=== PATIENT | male | born 1960 | race Caucasian/White ===

== ENCOUNTER 2019-01-20 23:02 | Inpatient (IN) | payer SELFPAY ==
[2019-01-20] MEDS ORDERED: Fentanyl 100 MCG/2 ML VIAL ONE (23:04)
[2019-01-20] MEDS ORDERED: Norepinephrine 8 MG/0.9% NS 250 ML ONE (23:04)
[2019-01-20] MEDS ORDERED: fentaNYL Citrate/PF 2,000 MCG in Sodium Chloride 0.9% 60 ML IV SCH (23:08)
[2019-01-20 23:21] LABS: Actual Bicarbonate (HCO3a) 24.7 mEq/L (22-28); Analyzer IN Cardio ER; Base Excess (BEa) 1.8 mEq/L (-2.0 to +3.0); CO2 Tension 31.6 mmHg (35.0-45.0); Calcium, Ionized 1.06 mmol/L (1.12-1.30); Carboxyhemoglobin (COHb) 0.6 gm% (0.0-3.0); Hemoglobin (Hb) 8.4 g/dL (14.0-18.0); O2 Tension (PaO2) 88.6 mmHg (> 80.0); Potassium - ABG Lab 3.67 mmol/L (3.70-5.30); pH, Arterial 7.51 (7.35-7.45)
[2019-01-20 23:24] LABS: Puncture Site RRA
--- NOTE | 2019-01-20 23:53 | PDOC.FPRHP ---
- History of Present Illness Chief Complaint: Cough / Congestion x 1 month per mother History of Present Illness: Mr. Worthy is a 58yo M who arrived to [facility] via transfer from [place] intubated, sedated, and on Levophed drip. The story per mother ([phone]) is that he has been sick with a cold that has been worsening over the last month. He was diagnosed today with pneumonia at [facility] and they recommended he go to the ER. He went to [facility] ER with shortness of breath and cough. Per the ER records he decompensated, requiring intubation and a chest tube for an empyema diagnosed on CT scan. The chest tube has drained ~500 mL of purulent fluid. Per his mother he does not regularly see a physician. ED Course: In [place] he received Vanc & Zosyn and 4L of fluids (2 NS and 2 LR), propofol, ketamine, - Allergies/Adverse Reactions Allergies Allergy/AdvReac Type Severity Reaction Status Date / Time No Allergy Information Allergy Unverified 01/20/19 23:08 Available - History PMHx: per mother: he likely has COPD unknown PSHx: Cyst removed from back otherwise unknown FHx: unknown Social: Smokes 1 PPD - Review of Systems ROS unobtainable: due to endotracheal tube (sedated and intubated) - Vital signs BP: [] HR: [] RR: [] Tmax: [] Pox: []% on [] Wt: [] - Physical Exam HEENT: normocephalic and atraumatic, PERRLA, EOMI, conjunctiva clear, normal nasal mucosa, MMM Neck: supple, trachea midline Heart: RRR, normal S1/S2, no murmurs/rubs/gallops Lungs: good air movement -Lungs: On ventilator. Coarse breath sounds bilaterally with rhonchi and rales. Abdomen: soft, bowel sounds present Musculoskeletal: normal structure, normal tone Skin: no rash/lesions, good turgor Heme/Lymphatic: no unusual bruising or bleeding, no purpura, no petechia FMR H&P: Results - Labs Result Diagrams: 01/21/19 05:40 01/21/19 05:40 Lab results: ABG pH 7.51 (7.35-7.45) H 01/20/19 23:15 ABG pCO2 31.6 mmHg (35.0-45.0) L 01/20/19 23:15 ABG pO2 88.6 mmHg (> 80.0) H 01/20/19 23:15 - Radiology Interpretation CT scan - chest Status: report reviewed by me (Report from [place] reviewed: Significan empyema present. See scanned report for full details.) FMR H&P: A/P - Problem List (1) Septic shock Current Visit: Yes Status: Acute Code(s): A41.9 - SEPSIS, UNSPECIFIED ORGANISM; R65.21 - SEVERE SEPSIS WITH SEPTIC SHOCK (2) Empyema Current Visit: Yes Status: Acute Code(s): J86.9 - PYOTHORAX WITHOUT FISTULA (3) Acute hypoxemic respiratory failure Current Visit: Yes Status: Acute Code(s): J96.01 - ACUTE RESPIRATORY FAILURE WITH HYPOXIA - Plan Septic shock 2/2 pneumonia / empyema - mother reports 1 month of symptoms of malaise, cough, and congestion - he went to ED today, was noted to be short of breath, decompensated and was intubated. - CT scan shows large empyema. A chest tube was placed which is draining purulent fluid. - He has received 4L IV fluids prior to arrival to [facility], will continue NS @ 125mL/hour - Lactic acid trended up in [place], will trend. - Vanc and Zosyn (01/20) - Wean ventilator as tolerated. Disposition/LOS: Dispo: Stable Code: Full MPOA: Mother [phone] VTE: Lovenox / SCDs FMR H&P: Upper Level - Plan Date/Time: 01/20/19 1982 PCP: CC HPI: This is a 58 yo M transferred from [facility] with little history. He presented to the clinic this afternoon with shortness of breath and was sent to the ED. Eventually he ended up intubated and with a chest tube with 500ml pus drained and was transferred to [facility]. History was gathered by calling his mother at [phone], she states he did not have any chronic medical conditions she knew of but he did smoke 1ppd. She did not know if he took any medications. Apparently he had been short of breath for a month and she finally convinced him to go in to the clinic to be evaluated today. REVIEW OF SYSTEMS: unobtainable, intubated and sedated PHYSICAL EXAMINATION: General: intubated HEENT: pinpoint pupils, reactive Neck: Supple.. Heart/Cardiovascular System: RRR, Cap refill < 3 seconds, no rub, no murmur Lungs/Respiratory System: decreased lung sounds at right base, chest tube in place, otherwise good air movement Abdomen/Gastro-Intestinal System: no abdominal tenderness, normal bowel sounds Extremities: Warm extremities. No cyanosis or edema Neuro: pupils reactive Skin: No lesions, rashes, or ulcers Musculoskeletal: Full ROM A/P: # R hydrothorax, Likley empyema - 500 ml purulent output from chest tube - Blood cx, Body fluid cx pending - Vanc, Zosyn - CT chest shows ground glass bilaterally and R hydrothorax, R PNA - CT abd/pelvis no acute process - Pulm, CV Surgery consulted, appreciate recs # Septic Shock 2/2 above - lactic acid 4.1 -> 5.7 -> 7.5-> 2.6 -> 1.8 - s/p 4L fluids in outside Ed - BPs in low 70s/50s in ED, central line placed and started levophed # Acute hypoxic resp failure 2/2 above - On ventilator, fentanyl for sedation Fluids: LR Code status: full PPx: lovenox Addendum - Attending - Attending Attestation Date/Time: 01/21/19 0731 I personally evaluated the patient and discussed the management with Dr. Gomez on 01/20/2019 I agree with the History, Examination, Assessment and Plan documented above with any addition or exceptions noted below - This is a 58yo M who arrived to [facility] via transfer from [place] intubated, sedated, and on Levophed drip. Per family (mother) he has been sick with a cold that has been worsening over the last month. He was diagnosed today with pneumonia at [facility] and they recommended he go to the ER. He went to [facility] ER with shortness of breath and cough. Per the ER records he decompensated, requiring intubation and a chest tube for an empyema diagnosed on CT scan. The chest tube has drained ~500 mL of purulent fluid. Per family does not have a chronic medical conditions but does not see a physician regularly. PMH/PSH/Meds/SH reviewed and agree with resident's documentation. Tm 101.8 in [place] P107 BP 78/59 98% Exam repeated by me and agree with resident's findings. Labs: WBC=15.4, H/H=8.8/ 27.9, Tik=672, MCV=77.9, Ww=422, K=3.8, Cl=84, CO2=25, BUN/Cr=11/0.74, Gluc= 126 , ALT/AST= 20/11, Lactic acid 4.1 ->5.7 -> 7.1, ABG post intubation - 7.43/40/ 316/26, CT chest - moderate R hydropneumothorax inferiorly, mild lymphadenopathy. A/P: 1) Septic shock secondary to pneumonia/empyema - Admit to CCU. Received 5L crystalloid in [place]. Will start on levophed for pressure support 2) Acute respiratory failure- continue vent support; pulmonary consulted for assistance. 3) Pneumonia/empyema- has drained 500 mL purulent fluid from chest tube. Continue Vanc/Zosyn. Blood, urine cultures collected and sent.
[2019-01-20 23:57] LABS: Hemoglobin 7.7 g/dL (14.0-18.0); Mean Corpuscular HGB CONC 31.3 g/dL (32.0-36.0); Mean Corpuscular Hemoglobin 25.4 pg (27.0-31.0); Mean Platelet Volume 6.3 fL (7.4-10.4); Platelet Count 328 thou/uL (130-400); Red Blood Cell (RBC) Count 3.03 mill/uL (4.70-6.10); White Blood Cell (WBC) Count 15.4 thou/uL (4.8-10.8)
[2019-01-21 00:10] LABS: ALT (SGPT) 14 U/L (8-55); AST (SGOT) 12 U/L (5-34); Albumin 1.6 g/dL (3.5-5.0); Alkaline Phosphatase 93 U/L (40-110); Anion Gap 13 mmol/L (10-20); BUN (Urea Nitrogen) 10 mg/dL (8.4-25.7); Bilirubin, Total 0.4 mg/dL (0.2-1.2); Calc. Creatinine Clearance 0 mL/min (70-130); Calcium 7.1 mg/dL (7.8-10.44); Carbon Dioxide 23 mmol/L (22-29); Chloride 95 mmol/L (98-107); Estimated GFR-MDRD Greater than 90; Globulin 3.5 g/dL (2.4-3.5); Glucose 87 mg/dL (70-105); Potassium 3.5 mmol/L (3.5-5.1); Protein, Total 5.1 g/dL (6.0-8.3); Sodium 127 mmol/L (136-145)
[2019-01-21] MEDS ORDERED: Ondansetron PF 4 MG/2 ML Vial IVP PRN (00:19)
[2019-01-21] MEDS ORDERED: CCU Electrolyte Replacement 1 EACH IVPB ONE (00:19)
[2019-01-21] MEDS ORDERED: Norepinephrine 8 MG/0.9% NS 250 ML IVPB PRN (00:19)
[2019-01-21 00:22] LABS: Band 24 % (5-11); Lymphocytes 11 % (21-51); MDiff Complete? YES; Monocytes 3 % (0-10); Neutrophil 62 % (42-75); Toxic Granulation SLIGHT; Vacuoles SLIGHT
[2019-01-21] MEDS ORDERED: Ventilator Sedation Protocol 1 EACH FS SCH (00:30)
[2019-01-21] MEDS ORDERED: Potassium Phosphate 12 MMOL in Sodium Chloride 0.9% 250 ML 250 ML IV PRN (00:33)
[2019-01-21] MEDS ORDERED: Magnesium Oxide 400 MG TAB PO PRN ×2 (00:33)
[2019-01-21] MEDS ORDERED: Magnesium 2 GM/50 ML 2 GM in Premix Bag 1 BAG IVPB PRN (00:33)
[2019-01-21] MEDS ORDERED: CCU ELECTROLYTE REPLACEMENT PROTOCOL FS PRN (00:33)
[2019-01-21] MEDS ORDERED: Potassium Chloride 40 MEQ in Sodium Chloride 0.9% 250 ML 250 ML IVPB PRN (00:33)
[2019-01-21] MEDS ORDERED: Fentanyl BOLUS 250 ML IVPB PRN (00:33)
[2019-01-21] MEDS ORDERED: DISCONTINUE PREVIOUS NARCOTIC PAIN MEDICATIONS AND BENZODIAZEPINES FS SCH (00:33)
[2019-01-21] MEDS ORDERED: Morphine 2 MG/ML SYRINGE SLOW IVP PRN (00:33)
[2019-01-21] MEDS ORDERED: Potassium Phosphate 15 MMOL in Sodium Chloride 0.9% 250 ML 250 ML IV PRN (00:33)
[2019-01-21] MEDS ORDERED: Potassium Chloride 20 MEQ TAB PO PRN (00:33)
[2019-01-21] MEDS ORDERED: Potassium Phosphate 9 MMOL in Sodium Chloride 0.9% 100 ML IVPB PRN (00:33)
[2019-01-21] MEDS ORDERED: PHOS-NAK 1 PKT PACK PO PRN ×2 (00:33)
[2019-01-21] MEDS ORDERED: Propofol BOLUS 1,000 MG/100 ML VIAL IV PRN (00:33)
[2019-01-21] MEDS ORDERED: Lorazepam 2 MG/ML VIAL ONE (00:34)
[2019-01-21] MEDS ORDERED: Lactated Ringer's 1,000 ML IV SCH ×2 (00:45→03:30)
[2019-01-21 02:46] LABS: Lactic Acid 1.8 mmol/L (0.5-2.2)
[2019-01-21] MEDS: Piperacillin/Tazobactam 3.375 GM in Sodium Chloride 0.9% 100 ML IVPB SCH ×4 (02:50→21:02)
[2019-01-21] MEDS: Lactated Ringer's 1,000 ML IV SCH ×2 (03:34→14:43)
--- NOTE | 2019-01-21 03:36 | CON ---
DATE OF CONSULTATION: 01/21/2019 SERVICE: Pulmonary Medicine. REASON FOR CONSULT: Intubated patient. HISTORY OF PRESENT ILLNESS: The patient is a 58-year-old white male with past medical history significant for progressive cough, shortness of breath. It has been progressive over a period of about a month. Ultimately, he was transferred to [facility]. At that location, he had severe dyspnea and septic shock. He was appropriately resuscitated, and a chest tube was placed. His airway was secured. He was subsequently sent here intubated. He has been on appropriate antibiotics. The patient remains a little bit hypotensive. Fluid resuscitation has been more than adequate at this point. He cannot provide any additional elements of the history, but currently appears comfortable. PAST MEDICAL HISTORY: Unknown. PAST SURGICAL HISTORY: Unknown. SOCIAL HISTORY: Unknown. FAMILY HISTORY: Unknown. ALLERGIES: NONE KNOWN. MEDICATIONS: List of his inpatient medications was reviewed. No specific updates were made at this time. REVIEW OF SYSTEMS: The patient cannot provide review of systems given his current intubated and sedated state. PHYSICAL EXAMINATION: VITAL SIGNS: Afebrile currently. Pulse 87, blood pressure 94/62, respirations 18, and saturation 100%, currently on 27% FiO2 and a PEEP of 5. GENERAL: The patient is intubated and sedated. HEENT: Normocephalic and atraumatic. Sclerae white. Conjunctivae pink. Oral mucosa is moist without lesions. LUNGS: Very good air entry. Rhonchi are present, particularly on the right. HEART: Normal rate. Regular. ABDOMEN: Soft, nontender, and nondistended. Bowel sounds are hypoactive. GENITOURINARY: Hernandez catheter in place. MUSCULOSKELETAL: No cyanosis or clubbing. There is no pitting edema. There is skin tenting throughout. NEUROLOGIC: Grossly nonfocal. LABORATORY DATA: WBC 15.4, hemoglobin 7.7, platelets 328,000. Neutrophil count is 62% on top of 24% bands. PH 7.51, pCO2 of 31, PO2 of 88, corresponding to saturation 95%. At this time, his rate was at 22, which has been downward adjusted. Sodium 127. Basic metabolic profile and liver function studies are otherwise unremarkable. Lactate has trended downward to 1.8. Albumin 1.6. IMAGING DATA: Chest x-ray demonstrates thoracostomy tube is in the pleural space. That being said, there has not been re-expansion of the right lower lobe. There is an IJ central venous catheter in good position. Dense infiltrate remains in the right lower lobe. It is not clear to me whether this represents infiltrate or collection of fluid. There is an enteric catheter coursing below the level of the diaphragm in good position. Endotracheal tube measures 4 cm above the level of the erick. It is also in good position. ASSESSMENT: 1. Acute hypoxic respiratory failure. 2. Empyema. 3. Septic shock, improving. DISCUSSION AND PLAN: I will transduce a CVP. If this is low, additional boluses of fluid will be offered. We will continue to follow electrolytes and CBC through time. Ultimately, I do think that the patient is going to require definitive drainage of this space. Cardiothoracic Surgery consultation will be placed. Once he cools off from his inflammatory profile, a thoracotomy may need to be considered. Antibiotics are appropriate. Most likely, we will be able to get rid of the vancomycin, though regardless of whether or not we grow anaerobic organisms, these should certainly be covered given the putrid smell of the material coming out of his chest. Pulmonary/Critical Care will continue to follow along. CRITICAL CARE TIME: 30 minutes. Job ID: [id number]
[2019-01-21] MEDS ORDERED: Vancomycin 1.5 GRAM/300 ML BAG 1.5 GM in Premix Bag 1 BAG IVPB SCH (04:00)
[2019-01-21] MEDS ORDERED: Clindamycin/D5W 600 MG in Premix Bag 1 BAG IVPB SCH (06:00)
[2019-01-21 06:03] LABS: Hemoglobin 6.5 g/dL (14.0-18.0); Mean Corpuscular HGB CONC 31.3 g/dL (32.0-36.0); Mean Corpuscular Hemoglobin 25.4 pg (27.0-31.0); Mean Corpuscular Volume 81.4 fL (78.0-98.0); Mean Platelet Volume 6.2 fL (7.4-10.4); Platelet Count 278 thou/uL (130-400); RBC Distribution Width 15.1 % (11.5-14.5); Red Blood Cell (RBC) Count 2.54 mill/uL (4.70-6.10); White Blood Cell (WBC) Count 15.1 thou/uL (4.8-10.8)
[2019-01-21 06:32] LABS: Anion Gap 4 mmol/L (10-20); BUN (Urea Nitrogen) 8 mg/dL (8.4-25.7); Calc. Creatinine Clearance 149 mL/min (70-130); Calcium 6.7 mg/dL (7.8-10.44); Carbon Dioxide 28 mmol/L (22-29); Chloride 102 mmol/L (98-107); Estimated GFR-MDRD Greater than 90; Glucose 84 mg/dL (70-105); Potassium 3.3 mmol/L (3.5-5.1); Sodium 131 mmol/L (136-145)
[2019-01-21] MEDS ORDERED: Sodium Chloride 0.9% 2,000 ML IV SCH (07:00)
--- NOTE | 2019-01-21 08:03 | PDOC.FM ---
- Subjective Subjective: Mr. Worthy is intubated, sedated. Did not respond to painful stimuli for me this morning. - Objective MAR Reviewed: Yes Vital Signs & Weight: Vital Signs (12 hours) Temp Pulse Resp BP Pulse Ox 01/21/19 06:55 87 106/60 01/21/19 06:00 19 01/21/19 04:00 98.6 F 19 01/21/19 02:33 87 94/62 01/21/19 02:00 18 01/21/19 01:29 97 97/58 L 01/21/19 01:28 96 01/21/19 01:20 98.4 F Weight Weight 76.2 kg Most Recent Monitor Data Heart Rate from ECG 89 NIBP 109/67 NIBP BP-Mean 81 Respiration from ECG 17 SpO2 96 I&O: 01/20/19 01/21/19 01/22/19 06:59 06:59 06:59 Intake Total 2336 Output Total 745 160 Balance 1591 -160 Result Diagrams: 01/22/19 03:03 01/22/19 03:03 Phys Exam - Physical Examination intubated Respiratory: no wheezing, no rhonchi chest tube in place Cardiovascular: RRR, no significant murmur Gastrointestinal: soft, no distention, positive bowel sounds Musculoskeletal: edema present (2+ BLE pitting) intubated, sedated Skin: normal turgor Dx/Plan (1) Anemia Code(s): D64.9 - ANEMIA, UNSPECIFIED Status: Acute (2) Hypokalemia Code(s): E87.6 - HYPOKALEMIA Status: Acute (3) Acute hypoxemic respiratory failure Code(s): J96.01 - ACUTE RESPIRATORY FAILURE WITH HYPOXIA Status: Acute (4) Empyema Code(s): J86.9 - PYOTHORAX WITHOUT FISTULA Status: Acute (5) Septic shock Code(s): A41.9 - SEPSIS, UNSPECIFIED ORGANISM; R65.21 - SEVERE SEPSIS WITH SEPTIC SHOCK Status: Acute - Plan Plan: Septic shock 2/2 pneumonia / empyema - 1 month of symptoms of malaise, cough, and congestion - CT scan shows R hydrothorax, ground glass bilaterally, purulent fluid drained , chest tube placed - lactid acid downtrended, leukocytosis downtrended slightly 15.4->15.1 - s/p adequate fluid resuscitation. On levophed - IVF LR @75, good urine output - Continue Zosyn (01/20), discontinued Vanc as MRSA not likely organism. Cultures pending - CV surgery consulted Acute Hypoxic Respiratory failure 2/2 above - Intubated 01/20, sedated - Pulm consulted, managing vent Normocytic Anemia - Hgb downtrended 7.7->6.5 - 1 u prbc already ordered for this am - will continue to trend, no GI loss suspected Hypokalemia - mild, 3.3 this am. CCU electrolyte protocol for replacement - recheck in am Hyponatremia - Improved to 131 this am, rech on am BMP Code: Full Contact: Mother [phone] Dispo: CV surgery consulted, pending recommendations. Transfusing 1 u prbc, will follow H&H. Continue abx therapy with Zosyn Addendum - Attending - Attending Attestation Date/Time: 01/21/19 1725 I personally evaluated the patient and discussed the management with Dr. Urbano I agree with the History, Examination, Assessment and Plan documented above with any addition or exceptions noted below. HD#0 Admitted for septic shock due to empyema s/p chest tube Remains intubated, sedated, and on pressors. CT surg to take to OR this AM. Send fluid studies. Continue empiric antibx. Low risk for MRSA. Trend procal/CRP if elevated. Monitor closely. Adjust home meds as needed. Continue ICU care. Turner
--- NOTE | 2019-01-21 08:22 | RAD ---
CHEST 1 VIEW: INDICATION: Status post intubation. COMPARISON: Prior exam dated 01/20/2019. FINDINGS: Since the comparison examination, there has been interval placement of a right-sided thoracostomy tub e. There is a right IJ central venous catheter. The patient is intubated with a gastric catheter pl acement. There is vascular congestion of the right perihilar region. There is a loculated fluid and gas collection within the right hemithorax suspicious for hydropneumothorax. There is a small left pleural effusion now present. There is left basilar airspace opacity which may reflect aspiration, p neumonia, or atelectasis. IMPRESSION: 1. Persistent right-sided hydropneumothorax with a right-sided thoracostomy tube. 2. Endotracheal tube, gastric catheter, and right internal jugular central venous catheter. 3. Pulmonary vascular congestion of the right hemithorax. 4. Left infrahilar airspace opacity suspicious for atelectasis, pneumonitis, or pneumonia. Continue d followup is recommended. 5. New small left pleural effusion. POS: BH
[2019-01-21] MEDS: Potassium Chloride 40 MEQ in Premix Bag 1 BAG IVPB SCH ×2 (08:41→14:37)
[2019-01-21] MEDS ORDERED: Enoxaparin Sodium 40 MG/0.4 ML SYRINGE SC SCH ×2 (09:00→11:30)
[2019-01-21] MEDS ORDERED: Vancomycin HCl 1.5 GM in Sodium Chloride 0.9% 250 ML 300 ML IVPB SCH (09:00)
[2019-01-21] MEDS ORDERED: Sodium Chloride 0.9% (PF) 10 ML VIAL FS PRN (09:59)
[2019-01-21] MEDS ORDERED: Rocuronium Bromide 10 MG/ML (10ML VIAL) ONE (09:59)
--- NOTE | 2019-01-21 10:51 | CON ---
DATE OF CONSULTATION: 01/21/2019 HISTORY OF PRESENT ILLNESS: Mr. Worthy was admitted on transfer from the [facility]. He was seen there with progressive shortness of breath and cough over the course of a month. He was found to have a large right effusion. He had chest tube placed with foul drainage. Chest x-ray this morning shows a large space under his right lower lobe with some consolidation of the right lower lobe. The chest tube has continued to drain. He is intubated, sedated on the ventilator. I have been asked to see him to provide guidance on further therapy. PAST MEDICAL HISTORY: Unknown. PAST SURGICAL HISTORY: Unknown. SOCIAL HISTORY: Unknown. MEDICATIONS: Unknown. ALLERGIES: UNKNOWN. PHYSICAL EXAMINATION: GENERAL: The patient is sedated on the ventilator. VITAL SIGNS: Heart rate is 80 and regular, blood pressure is 97/56, and oxygen saturation is 100%. LUNGS: Have clear breath sounds on the left with crackles on the right. ABDOMEN: Soft and nontender. EXTREMITIES: No edema. ASSESSMENT AND PLAN: Right empyema with failure to re-expand the right lower lobe. This has been a long course and will need complete decortication. We will plan for thoracotomy later today. Job ID: [id number]
[2019-01-21] MEDS ORDERED: Ketamine 50 MG/ML (10ML VIAL) ONE (11:12)
--- NOTE | 2019-01-21 14:03 | RAD ---
EXAM: Single view of the chest HISTORY: Status post right thoracotomy COMPARISON: 01/21/2019 at 12:35 AM FINDINGS: Single view of the chest shows an enlarged but stable cardiomediastinal silhouette. The NG tube has been removed. 2 right-sided chest tubes are now seen and postsurgical changes are seen overlying the right thorax. The other lines and tubes are unchanged in position. No pneumothorax is visualized. Airspace opacity in the right thorax likely represents loculated pleural effusion and/or atelectasis. The bones are unremarkable. IMPRESSION: Interval post surgical changes of the right thorax as above.
[2019-01-21] MEDS: Pantoprazole 40 MG VIAL IVP SCH (14:35)
[2019-01-21] MEDS ORDERED: Heparin 1,000 UNITS/ML VIAL ONE (14:58)
--- NOTE | 2019-01-21 19:06 | OP ---
DATE OF PROCEDURE: 01/21/2019 PREOPERATIVE DIAGNOSIS: Right empyema. POSTOPERATIVE DIAGNOSIS: Right empyema. PROCEDURE PERFORMED: Right thoracotomy with total pulmonary decortication. ANESTHESIA: General endotracheal, Dr. Nagi Patel. DRAINS: A 32-Moldovan chest tubes x2. SPECIMENS: Cultures were taken of the pleural fluid. FINDINGS: Thick peel both parietal and parenchymal. The lung was completely freed and expanded to fill most of the remaining cavity. DESCRIPTION OF PROCEDURE: The patient was brought to the operating room, placed in supine position on the operating room table. Endotracheal tube was exchanged for double-lumen tube. The patient was placed in the left lateral decubitus position. Joints were appropriately padded. SCDs were used. Right chest wall was prepped and draped in usual sterile fashion. Posterolateral thoracotomy incision was made. Dissection down to the ribs was obtained with electrocautery. The sixth interspace was entered and rib spread. On entering this cavity, there was purulent material, which was cultured. The peel was removed from both the chest wall and the lung. Multiple air leaks were created in the lung. The lung was re-expanded and filled most of the chest cavity nicely. 32-Moldovan chest tubes were placed, one right angle along the diaphragm and one up to the apex. Chest was then copiously irrigated with 4 L of saline. Ribs were reapproximated with #1 Vicryl. Wounds were closed in layers, and clips were used to close the skin. The double-lumen tube was exchanged for a single-lumen tube, and the patient was transferred back to the intensive care unit in critical condition. Job ID: [id number]
[2019-01-22] MEDS: Piperacillin/Tazobactam 3.375 GM in Sodium Chloride 0.9% 100 ML IVPB SCH ×4 (02:54→21:11)
[2019-01-22] MEDS: Propofol 1,000 MG/100 ML VIAL IV PRN ×3 (02:54→21:11)
[2019-01-22 04:16] LABS: Anion Gap 8 mmol/L (10-20); BUN (Urea Nitrogen) 10 mg/dL (8.4-25.7); Calc. Creatinine Clearance 139 mL/min (70-130); Calcium 7.1 mg/dL (7.8-10.44); Carbon Dioxide 26 mmol/L (22-29); Chloride 106 mmol/L (98-107); Estimated GFR-MDRD Greater than 90; Glucose 95 mg/dL (70-105); Sodium 136 mmol/L (136-145)
[2019-01-22 05:03] LABS: Band 20 % (5-11); Hemoglobin 10.3 g/dL (14.0-18.0); Lymphocytes 3 % (21-51); MDiff Complete? YES; Mean Corpuscular Hemoglobin 27.4 pg (27.0-31.0); Mean Corpuscular Volume 85.7 fL (78.0-98.0); Mean Platelet Volume 6.6 fL (7.4-10.4); Monocytes 3 % (0-10); Neutrophil 74 % (42-75); Platelet Count 253 thou/uL (130-400); RBC Distribution Width 14.9 % (11.5-14.5); Red Blood Cell (RBC) Count 3.76 mill/uL (4.70-6.10); White Blood Cell (WBC) Count 18.9 thou/uL (4.8-10.8)
--- NOTE | 2019-01-22 06:24 | PDOC.FM ---
- Subjective Subjective: Able to follow commands Nods yes if asked if comfortable POD #1 from thoracotomy with empyema debridement - Objective Vital Signs & Weight: Vital Signs (12 hours) Temp Pulse Resp BP Pulse Ox 01/22/19 06:00 18 01/22/19 04:00 99.6 F 22 H 01/22/19 02:12 87 01/22/19 02:00 21 H 01/22/19 00:18 103 H 103/64 01/22/19 00:00 99.4 F 19 01/21/19 22:08 99 108/69 01/21/19 22:00 17 01/21/19 20:00 97.7 F 22 H 97 Weight Admit Weight 76.2 kg Weight 76.2 kg Most Recent Monitor Data Heart Rate from ECG 92 NIBP 107/66 NIBP BP-Mean 79 Respiration from ECG 21 SpO2 98 I&O: 01/20/19 01/21/19 01/22/19 06:59 06:59 06:59 Intake Total 2336 4517.1 Output Total 745 1959 Balance 1591 2558.1 Result Diagrams: 01/22/19 03:03 01/22/19 03:03 Phys Exam - Physical Examination Constitutional: NAD intubated, awke HEENT: moist MMs, sclera anicteric Respiratory: no wheezing, clear to auscultation bilateral Cardiovascular: RRR, no significant murmur right chest tube draining to graivty Gastrointestinal: soft, non-tender Musculoskeletal: no edema Neurological: non-focal Dx/Plan (1) S/P thoracostomy tube placement Code(s): Z93.8 - OTHER ARTIFICIAL OPENING STATUS Status: Acute (2) Acute hypoxemic respiratory failure Code(s): J96.01 - ACUTE RESPIRATORY FAILURE WITH HYPOXIA Status: Acute (3) Anemia Code(s): D64.9 - ANEMIA, UNSPECIFIED Status: Acute (4) Empyema Code(s): J86.9 - PYOTHORAX WITHOUT FISTULA Status: Acute (5) Septic shock Code(s): A41.9 - SEPSIS, UNSPECIFIED ORGANISM; R65.21 - SEVERE SEPSIS WITH SEPTIC SHOCK Status: Acute - Plan Plan: #.Septic shock 2/2 pneumonia / empyema - 1 month of symptoms of malaise, cough, and congestion - CT scan shows R hydrothorax, ground glass bilaterally, purulent fluid drained , chest tube placed - S/P thoracotomy with right empyema decortication - Improving overall: WBC downtrending, afebrile - On levophed gtt with MAPs >65, can consider weaning - Continue Zosyn (01/20), adding on coverage fro gram + rods and chain coverage - CV surgery on board, recs appreciated #.Acute Hypoxic Respiratory failure 2/2 above on mechanical ventilation - Intubated 01/20, sedated - Pulm consulted, managing vent #.Normocytic Anemia - 6.5 on admission - s/p 3 PRBCs, Hb 10 this AM #.Hypokalemia, resolved - Continue CCU electrolyte protocol for replacement #.Hyponatremia, resolved Code: Full Contact: Mother [phone] Dispo: CV surgery and pulm on board, recs appreciated. Sepsis-improved. Continue abx therapy with Zosyn and will add abx for gram + blanca and chain coverage empirically pending culture results. Monitor urine output. Addendum - Attending - Attending Attestation Date/Time: 01/22/19 1111 I personally evaluated the patient and discussed the management with Dr. Mauricio. I agree with the History, Examination, Assessment and Plan documented above with any addition or exceptions noted below. Patient s/p POD1. Continues to produce through his chest tube. Expanding abx coverage for G+cocci. Continue Pulm and CV surg recs. UOP adequate. On Vent but able to respond to command and answer simple questions.
[2019-01-22] MEDS: Lactated Ringer's 1,000 ML IV SCH ×3 (07:27→21:11)
--- NOTE | 2019-01-22 07:31 | RAD ---
CHEST 1 VIEW: Date: 01/22/19 IMPRESSION: Right-sided thoracostomy tube, ET tube, and right IJ central venous catheter stable. There is a new g astric catheter that projects below the left hemidiaphragm beyond the field of view. There is persist ent pleural parenchymal opacity involving the right lung base. Small pockets of suspected residual pn eumothorax remains on the right. Left basilar atelectasis appears stable. IMPRESSION: 1. Slightly reducing right-sided hydropneumothorax. There is persistent opacity in the region of the right middle lobe. There is persistent left basilar atelectasis. 2. Tubes and lines are stable. POS: BH
[2019-01-22] MEDS: Enoxaparin Sodium 40 MG/0.4 ML SYRINGE SC SCH (08:48)
[2019-01-22] MEDS: Pantoprazole 40 MG VIAL IVP SCH (08:48)
[2019-01-22] MEDS ORDERED: Vancomycin HCl 1.25 GM in Sodium Chloride 0.9% 250 ML 300 ML IVPB SCH (09:00)
[2019-01-22] MEDS ORDERED: Vancomycin HCl 1.25 GM in Sodium Chloride 0.9% 250 ML 250 ML IVPB SCH (10:00)
--- NOTE | 2019-01-22 16:30 | PRG ---
DATE OF SERVICE: 01/22/2019 SUBJECTIVE: Keny Worthy remains mechanically ventilated. OBJECTIVE: VITAL SIGNS: Heart rate is 80, respiratory rates in the 20s, blood pressure 100/69. LUNGS: Remarkable for coarse equal breath sounds. HEART: Regular rhythm. ABDOMEN: Soft. LABORATORY DATA: White count 18.9, hemoglobin 10.3, platelets 253. Sodium 136, potassium 4, chloride 106, bicarb 26, BUN 10, creatinine 0.61. A pH 2 days ago 7.51, CO2 of 31, pO2 of 88. There is no blood gas today. Chest radiograph shows haziness in the right base more than the left. IMPRESSION: 1. Status post decortication. 2. Pneumonia. 3. Respiratory failure. Gram stain on the pleural fluid is polymicrobial, which would suggest this was an aspiration pathogen. Given his 1-month decline, probably need to start slowly weaning from mechanical ventilation. It is unclear to me how functional he was prior to this illness. We will continue with current care. CRITICAL CARE TIME: 30 minutes. Job ID: [id number]
[2019-01-22] MEDS: Lorazepam 2 MG/ML VIAL SLOW IVP PRN (18:16)
[2019-01-22] MEDS: Vancomycin 1.5 GRAM/300 ML BAG 1.5 GM in Premix Bag 1 BAG IVPB SCH (21:14)
[2019-01-23] MEDS: Piperacillin/Tazobactam 3.375 GM in Sodium Chloride 0.9% 100 ML IVPB SCH ×4 (04:42→21:10)
[2019-01-23] MEDS: Propofol 1,000 MG/100 ML VIAL IV PRN ×3 (04:43→17:25)
[2019-01-23 05:24] LABS: Anion Gap 8 mmol/L (10-20); BUN (Urea Nitrogen) 13 mg/dL (8.4-25.7); Calc. Creatinine Clearance 144 mL/min (70-130); Calcium 7.1 mg/dL (7.8-10.44); Carbon Dioxide 26 mmol/L (22-29); Chloride 106 mmol/L (98-107); Estimated GFR-MDRD Greater than 90; Glucose 94 mg/dL (70-105); Hemoglobin 9.4 g/dL (14.0-18.0); Mean Corpuscular HGB CONC 31.5 g/dL (32.0-36.0); Mean Corpuscular Hemoglobin 27.2 pg (27.0-31.0); Mean Corpuscular Volume 86.1 fL (78.0-98.0); Mean Platelet Volume 6.5 fL (7.4-10.4); Platelet Count 227 thou/uL (130-400); Potassium 3.6 mmol/L (3.5-5.1); RBC Distribution Width 15.1 % (11.5-14.5); Red Blood Cell (RBC) Count 3.46 mill/uL (4.70-6.10); Sodium 136 mmol/L (136-145); White Blood Cell (WBC) Count 17.4 thou/uL (4.8-10.8)
[2019-01-23 05:25] LABS: Hypochromia SLIGHT = 6-15 cells (100X) (0-5/hpf); Lymphocytes 4 % (21-51); MDiff Complete? YES; Monocytes 3 % (0-10); Neutrophil 93 % (42-75); Platelet Morphology Comment Appears Adequate
[2019-01-23 06:40] LABS: Actual Bicarbonate (HCO3a) 24.2 mEq/L (22-28); Base Excess (BEa) 1.2 mEq/L (-2.0 to +3.0); CO2 Tension 32.4 mmHg (35.0-45.0); Calcium, Ionized 1.09 mmol/L (1.12-1.30); Carboxyhemoglobin (COHb) 1.3 gm% (0.0-3.0); Hemoglobin (Hb) 9.8 g/dL (14.0-18.0); O2 Tension (PaO2) 73.1 mmHg (> 80.0); Potassium - ABG Lab 3.54 mmol/L (3.70-5.30); pH, Arterial 7.49 (7.35-7.45)
--- NOTE | 2019-01-23 06:45 | PDOC.FM ---
- Subjective Subjective: NAEO. Did not pass vent wean. - Objective Vital Signs & Weight: Vital Signs (12 hours) Pulse Resp BP Pulse Ox 01/23/19 02:11 97 111/63 01/23/19 02:00 24 H 01/23/19 00:00 22 H 01/22/19 22:00 24 H 01/22/19 21:52 92 107/61 01/22/19 20:00 24 H 01/22/19 19:30 100 Weight Admit Weight 76.2 kg Weight 77.6 kg Most Recent Monitor Data Heart Rate from ECG 104 NIBP 122/70 NIBP BP-Mean 87 Respiration from ECG 21 SpO2 95 I&O: 01/21/19 01/22/19 01/23/19 06:59 06:59 06:59 Intake Total 2336 5355.3 2833 Output Total 745 2229 1240 Balance 1591 3126.3 1593 Result Diagrams: 01/23/19 03:47 01/23/19 03:47 Phys Exam - Physical Examination sedated, on mech ventilation HEENT: sclera anicteric Respiratory: no wheezing, clear to auscultation bilateral Cardiovascular: RRR, no significant murmur Gastrointestinal: soft 1+ edema in legs sedated Dx/Plan (1) S/P thoracostomy tube placement Code(s): Z93.8 - OTHER ARTIFICIAL OPENING STATUS Status: Acute (2) Acute hypoxemic respiratory failure Code(s): J96.01 - ACUTE RESPIRATORY FAILURE WITH HYPOXIA Status: Acute (3) Anemia Code(s): D64.9 - ANEMIA, UNSPECIFIED Status: Acute (4) Empyema Code(s): J86.9 - PYOTHORAX WITHOUT FISTULA Status: Acute (5) Septic shock Code(s): A41.9 - SEPSIS, UNSPECIFIED ORGANISM; R65.21 - SEVERE SEPSIS WITH SEPTIC SHOCK Status: Acute - Plan Plan: #.Septic shock 2/2 pneumonia / empyema - 1 month of symptoms of malaise, cough, and congestion - CT scan shows R hydrothorax, ground glass bilaterally, purulent fluid drained , chest tube placed - Improving overall: WBC downtrending, afebrile - On levophed gtt with MAPs >65, can consider weaning - Prelim pleural fluid gram stain polymicrobial, likely aspiration- Continue Zosyn (01/20) and Vanc (01/22), pending cx #. S/P Decortication, POD 2 -S/P thoracotomy with right empyema decortication with CV surgery -Right chest tube in place - CV surgery on board, recs appreciated #.Acute Hypoxic Respiratory failure 2/2 above on mechanical ventilation - Intubated 01/20, sedated - Pulm consulted, managing vent #.Normocytic Anemia - 6.5 on admission - s/p 3 PRBCs, Hb 9 this AM #.Hypokalemia, resolved - Continue CCU electrolyte protocol for replacement #.Hyponatremia, resolved Code: Full Contact: Mother [phone] Dispo: CV surgery and pulm on board, recs appreciated. Sepsis-improved. Continue abx therapy with Zosyn and Vanc pendin pleural fluid culture results. Monitor urine output. Lasix x1 since starting to develop edema. Addendum - Attending - Attending Attestation Date/Time: 01/23/19 0900 I personally evaluated the patient and discussed the management with Dr. Mauricio. I agree with the History, Examination, Assessment and Plan documented above with any addition or exceptions noted below. Patient overall stable. Continues on broad spectrum abx treatment for empyema. Chest tube in place and still on ventilator. Pulm and CV surgery on board. Awaiting final cultures but suspect aspiration component. WBC overall stable. UOP adequate.
[2019-01-23 06:51] LABS: Puncture Site RRAD
[2019-01-23] MEDS: Acetaminophen 650 MG Suppository PR PRN ×2 (07:53→21:55)
--- NOTE | 2019-01-23 08:15 | PRG ---
DATE OF SERVICE: 01/23/2019 35 minutes of critical care time. SUBJECTIVE: This patient remains intubated and on mechanical ventilation. He is status post decortication a couple of days ago and was left on the ventilator afterward. OBJECTIVE: VITAL SIGNS: At the current time, temperature is 98.8, pulse 81, blood pressure 122/70. Intake for 24 hours 2833, output 1240. HEENT: Unremarkable. NECK: No adenopathy or JVD. LUNGS: He has diminished breath sounds on the right compared to left. He has a chest tube in the right. CARDIOVASCULAR: S1 and S2. Regular. ABDOMEN: Soft, nontender. EXTREMITIES: No edema. LABORATORY DATA: White blood cell count 17.4, hematocrit 29.8, and platelet count 227. PH of 7.49, pCO2 of 32, pO2 of 73 on SIMV rate 12, tidal volume 470, PEEP 5, pressure support 17, FiO2 40%. Sodium 136, potassium 3.6, chloride 106, CO2 of 26, BUN 13, creatinine 0.6, and glucose 94. IMAGING STUDIES: Chest x-ray shows no acute changes, some volume loss in the right base where the chest tubes are present. The x-ray is somewhat rotated to the right. ASSESSMENT: 1. Status post decortication for right-sided empyema. 2. Pneumonia. 3. Respiratory failure. 4. Polymicrobial pleural fluid Gram stain. PLAN: 1. Work towards weaning from mechanical ventilation. 2. Continue the piperacillin and vancomycin until we have final culture results back. 3. If unable to extubate, then start enteral tube feeds. Job ID: [id number]
[2019-01-23] MEDS ORDERED: Sodium Bicarbonate Tab 325 MG TAB PER TUBE PRN (08:33)
[2019-01-23] MEDS ORDERED: Pancrelipase DR 12000 1 CAP FS PRN (08:33)
[2019-01-23] MEDS: Enoxaparin Sodium 40 MG/0.4 ML SYRINGE SC SCH (09:10)
[2019-01-23] MEDS: Pantoprazole 40 MG VIAL IVP SCH (09:10)
--- NOTE | 2019-01-23 09:12 | RAD ---
CHEST 1 VIEW: INDICATION: Chest tube placement. COMPARISON: Prior exam dated 01/22/2019. FINDINGS: The patient remains intubated with gastric catheter placement. Right IJ central venous catheter is s table. Right-sided thoracostomy tubes are stable. Bilateral pleural effusions persist. The pneumot horax component involving the right pleural collection is slightly less prominent. There is improved aeration in the region of the right middle lobe. Residual opacity remains within this region. Ther e is left basilar atelectasis that persists. IMPRESSION: 1. Improving aeration of the right lung base. Persistent left basilar atelectasis. 2. Slight reduction in the pneumothorax component of the right-sided pleural effusion. Right-sided thoracostomy tubes are unchanged. POS: BH
[2019-01-23] MEDS: Lactated Ringer's 1,000 ML IV SCH (09:14)
[2019-01-23 09:34] LABS: Vancomycin, Trough 14.4 ug/mL
[2019-01-23] MEDS: Vancomycin 1.5 GRAM/300 ML BAG 1.5 GM in Premix Bag 1 BAG IVPB SCH ×2 (09:35→21:10)
[2019-01-23] MEDS ORDERED: Furosemide 20 MG TAB PO SCH (11:00)
[2019-01-23] MEDS: Lorazepam 2 MG/ML VIAL SLOW IVP PRN (21:11)
[2019-01-24] MEDS: Lactated Ringer's 1,000 ML IV SCH (02:52)
[2019-01-24] MEDS: Piperacillin/Tazobactam 3.375 GM in Sodium Chloride 0.9% 100 ML IVPB SCH ×4 (02:54→20:43)
[2019-01-24 04:31] LABS: Band 12 % (5-11); Hemoglobin 8.2 g/dL (14.0-18.0); Lymphocytes 2 % (21-51); MDiff Complete? YES; Mean Corpuscular HGB CONC 31.6 g/dL (32.0-36.0); Mean Corpuscular Hemoglobin 27.4 pg (27.0-31.0); Mean Corpuscular Volume 86.6 fL (78.0-98.0); Mean Platelet Volume 6.1 fL (7.4-10.4); Metamyelocyte 1 % (0-0); Monocytes 3 % (0-10); Neutrophil 82 % (42-75); Platelet Count 143 thou/uL (130-400); Platelet Morphology Comment Appears Adequate; RBC Distribution Width 15.3 % (11.5-14.5); RBC Morphology Normal; Red Blood Cell (RBC) Count 2.97 mill/uL (4.70-6.10); White Blood Cell (WBC) Count 7.3 thou/uL (4.8-10.8)
[2019-01-24 04:38] LABS: Anion Gap 5 mmol/L (10-20); BUN (Urea Nitrogen) 13 mg/dL (8.4-25.7); Calc. Creatinine Clearance 155 mL/min (70-130); Calcium 6.7 mg/dL (7.8-10.44); Carbon Dioxide 30 mmol/L (22-29); Chloride 105 mmol/L (98-107); Estimated GFR-MDRD Greater than 90; Glucose 113 mg/dL (70-105); Potassium 3.4 mmol/L (3.5-5.1); Sodium 137 mmol/L (136-145)
--- NOTE | 2019-01-24 05:29 | PDOC.FM ---
- Subjective Subjective: Patient fevered to 100.4F at 2200 on 01/23. Per nursing, the entire CCU was warm at that time due to AC issues. He was given tylenol and fever came down. No other concerns per nursing. On exam, patient was able to open eyes, respond to commands. Very weak though and unable to move limbs for me this morning. - Objective MAR Reviewed: Yes Vital Signs & Weight: Vital Signs (12 hours) Temp Pulse Resp BP Pulse Ox 01/24/19 04:00 98.7 F 22 H 01/24/19 02:14 84 94/56 L 01/24/19 02:00 22 H 01/24/19 00:00 22 H 01/23/19 22:16 108 H 141/85 H 01/23/19 22:00 100.4 F H 26 H 01/23/19 20:00 30 H 01/23/19 19:30 98 01/23/19 19:00 98.6 F 01/23/19 18:25 100 130/80 01/23/19 18:00 99.7 F H 24 H Weight Admit Weight 76.2 kg Weight 79.6 kg Most Recent Monitor Data Heart Rate from ECG 80 NIBP 96/56 NIBP BP-Mean 69 Respiration from ECG 31 SpO2 97 I&O: 01/22/19 01/23/19 01/24/19 06:59 06:59 06:59 Intake Total 5355.3 2833 2275 Output Total 2229 1240 1727 Balance 3126.3 1593 548 Result Diagrams: 01/24/19 04:09 01/24/19 04:09 Phys Exam - Physical Examination Constitutional: NAD HEENT: moist MMs, sclera anicteric Neck: supple coarse breath sounds throughout; exp wheeze heard right chest tube Cardiovascular: RRR, no significant murmur, no rub Gastrointestinal: soft, non-tender, no distention, positive bowel sounds Musculoskeletal: pulses present trace edema b/l to level of knees Neurological: normal sensation opens eyes to command, unable to move limbs for me, responds to pain Skin: no rash, normal turgor, cap refill <2 seconds Dx/Plan (1) Acute hypoxemic respiratory failure Code(s): J96.01 - ACUTE RESPIRATORY FAILURE WITH HYPOXIA Status: Acute (2) Anemia Code(s): D64.9 - ANEMIA, UNSPECIFIED Status: Acute (3) Empyema Code(s): J86.9 - PYOTHORAX WITHOUT FISTULA Status: Acute (4) Hypokalemia Code(s): E87.6 - HYPOKALEMIA Status: Acute (5) S/P thoracostomy tube placement Code(s): Z93.8 - OTHER ARTIFICIAL OPENING STATUS Status: Acute (6) Septic shock Code(s): A41.9 - SEPSIS, UNSPECIFIED ORGANISM; R65.21 - SEVERE SEPSIS WITH SEPTIC SHOCK Status: Acute - Plan Plan: #Septic shock 2/2 pneumonia / empyema 1 month of symptoms of malaise, cough, and congestion. CT scan shows R hydrothorax, ground glass bilaterally, purulent fluid drained, chest tube placed 01/21. Patient ventilated/sedated. - Improving overall: WBC downtrending. Fever on 01/23 @ 2200 of 100.4F that came down. Tylenol PRN. - Weened off of pressors, BPs stable - Prelim pleural fluid gram stain alpha hemolytic strep- Continue Zosyn (01/20 ) and Vanc (01/22) until sensitivities result #S/P Decortication, POD 3 S/P thoracotomy with right empyema decortication with CV surgery. Right chest tube in place- draining 10ml/hr. - CV surgery on board, recs appreciated #Acute Hypoxic Respiratory failure 2/2 above on mechanical ventilation - Intubated 01/20, sedated. - Vent settings: SIMV mode, FiO2: 40, Peep 5, RR 12 - patient breathing over the vent - Pulm consulted, managing vent. Will wean as tolerated. Unsuccessful wean on due to possible underlying COPD. TF started. #Normocytic Anemia 6.5 on admission. s/p 3 PRBCs on 01/21. - Will continue to monitor. Hgb 8.2 this AM. #Hypokalemia, resolved - Continue CCU electrolyte protocol for replacement #Hyponatremia, resolved Code: Full VTE ppx: Lovenox GI ppx: protonix Lines/tubes: ET tube, pitts, right chest tube, right IJ Consults: CV surg, pulm, PT/OT Contact: Mother [phone] Dispo: CV surgery and pulm on board, recs appreciated. Case Discussed with Dr. Scar. Addendum - Attending - Attending Attestation Date/Time: 01/24/19 1044 I personally evaluated the patient and discussed the management with Dr. Mtz. I agree with the History, Examination, Assessment and Plan documented above with any addition or exceptions noted below.
[2019-01-24] MEDS: Propofol 1,000 MG/100 ML VIAL IV PRN ×4 (05:42→18:12)
[2019-01-24 06:42] LABS: Actual Bicarbonate (HCO3a) 29.3 mEq/L (22-28); CO2 Tension 42.3 mmHg (35.0-45.0); Calcium, Ionized 1.08 mmol/L (1.12-1.30); Carboxyhemoglobin (COHb) 1.2 gm% (0.0-3.0); Potassium - ABG Lab 3.31 mmol/L (3.70-5.30); pH, Arterial 7.46 (7.35-7.45)
[2019-01-24 07:03] LABS: Puncture Site RBRACH
[2019-01-24 07:04] LABS: ALV-art Gradient 161.325 (0-20)
--- NOTE | 2019-01-24 08:06 | RAD ---
CHEST 1 VIEW: INDICATION: Intubation and chest tube placement. COMPARISON: Prior exam dated 01/23/2019. FINDINGS: The costophrenic angles are excluded. Right-sided thoracostomy tubes are unchanged. Right-sided ple ural parenchymal opacity persists. Left-sided pleural effusion persists. Cardiomegaly with pulmonar y vascular congestion persists. IMPRESSION: Likely stable examination from the prior dated 01/23/2019. POS: BH
[2019-01-24] MEDS ORDERED: Furosemide 40 MG/4 ML VIAL SLOW IVP SCH (08:30)
--- NOTE | 2019-01-24 08:59 | PRG ---
DATE OF SERVICE: 01/24/2019 TIME SPENT: Thirty five minutes of critical care time. SUBJECTIVE: This patient remains intubated, sedated and on mechanical ventilation. There has been no acute changes overnight. OBJECTIVE: VITAL SIGNS: Temperature 98.7, pulse 86, blood pressure 112/65, O2 saturation 99%. Intake for 24 hours 3948, output 1815. Weight 176 pounds. GENERAL: He is sedated on propofol. HEENT: Unremarkable. NECK: No adenopathy or JVD. LUNGS: Diminished breath sounds in the right base, clear on the left. CARDIAC: S1, S2. Regular. ABDOMEN: Soft. Nontender. EXTREMITIES: No edema. LABORATORY DATA: White blood cell count 7.3, hematocrit 25.8, and platelet count 143. PH of 7.46, pCO2 of 42, PO2 of 71 on SIMV rate 12, tidal volume 470, PEEP 5, pressure support 14, FiO2 of 40%. Sodium 137, potassium 3.4, chloride 105, CO2 of 30, BUN 13, creatinine 0.5, glucose 113. Chest x-ray demonstrates airspace changes in right lower lobe. Two chest tubes in the right lower lobe. Overall, looks fluid overloaded. ASSESSMENT: 1. Acute respiratory failure requiring mechanical ventilation. 2. Status post right-sided decortication for empyema. 3. Pneumonia. 4. Polymicrobial sepsis. PLAN: 1. The patient has failed spontaneous breathing trial. 2. Continue IV antibiotics. 3. Continue mechanical ventilation at present settings. 4. Need to attempt to diurese the patient some as he has become overtly fluid overloaded. Job ID: [id number]
[2019-01-24] MEDS: Pantoprazole 40 MG VIAL IVP SCH (09:58)
[2019-01-24] MEDS: Enoxaparin Sodium 40 MG/0.4 ML SYRINGE SC SCH (09:58)
[2019-01-24] MEDS: Vancomycin 1.5 GRAM/300 ML BAG 1.5 GM in Premix Bag 1 BAG IVPB SCH ×2 (10:00→21:44)
[2019-01-24 15:30] LABS: Potassium 3.1 mmol/L (3.5-5.1)
[2019-01-24] MEDS: Potassium Chloride 40 MEQ in Premix Bag 1 BAG IVPB PRN (18:13)
[2019-01-24] MEDS: Acetaminophen 650 MG Suppository PR PRN (20:49)
[2019-01-25] MEDS: Propofol 1,000 MG/100 ML VIAL IV PRN ×3 (00:49→13:57)
[2019-01-25] MEDS: Piperacillin/Tazobactam 3.375 GM in Sodium Chloride 0.9% 100 ML IVPB SCH ×4 (02:26→20:41)
[2019-01-25 05:06] LABS: Anion Gap 5 mmol/L (10-20); BUN (Urea Nitrogen) 12 mg/dL (8.4-25.7); Calc. Creatinine Clearance 171 mL/min (70-130); Calcium 6.5 mg/dL (7.8-10.44); Carbon Dioxide 34 mmol/L (22-29); Chloride 102 mmol/L (98-107); Estimated GFR-MDRD Greater than 90; Glucose 118 mg/dL (70-105); Sodium 138 mmol/L (136-145)
[2019-01-25 05:12] LABS: Potassium 2.9 mmol/L (3.5-5.1)
[2019-01-25] MEDS: Potassium Chloride 40 MEQ in Premix Bag 1 BAG IVPB PRN ×2 (05:15→11:20)
[2019-01-25 05:20] LABS: #Lymphocytes 1.1 thou/uL (1.20-3.40); #Monocytes 0.2 thou/uL (0.11-0.59); #Neutrophils 5.3 thou/uL (1.40-6.50); %Eosinophils 0.5 % (0.0-10.0); %Lymphocytes 16.9 % (21.0-51.0); %Monocytes 2.4 % (0.0-10.0); %Neutrophils 80.2 % (42.0-75.0); Band 10 % (5-11); Eosinophils 1 % (0-10); Hemoglobin 8.7 g/dL (14.0-18.0); Lymphocytes 13 % (21-51); MDiff Complete? YES; Mean Corpuscular HGB CONC 30.9 g/dL (32.0-36.0); Mean Corpuscular Hemoglobin 27.3 pg (27.0-31.0); Mean Corpuscular Volume 88.2 fL (78.0-98.0); Monocytes 2 % (0-10); Neutrophil 74 % (42-75); Platelet Count 85 thou/uL (130-400); Platelet Morphology Comment Appears Decreased; RBC Distribution Width 15.5 % (11.5-14.5); RBC Morphology Normal; White Blood Cell (WBC) Count 6.6 thou/uL (4.8-10.8)
--- NOTE | 2019-01-25 05:37 | PDOC.FM ---
- Subjective Subjective: NAEO. Nurse did note that when patient was turned he would rashid down to the 40s then would come back up. Otherwise no concerns. On exam, patient able to open eyes, respond to pain, but unable to move limbs for me. He is still ventilated and sedated. - Objective MAR Reviewed: Yes Vital Signs & Weight: Vital Signs (12 hours) Temp Pulse Resp BP Pulse Ox 01/25/19 04:00 98.8 F 22 H 01/25/19 03:06 69 01/25/19 02:00 22 H 01/25/19 00:00 99.8 F H 32 H 01/24/19 23:10 82 120/74 01/24/19 22:00 38 H 01/24/19 20:00 100.7 F H 22 H 96 01/24/19 18:46 98 01/24/19 18:00 31 H Weight Admit Weight 76.2 kg Weight 79.9 kg Most Recent Monitor Data Heart Rate from ECG 68 NIBP 88/52 NIBP BP-Mean 64 Respiration from ECG 31 SpO2 98 I&O: 01/23/19 01/24/19 01/25/19 06:59 06:59 06:59 Intake Total 2833 3948 3010 Output Total 1240 1812 4060 Balance 1593 2136 -1050 Result Diagrams: 01/25/19 04:30 01/25/19 10:10 Phys Exam - Physical Examination Constitutional: NAD HEENT: moist MMs, sclera anicteric Neck: supple coarse breath sounds heard throughout; exp wheeze heard on right Cardiovascular: RRR, no significant murmur, no rub Gastrointestinal: soft, non-tender, no distention, positive bowel sounds Musculoskeletal: pulses present trace edema b/l LE to level of ankles opens eyes to command, responds to pain Skin: no rash, normal turgor, cap refill <2 seconds Dx/Plan (1) Acute hypoxemic respiratory failure Code(s): J96.01 - ACUTE RESPIRATORY FAILURE WITH HYPOXIA Status: Acute (2) Anemia Code(s): D64.9 - ANEMIA, UNSPECIFIED Status: Acute (3) Empyema Code(s): J86.9 - PYOTHORAX WITHOUT FISTULA Status: Acute (4) Hypokalemia Code(s): E87.6 - HYPOKALEMIA Status: Acute (5) S/P thoracostomy tube placement Code(s): Z93.8 - OTHER ARTIFICIAL OPENING STATUS Status: Acute (6) Septic shock Code(s): A41.9 - SEPSIS, UNSPECIFIED ORGANISM; R65.21 - SEVERE SEPSIS WITH SEPTIC SHOCK Status: Acute - Plan Plan: #Septic shock 2/2 pneumonia / empyema 1 month of symptoms of malaise, cough, and congestion. CT scan shows R hydrothorax, ground glass bilaterally, purulent fluid drained, chest tube placed 01/21. Patient ventilated/sedated. - s/p lung decortication, POD 4. s/p thoracotomy with right empyema decortication with CV surgery. Right chest tube in place- draining 10ml/hr. CV surgery on board, appreciate recs. - Improving overall: WBC downtrending. Fever on 01/23 @ 2200 of 100.4F and again on 01/24 @ 2000 to 100.7F. Tylenol PRN. Can consider re-culturing patient. - Weened off of pressors, BPs stable. Goal to keep MAP > 60. - Prelim pleural fluid gram stain - strep parasanguinis and anaerobes - Continue Zosyn (01/20) and Vanc (01/22) until all sensitivities result. #Acute Hypoxic Respiratory failure 2/2 above on mechanical ventilation - Intubated 01/20, sedated. - Vent settings: SIMV mode, FiO2: 40, Peep 5. ABG on 01/24: pH 7.46, bicarb 42.3 , O2 71, base excess 5 - Pulm consulted, managing vent. Will wean as tolerated. Unsuccessful wean on due to possible underlying COPD. Patient failed spontaneous breathing trial on 01/24. TF initiated. #Normocytic Anemia 6.5 on admission. s/p 3 PRBCs on 01/21. - Will continue to monitor. Hgb 8.7 this AM. #Electrolyte abnormalities - CCU electrolyte protocol for replacement. - Patient with K of 2.9 this AM. Likey due to lasix given yesterday. Will continue to monitor all electrolytes and replace as needed. Code: Full VTE ppx: Lovenox GI ppx: protonix Lines/tubes: ET tube, pitts, right chest tube, right IJ Consults: CV surg, pulm, PT/OT Contact: Mother [phone] Dispo: CV surgery and pulm on board, recs appreciated. Case Discussed with Dr. Roman. Addendum - Attending - Attending Attestation Date/Time: 01/25/19 5126 I personally evaluated the patient and discussed the management with Dr. Mtz. I agree with the History, Examination, Assessment and Plan documented above with any addition or exceptions noted below. Strep and anaerobic, can likely deescalate antibiotics. Unsuccessful wean today. CT per CTSx.
[2019-01-25 06:51] LABS: Actual Bicarbonate (HCO3a) 31.1 mEq/L (22-28); Base Excess (BEa) 6.5 mEq/L (-2.0 to +3.0); CO2 Tension 45.5 mmHg (35.0-45.0); Calcium, Ionized 1.05 mmol/L (1.12-1.30); Carboxyhemoglobin (COHb) 0.9 gm% (0.0-3.0); Hemoglobin (Hb) 8.9 g/dL (14.0-18.0); O2 Tension (PaO2) 77.8 mmHg (> 80.0); pH, Arterial 7.45 (7.35-7.45)
[2019-01-25 07:02] LABS: ALV-art Gradient 150.525 (0-20); Puncture Site RBRACH
--- NOTE | 2019-01-25 08:09 | RAD ---
CHEST 1 VIEW: INDICATION: Chest tube, intubation. COMPARISON: Prior exam dated 01/24/2019. FINDINGS: Cardiomegaly with pulmonary vascular congestion persists. Right-sided thoracostomy tubes, right inte rnal jugular central venous catheter, endotracheal tube, and gastric catheter are unchanged. Bilater al pleural effusions appear slightly more pronounced. No pneumothorax is evident. Osseous structure s are unchanged. IMPRESSION: Slightly worsening central edema pattern and bilateral pleural effusions. No pneumothorax. Tubes an d lines are stable. POS: BH
[2019-01-25] MEDS: Enoxaparin Sodium 40 MG/0.4 ML SYRINGE SC SCH (08:40)
--- NOTE | 2019-01-25 09:18 | PRG ---
DATE OF SERVICE: 01/25/2019 35 minutes critical time. SUBJECTIVE: The patient remains intubated on mechanical ventilation. I tried him on spontaneous breathing trial. Again, he is still extremely weak. He cannot pull much in the way of tidal volume spontaneously. OBJECTIVE: VITAL SIGNS: Temperature is 97, pulse 63, blood pressure 94/59, O2 saturation 99%. Intake 3524, output 4010. HEENT: Unremarkable. NECK: No adenopathy or JVD. LUNGS: Diminished breath sounds in the bases. CARDIAC: S1, S2. Regular. ABDOMEN: Soft and nontender. EXTREMITIES: No edema. LABORATORY DATA: PH 7.45, pCO2 of 45, and pO2 of 77, SIMV rate 12, tidal volume 470, PEEP 5, pressure 14, and FiO2 of 40%. White blood cell count 6.6, hematocrit 28.2, and platelet count 85. Sodium 138, potassium 2.9, chloride 102, CO2 of 34, BUN 12, creatinine 0.5, glucose 118. ASSESSMENT: 1. Acute respiratory failure requiring mechanical ventilation. 2. Status post evacuation of right-sided empyema. 3. Pneumonia. 4. Polymicrobial sepsis. 5. Developing thrombocytopenia. PLAN: 1. I will go ahead and hold enoxaparin. We will have to trend his platelet count. If it is still decreasing, may have to consider changing the Zosyn as penicillin antibiotics can be associated with thrombocytopenia. 2. Not weanable at this time. 3. Replace potassium. Recheck level this afternoon. Hold diuresis for today. Job ID: [id number]
[2019-01-25] MEDS: Vancomycin 1.5 GRAM/300 ML BAG 1.5 GM in Premix Bag 1 BAG IVPB SCH (09:51)
[2019-01-25] MEDS: Pantoprazole 40 MG VIAL IVP SCH (09:52)
[2019-01-25 10:37] LABS: Potassium 3.5 mmol/L (3.5-5.1)
[2019-01-25 10:45] LABS: Vancomycin, Trough 11.2 ug/mL
[2019-01-25 21:24] LABS: Vancomycin, Trough 14.1 ug/mL
[2019-01-25] MEDS ORDERED: Vancomycin 1.5 GRAM/300 ML BAG 1.5 GM in Premix Bag 1 BAG IVPB SCH (22:00)
[2019-01-26] MEDS: Propofol 1,000 MG/100 ML VIAL IV PRN ×4 (02:45→17:56)
[2019-01-26] MEDS: Piperacillin/Tazobactam 3.375 GM in Sodium Chloride 0.9% 100 ML IVPB SCH ×2 (02:45→09:03)
[2019-01-26 05:32] LABS: #Eosinphils 0.1 thou/uL (0.0-0.7); #Monocytes 0.2 thou/uL (0.11-0.59); #Neutrophils 4.8 thou/uL (1.40-6.50); %Basophils 0.4 % (0.0-1.0); %Eosinophils 1.3 % (0.0-10.0); %Lymphocytes 15.6 % (21.0-51.0); %Monocytes 3.6 % (0.0-10.0); %Neutrophils 79.2 % (42.0-75.0); Hemoglobin 8.8 g/dL (14.0-18.0); Mean Corpuscular HGB CONC 31.1 g/dL (32.0-36.0); Mean Corpuscular Hemoglobin 27.1 pg (27.0-31.0); Mean Corpuscular Volume 87.3 fL (78.0-98.0); Mean Platelet Volume 7.6 fL (7.4-10.4); Platelet Count 61 thou/uL (130-400); RBC Distribution Width 15.4 % (11.5-14.5); Red Blood Cell (RBC) Count 3.23 mill/uL (4.70-6.10); White Blood Cell (WBC) Count 6.1 thou/uL (4.8-10.8)
[2019-01-26 05:51] LABS: Anion Gap 4 mmol/L (10-20); BUN (Urea Nitrogen) 10 mg/dL (8.4-25.7); Calc. Creatinine Clearance 184 mL/min (70-130); Calcium 6.7 mg/dL (7.8-10.44); Carbon Dioxide 35 mmol/L (22-29); Chloride 102 mmol/L (98-107); Estimated GFR-MDRD Greater than 90; Glucose 107 mg/dL (70-105); Potassium 3.2 mmol/L (3.5-5.1); Sodium 138 mmol/L (136-145)
[2019-01-26 05:52] LABS: Actual Bicarbonate (HCO3a) 27.8 mEq/L (22-28); Analyzer IN Cardio ER; Base Excess (BEa) 4.7 mEq/L (-2.0 to +3.0); CO2 Tension 35.4 mmHg (35.0-45.0); Calcium, Ionized 1.09 mmol/L (1.12-1.30); Carboxyhemoglobin (COHb) 0.3 gm% (0.0-3.0); Hemoglobin (Hb) 9.3 g/dL (14.0-18.0); O2 Tension (PaO2) 76.3 mmHg (> 80.0); Potassium - ABG Lab 3.35 mmol/L (3.70-5.30); pH, Arterial 7.51 (7.35-7.45)
[2019-01-26 05:54] LABS: Puncture Site RBA
--- NOTE | 2019-01-26 06:19 | PDOC.FM ---
Addendum entered and electronically signed by Eva Woo MD 01/27/19 05:48 : Should read Omnicef and Flagyl in A&P Original Note: - Subjective Subjective: No events overnight. Intubated and sedated. Able to open eyes to voice. - Objective MAR Reviewed: Yes Vital Signs & Weight: Vital Signs (12 hours) Temp Pulse Resp BP Pulse Ox 01/26/19 04:00 98.7 F 20 01/26/19 03:25 71 01/26/19 02:00 25 H 01/26/19 00:00 99.5 F 28 H 01/25/19 23:21 69 110/62 01/25/19 22:00 24 H 01/25/19 20:00 98.6 F 20 98 01/25/19 18:52 71 Weight Admit Weight 76.2 kg Weight 79.6 kg Most Recent Monitor Data Heart Rate from ECG 74 NIBP 108/65 NIBP BP-Mean 79 Respiration from ECG 28 SpO2 100 I&O: 01/24/19 01/25/19 01/26/19 06:59 06:59 06:59 Intake Total 3948 3524 2512 Output Total 1812 4110 1575 Balance 2136 587 937 Result Diagrams: 01/27/19 03:50 01/27/19 03:50 Phys Exam - Physical Examination Intubated and sedated. Opens eyes to voice HEENT: PERRLA Coarse breath sounds. Chest tube right chest draining serosanginous fluid Cardiovascular: RRR, no significant murmur Gastrointestinal: soft Pitting edema bilateral LE. UE edema Skin: cap refill <2 seconds Dx/Plan - Plan Plan: Septic shock 2/2 PNA/empyema - CT: R hydrothorax, ground glass bilaterally, purulent fluid drained, chest tube placed 01/21. Patient ventilated/sedated. - s/p lung decortication, POD 5. s/p thoracotomy with right empyema decortication with CV surgery. Right chest tube in place- draining 10ml/hr. CV surgery on board, appreciate recs. - Improving overall: WBC downtrending. No fever since 01/24. Tylenol PRN. - Prelim pleural fluid gram stain - strep parasanguinis and anaerobes intermediate to Penicillin and Ampicillin - Antibiotics adjusted to PO Omnicef and Zosyn via NG Acute Hypoxic Respiratory failure 2/2 above on mechanical ventilation - Intubated 01/20, sedated with propofol. Fentanyl for pain. - Vent settings: SIMV mode, FiO2: 40, Peep 5. ABG on 01/26: pH 7.51, bicarb 35, O2 76, base excess 4.7 - Pulm consulted, managing vent. Will wean as tolerated. Still unable to ween from vent. Thrombocytopenia - 61 this AM. Holding lovenox. - Continue to monitor Anemia of Chronic disease - 6.5 on admission. s/p 3 PRBCs on 01/21. - Will continue to monitor. Hgb 8.8 this AM. Hypokalemia - CCU electrolyte protocol for replacement. - K 3.2 this AM, improved from 2.9. Replacing this AM. Will continue to monitor all electrolytes and replace as needed. - Check Mg in AM Code: Full VTE ppx: SCDs GI ppx: protonix Lines/tubes: ET tube, pitts, right chest tube, right IJ Consults: CV surg, pulm, PT/OT Contact: Mother [phone] Addendum - Attending - Attending Attestation Date/Time: 01/26/19 5050 I personally evaluated the patient and discussed the management with Dr. Woo I agree with the History, Examination, Assessment and Plan documented above with any addition or exceptions noted below.
[2019-01-26] MEDS: Potassium Chloride 40 MEQ in Premix Bag 1 BAG IVPB PRN (06:42)
[2019-01-26 08:50] LABS: Hemoglobin 9.9 g/dL (14.0-18.0); Mean Corpuscular HGB CONC 30.1 g/dL (32.0-36.0); Mean Corpuscular Hemoglobin 26.7 pg (27.0-31.0); Mean Corpuscular Volume 88.9 fL (78.0-98.0); Mean Platelet Volume 8.1 fL (7.4-10.4); Platelet Count 64 thou/uL (130-400); RBC Distribution Width 15.5 % (11.5-14.5); Red Blood Cell (RBC) Count 3.71 mill/uL (4.70-6.10); White Blood Cell (WBC) Count 6.4 thou/uL (4.8-10.8)
[2019-01-26 09:04] LABS: Iron 22 ug/dL (65-175); Iron Binding Capacity, Total 65 mcg/dL (261-462)
[2019-01-26] MEDS: Pantoprazole 40 MG VIAL IVP SCH (09:04)
[2019-01-26 09:59] LABS: Band 12 % (5-11); Eosinophils 1 % (0-10); Lymphocytes 15 % (21-51); MDiff Complete? YES; Monocytes 2 % (0-10); Neutrophil 70 % (42-75); Platelet Morphology Comment Appears Decreased; Polychromasia SLIGHT = 2-3 cells (100X) (0-2/hpf)
[2019-01-26] MEDS ORDERED: Vancomycin HCl 1.5 GM in Sodium Chloride 0.9% 250 ML 300 ML IVPB SCH (10:00)
[2019-01-26] MEDS ORDERED: Furosemide 20 MG/2 ML VIAL SLOW IVP SCH (12:15)
--- NOTE | 2019-01-26 12:27 | PRG ---
DATE OF SERVICE: 01/26/2019 INTERVAL HISTORY: The patient is doing poorly from respiratory standpoint. Remains quite weak. There has been no change to his condition otherwise. He cannot provide any additional elements of the history at this point. On a sedation holiday this morning, he was noted to move all 4 extremities, though he remains profoundly weak. OBJECTIVE: VITAL SIGNS: Afebrile currently, pulse 74, blood pressure 111/71, respirations 20, and saturation 98%, currently on 33% FiO2 and a PEEP of 5. GENERAL: The patient is intubated and sedated. HEENT: Normocephalic and atraumatic. Sclerae white. Conjunctivae pink. Oral mucosa is moist without lesions. LUNGS: Decent air entry. There is no prolonged expiratory phase. No rhonchi appreciated. HEART: Normal rate, regular. ABDOMEN: Soft, nontender, nondistended. Bowel sounds are positive. MUSCULOSKELETAL: No cyanosis or clubbing. No pitting in the bilateral lower extremities. NEUROLOGIC: Grossly nonfocal. LABORATORY DATA: WBC 6.4, hemoglobin 9.9, platelets 64,000. Lymphocytes are improving slowly, monocytes remain suppressed. PH 7.51, pCO2 of 35, pO2 of 76. Potassium 3.2. Basic metabolic profile is otherwise unremarkable. Glucose 106, calcium 6.7. Ferritin 1800, iron and TIBC are low. Folate is low, but B12 is fine. Procalcitonin is significantly improving. Body fluid culture is growing multiple organisms including anaerobes and Streptococcus. These are fairly sensitive organisms. IMAGING DATA: Chest x-ray demonstrates bilateral pleural effusions and slightly worsening central edema. Right IJ is in good position. Endotracheal tube is roughly 3 cm above the level of the erick. Right-sided chest tube is in good position with no evidence of any significant pneumothorax. ASSESSMENT: 1. Acute hypoxic respiratory failure. 2. Empyema, status post decortication, postop day #5. 3. Septic shock, resolved. 4. Hypocalcemia. DISCUSSION AND PLAN: I will replace the patient's potassium and calcium today. We will make certain he has p.o. folic acid supplement. At this point, he is too weak to successfully wean from mechanical ventilator. We will give him spontaneous breathing trials twice to 3 times daily, and keep sedation is minimal as possible. Hopefully over the next 24 to 48 hours, we will be able to liberate him from the ventilator. CRITICAL CARE TIME: 30 minutes. Job ID: [id number]
[2019-01-26] MEDS ORDERED: Folic Acid 0.4 MG in Admixture Fee 1 EACH SC SCH (12:45)
[2019-01-26] MEDS: Calcium Gluc 4.6 MEQ/10 ML (100 MG/ML) SLOW IVP SCH ×2 (12:50→16:42)
[2019-01-26] MEDS: metroNIDAZOLE 500 MG TAB PO SCH ×2 (14:16→20:42)
[2019-01-26] MEDS: Fentanyl 100 MCG/2 ML VIAL SLOW IVP PRN (15:25)
[2019-01-26] MEDS: Lorazepam 2 MG/ML VIAL SLOW IVP PRN (20:35)
[2019-01-26] MEDS: Famotidine 20 MG TAB PO SCH (20:42)
[2019-01-26] MEDS: Cefdinir 300 MG CAP PO SCH (20:42)
[2019-01-27] MEDS: Propofol 1,000 MG/100 ML VIAL IV PRN ×2 (02:42→14:59)
[2019-01-27 04:49] LABS: #Monocytes 0.2 thou/uL (0.11-0.59); #Neutrophils 5.2 thou/uL (1.40-6.50); %Basophils 0.2 % (0.0-1.0); %Eosinophils 0.4 % (0.0-10.0); %Lymphocytes 15.5 % (21.0-51.0); %Monocytes 3.6 % (0.0-10.0); %Neutrophils 80.3 % (42.0-75.0); Hemoglobin 8.9 g/dL (14.0-18.0); Mean Corpuscular HGB CONC 31.6 g/dL (32.0-36.0); Mean Corpuscular Hemoglobin 27.5 pg (27.0-31.0); Mean Corpuscular Volume 87.1 fL (78.0-98.0); Mean Platelet Volume 8.1 fL (7.4-10.4); Platelet Count 72 thou/uL (130-400); RBC Distribution Width 15.7 % (11.5-14.5); Red Blood Cell (RBC) Count 3.25 mill/uL (4.70-6.10); White Blood Cell (WBC) Count 6.4 thou/uL (4.8-10.8)
[2019-01-27 05:11] LABS: Phosphorus 3.1 mg/dL (2.3-4.7)
[2019-01-27 05:12] LABS: Anion Gap 7 mmol/L (10-20); BUN (Urea Nitrogen) 13 mg/dL (8.4-25.7); Calc. Creatinine Clearance 180 mL/min (70-130); Carbon Dioxide 32 mmol/L (22-29); Chloride 103 mmol/L (98-107); Estimated GFR-MDRD Greater than 90; Glucose 97 mg/dL (70-105); Magnesium 1.7 mg/dL (1.6-2.6); Potassium 3.6 mmol/L (3.5-5.1); Sodium 138 mmol/L (136-145)
--- NOTE | 2019-01-27 05:48 | PDOC.FM ---
- Subjective Subjective: No overnight events. Intubated and sedated but opens eyes to voice and follows simple commands. Unable to wean from vent yesterday. - Objective MAR Reviewed: Yes Vital Signs & Weight: Vital Signs (12 hours) Temp Pulse Resp BP Pulse Ox 01/27/19 04:00 98.2 F 33 H 01/27/19 03:19 96 01/27/19 02:00 30 H 01/27/19 01:43 96 96 01/27/19 00:00 98.4 F 31 H 96 01/26/19 22:34 102 H 113/74 01/26/19 22:00 31 H 01/26/19 20:00 98.6 F 30 H 95 01/26/19 18:40 100 01/26/19 18:39 95 01/26/19 18:00 28 H Weight Admit Weight 76.2 kg Weight 80.1 kg Most Recent Monitor Data Heart Rate from ECG 99 NIBP 111/69 NIBP BP-Mean 83 Respiration from ECG 38 SpO2 97 I&O: 01/25/19 01/26/19 01/27/19 06:59 06:59 06:59 Intake Total 3524 2740 2995 Output Total 4110 1695 2255 Balance -586 1045 740 Result Diagrams: 01/28/19 03:50 01/29/19 03:30 Phys Exam - Physical Examination Intubated, sedated Respiratory: clear to auscultation bilateral Cardiovascular: RRR, no significant murmur Gastrointestinal: soft Musculoskeletal: pulses present Skin: cap refill <2 seconds Dx/Plan - Plan Plan: Septic shock 2/2 PNA/empyema - CT: R hydrothorax, ground glass bilaterally, purulent fluid drained, chest tube placed 01/21. Patient ventilated/sedated. - s/p lung decortication, POD 5. s/p thoracotomy with right empyema decortication with CV surgery. Right chest tube in place- draining 10ml/hr. CV surgery on board, appreciate recs. - Improving overall: WBC downtrending. No fever since 01/24. Tylenol PRN. - Prelim pleural fluid gram stain - strep parasanguinis and anaerobes intermediate to Penicillin and Ampicillin - Continue Omnicef and Flagyl Acute Hypoxic Respiratory failure 2/2 above on mechanical ventilation - Intubated 11/26, sedated with propofol. Fentanyl for pain. - Vent settings: SIMV mode, FiO2: 40, Peep 5. ABG on 01/26: pH 7.51, bicarb 35, O2 76, base excess 4.7 - Pulm consulted, managing vent. Will wean as tolerated. Thrombocytopenia,improving - 72 this AM. Holding lovenox. - Continue to monitor Anemia of Chronic disease - 6.5 on admission. s/p 3 PRBCs on 01/21. - Will continue to monitor. Hgb 8.9 this AM. Code: Full VTE ppx: SCDs GI ppx: protonix Lines/tubes: ET tube, pitts, right chest tube, right IJ Consults: CV surg, pulm, PT/OT Contact: Mother [phone] Addendum - Attending - Attending Attestation Date/Time: 01/29/19 3440 I personally evaluated the patient and discussed the management with Dr. Woo I agree with the History, Examination, Assessment and Plan documented above with any addition or exceptions noted below. Patient with probable significant anxiety component to attempt to wean off ventilator on demadex at present, for trial extubation per Pulmonary/Critical care later today. Chest tube still with leak.
[2019-01-27] MEDS ORDERED: Furosemide 40 MG/4 ML VIAL SLOW IVP SCH (08:45)
[2019-01-27] MEDS ORDERED: Magnesium 2 GM/50 ML 2 GM in Premix Bag 1 BAG IVPB SCH (09:30)
--- NOTE | 2019-01-27 09:57 | PRG ---
DATE OF SERVICE: 01/27/2019 SERVICE: Pulmonary Medicine. INTERVAL HISTORY: The patient is doing fine from respiratory standpoint. Breathing comfortably. Today, we dropped his pressure way down. He was able to actually take some good breaths. He denies any current shortness of breath or chest discomfort. He indicates he has no pain. His strength is very poor, but improving slightly. PHYSICAL EXAMINATION: VITAL SIGNS: Afebrile. Pulse 96, blood pressure 128/78, respirations 28, saturation 94%. Currently, on 30% FiO2 and PEEP of 5. GENERAL: The patient is intubated and sedated. HEENT: Normocephalic, atraumatic. Sclerae white. Conjunctivae pink. Oral mucosa is moist without lesions. LUNGS: Decent air entry. No prolonged expiratory phase or wheezing is appreciated. Rhonchi are noted. HEART: Tachycardic. Regular. ABDOMEN: Soft, nontender, nondistended. Bowel sounds are positive. MUSCULOSKELETAL: No cyanosis or clubbing. There is 1 to 2+ pitting throughout. NEUROLOGIC: Grossly nonfocal. LABORATORY DATA: WBC 6.4, hemoglobin 8.9, platelets 72,000 and uptrending. Basic metabolic profile is unremarkable other than calcium of 7.0, which is slowly uptrending, magnesium 1.7, phosphorus 3.1. ASSESSMENT: 1. Acute hypoxic respiratory failure. 2. Empyema, status post decortication, postop day #6. 3. Septic shock, resolved. 4. Hypocalcemia. DISCUSSION AND PLAN: Once again, we will replace the potassium, magnesium, and calcium. We will put him on a spontaneous breathing trial. If he meets criteria, extubation will be considered. He is a little bit volume up. As such, a dose of Lasix will be provided. Critical Care will follow. CRITICAL CARE TIME: 30 minutes. Job ID: [id number]
[2019-01-27] MEDS: Fentanyl 100 MCG/2 ML VIAL SLOW IVP PRN (10:00)
[2019-01-27] MEDS: Cefdinir 300 MG CAP PO SCH ×2 (10:08→20:59)
[2019-01-27] MEDS: metroNIDAZOLE 500 MG TAB PO SCH ×3 (10:08→20:59)
[2019-01-27] MEDS: Famotidine 20 MG TAB PO SCH ×2 (10:08→20:59)
[2019-01-27] MEDS: Folic Acid 1 MG TAB PO SCH (10:08)
[2019-01-27] MEDS: Calcium Gluc 4.6 MEQ/10 ML (100 MG/ML) SLOW IVP SCH ×2 (11:03→13:02)
[2019-01-27] MEDS: Morphine 2 MG/ML SYRINGE SLOW IVP PRN ×2 (12:39→14:59)
[2019-01-27] MEDS: Lorazepam 2 MG/ML VIAL SLOW IVP PRN (15:21)
[2019-01-28] MEDS ORDERED: Lorazepam 2 MG/ML VIAL ONE (06:12)
[2019-01-28] MEDS ORDERED: Furosemide 40 MG/4 ML VIAL ONE ×2 (06:26→14:41)
[2019-01-28] MEDS: Propofol 1,000 MG/100 ML VIAL IV PRN (12:31)
[2019-01-28] MEDS: Furosemide 40 MG/4 ML VIAL SLOW IVP SCH (12:56)
[2019-01-28] MEDS: Famotidine 20 MG TAB PO SCH ×2 (12:57→20:40)
[2019-01-28] MEDS: Cefdinir 300 MG CAP PO SCH ×2 (12:57→20:40)
[2019-01-28] MEDS: metroNIDAZOLE 500 MG TAB PO SCH ×3 (12:58→20:40)
[2019-01-28] MEDS: Folic Acid 1 MG TAB PO SCH (12:58)
[2019-01-28] MEDS ORDERED: Furosemide 40 MG/4 ML VIAL SLOW IVP SCH (14:45)
[2019-01-28 15:47] LABS: Anion Gap 7 mmol/L (10-20); BUN (Urea Nitrogen) 21 mg/dL (8.4-25.7); Calc. Creatinine Clearance 163 mL/min (70-130); Calcium 7.4 mg/dL (7.8-10.44); Carbon Dioxide 32 mmol/L (22-29); Chloride 102 mmol/L (98-107); Estimated GFR-MDRD Greater than 90; Glucose 153 mg/dL (70-105); Magnesium 2.1 mg/dL (1.6-2.6); Sodium 137 mmol/L (136-145)
[2019-01-28 16:19] LABS: #Lymphocytes 1.5 thou/uL (1.20-3.40); #Monocytes 0.3 thou/uL (0.11-0.59); #Neutrophils 4.6 thou/uL (1.40-6.50); %Basophils 0.2 % (0.0-1.0); %Eosinophils 0.5 % (0.0-10.0); %Lymphocytes 23.4 % (21.0-51.0); %Monocytes 5.2 % (0.0-10.0); %Neutrophils 70.7 % (42.0-75.0); Hemoglobin 8.7 g/dL (14.0-18.0); Mean Corpuscular HGB CONC 30.6 g/dL (32.0-36.0); Mean Corpuscular Hemoglobin 27.5 pg (27.0-31.0); Mean Corpuscular Volume 89.9 fL (78.0-98.0); Mean Platelet Volume 9.7 fL (7.4-10.4); Platelet Count 76 thou/uL (130-400); RBC Distribution Width 15.9 % (11.5-14.5); Red Blood Cell (RBC) Count 3.17 mill/uL (4.70-6.10); White Blood Cell (WBC) Count 6.5 thou/uL (4.8-10.8)
--- NOTE | 2019-01-28 16:53 | PRG ---
DATE OF SERVICE: 01/28/2019 SERVICE: Pulmonary Medicine. INTERVAL HISTORY: The patient is doing poorly from a mentation standpoint. Whenever we drop his sedation, he becomes extremely tachypneic and takes small volumes. He cannot provide any additional elements of the history otherwise. There were no significant overnight events. He had a significant output with the Lasix. PHYSICAL EXAMINATION: VITAL SIGNS: Afebrile. Pulse 113, blood pressure 109/80, respirations 34, saturation 93%, currently on PEEP of 8, FiO2 of 50%. GENERAL: Patient is awake and alert, in no apparent distress. LUNGS: Decent air entry. Rhonchi are present. No prolonged expiratory phase or wheezing is appreciated. HEART: Normal rate. Regular. ABDOMEN: Soft, nontender, nondistended. Bowel sounds are positive. MUSCULOSKELETAL: No cyanosis or clubbing. There is diffuse 2+ pitting throughout. NEUROLOGIC: Grossly nonfocal. LABORATORY DATA: WBC is improved to 6.5, hemoglobin 8.7 and roughly stable, platelets 76,000 and gently uptrending. Lymphocyte count is rebounding. Creatinine 0.53. Basic metabolic profile is otherwise unremarkable. Magnesium 2.1. ASSESSMENT: 1. Acute hypoxic respiratory failure. 2. Empyema, status post decortication, postop day 7. 3. Septic shock, resolved. 4. Hypocalcemia, resolved. DISCUSSION AND PLAN: We will continue to diurese the patient down to euvolemia. We will give him daily spontaneous breathing trial. If he meets criteria, extubation will be considered. That being said, it is becoming increasingly clear that this patient may not have the strength in order to take a full breath. If this is the case, a repeat intubation may need to be considered. I will repeat a chest x-ray tomorrow morning given that he is still on mechanical ventilator, and has a chest tube in place. Critical care time: 30 minutes. Job ID: [id number] MTDD
[2019-01-28] MEDS: Morphine 2 MG/ML SYRINGE SLOW IVP PRN (19:23)
[2019-01-29 04:54] LABS: Anion Gap 7 mmol/L (10-20); BUN (Urea Nitrogen) 18 mg/dL (8.4-25.7); Calc. Creatinine Clearance 176 mL/min (70-130); Calcium 7.1 mg/dL (7.8-10.44); Carbon Dioxide 35 mmol/L (22-29); Chloride 102 mmol/L (98-107); Estimated GFR-MDRD Greater than 90; Glucose 129 mg/dL (70-105); Magnesium 1.8 mg/dL (1.6-2.6); Potassium 3.1 mmol/L (3.5-5.1); Sodium 141 mmol/L (136-145)
[2019-01-29] MEDS ORDERED: Potassium Chloride 40 MEQ in Premix Bag 1 BAG IVPB SCH ×2 (06:15→12:00)
--- NOTE | 2019-01-29 06:21 | PDOC.FM ---
- Subjective Subjective: No overnight events. Unable to be taken off vent yesterday. Plan is for later today. He becomes quite anxious when sedation is weaned and has what appears to be a panic attack. Denies pain. - Objective MAR Reviewed: Yes Vital Signs & Weight: Vital Signs (12 hours) Temp Pulse Resp Pulse Ox 01/29/19 06:00 26 H 01/29/19 04:00 100.2 F H 26 H 01/29/19 02:26 88 01/29/19 02:00 27 H 01/29/19 00:00 98.1 F 27 H 01/28/19 23:14 82 26 H 98 01/28/19 22:00 28 H 01/28/19 20:00 99.2 F 37 H 98 01/28/19 18:24 107 H 34 H 96 Weight Admit Weight 76.2 kg Weight 73.8 kg Most Recent Monitor Data Heart Rate from ECG 78 NIBP 89/61 NIBP BP-Mean 70 Respiration from ECG 25 SpO2 99 I&O: 01/27/19 01/28/19 01/29/19 06:59 06:59 06:59 Intake Total 3055 1634.9 981.1 Output Total 2315 3039 1917 Balance 740 -1404.1 -935.9 Result Diagrams: 01/30/19 05:05 01/31/19 04:00 Phys Exam - Physical Examination Intubated. Follows commands HEENT: PERRLA Neck: supple Lung sounds diminished RLL Cardiovascular: RRR Gastrointestinal: soft, non-tender Musculoskeletal: no edema Neurological: moves all 4 limbs Dx/Plan - Plan Plan: Septic shock 2/2 PNA/empyema s/p lung decortication/thoracotomy - POD #8 - CT: R hydrothorax, ground glass bilaterally, purulent fluid drained, chest tube placed 01/21. Patient ventilated/sedated. - Right chest tube in place- draining 10ml/hr. CV surgery on board, appreciate recs. - Continue Omnicef and Flagyl Acute Hypoxic Respiratory failure 2/2 above on mechanical ventilation - Intubated 01/20, sedated with propofol. Fentanyl for pain. - Vent settings: SIMV mode, FiO2: 47, Peep 8. - Pulm consulted, managing vent. Will wean as tolerated. Start discussing trach placement Thrombocytopenia,improving - Holding lovenox. - Continue to monitor Anemia of Chronic disease - 6.5 on admission. s/p 3 PRBCs on 01/21 - Continue to monitor Code: Full VTE ppx: SCDs GI ppx: protonix Lines/tubes: ET tube, pitts, right chest tube, right IJ Consults: CV surg, pulm, PT/OT Contact: Mother [phone] Addendum - Attending - Attending Attestation Date/Time: 01/31/19 2862 I personally evaluated the patient and discussed the management with Dr. Woo I agree with the History, Examination, Assessment and Plan documented above with any addition or exceptions noted below. Patient failed trial extubation for consideration tracheostomy per Pulmonary.
[2019-01-29] MEDS: Cefdinir 300 MG CAP PO SCH ×2 (07:29→20:22)
[2019-01-29] MEDS: Folic Acid 1 MG TAB PO SCH (07:30)
[2019-01-29] MEDS: metroNIDAZOLE 500 MG TAB PO SCH ×3 (07:30→20:22)
[2019-01-29] MEDS: Famotidine 20 MG TAB PO SCH ×2 (07:51→20:21)
--- NOTE | 2019-01-29 08:00 | RAD ---
Frontal radiograph chest: 01/29/2019 COMPARISON: 01/25/2019 HISTORY: Ventilated patient FINDINGS: Endotracheal tube, nasogastric tube, right-sided vascular catheter, and 2 right-sided chest tubes are again noted, not significantly changed. There is patchy nonspecific airspace disease within the left perihilar region and left lung base with medial left basilar consolidation. There is dense pleural and parenchymal opacity within the right lung base as well obscuring the right hemidiaphragm with blunting of the right costophrenic angle and obscuration of the right heart border. Supine imaging limits assessment for pneumothorax. IMPRESSION: No significant interval change.
[2019-01-29] MEDS ORDERED: Magnesium 2 GM/50 ML 2 GM in Premix Bag 1 BAG IVPB SCH (08:30)
[2019-01-29] MEDS: Calcium Gluc 4.6 MEQ/10 ML (100 MG/ML) SLOW IVP SCH ×2 (08:48→14:30)
[2019-01-29] MEDS: Furosemide 40 MG/4 ML VIAL SLOW IVP SCH (09:08)
[2019-01-29] MEDS ORDERED: Potassium Chloride 40 MEQ in Sodium Chloride 0.9% 250 ML 250 ML IVPB SCH (12:00)
[2019-01-29] MEDS ORDERED: Furosemide 40 MG/4 ML VIAL SLOW IVP SCH (13:00)
[2019-01-29] MEDS ORDERED: predniSONE 20 MG TAB PO SCH (14:00)
--- NOTE | 2019-01-29 14:16 | PRG ---
DATE OF SERVICE: 01/29/2019 SERVICE: Pulmonary Medicine. INTERVAL HISTORY: Whenever we give the patient a little break from sedation despite the fact that he is breathing comfortably with sedation, he becomes tachypneic, starts breath stacking and then gets into trouble with significant desaturation. We watched this pattern happen over the last 24 to 48 hours. He cannot provide any additional elements of the history. He is requiring some sedation to prevent this from happening. Otherwise, from a Respiratory standpoint and hemodynamic standpoint, things have been roughly stable. PHYSICAL EXAMINATION: VITAL SIGNS: Afebrile, pulse 71, blood pressure 88/54, respirations 28, saturation 98%, currently on 41% FiO2 and a PEEP of 5. The patient is awake and alert, in no apparent distress. LUNGS: Good air entry. There is a prolonged expiratory phase or wheezing present. HEART: Normal rate regular. ABDOMEN: Soft, nontender, nondistended. Bowel sounds are positive. MUSCULOSKELETAL: No cyanosis or clubbing. There is diffuse 2+ pitting throughout. NEUROLOGIC: Grossly nonfocal. LABORATORY DATA: WBC 6.5, hemoglobin 8.7, platelets 76,000 and gently uptrending. Creatinine 3.1. Magnesium 1.8. Basic metabolic profile is otherwise unremarkable/stable. Bicarb is trending upward at 35. IMAGING STUDIES: Chest x-ray demonstrates the stable chest. Two thoracostomy tubes are present on the right. ASSESSMENT: 1. Acute hypoxic respiratory failure. 2. Empyema, status post decortication, postoperative day #8. 3. Septic shock, resolved. 4. COPD exacerbation. 5. Hypocalcemia, resolved. DISCUSSION AND PLAN: I will replace electrolytes including potassium, magnesium , and calcium today. We will continue diuresing down to euvolemia through time. At this point, we are at a place where we are likely going to have to proceed with extubation and just simply see what happens. I do believe that his tachypnea is being mandated by agitation secondary to the endotracheal tube. I am hopeful that when it comes out, his breathing settles down on his own and he does not get into trouble. We will continue antibiotics, nebulized medications, and steroids through time. Pulmonary/Critical Care will follow. Critical care time: 30 minutes. Job ID: [id number] [facility]
[2019-01-30 05:44] LABS: #Lymphocytes 1.2 thou/uL (1.20-3.40); #Monocytes 1.1 thou/uL (0.11-0.59); #Neutrophils 9.1 thou/uL (1.40-6.50); %Basophils 0.1 % (0.0-1.0); %Eosinophils 0.1 % (0.0-10.0); %Lymphocytes 10.8 % (21.0-51.0); %Monocytes 9.6 % (0.0-10.0); %Neutrophils 79.5 % (42.0-75.0); Hemoglobin 7.4 g/dL (14.0-18.0); Mean Corpuscular HGB CONC 31.5 g/dL (32.0-36.0); Mean Corpuscular Hemoglobin 27.7 pg (27.0-31.0); Mean Corpuscular Volume 87.9 fL (78.0-98.0); Mean Platelet Volume 9.9 fL (7.4-10.4); Platelet Count 153 thou/uL (130-400); RBC Distribution Width 15.7 % (11.5-14.5); Red Blood Cell (RBC) Count 2.66 mill/uL (4.70-6.10); White Blood Cell (WBC) Count 11.4 thou/uL (4.8-10.8)
--- NOTE | 2019-01-30 05:55 | PDOC.FM ---
- Subjective Subjective: No overnight events. Denies pain. Plan to extubate this morning. He had good urine output yesterday with lasix. Chest tube still in place. - Objective MAR Reviewed: Yes Vital Signs & Weight: Vital Signs (12 hours) Temp Pulse Resp Pulse Ox 01/30/19 04:00 100.1 F H 26 H 01/30/19 02:59 70 01/30/19 02:00 28 H 01/30/19 00:17 70 01/30/19 00:15 69 25 H 100 01/30/19 00:00 100 F H 26 H 01/29/19 22:01 70 01/29/19 22:00 25 H 01/29/19 21:00 98.7 F 01/29/19 20:00 28 H 100 01/29/19 18:36 83 01/29/19 18:34 83 18 100 01/29/19 18:00 24 H Weight Admit Weight 76.2 kg Weight 73.2 kg Most Recent Monitor Data Heart Rate from ECG 75 NIBP 104/70 NIBP BP-Mean 81 Respiration from ECG 23 SpO2 100 I&O: 01/28/19 01/29/19 01/30/19 06:59 06:59 06:59 Intake Total 1634.9 981.1 381.4 Output Total 3039 1917 1722 Balance -1404.1 -935.9 -1340.6 Result Diagrams: 01/30/19 05:05 01/31/19 04:00 Phys Exam - Physical Examination Intubated HEENT: sclera anicteric Neck: supple No breath sounds in RLL Cardiovascular: RRR Gastrointestinal: soft, non-tender Musculoskeletal: no edema Neurological: moves all 4 limbs Skin: normal turgor Dx/Plan - Plan Plan: Septic shock 2/2 PNA/empyema s/p lung decortication/thoracotomy - POD #9 - CT: R hydrothorax, ground glass bilaterally, purulent fluid drained, chest tube placed 01/21. Patient ventilated/sedated. - Right chest tube in place- draining 10ml/hr. CV surgery on board, appreciate recs. - Continue Omnicef and Flagyl Acute Hypoxic Respiratory failure 2/2 above on mechanical ventilation - Intubated 01/20, sedated with propofol. Fentanyl for pain. - Vent settings: SIMV mode, FiO2: 47, Peep 5 - Pulm consulted, managing vent. Will attempt to extubate today Thrombocytopenia,improving - Holding lovenox. - Continue to monitor Anemia of Chronic disease - 6.5 on admission. s/p 3 PRBCs on 01/21 - Continue to monitor Code: Full VTE ppx: SCDs GI ppx: protonix Lines/tubes: ET tube, pitts, right chest tube, right IJ Consults: CV surg, pulm, PT/OT Contact: Mother [phone] Addendum - Attending - Attending Attestation Date/Time: 01/31/19 4140 I personally evaluated the patient and discussed the management with Dr. Woo I agree with the History, Examination, Assessment and Plan documented above with any addition or exceptions noted below.
[2019-01-30 06:07] LABS: Anion Gap 7 mmol/L (10-20); BUN (Urea Nitrogen) 26 mg/dL (8.4-25.7); Calc. Creatinine Clearance 138 mL/min (70-130); Calcium 7.4 mg/dL (7.8-10.44); Carbon Dioxide 37 mmol/L (22-29); Chloride 103 mmol/L (98-107); Estimated GFR-MDRD Greater than 90; Glucose 139 mg/dL (70-105); Magnesium 2.3 mg/dL (1.6-2.6); Potassium 3.2 mmol/L (3.5-5.1); Sodium 144 mmol/L (136-145)
[2019-01-30] MEDS: Furosemide 40 MG/4 ML VIAL SLOW IVP SCH (06:12)
[2019-01-30] MEDS: Potassium Chloride 40 MEQ in Premix Bag 1 BAG IVPB SCH ×4 (06:57→16:58)
[2019-01-30] MEDS: metroNIDAZOLE 500 MG TAB PO SCH (08:19)
[2019-01-30] MEDS: Cefdinir 300 MG CAP PO SCH (08:19)
[2019-01-30] MEDS: Famotidine 20 MG TAB PO SCH ×2 (08:20→23:31)
[2019-01-30] MEDS: Folic Acid 1 MG TAB PO SCH (08:20)
[2019-01-30] MEDS: predniSONE 20 MG TAB PO SCH (08:21)
--- NOTE | 2019-01-30 10:05 | RAD ---
PORTABLE CHEST ONE VIEW: HISTORY: Respiratory insufficiency. COMPARISON: 01/29/2019 FINDINGS: Life support tubes remain in place. Two right chest tubes remain in place. Bilateral pleural and pare nchymal opacity changes in the right mid and lower lung zone and left lower lobe. Slight improvement in the left upper lobe appearance. IMPRESSION: Abnormal pleural and parenchymal opacity changes. Chest tubes, nasogastric tube, endotracheal tube an d right central line all remain in place. Continue short term followup. The left mid and upper lung zone appear to be slightly improved. POS: TPC
--- NOTE | 2019-01-30 12:22 | PRG ---
DATE OF SERVICE: 01/30/2019 SERVICE: Pulmonary Medicine. INTERVAL HISTORY: The patient is doing the exact same thing as he has been for the last 3 days. With much more support or much less support, without sedation, he will become very tachypneic, start breath stacking, get into trouble. He cannot provide any additional elements of the history. Otherwise, there were no significant overnight events. PHYSICAL EXAMINATION: VITAL SIGNS: Afebrile currently. Pulse 77, blood pressure 98/62, respirations are 31 and saturation 100%, currently on 40% FiO2 and a PEEP of 5. GENERAL: The patient is intubated and sedated. HEENT: Normocephalic and atraumatic. Sclerae white. Conjunctivae pink. Oral mucosa is moist and without lesions. LUNGS: Decent air entry. There is rhonchi present. No prolonged expiratory phase noted. Dependent crackles are present. HEART: Normal rate. Regular. ABDOMEN: Soft, nontender, and nondistended. Bowel sounds are positive. MUSCULOSKELETAL: No cyanosis or clubbing. There is trace 1+ pitting throughout. NEUROLOGIC: Grossly nonfocal. LABORATORY DATA: WBC 11.4, hemoglobin 7.4 and gently downtrending. Potassium 3.2. Bicarb 37 and gently uptrending, BUN 26, creatinine 0.59. Magnesium and phosphorous fall within the normal limits. Stool is negative for occult blood. Blood cultures x2 are unremarkable, drawn on the . IMAGING DATA: Chest x-ray demonstrates right lower lobe infiltrate. Thoracostomy tubes are in good position. Endotracheal tube is roughly 4 cm above the level of the erick. There is an enteric catheter coursing midline below the level of the diaphragm. A right-sided IJ is in good position. The colon appears to be quite distended. ASSESSMENT: 1. Acute hypoxic respiratory failure. 2. Empyema, status post decortication, postoperative day #8. 3. Septic shock, resolved. DISCUSSION AND PLAN: I believe this patient is agitated. I do not think he has physiologic demand to breath like he is doing. As such, we are going to wake him up, and extubate him. We are going to go directly to BiPAP and wean this away to high-flow nasal cannula and subsequent nasal cannula through time. I will give him 1 unit of blood, and replace his potassium through the day. We will continue daily doses of Lasix, although I do believe that he is dry endovascularly. There is a very good chance that this patient is going to require repeat intubation. If that happens, tracheostomy will need to be strongly considered. If the patient continues to have significant stooling, C diff antigen and toxin will be sent for. Critical care time: 30 minutes. Job ID: [id number] MTDD
[2019-01-30] MEDS ORDERED: Lorazepam 2 MG/ML VIAL ONE (13:37)
[2019-01-30] MEDS ORDERED: Lorazepam 2 MG/ML VIAL SLOW IVP SCH (13:45)
[2019-01-30] MEDS ORDERED: Midazolam HCl 2 mg/2 ml Vial ONE (13:50)
[2019-01-30] MEDS ORDERED: metroNIDAZOLE 500 MG in Premix Bag 1 BAG IVPB SCH (14:00)
[2019-01-30 14:03] LABS: Actual Bicarbonate (HCO3a) 30.3 mEq/L (22-28); Base Excess (BEa) 4.9 mEq/L (-2.0 to +3.0); CO2 Tension 49.3 mmHg (35.0-45.0); Calcium, Ionized 1.09 mmol/L (1.12-1.30); Carboxyhemoglobin (COHb) 1.7 gm% (0.0-3.0); Potassium - ABG Lab 3.84 mmol/L (3.70-5.30); pH, Arterial 7.41 (7.35-7.45)
[2019-01-30] MEDS ORDERED: SYSTANE 3.5 GM TUBE EA EYE PRN (14:04)
[2019-01-30] MEDS ORDERED: Midazolam HCl 2 mg/2 ml Vial SLOW IVP SCH (14:15)
[2019-01-30] MEDS ORDERED: Ventilator Sedation Protocol 1 EACH FS SCH (14:15)
--- NOTE | 2019-01-30 14:29 | RAD ---
EXAM: Single view of the chest HISTORY: Ventilated patient with respiratory failure COMPARISON: 01/30/2019 at 4:24 AM FINDINGS: Single view of the chest shows a normal sized cardiomediastinal silhouette. The NG tube has been removed. The other lines and tubes are unchanged in position. Postsurgical changes are seen overlying the right thorax. There likely is a residual small right pleural effusion with adjacent ate lectasis. There may be developing infiltrates in the left lung base. The bones are unremarkable. IMPRESSION: Possible developing left lower lobe infiltrates.
[2019-01-30 14:38] LABS: ALV-art Gradient 147.575 (0-20); Puncture Site RBRACH
[2019-01-30] MEDS ORDERED: fentaNYL Citrate/PF 2,000 MCG in Sodium Chloride 0.9% 60 ML IV SCH (14:46)
[2019-01-30] MEDS ORDERED: Propofol BOLUS 1,000 MG/100 ML VIAL IV PRN (14:46)
[2019-01-30] MEDS ORDERED: Fentanyl BOLUS 250 ML IVPB PRN (14:46)
[2019-01-30] MEDS ORDERED: Propofol 1,000 MG/100 ML VIAL IV PRN (14:46)
[2019-01-30] MEDS ORDERED: DISCONTINUE PREVIOUS NARCOTIC PAIN MEDICATIONS AND BENZODIAZEPINES FS SCH (14:46)
[2019-01-30] MEDS: Piperacillin/Tazobactam 3.375 GM in Sodium Chloride 0.9% 100 ML IVPB SCH ×2 (18:46→23:31)
--- NOTE | 2019-01-30 22:05 | OP ---
DATE OF PROCEDURE: 01/30/2019 SERVICE: Pulmonary Medicine. PROCEDURE PERFORMED: Emergent endotracheal intubation. CONSENT: This was implied secondary to emergent condition, and respiratory deterioration. MEDICATIONS USED: 1. Versed 2 mg IV push. 2. Etomidate 20 mg IV push. PREPROCEDURE DIAGNOSES: 1. Acute hypoxic respiratory failure. 2. Aspiration. POSTPROCEDURE DIAGNOSES: 1. Acute hypoxic respiratory failure. 2. Aspiration. DESCRIPTION OF PROCEDURE: Vital sign monitoring was accomplished by noninvasive hemodynamic monitoring, pulse oximetry, and telemetry. In the supine position, the patient was preoxygenated with pressure support ventilation. Following induction of anesthesia, a #3 GlideScope was inserted through the mouth offering clear identification of the posterior oropharynx and laryngeal structures with a grade 1 view. A 7.5-[place] endotracheal tube was visualized passing through the vocal cords. Placement was confirmed by condensation in the endotracheal tube, colorimetric capnography, and bi-axillary chest auscultation. The endotracheal tube was secured at 23 cm, measured at the teeth. The patient was placed on mechanical ventilation with good return of volumes. Postprocedure x-ray demonstrated good location for the endotracheal tube within the trachea. ESTIMATED BLOOD LOSS: None. COMPLICATIONS: None. Job ID: [id number]
--- NOTE | 2019-01-31 02:07 | CON ---
DATE OF CONSULTATION: 01/30/2019 REASON FOR CONSULTATION: Increased troponin level. HISTORY OF PRESENT ILLNESS: Mr. Worthy is a 58-year-old gentleman who has been in the hospital now critically ill since 01/20/2019. At that time, he was found to be septic and had an empyema. Subsequently underwent drainage of purulent fluid and a decortication of his lung. Patient has had respiratory failure. There was an attempt to extubate him today, but the patient did not tolerate extubation and had to be reintubated. Cardiac enzymes were drawn which were elevated. There is no previous cardiac history that we know of. Other history is not available as the patient is intubated and sedated. ALLERGIES: NONE KNOWN. CURRENT MEDICATIONS: He is on; 1. Precedex, but that is actually currently off. 2. Fentanyl. 3. Antibiotics. 4. Potassium. 5. Pepcid. 6. Furosemide. 7. Flagyl. 8. Prednisone. 9. Sodium bicarb p.r.n. PHYSICAL EXAMINATION: GENERAL: This is a chronically ill-appearing 58-year-old gentleman, looks much older than his chronologic age. VITAL SIGNS: Blood pressure 99/57; pulse 60, sinus, early it was 90, sinus. NECK: Veins are normal. Carotid normal upstrokes. LUNGS: Clear anteriorly and laterally. I do not hear any wheezing. CARDIAC: Normal S1, normal S2. There is no murmur, rub, or gallop. ABDOMEN: Soft and nontender. EXTREMITIES: Warm and dry. No clubbing, cyanosis, or edema. LABORATORY DATA: Troponin level 1.23. Potassium is 3.2. The EKG rhythm strip showed normal ST segments. I do not see a 12-lead EKG from today, but the leads which are displayed in the chart are normal. ASSESSMENT: 1. [id number] infarction, probably demand ischemia (type 2 infarct). 2. Empyema. 3. History of sepsis. 4. Respiratory failure. PLAN: 1. Echocardiogram in the morning. 2. EKG tomorrow. Patient remains critically ill. Prognosis, guarded. Job ID: [id number]
[2019-01-31 04:59] LABS: Anion Gap 8 mmol/L (10-20); BUN (Urea Nitrogen) 22 mg/dL (8.4-25.7); Calc. Creatinine Clearance 138 mL/min (70-130); Calcium 7.1 mg/dL (7.8-10.44); Carbon Dioxide 32 mmol/L (22-29); Chloride 107 mmol/L (98-107); Estimated GFR-MDRD Greater than 90; Glucose 96 mg/dL (70-105); Potassium 3.4 mmol/L (3.5-5.1); Sodium 144 mmol/L (136-145)
[2019-01-31 05:02] LABS: Critical Call Chem Troponin I RESULT DECREASING; Troponin I 0.919 ng/mL (< 0.028)
[2019-01-31] MEDS: Piperacillin/Tazobactam 3.375 GM in Sodium Chloride 0.9% 100 ML IVPB SCH ×3 (05:27→17:34)
[2019-01-31] MEDS: Furosemide 40 MG/4 ML VIAL SLOW IVP SCH (05:27)
--- NOTE | 2019-01-31 06:10 | PDOC.FM ---
- Subjective Subjective: Yesterday around noon pt was extubated. Approx 2 hrs later became anxious with RR in 30-40's with decreased sats and using accessory muscles. Pt was reintubated. This morning he is nods that he is feeling better. Denies pain. Feels sedation with precedex is adequate. - Objective MAR Reviewed: Yes Vital Signs & Weight: Vital Signs (12 hours) Temp Pulse Resp BP Pulse Ox 01/31/19 05:44 25 H 01/31/19 04:00 98.6 F 26 H 01/31/19 03:57 68 01/31/19 02:00 24 H 01/31/19 00:00 26 H 01/30/19 23:10 72 128/71 01/30/19 23:09 100 01/30/19 23:00 98.1 F 01/30/19 20:00 100 01/30/19 19:14 62 100 01/30/19 19:13 100 01/30/19 19:00 98.0 F Weight Admit Weight 76.2 kg Weight 73.4 kg Most Recent Monitor Data Heart Rate from ECG 73 NIBP 128/62 NIBP BP-Mean 84 Respiration from ECG 1 SpO2 100 I&O: 01/29/19 01/30/19 01/31/19 06:59 06:59 06:59 Intake Total 981.1 1321.5 757.2 Output Total 1917 1757 1253 Balance -935.9 -435.5 -495.8 Result Diagrams: 01/30/19 05:05 01/31/19 04:00 Phys Exam - Physical Examination Intubated Neck: supple Diminshed breath sounds RLL otherwise clear Cardiovascular: RRR Gastrointestinal: soft trace edema b/l UE &LE Neurological: moves all 4 limbs Skin: no rash Dx/Plan - Plan Plan: Septic shock 2/2 PNA/empyema s/p lung decortication/thoracotomy - POD #10 - CT: R hydrothorax, ground glass bilaterally, purulent fluid drained, chest tube placed 01/21. - Right chest tube in place, continues to have air leak. CV surgery on board, appreciate recs. - Currently on Levaquin IV due to extubation yesterday can consider switching back to Omnicef and Flagyl Acute Hypoxic Respiratory failure 2/2 above on mechanical ventilation - Intubated 01/20. Extubated 01/30. Reintubated 01/31 - Vent settings: SIMV mode, FiO2: 37, Peep 8 - Pulm consulted, managing vent. Pt will likely need trach. NSTEMI type 2 - likely 2/2 demand ischemia - Cards consulted. Echo and EKG ordered for today Hypokalemia - 2/2 lasix and diarrhea - Continue to replace Hypocalcemia - Ionized Ca 1.09. Replacing Thrombocytopenia, improved - Holding lovenox - Continue to monitor Anemia of Chronic disease - 6.5 on admission. s/p 3 PRBCs on 01/21 - Continue to monitor Code: Full VTE ppx: SCDs GI ppx: protonix Lines/tubes: ET tube, pitts, right chest tube, right IJ Consults: CV surg, pulm, PT/OT Contact: Mother [phone] Addendum - Attending - Attending Attestation Date/Time: 01/31/19 3662 I personally evaluated the patient and discussed the management with Dr. Woo I agree with the History, Examination, Assessment and Plan documented above with any addition or exceptions noted below.
[2019-01-31] MEDS ORDERED: Potassium Chloride 20 MEQ in Premix Bag 1 BAG IVPB SCH ×2 (06:15)
[2019-01-31] MEDS: Lorazepam 2 MG/ML VIAL SLOW IVP PRN ×2 (07:41→11:21)
[2019-01-31] MEDS: Folic Acid 1 MG TAB PO SCH (07:42)
[2019-01-31] MEDS: Famotidine 20 MG TAB PO SCH ×2 (07:42→19:38)
[2019-01-31] MEDS: Calcium Carbonate 500 MG ChewTAB PO SCH ×2 (07:42→19:37)
[2019-01-31] MEDS: predniSONE 20 MG TAB PO SCH (07:42)
--- NOTE | 2019-01-31 08:10 | RAD ---
EXAM: Single view of the chest HISTORY: Intubated for respiratory failure. Chest tube placement. COMPARISON: 01/30/2019 FINDINGS: Single view of the chest shows a normal sized cardiomediastinal silhouette. An NG tube has been replaced with its tip in the stomach. The right chest tubes and endotracheal tube are unchanged in position. The central venous catheter has been removed. There is a small right pleural e ffusion with adjacent atelectasis. Postsurgical changes are seen along the right chest wall. The bones are unremarkable. IMPRESSION: Stable exam.
[2019-01-31] MEDS: metroNIDAZOLE 500 MG TAB PO SCH ×3 (08:54→19:38)
[2019-01-31] MEDS: Cefdinir 300 MG CAP PO SCH ×2 (08:54→19:37)
[2019-01-31] MEDS: Potassium Chloride 40 MEQ in Premix Bag 1 BAG IVPB SCH (11:16)
[2019-01-31] MEDS: Morphine 2 MG/ML SYRINGE SLOW IVP PRN (11:19)
--- NOTE | 2019-01-31 15:14 | PRG ---
DATE OF SERVICE: 01/31/2019 SERVICE: Pulmonary Medicine. INTERVAL HISTORY: The patient is doing okay from respiratory standpoint. Yesterday, he was extubated. He was actually doing really quite well for a period of time. That being said, he got laid down so that a BM could be attended to. Apparently, he aspirated, he then developed shortness of breath, and he could not recover. During intubation, significant amounts of tube feeds were removed from his endotracheal tube. He cannot provide any additional elements of the history right now. Otherwise, there were no events overnight. PHYSICAL EXAMINATION: VITAL SIGNS: Afebrile. T-max overnight is 100.7. Pulse 76, blood pressure 122 /60, respirations 29, saturation 100%, currently on 31% FiO2 and a PEEP of 7. GENERAL: The patient is intubated and sedated. HEENT: Normocephalic and atraumatic. Sclerae white. Conjunctivae pink. Oral mucosa is moist without lesions. LUNGS: Decent air entry. No prolonged expiratory phase or wheezing is appreciated. HEART: Normal rate regular. ABDOMEN: Soft, nontender, nondistended. Bowel sounds are positive. MUSCULOSKELETAL: No cyanosis or clubbing. There is no pitting in the bilateral lower extremities. NEUROLOGIC: Grossly nonfocal. LABORATORY DATA: Potassium 3.4. Basic metabolic profile is otherwise unremarkable. Calcium 7.1. Troponin 1.2, is downtrending to 0.9. EKG was without evidence of an ST elevation. IMAGING: Echocardiogram demonstrates normal ejection fraction. No significant valvular abnormalities are present. Left atrium is mildly dilated. Chest x-ray demonstrates no significant interval change. There is a dense infiltrate in the right lower lobe. There is likely a small pneumothorax present. ASSESSMENT: 1. Acute hypoxic respiratory failure. 2. Empyema, status post decortication, postoperative day 9. 3. Septic shock, resolved. 4. Critical care weakness. 5. Fbh-NM-hsyonliwg myocardial infarction secondary to demand. DISCUSSION AND PLAN: The patient is doing poorly from respiratory standpoint. The thing that limits him from breathing comfortably without the tube is weakness. This is in addition to his prolonged expiratory phase, and severe infection. I do not think he is going to get through this without a tracheostomy. As such, I do think that we are going to need to move in that direction. We will continue to follow very closely. Multiple adjustments have been made to the ventilator in order to turn a little bit more work of breathing over the patient. Potassium and calcium will be replaced today. CRITICAL CARE TIME: 30 minutes. Job ID: [id number] MTDD
--- NOTE | 2019-01-31 18:14 | CT ---
CT chest noncontrast HISTORY: Empyema. FINDINGS: Centered within the pleural space posterior to the superior segment right lower lobe is a l obular collection of gas and fluid with an air-fluid level. It measures up to 6.5 cm x 6.3 cm x 4.2 cm greatest diameters and is surrounded by compressive atelectasis. Near complete volume loss of the right lower lobe. There are 2 right thoracostomy tubes in place. The more superior is directed towards the lateral aspe ct of the right apex. No associated remaining fluid. The more inferior is directed posteriorly towards the right posterior costophrenic angle. Minimal residual fluid. The loculated gas and fluid c ollection previously described appears to be separate from the areas associated with the chest tubes. No evidence of pneumothorax. Patchy areas of multifocal infiltrate are scattered about the right upper lobe and each left lobe. At electasis is present at the dependent portion of the left lower lobe. Small amount of left pleural fluid evident. Lack of contrast limits evaluation of the soft tissues. Nasogastric tube and endotracheal catheter in good CT position. Rightward shift of the mediastinum associated with the right lung volume loss. Scattered nonspecific lymph nodes. Nondisplaced fracture of the lateral aspect of the right seventh rib. IMPRESSION: Empyema within the posterior aspect of the right pleural space, as detailed above, favore d to be loculated and separate from the right thoracostomy tubes, around which no significant fluid remains. Significant bibasilar atelectasis and multifocal infiltrate. Small left pleural effusion. Right seventh rib fracture.
[2019-02-01] MEDS: Piperacillin/Tazobactam 3.375 GM in Sodium Chloride 0.9% 100 ML IVPB SCH ×5 (01:12→23:48)
[2019-02-01] MEDS ORDERED: Sodium Chloride 0.9% 15 ML NEB ONE (01:20)
[2019-02-01 05:19] LABS: Anion Gap 8 mmol/L (10-20); BUN (Urea Nitrogen) 18 mg/dL (8.4-25.7); Calc. Creatinine Clearance 143 mL/min (70-130); Calcium 7.1 mg/dL (7.8-10.44); Carbon Dioxide 29 mmol/L (22-29); Chloride 110 mmol/L (98-107); Estimated GFR-MDRD Greater than 90; Glucose 106 mg/dL (70-105); Potassium 3.3 mmol/L (3.5-5.1); Sodium 144 mmol/L (136-145)
[2019-02-01] MEDS ORDERED: Potassium Chloride 40 MEQ in Premix Bag 1 BAG IVPB SCH (06:00)
--- NOTE | 2019-02-01 06:09 | PDOC.FM ---
- Subjective Subjective: No events overnight. Intubated and lightly sedated. Denies pain. Continues to have diarrhea which causes him distress. Zosyn was added yesterday for pseudomonas coverage. - Objective MAR Reviewed: Yes Vital Signs & Weight: Vital Signs (12 hours) Temp Pulse Resp BP Pulse Ox 02/01/19 04:00 98.2 F 27 H 02/01/19 02:00 27 H 02/01/19 01:23 69 02/01/19 01:22 100 02/01/19 00:00 98.5 F 26 H 01/31/19 22:40 67 115/65 01/31/19 22:00 26 H 01/31/19 20:00 24 H 98 01/31/19 19:00 98.5 F 01/31/19 18:44 76 01/31/19 18:43 100 Weight Admit Weight 73.4 kg Weight 73.8 kg Most Recent Monitor Data Heart Rate from ECG 67 NIBP 110/59 NIBP BP-Mean 76 Respiration from ECG 7 SpO2 97 I&O: 01/30/19 01/31/19 02/01/19 06:59 06:59 06:59 Intake Total 1321.5 757.2 1570 Output Total 1757 1373 1745 Balance -435.5 -615.8 -175 Result Diagrams: 02/01/19 06:29 02/01/19 03:45 Phys Exam - Physical Examination Constitutional: NAD Intubated lightly sedated Neck: supple Cardiovascular: RRR, no significant murmur Gastrointestinal: soft, non-tender, positive bowel sounds Neurological: moves all 4 limbs Skin: normal turgor Dx/Plan - Plan Plan: Septic shock 2/2 PNA/empyema s/p lung decortication/thoracotomy - POD #11 - CT: R hydrothorax, ground glass bilaterally, purulent fluid drained, chest tube placed 01/21. - Right chest tube in place, continues to have air leak. CV surgery on board, appreciate recs. - Sputum cultures with presumed pseudomonas, will switch cefdinir to Zosyn. Continue Flagyl - CT showing area of loculated empyema that chest tubes are not reaching in the posterior right pleural space Acute Hypoxic Respiratory failure 2/2 above on mechanical ventilation - Intubated 01/20. Extubated 01/30. Reintubated 01/31 - Vent settings: SIMV mode, FiO2: 31, Peep 7 - Pulm consulted, managing vent. Plan for trach and PEG tomorrow or Saturday NSTEMI type 2 - likely 2/2 demand ischemia - Cards consulted. - Echo reviewed, fairly nml Hypokalemia - 2/2 lasix and diarrhea - Continue to replace Hypocalcemia - Ionized Ca 1.09. Replacing Thrombocytopenia, improved - Holding lovenox - Continue to monitor Anemia of Chronic disease - 6.5 on admission. s/p 3 PRBCs on 01/21 - Continue to monitor Code: Full VTE ppx: SCDs GI ppx: protonix Lines/tubes: ET tube, pitts, right chest tube, right IJ Consults: CV surg, pulm, PT/OT, Gen surg Contact: Mother [phone] Addendum - Attending - Attending Attestation Date/Time: 02/01/19 8318 I personally evaluated the patient and discussed the management with Dr. Woo I agree with the History, Examination, Assessment and Plan documented above with any addition or exceptions noted below. Plan for trach and peg placement.
[2019-02-01] MEDS: Furosemide 40 MG/4 ML VIAL SLOW IVP SCH (06:27)
[2019-02-01 06:41] LABS: #Eosinphils 0.1 thou/uL (0.0-0.7); #Lymphocytes 1.1 thou/uL (1.20-3.40); #Monocytes 0.7 thou/uL (0.11-0.59); #Neutrophils 5.9 thou/uL (1.40-6.50); %Basophils 0.1 % (0.0-1.0); %Eosinophils 0.7 % (0.0-10.0); %Lymphocytes 14.5 % (21.0-51.0); %Monocytes 9.3 % (0.0-10.0); %Neutrophils 75.5 % (42.0-75.0); Hemoglobin 6.9 g/dL (14.0-18.0); Mean Corpuscular Hemoglobin 28.3 pg (27.0-31.0); Mean Corpuscular Volume 88.4 fL (78.0-98.0); Mean Platelet Volume 9.9 fL (7.4-10.4); Platelet Count 198 thou/uL (130-400); RBC Distribution Width 16.5 % (11.5-14.5); Red Blood Cell (RBC) Count 2.44 mill/uL (4.70-6.10); White Blood Cell (WBC) Count 7.8 thou/uL (4.8-10.8)
--- NOTE | 2019-02-01 08:45 | PRG ---
DATE OF SERVICE: 02/01/2019 SUBJECTIVE: Mr. Worthy remains intubated and sedated. OBJECTIVE: VITAL SIGNS: Blood pressure 108/57 and pulse 70. LUNGS: Clear. CARDIAC: Normal S1 and normal S2. ABDOMEN: Soft and nontender. EXTREMITIES: No edema. IMAGING: Echocardiogram was done showing ejection fraction of 50% to 55%. ASSESSMENT: 1. Respiratory failure. 2. Normal left ventricular function. 3. Mgh-MN-zsiltdkte infarction, probably demand ischemia. PLAN: 1. Continue supportive care including antibiotics and pressors as needed. 2. He is on furosemide. 3. Also anemic, hemoglobin 6.9. The patient may need packed red blood cells. Job ID: [id number]
[2019-02-01] MEDS: metroNIDAZOLE 500 MG TAB PO SCH (09:05)
[2019-02-01] MEDS: predniSONE 20 MG TAB PO SCH (09:05)
[2019-02-01] MEDS: Folic Acid 1 MG TAB PO SCH (09:05)
[2019-02-01] MEDS: Famotidine 20 MG TAB PO SCH ×2 (09:05→20:52)
[2019-02-01] MEDS ORDERED: Potassium Chloride 20 MEQ in Premix Bag 1 BAG IVPB SCH (12:00)
[2019-02-01] MEDS ORDERED: Piperacillin/Tazobactam 3.375 GM in Sodium Chloride 0.9% 100 ML IVPB SCH (12:00)
[2019-02-01] MEDS ORDERED: Calcium Gluc 4.6 MEQ/10 ML (100 MG/ML) SLOW IVP SCH (13:30)
--- NOTE | 2019-02-01 13:52 | PRG ---
DATE OF SERVICE: 02/01/2019 SERVICE: Pulmonary Medicine. INTERVAL HISTORY: The patient is doing really well from respiratory standpoint. Breathing comfortably. Pseudomonas is growing in the sputum. Otherwise, there has been no interval change to his condition. PHYSICAL EXAMINATION: VITAL SIGNS: Afebrile. His last temperature was at 8 o'clock in the morning 2 days ago. Pulse 60, blood pressure 111/63, respirations 17, saturation 99% on 31% FiO2 and a PEEP of 5. GENERAL: The patient is intubated and sedated. HEENT: Normocephalic and atraumatic. Sclerae are white. Conjunctivae are pink. Oral mucosa is moist without lesions. LUNGS: Wonderful air entry. No prolonged expiratory phase or wheezing is appreciated. Extensive rhonchi are noted. HEART: Normal rate, regular. ABDOMEN: Soft. Nontender and nondistended. Bowel sounds are positive. MUSCULOSKELETAL: No cyanosis or clubbing. There is minimal edema present. NEUROLOGIC: Grossly nonfocal. LABORATORY DATA: WBC 7.8, hemoglobin 6.9, platelets 198,000 and rebounding. Potassium 3.3. Basic metabolic profile is otherwise unremarkable. Calcium 7.1. Pseudomonas is growing from the respiratory culture. This is a pansensitive organism. IMAGING STUDIES: CT of the chest demonstrates likely pulmonary abscess in the right lower lobe with extensive consolidations throughout that region. There is a right-sided thoracostomy tube in place with good expansion of the lung. There is also an infiltrate on the left with a small effusion on that side. Echocardiogram demonstrates a normal ejection fraction. ASSESSMENT: 1. Acute hypoxic respiratory failure. 2. Empyema, status post decortication, postoperative day 10. 3. Intraparenchymal pulmonary abscess. 4. Healthcare-associated pneumonia, secondary to pansensitive Pseudomonas. 5. Septic shock, resolved. 6. Critical care weakness. 7. Gyk-JM-dpxjcfyuv myocardial infarction secondary to demand. DISCUSSION AND PLAN: I will transfuse the patient 2 units of blood. Potassium and calcium will be replaced once again. The patient may require a right lower lobectomy to remove this abscess. I will discuss this with Cardiothoracic Surgery. He will not be making it through this hospital stay without a tracheostomy, which will also need to be pursued. For the time being, we will continue his antibiotics as detailed. We will continue to follow daily laboratories. Critical time: 30 minutes. Job ID: [id number] MTDD
[2019-02-01] MEDS: Calcium Gluconate 4.6 MEQ in Sodium Chloride 0.9% 100 ML IVPB SCH ×2 (15:32→18:10)
[2019-02-01] MEDS: Morphine 2 MG/ML SYRINGE SLOW IVP PRN ×2 (16:28→20:52)
--- NOTE | 2019-02-01 18:38 | CON ---
DATE OF CONSULTATION: 02/01/2019 CHIEF COMPLAINT: Need for enteric feeding. HISTORY OF PRESENT ILLNESS: Mr. Worthy is a 58-year-old man, who was admitted on 01/20/2019 with sepsis, empyema, and respiratory failure. He underwent right thoracotomy and decortication on 01/21/2019. He has not been able to wean from the vent and has a lung abscess and is going to require longer-term enteric feeding. He is also going to require a tracheostomy. Dr. Carolina is planning tracheostomy for tomorrow. GI consulted for PEG tube placement in same time. The patient is awake and appropriately responsive and interactive. He has endotracheal tube in place. He denies any abdominal pain or nausea and he is tolerating his current tube feeds well. PAST MEDICAL HISTORY: COPD. PAST SURGICAL HISTORY: He has had a cyst removed from his back. FAMILY HISTORY: Negative for GI malignancy. SOCIAL HISTORY: Chronic smoker prior to admission. I do not know the alcohol history. ALLERGIES: NO KNOWN DRUG ALLERGIES. MEDICATIONS: Include; 1. Dexmedetomidine. 2. Famotidine. 3. Folic acid. 4. Prednisone. 5. Zosyn. REVIEW OF SYSTEMS: Not obtainable as the patient is unable to be verbally interactive with the endotracheal tube in place and restrain. PHYSICAL EXAMINATION: VITAL SIGNS: Temperature is 98.0, pulse 77, and blood pressure 141/101. GENERAL: He is in no acute distress. Awake and alert. HEENT: His eyes have no scleral icterus. Oropharynx is an endotracheal tube in place and orogastric tube in place. LUNGS: Clear to auscultation anteriorly. HEART: Regular rate and rhythm. ABDOMEN: Soft, nontender, and nondistended. Bowel sounds are present. EXTREMITIES: No lower extremity edema. LABORATORY DATA: White blood cell count 7.8, hemoglobin 6.9, and platelets 198. Creatinine 0.57. Ferritin 1800. Bilirubin 0.4, AST 12, ALT 14, and alkaline phosphatase 93. IMPRESSION: 1. Respiratory failure with empyema and lung abscess. He is going to require tracheostomy and gastrostomy tube placement. 2. Oropharyngeal dysphagia. 3. Recent non-Q-wave myocardial infarction, type 2. RECOMMENDATIONS: We will plan for percutaneous endoscopic gastrostomy tube placement to coordinate with the tracheostomy placement tomorrow. Job ID: [id number]
[2019-02-02 03:24] LABS: Anion Gap 11 mmol/L (10-20); BUN (Urea Nitrogen) 19 mg/dL (8.4-25.7); Calc. Creatinine Clearance 134 mL/min (70-130); Calcium 7.5 mg/dL (7.8-10.44); Carbon Dioxide 28 mmol/L (22-29); Chloride 113 mmol/L (98-107); Estimated GFR-MDRD Greater than 90; Glucose 115 mg/dL (70-105); Potassium 3.6 mmol/L (3.5-5.1); Sodium 148 mmol/L (136-145)
[2019-02-02] MEDS: Piperacillin/Tazobactam 3.375 GM in Sodium Chloride 0.9% 100 ML IVPB SCH (06:05)
--- NOTE | 2019-02-02 06:15 | PDOC.FM ---
- Subjective Subjective: Doing well this morning. No overnight events. He is anxious for his trach and PEG placement later this morning. Denies pain. - Objective MAR Reviewed: Yes Vital Signs & Weight: Vital Signs (12 hours) Temp Pulse Resp BP Pulse Ox 02/02/19 04:00 99.0 F 25 H 02/02/19 02:31 74 02/02/19 02:00 24 H 02/02/19 00:50 79 136/79 02/02/19 00:00 98.9 F 23 H 02/01/19 22:00 21 H 02/01/19 20:00 99.1 F 30 H 98 02/01/19 18:58 86 02/01/19 18:56 96 Weight Admit Weight 73.4 kg Weight 73.8 kg Most Recent Monitor Data Heart Rate from ECG 73 NIBP 138/69 NIBP BP-Mean 92 Respiration from ECG 19 SpO2 97 I&O: 01/31/19 02/01/19 02/02/19 06:59 06:59 06:59 Intake Total 757.2 2028.3 2341 Output Total 1373 1820 2228 Balance -615.8 208.3 113 Result Diagrams: 02/02/19 07:28 02/02/19 02:50 Phys Exam - Physical Examination Constitutional: NAD Intubated and mildly sedated. Comfortable Neck: supple Diminished/no breath sounds RLL Cardiovascular: RRR Gastrointestinal: soft, non-tender Musculoskeletal: no edema, pulses present Neurological: moves all 4 limbs Skin: no rash Dx/Plan - Plan Plan: Septic shock 2/2 PNA/empyema s/p lung decortication/thoracotomy - POD #12 - CT: R hydrothorax, ground glass bilaterally, purulent fluid drained, chest tube placed 01/21. - Right chest tube in place, continues to have air leak. CV surgery on board, appreciate recs. - Sputum cultures: pansensitive pseudomonas, Continue Zosyn - CT with loculated empyema. Discussed with CV surg, Not able to drain surgically- will need long course of IV antibiotics Acute Hypoxic Respiratory failure 2/2 above on mechanical ventilation - Intubated 01/20. Extubated 01/30. Reintubated 01/31 - Pulm consulted. Plan for trach and PEG today NSTEMI type 2 - likely 2/2 demand ischemia - Cards consulted. - Echo reviewed, fairly nml Electrolyte abnormalities - Continue to replace as indicated Thrombocytopenia, improved - Holding lovenox - Continue to monitor Anemia of Chronic disease - 6.5 on admission. s/p 3 PRBCs on 01/21, 1U on 02/01 - Continue to monitor Code: Full VTE ppx: SCDs GI ppx: protonix Lines/tubes: ET tube, pitts, right chest tube, right IJ Consults: CV surg, pulm, PT/OT Contact: Mother [phone] Addendum - Attending - Attending Attestation Date/Time: 02/02/19 1035 I personally evaluated the patient and discussed the management with Dr. Woo. I agree with the History, Examination, Assessment and Plan documented above with any addition or exceptions noted below. Patient here for complications due to lung abscess and empyema. He is going for trach/PEG later today due to inability to wean from ventilator. CV surgery on board regarding future plans for the abscess. He is s/p decortication and chest tube placement. Pulm on board. Patient overall awake and pain controlled.
[2019-02-02] MEDS ORDERED: Potassium Chloride 20 MEQ TAB PO SCH (06:30)
[2019-02-02] MEDS ORDERED: Lidocaine 1% (PF) 30 ML VIAL ONE (06:43)
[2019-02-02 07:42] LABS: Hemoglobin 8.5 g/dL (14.0-18.0); Platelet Count 257 thou/uL (130-400)
[2019-02-02] MEDS ORDERED: Fentanyl 100 MCG/2 ML VIAL ONE (08:56)
[2019-02-02] MEDS: Morphine 2 MG/ML SYRINGE SLOW IVP PRN (10:32)
[2019-02-02] MEDS ORDERED: Rocuronium Bromide 10 MG/ML (10ML VIAL) ONE (10:40)
[2019-02-02] MEDS ORDERED: Propofol 1,000 MG/100 ML VIAL IV ONE (11:00)
--- NOTE | 2019-02-02 11:14 | RAD ---
XR Chest 1 View Portable History: Post tracheostomy Comparison: Radiograph 2 days prior Findings: New tracheostomy is in place in good position. Right thoracostomy tube is similar. Layering effusion is similar. Moderate pulmonary edema. Impression: Uncomplicated tracheostomy placement.
--- NOTE | 2019-02-02 11:40 | OP ---
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 PROCEDURES PERFORMED: Esophagogastroduodenoscopy with percutaneous endoscopic gastrostomy placement. INDICATION: Oropharyngeal dysphagia. MEDICATIONS: 1. See Anesthesia record. 2. The patient is receiving scheduled Zosyn on the floor, which serves as periprocedural prophylaxis. FINDINGS: After discussion of the risks, benefits, and alternatives of the procedure, informed consent was obtained and verified. The procedure was completed in the operating room following tracheostomy. After that portion of the patient's procedure was completed, I scrubbed in. The patient was already in the supine position under general anesthesia. A Pentax adult upper endoscope was placed into the oropharynx and passed through the cricopharyngeus under direct visualization. The esophageal mucosa appeared normal throughout with a normal-appearing Z-line. The endoscope was advanced into the stomach. Forward and retroflexed views of the entire gastric mucosa were obtained. The gastric mucosa appeared normal. The endoscope was passed through the pylorus and into the first and second portions of the duodenum, which also appeared normal. The endoscope was then withdrawn back into the stomach. Using one-to-one pressure and transillumination methods, suitable site for PEG placement was located in the left upper quadrant. This site was prepped and draped in a sterile fashion. The site was then anesthetized with subcutaneous lidocaine. A 1 cm vertical incision was then made. The introducer needle and catheter were then introduced transcutaneously into the gastric lumen. The needle was removed and the blue wire passed through the catheter tip and grasped with a snare. The wire was then removed along with a snare from the patient's mouth. A 20-Faroese traction PEG tube was affixed to the wire and then pulled through into position in the usual fashion without any difficulty. The endoscope was then introduced back down the esophagus and into the stomach. The internal bumper was visualized and found to be in good position. The endoscope was withdrawn. The external bumper clamp and ports were then affixed to the PEG tube. The external bumper was placed at a distance of 2.5 cm. The procedure was then completed. The patient tolerated the procedure well. There were no immediate postprocedure complications. IMPRESSION: Successful placement of 20-Faroese traction percutaneous endoscopic gastrostomy tube to the left upper quadrant, with external bumper at 2.5 cm. RECOMMENDATIONS: 1. Flush tube regularly. 2. Can use PEG tube for medications now. 3. Can use PEG tube for feeds in 4 hours. 4. We will plan to come by tomorrow to check on the PEG site and likely loosen the external bumper. Please call back with any questions or concerns. Job ID: [id number]
[2019-02-02] MEDS: Piperacillin/Tazobactam 4.5 GM in Sodium Chloride 0.9% 100 ML IVPB SCH ×3 (12:27→23:21)
[2019-02-02] MEDS: Famotidine 20 MG TAB PO SCH ×2 (14:01→20:07)
[2019-02-02] MEDS: Folic Acid 1 MG TAB PO SCH (14:02)
[2019-02-02] MEDS: predniSONE 20 MG TAB PO SCH (14:02)
--- NOTE | 2019-02-02 15:09 | OP ---
DATE OF PROCEDURE: 02/02/2019 PREOPERATIVE DIAGNOSIS: Prolonged ventilation with need for tracheostomy. POSTOPERATIVE DIAGNOSIS: Prolonged ventilation with need for tracheostomy. PROCEDURE PERFORMED: Tracheostomy. ANESTHESIA: General endotracheal, Dr. Arcenio Joy. ESTIMATED BLOOD LOSS: Minimal. DESCRIPTION OF PROCEDURE: The patient was brought to the operating room and placed in the supine position in the operating room table. Appropriate central line and monitors were placed. The neck was prepped and draped in usual sterile fashion. Skin incision was made over the trachea 2 fingerbreadths above the sternal notch. Strap muscles were split. The trachea was cleared of surrounding tissue. The second cartilage was identified and incised sharply in an inverted horseshoe fashion. A 3-0 Prolene was placed through the cartilage and secured. The endotracheal tube was backed proximal to the tracheostomy incision. The #8 Shiley tube was then inserted and ventilated. There was good CO2 return and good oxygenation. The tracheostomy was secured with nylon suture and a tube tape. Dressings were applied. The patient was then turned over to Dr. Osorio for PEG tube placement. Job ID: [id number]
[2019-02-02] MEDS: Dextrose 5% in Water 1,000 ML IV SCH (16:07)
--- NOTE | 2019-02-02 16:24 | PRG ---
DATE OF SERVICE: 02/02/2019 SERVICE: Pulmonary Medicine. INTERVAL HISTORY: The patient is doing poorly from respiratory standpoint. He failed liberate from mechanical ventilator over the weekend. As such, he ended up getting a tracheostomy today. He is just returned back. He appears to be in a little bit of distress and is having a little bit of discomfort. Otherwise, there has been no interval change to his condition. PHYSICAL EXAMINATION: VITAL SIGNS: Afebrile. Pulse 75, pressure 118/59, respirations 30, and saturation 99%, currently on 41% FiO2 and PEEP of 5. GENERAL: The patient is trached. He is comfortable otherwise. HEENT: Normocephalic and atraumatic. Sclerae are white. Conjunctivae are pink. Oral mucosa is moist without lesions. LUNGS: Extensive rhonchi are present throughout bilateral lung rose. They are worse on the right. HEART: Normal rate. Regular. ABDOMEN: Soft, nontender, and nondistended. Bowel sounds are positive. MUSCULOSKELETAL: No cyanosis or clubbing. No pitting in the bilateral lower extremities. NEUROLOGIC: Grossly nonfocal. LABORATORY DATA: Hemoglobin 8.5 and stable. Sodium 148, potassium 3.6. Calcium 7.5. Basic metabolic profile is otherwise unremarkable. Troponin is downtrending to 0.9. Sputum is growing Pseudomonas aeruginosa, which is pansensitive. IMAGING: Chest x-ray demonstrates good placement for the tracheostomy. The right lung is well inflated. Significant infiltrate is present at the right base. ASSESSMENT: 1. Acute hypoxic respiratory failure. 2. Empyema, status post decortication, postop day 11. 3. Tracheostomy, postop day 0. 4. Intraparenchymal pulmonary abscess. 5. Healthcare-associated pneumonia, secondary to pansensitive Pseudomonas. 6. Septic shock, resolved. 7. Critical care weakness. 8. Xyl-XP-rbmxonygm myocardial infarction secondary to demand. DISCUSSION AND PLAN: The patient would benefit from the right lower lobectomy if technically possible. That being said , if it is not, he will likely be committed to months worth of antibiotic therapy. Once he clears his inflammatory profile, we will need to put a PICC line in and convert him over to long-acting therapy. We will start ventilator weaning as soon as tomorrow. LTAC placement will be required from this point most likely. Critical care time: 30 minutes. Job ID: [id number] [facility]
[2019-02-03 04:38] LABS: Anion Gap 10 mmol/L (10-20); BUN (Urea Nitrogen) 19 mg/dL (8.4-25.7); Calc. Creatinine Clearance 130 mL/min (70-130); Calcium 7.2 mg/dL (7.8-10.44); Carbon Dioxide 27 mmol/L (22-29); Chloride 113 mmol/L (98-107); Estimated GFR-MDRD Greater than 90; Glucose 158 mg/dL (70-105); Magnesium 2.1 mg/dL (1.6-2.6); Potassium 3.5 mmol/L (3.5-5.1); Sodium 146 mmol/L (136-145)
[2019-02-03 04:40] LABS: Phosphorus 2.8 mg/dL (2.3-4.7)
[2019-02-03] MEDS: Piperacillin/Tazobactam 4.5 GM in Sodium Chloride 0.9% 100 ML IVPB SCH ×2 (05:20→11:42)
--- NOTE | 2019-02-03 06:11 | PDOC.FM ---
- Subjective Subjective: Trach and PEG placed yesterday morning. No events overnight. Mildly sedated and comfortable. Pitts cath in place, continues to have stools. Denies pain. - Objective MAR Reviewed: Yes Vital Signs & Weight: Vital Signs (12 hours) Temp Pulse Resp Pulse Ox 02/03/19 04:00 25 H 02/03/19 03:00 98.4 F 02/03/19 02:00 26 H 02/03/19 01:53 75 02/03/19 01:08 74 27 H 93 L 02/03/19 00:00 26 H 02/02/19 23:00 97.8 F 02/02/19 22:26 78 02/02/19 22:00 28 H 02/02/19 20:00 26 H 94 L 02/02/19 19:00 98.6 F 02/02/19 18:34 72 02/02/19 18:33 72 23 H 96 Weight Admit Weight 73.4 kg Weight 72.8 kg Most Recent Monitor Data Heart Rate from ECG 69 NIBP 135/63 NIBP BP-Mean 87 Respiration from ECG 26 SpO2 97 I&O: 02/01/19 02/02/19 02/03/19 06:59 06:59 06:59 Intake Total 2028.3 2874 976.4 Output Total 1820 2298 920 Balance 208.3 576 56.4 Result Diagrams: 02/03/19 06:45 02/03/19 03:45 Phys Exam - Physical Examination Constitutional: NAD Tracheostomy. Poor dentition No breath sounds RLL Cardiovascular: RRR Gastrointestinal: soft, non-tender, positive bowel sounds Trace edema Neurological: moves all 4 limbs Skin: no rash, normal turgor Dx/Plan - Plan Plan: Septic shock 2/2 PNA/empyema s/p lung decortication/thoracotomy - POD #13 - Rightchest tube placed 01/21. - Sputum cultures: pansensitive pseudomonas, Continue Zosyn - CT with loculated empyema. Discussed with CV surg, Not able to drain surgically- will need long course of IV antibiotics Acute Hypoxic Respiratory failure 2/2 above on mechanical ventilation - Intubated 01/20. Extubated 01/30. Reintubated 01/31 - Pulm consulted. - Trach and PEG 02/02 NSTEMI type 2 - likely 2/2 demand ischemia - Cards consulted. - Echo reviewed, fairly nml Electrolyte abnormalities - Continue to replace as indicated Thrombocytopenia, improved - Holding lovenox, SCDs - Continue to monitor Anemia of Chronic disease - 6.5 on admission. s/p 3 PRBCs on 01/21, 1U on 02/01 - Continue to monitor Code: Full VTE ppx: SCDs GI ppx: protonix Lines/tubes: Tracheostomy, pitts, right chest tube, right IJ Consults: CV surg, pulm, PT/OT Contact: Mother [phone] Addendum - Attending - Attending Attestation Date/Time: 02/03/19 1003 I personally evaluated the patient and discussed the management with Dr. Woo. I agree with the History, Examination, Assessment and Plan documented above with any addition or exceptions noted below. Patient here for respiratory failure and empyema and lung abscess s/p decortication. He continues on IV abx and will need exterminator helper abx unless plans for pulm resection occur. He is s/p Trach and PEG, will need assisted placement and therapy. Pulm on board. Continue therapy services, will need exterminator helper placement but anticipate that may be a ways off.
[2019-02-03] MEDS ORDERED: Potassium Chloride 20 MEQ TAB PO SCH ×2 (06:30→08:00)
[2019-02-03 06:56] LABS: #Basophils 0.1 thou/uL (0.0-0.2); #Eosinphils 0.1 thou/uL (0.0-0.7); #Monocytes 1.1 thou/uL (0.11-0.59); %Basophils 0.5 % (0.0-1.0); %Lymphocytes 8.9 % (21.0-51.0); %Monocytes 9.8 % (0.0-10.0); %Neutrophils 79.8 % (42.0-75.0); Hemoglobin 8.7 g/dL (14.0-18.0); Mean Corpuscular HGB CONC 31.4 g/dL (32.0-36.0); Mean Corpuscular Hemoglobin 28.5 pg (27.0-31.0); Mean Corpuscular Volume 90.6 fL (78.0-98.0); Mean Platelet Volume 9.3 fL (7.4-10.4); Platelet Count 270 thou/uL (130-400); RBC Distribution Width 17.5 % (11.5-14.5); Red Blood Cell (RBC) Count 3.05 mill/uL (4.70-6.10); White Blood Cell (WBC) Count 11.2 thou/uL (4.8-10.8)
[2019-02-03] MEDS: Famotidine 20 MG TAB PO SCH ×2 (08:01→20:31)
[2019-02-03] MEDS: Folic Acid 1 MG TAB PO SCH (08:01)
[2019-02-03] MEDS: Dextrose 5% in Water 1,000 ML IV SCH (11:43)
[2019-02-03] MEDS: Morphine 2 MG/ML SYRINGE SLOW IVP PRN (13:16)
--- NOTE | 2019-02-03 14:12 | PRG ---
DATE OF SERVICE: 02/03/2019 Mr. Worthy was started on tube feeds and seems to be tolerating these well. Some minimal discomfort around the PEG site, but no other abdominal pain. No vomiting. I inspected the PEG tube site, it looks good. No drainage or bleeding. I loosened the external bumper slightly to 3 cm, which should be a good distance for him. GI will sign off, but please call back anytime with questions or concerns. Job ID: [id number]
[2019-02-03] MEDS ORDERED: Lorazepam 2 MG/ML VIAL SLOW IVP SCH (15:45)
--- NOTE | 2019-02-03 16:16 | PRG ---
DATE OF SERVICE: 02/03/2019 SERVICE: Pulmonary Medicine. INTERVAL HISTORY: The patient is doing fine from respiratory standpoint. Breathing comfortably. This morning, he is actually doing really well. He is able to sit up on the side of the bed. He was cool, calm, and collected. He demonstrated profound weakness, but we made significant headway. Later on, he started getting more agitated. He felt like he could not breathe, and started clogging at his tracheostomy site. Apparently, he did not have any significant desaturation, but was subsequently restrained as a result. He denies any fevers, chills, or overnight events. PHYSICAL EXAMINATION: VITAL SIGNS: Afebrile, pulse 100, blood pressure 141/70, respirations 25, saturations 96%, currently on 27% FiO2 and a PEEP of 7. GENERAL: The patient is awake and alert, in no apparent distress. LUNGS: Slightly prolonged expiratory phase, but not much in the way of wheezing. Extensive rhonchi are present bilaterally, but worse on the right. HEART: Normal rate, regular. ABDOMEN: Soft, nontender, nondistended. Bowel sounds are positive. MUSCULOSKELETAL: No cyanosis or clubbing. There is no pitting in the bilateral lower extremities. NEUROLOGIC: Grossly nonfocal. LABORATORY DATA: WBC 11.2 and stable, hemoglobin 8.7 and stable, platelets 270,000 which had rebounded beautifully. Sodium 146 and gently up-trending. Magnesium and phosphorous fall within the normal limits. Potassium 3.5. Basic metabolic profile is otherwise unremarkable with a stable creatinine. Pansensitive Pseudomonas growing on the sputum from the 6th. ASSESSMENT: 1. Acute hypoxic respiratory failure. 2. Empyema, status post decortication, postop day 12. 3. Tracheostomy, postop day 1. 4. Intrapulmonary abscess secondary to Pseudomonas. 5. Healthcare-associated pneumonia secondary to pansensitive Pseudomonas. 6. Septic shock, resolved. 7. Critical care weakness. DISCUSSION AND PLAN: I will give the patient a laboratory holiday tomorrow morning. I have modified his ventilator significantly in order to turn a little bit more work of breathing over to the patient. The suction catheter was actually in the tracheostomy, which may have created some difficulty with breathing. I will schedule the dose of Klonopin and Seroquel to see if we can level out his mental status and anxiety. Pulmonary/Critical Care will continue to follow very closely. Job ID: [id number]
[2019-02-03] MEDS: clonazePAM 0.5 MG TAB PO SCH (20:31)
--- NOTE | 2019-02-04 06:14 | PDOC.FM ---
- Subjective Subjective: Anxious yesterday. Was started on low dose seroquel and Ativan. Overnight no events. - Objective MAR Reviewed: Yes Vital Signs & Weight: Vital Signs (12 hours) Temp Pulse Resp Pulse Ox 02/04/19 04:00 28 H 02/04/19 03:00 98.2 F 02/04/19 02:00 29 H 02/04/19 00:00 28 H 02/03/19 23:44 72 29 H 100 02/03/19 23:00 98 F 02/03/19 22:00 28 H 02/03/19 20:00 25 H 96 02/03/19 19:00 97.8 F 02/03/19 18:21 79 30 H 98 Weight Admit Weight 73.4 kg Weight 72.1 kg Most Recent Monitor Data Heart Rate from ECG 80 NIBP 140/60 NIBP BP-Mean 86 Respiration from ECG 22 SpO2 98 I&O: 02/02/19 02/03/19 02/04/19 06:59 06:59 06:59 Intake Total 2874 1781.4 2720 Output Total 2298 970 1330 Balance 576 811.4 1390 Result Diagrams: 02/03/19 06:45 02/03/19 03:45 Phys Exam - Physical Examination mildly sedated. Appears comfortable Diminished RLL Cardiovascular: RRR Gastrointestinal: soft, non-tender, positive bowel sounds Trace edema Neurological: moves all 4 limbs Skin: no rash, normal turgor Dx/Plan - Plan Plan: Septic shock 2/2 PNA/empyema s/p lung decortication/thoracotomy - POD #14 - Rightchest tube placed 01/21. - Sputum cultures: pansensitive pseudomonas, Continue Zosyn - CT with loculated empyema. Discussed with CV surg, Not able to drain surgically- will need long course of IV antibiotics Acute Hypoxic Respiratory failure - Intubated 01/20. Extubated 01/30. Reintubated 01/31 - Trach and PEG 02/02 - Pulm following NSTEMI type 2 - likely 2/2 demand ischemia - Cards consulted. - Echo reviewed, fairly nml Electrolyte abnormalities - Continue to replace as indicated Thrombocytopenia, improved - Holding lovenox, SCDs - Continue to monitor Anemia of Chronic disease - 6.5 on admission. s/p 3 PRBCs on 01/21, 1U on 02/01 - Continue to monitor Code: Full VTE ppx: SCDs GI ppx: protonix Lines/tubes: Tracheostomy, pitts, right chest tube, right IJ, PEG Consults: CV surg, pulm, PT/OT Contact: Mother [phone] Addendum - Attending - Attending Attestation Date/Time: 02/04/19 1031 I personally evaluated the patient and discussed the management with Dr. Woo. I agree with the History, Examination, Assessment and Plan documented above with any addition or exceptions noted below. Patient overall stable. Continues on vent. Will make some medication adjustments to help with his chronic anxiety. Will need continued abx for his lung abscess. CV Surgery and Pulm on board. Continue PEG tube feedings. UOP adequate and vitals stable.
[2019-02-04] MEDS ORDERED: Potassium Chloride 20 MEQ TAB PO SCH (06:30)
[2019-02-04] MEDS: Folic Acid 1 MG TAB PO SCH (08:25)
[2019-02-04] MEDS: Famotidine 20 MG TAB PO SCH ×2 (08:25→21:51)
[2019-02-04] MEDS: clonazePAM 0.5 MG TAB PO SCH ×2 (08:25→21:51)
--- NOTE | 2019-02-04 09:46 | RAD ---
CHEST 1 VIEW: Date: 02/04/19 HISTORY: Follow-up post thoracotomy, infiltrate, chest tubes. COMPARISON: 02/02/19. FINDINGS: Tracheostomy tube in place. Two right chest tubes in place. Minimal cardiomegaly with bilateral vascu lar congestion and increased interstitial and alveolar parenchymal changes throughout both lungs, pos sibly representing bilateral edema and/or congestive heart failure versus bilateral pneumonia. Small loculated pneumothorax in the right lower chest. IMPRESSION: Little change from prior study. Small loculated pneumothorax in the right lower lateral chest. Contin ue short-term follow-up. POS: [facility]
[2019-02-04] MEDS: Dextrose 5% in Water 1,000 ML IV SCH (11:03)
[2019-02-04] MEDS: Potassium Chloride 20 MEQ TAB PO SCH (11:25)
--- NOTE | 2019-02-04 16:56 | PRG ---
DATE OF SERVICE: 02/04/2019 SERVICE: Pulmonary Medicine. INTERVAL HISTORY: The patient is doing really well from respiratory standpoint. He has been weaned down to 27% FiO2. His PEEP has been dropped to 6. He got put on pressure support ventilation since yesterday and has not had any significant other events. Otherwise, he has done fairly well overnight. He remains on a little bit of Precedex. We are going to see if we can wean this through the day. PHYSICAL EXAMINATION: VITAL SIGNS: Afebrile, pulse 104, blood pressure 145/95, respirations 36, saturation 95%, currently on 27% FiO2 and a PEEP of 6. GENERAL: The patient is awake and alert, in no apparent distress. LUNGS: Decent air entry. Rhonchi are present throughout bilateral lung rose, but worse on the right. HEART: Normal rate and regular. ABDOMEN: Soft, nontender, and nondistended. Bowel sounds are positive. MUSCULOSKELETAL: No cyanosis or clubbing. There is no pitting in the bilateral lower extremities. NEUROLOGIC: Grossly nonfocal. LABORATORY DATA: WBC 11.2, hemoglobin 8.7, and platelets 270,000 and beautifully rebounding. Pansensitive Pseudomonas aeruginosa is in the sputum. IMAGING STUDIES: Chest x-ray demonstrates improved infiltrate in the left. Persistent infiltrate on the right. There is a thoracostomy tube x2 in good position. There is a residual pneumothorax on the right of likely no clinical concern. ASSESSMENT: 1. Acute hypoxic respiratory failure, slowly improving. 2. Empyema, status post decortication, postop day 13. 3. Intrapulmonary abscess, most recently culturing Pseudomonas. 4. Healthcare-associated pneumonia secondary to pansensitive Pseudomonas. 5. Tracheostomy, postop day 2. 6. Critical care weakness. DISCUSSION AND PLAN: We will continue our mobilization efforts through time. I am going to place an ID consultation to help us identify how long we need to be treating this gentleman for. I would also like to know whether or not there is an oral equivalent. This patient is unfunded and will not be able to go to an LTAC facility. If he needs IV drugs, we are unlikely to be able to set that up in the outpatient setting. We will start looking into these types of options once we know the duration of therapy and antibiotic choice. His antibiotic course is going to be likely quite protracted and may require additional imaging procedures through time. Pressure support has been weaned to 13. We will put him on 5/5 trial three times daily and increase as tolerated. Once he does that well for a couple of hours, we will start giving him T collar trials. Job ID: [id number]
[2019-02-04] MEDS: Acetaminophen 325 MG TAB PO PRN (21:51)
[2019-02-05] MEDS: Dextrose 5% in Water 1,000 ML IV SCH (03:45)
[2019-02-05 06:11] LABS: Hemoglobin 10.1 g/dL (14.0-18.0); Mean Corpuscular HGB CONC 30.9 g/dL (32.0-36.0); Mean Corpuscular Hemoglobin 28.6 pg (27.0-31.0); Mean Corpuscular Volume 92.5 fL (78.0-98.0); Platelet Count 250 thou/uL (130-400); RBC Distribution Width 18.3 % (11.5-14.5); Red Blood Cell (RBC) Count 3.52 mill/uL (4.70-6.10); White Blood Cell (WBC) Count 16.9 thou/uL (4.8-10.8)
[2019-02-05 06:12] LABS: #Eosinphils 0.3 thou/uL (0.0-0.7); #Lymphocytes 1.4 thou/uL (1.20-3.40); #Monocytes 1.4 thou/uL (0.11-0.59); #Neutrophils 13.8 thou/uL (1.40-6.50); %Basophils 0.1 % (0.0-1.0); %Lymphocytes 8.3 % (21.0-51.0); %Monocytes 8.4 % (0.0-10.0); %Neutrophils 81.3 % (42.0-75.0); Mean Platelet Volume 9.2 fL (7.4-10.4)
--- NOTE | 2019-02-05 06:16 | PDOC.FM ---
- Subjective Subjective: No overnight events. Still very anxious. Reporting some abdominal pain. Pitts catheter in place and having BMs. - Objective MAR Reviewed: Yes Vital Signs & Weight: Vital Signs (12 hours) Temp Pulse Resp Pulse Ox 02/05/19 06:00 38 H 02/05/19 04:00 99.0 F 38 H 02/05/19 02:00 40 H 02/05/19 00:00 98.2 F 38 H 98 02/04/19 23:53 67 42 H 98 02/04/19 22:00 36 H 02/04/19 20:00 101.7 F H 36 H 98 02/04/19 18:41 118 H 48 H 97 Weight Admit Weight 76.2 kg Weight 73.1 kg Most Recent Monitor Data Heart Rate from ECG 76 NIBP 130/63 NIBP BP-Mean 85 Respiration from ECG 43 SpO2 91 I&O: 02/03/19 02/04/19 02/05/19 06:59 06:59 06:59 Intake Total 1781.4 2720 3111 Output Total 970 1330 3210 Balance 811.4 1390 -99 Result Diagrams: 02/05/19 04:52 02/05/19 04:52 Phys Exam - Physical Examination Anxious HEENT: moist MMs Neck: supple No breath sounds RLL Cardiovascular: RRR Gastrointestinal: soft appropriately tender in RUQ, PEG- left side. trace edema Neurological: moves all 4 limbs Skin: no rash Dx/Plan - Plan Plan: Septic shock 2/2 PNA/empyema s/p lung decortication/thoracotomy - POD #15 - Rightchest tube placed 01/21. - Sputum cultures: pansensitive pseudomonas, Continue Zosyn - Fever overnight, Cultures redrawn. It looks like the Zosyn order fell off yesterday evening. This is likely the cause of fever. It has been resumed this morning. - CT with loculated empyema. Discussed with CV surg, Not able to drain surgically- will need long course of IV antibiotics. ID has been consulted. - Pt is uninsured and will likely not qualify for LTAC unless there is marshall assistance available, CM following. Acute Hypoxic Respiratory failure - Intubated 01/20. Extubated 01/30. Reintubated 01/31 - Trach and PEG 02/02 - Pulm following Anxiety - Large barrier to weaning off vent. - Seroquel BID and Clonazepam BID - Will start Zoloft daily. Monitor for signs of serotonin syndrome. Low risk but consider prior to adding meds in future. NSTEMI type 2 - likely 2/2 demand ischemia - Cards consulted. - Echo reviewed, fairly nml Electrolyte abnormalities - Continue to replace as indicated Thrombocytopenia, resolved - SCDs for ppx Anemia of Chronic disease - 6.5 on admission. s/p 3 PRBCs on 01/21, 1U on 02/01 - Continue to monitor Code: Full VTE ppx: SCDs GI ppx: protonix Lines/tubes: Tracheostomy, pitts, right chest tube, right IJ, PEG Consults: CV surg, pulm, PT/OT Contact: Mother [phone] Addendum - Attending - Attending Attestation Date/Time: 02/05/19 1007 I personally evaluated the patient and discussed the management with Dr. Woo. I agree with the History, Examination, Assessment and Plan documented above with any addition or exceptions noted below. Patient overall stable. Continues to require vent and Precedex due to anxiety. Work on baseline control. He fevered overnight, but for some reason was not receiving abx yesterday for his Pseudomonas lung infection. That has been restarted. Pulm and ID on board. Cultures redrawn and pending. Labs did show elevation in WBC overnight. Continue current mgmt. 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
[2019-02-05 06:32] LABS: Phosphorus 2.6 mg/dL (2.3-4.7)
[2019-02-05 06:39] LABS: Anion Gap 10 mmol/L (10-20); Calc. Creatinine Clearance 166 mL/min (70-130); Calcium 7.4 mg/dL (7.8-10.44); Carbon Dioxide 25 mmol/L (22-29); Chloride 107 mmol/L (98-107); Estimated GFR-MDRD Greater than 90; Glucose 148 mg/dL (70-105); Potassium 3.1 mmol/L (3.5-5.1); Sodium 139 mmol/L (136-145)
[2019-02-05 06:58] LABS: BUN (Urea Nitrogen) 13 mg/dL (8.4-25.7); Magnesium 1.9 mg/dL (1.6-2.6)
[2019-02-05] MEDS: Lorazepam 2 MG/ML VIAL SLOW IVP PRN ×4 (07:20→20:22)
[2019-02-05] MEDS: clonazePAM 0.5 MG TAB PO SCH (07:41)
[2019-02-05] MEDS: Folic Acid 1 MG TAB PO SCH (07:41)
[2019-02-05] MEDS: Famotidine 20 MG TAB PO SCH ×2 (07:41→20:22)
[2019-02-05] MEDS: Piperacillin/Tazobactam 4.5 GM in Sodium Chloride 0.9% 100 ML IVPB SCH ×2 (07:42→13:01)
[2019-02-05] MEDS: Potassium Chloride 20 MEQ TAB PO SCH (07:49)
[2019-02-05] MEDS ORDERED: Potassium Chloride 40 MEQ in Sodium Chloride 0.9% 250 ML 250 ML IVPB SCH (09:00)
[2019-02-05] MEDS ORDERED: Loperamide HCl 1 MG/7.5 ML UDCUP PO PRN (10:11)
[2019-02-05] MEDS ORDERED: Sodium Chloride 0.9% 1,000 ML IV SCH (10:15)
[2019-02-05] MEDS ORDERED: Enoxaparin Sodium 40 MG/0.4 ML SYRINGE SC SCH (11:45)
--- NOTE | 2019-02-05 11:59 | PRG ---
DATE OF SERVICE: 02/05/2019 SERVICE: Pulmonary Medicine. INTERVAL HISTORY: This morning, the patient was tachypneic in the 60s. He was agitated and started to desaturate. He has put on a rate for about 30 minutes and subsequently transitioned back to pressure support ventilation. This happened in conjunction with weaning sedation. Any time we come off sedation, he becomes very agitated, and starts pulling lines and tubes and other things. Whenever we keep him a little bit under heavier sedation, he actually smooths out quite well. He cannot provide any additional elements of the history at this point. He is breathing comfortably otherwise. PHYSICAL EXAMINATION: VITAL SIGNS: Afebrile, pulse 79, blood pressure 125/56, respirations 37, saturation 99%, currently on 28% FiO2 and a PEEP of 6. GENERAL: The patient is sedated. Without stimulation, he goes back to sleep within about 5 seconds. HEENT: Normocephalic and atraumatic. Sclerae white. Conjunctivae pink. Oral and nasal mucosa are moist without lesions. LUNGS: Decent air entry. There are extensive rhonchi present on the right. Minimal rhonchi on the left. HEART: Normal rate. Regular. ABDOMEN: Soft, nontender, and nondistended. Bowel sounds are positive. MUSCULOSKELETAL: No cyanosis or clubbing. There is trace pitting in the bilateral lower extremities. NEUROLOGIC: Grossly nonfocal. LABORATORY DATA: WBC 16.9, hemoglobin 10.1, and platelets 250,000. Sodium 139 and potassium 3.1. Basic metabolic profile is otherwise unremarkable. Magnesium and phosphorous are all within the normal limits. ASSESSMENT: 1. Acute hypoxic respiratory failure, improving. 2. Empyema, status post decortication, postop day 14. 3. Intrapulmonary abscess, most recently culturing Pseudomonas. 4. Healthcare-associated pneumonia, secondary to pansensitive Pseudomonas. 5. Tracheostomy, postop day 3. 6. Critical care weakness. DISCUSSION AND PLAN: We will continue making efforts at weaning Precedex through time. Seroquel and Klonopin will be increased. Lovenox will be restarted. IV fluids will be interrupted completely and will be aggressively replacing potassium today. Pulmonary/Critical Care will continue to follow along. Job ID: [id number]
[2019-02-05 16:25] LABS: HIV (1/2) Antibody/Antigen Non-Reactive (NonReactive); HIV 1/2 INDEX 0.06 S/CO (<1.00); Hep C IgG Ab Non-Reactive (NonReactive); Hep C Index 0.12 S/CO (0-0.79)
[2019-02-05 16:26] LABS: Syphilis Antibody Nonreactive (Nonreactive); Syphilis Antibody Index 0.07 S/CO (<1.00 Non-Reactive)
[2019-02-05] MEDS: cefTRIAXone\\ROCEPHIN 2 GM in Sodium Chloride 0.9% 100 ML IVPB SCH (16:31)
[2019-02-05] MEDS: metroNIDAZOLE 500 MG in Premix Bag 1 BAG IVPB SCH ×2 (16:32→23:44)
[2019-02-05] MEDS: clonazePAM 1 MG TAB PO SCH (20:22)
[2019-02-05] MEDS: Metamucil PACK PER TUBE SCH (20:51)
--- NOTE | 2019-02-05 21:47 | CON ---
DATE OF CONSULTATION: 02/05/2019 REASON FOR CONSULTATION: Empyema and lung abscess. HISTORY OF PRESENT ILLNESS: A 58-year-old patient who has a history of alcoholism and COPD, lives in [place] with his mother. He has been presenting with respiratory symptoms with past month, eventually deteriorated to the point where he was brought to [facility] and then transferred to the emergency room on to [facility] and in the Emergency Room, there he developed respiratory failure, had to be intubated and a chest tube was placed by local physician, probably one of the surgeons there in [place] with purulent fluid drained from the area. On arrival, his BP was 121/93, pulse 108, respirations 18 and O2 saturation 99 on a ventilator, temperature 100.9. The patient was transferred to the ICU and had a right-sided thoracotomy with decortication by Dr. Carolina on January 21 and there was purulent material upon entering the cavity. The pleural peel was removed from the chest wall and lung. Multiple air leaks were created. The lung was re-expanded in field. Most of the chest tubes were placed and then the chest was irrigated and the ribs were reapproximated. Wounds closed. He was extubated on January 30, but had to be intubated. The patient had a chest CT on January 31 to evaluate the cause of the failure of extubation. There was evidence of patchy areas of multifocal infiltrate about the right upper lobe and lower lobe. There was collection of gas and fluid with air-fluid level measuring 6 x 4 cm. A tracheostomy was placed by Dr. Carolina on February 02 and he had a gastrostomy tube placed as well on the same day. Currently, Mr. Worthy is awake. He appears chronically ill. He establishes eye contact, but has a hard time communicating with the signs. He will follow some commands. He has had some loose stools, but they are almost formed. He is receiving enteric feedings with gastrostomy tube without any difficulty. PAST MEDICAL HISTORY: Includes COPD and alcoholism. He lives in [place] with his mother. PAST SURGICAL HISTORY: Otherwise negative. FAMILY HISTORY: Not available. SOCIAL HISTORY: He was a smoker and used to drink heavily. ALLERGY HISTORY: Negative. PHYSICAL EXAMINATION: VITAL SIGNS: T-max 101.7, now 98.6, blood pressure 122/68, pulse 75, O2 saturation 93%. GENERAL: The patient appears chronically ill, malnourished. He has 2 right- sided chest tubes in place, peripheral IV access, has a Hernandez catheter. I's and O's have been positive for the past 2 days. Output from the tubes has decreased from 150 to 30. HEENT: Ocular movements conjugate. Sclerae white, somewhat pale conjunctivae. Oral cavity with quite a few remaining teeth with marked decay and gum disease. Oral cavity is dry. NECK: No jugular vein distention. HEART: S1, S2. Regular rate. No S3 or S4. LUNGS: Coarse breath sounds on the left side and markedly diminished breath sounds on the right except for the right upper lobe. ABDOMEN: Soft, not distended or tender. No ascites. No bladder distention, no joint inflammatory activity. EXTREMITIES: Pulses are diminished in dorsalis pedis. Cap refill is less than 3 seconds. Plantar responses are flexor. He is diffusely weak, but follows commands with some insistence. LABORATORY DATA: White cell count is up to 16.9, hemoglobin 10.1, platelets 250 , 81% neutrophils, pH 7.4, pCO2 49, pO2 76, creatinine 0.49. Ferritin was 1800, bilirubin 0.4, AST 12, ALT 14, alkaline phosphatase 93, albumin 1.6, globulin 3.5, procalcitonin was 0.95 when last checked. The last chest x-ray from yesterday with tracheostomy, chest tubes, cardiomegaly, interstitial and alveolar parenchymal changes throughout both lungs, loculated pneumothorax, right lower chest. Microbiology with pleural fluid with 4 different anaerobes and Streptococcus parasanguinis. The anaerobes are gram-positive and gram-negative. There is a Pseudomonas aeruginosa from sputum, this probably represents colonization rather than true pathogenic role. ASSESSMENT: Alcoholism, poor dentition with periodontitis, anaerobic lung abscess with empyema with the organisms identified above. The sputum isolate most likely represents colonization of the airway without a role in the inflammatory process. The patient is not a candidate for any further surgical intervention. We will treat with protracted antimicrobial therapy with IV Rocephin and Flagyl, eventually transition to oral amoxicillin and Flagyl or Augmentin and Flagyl depending on clinical progress and then continue for a protracted period of time. End points include improvement in the imaging findings and inflammatory markers. The patient will need a PICC line probably, if he does not have one already or midline. Most of the treatment probably can be carried out via the oral route with Flagyl and amoxicillin or Flagyl and Augmentin. In view of his social situation, questions regarding adherence to treatment/compliance will be a concern and he probably will need to be transferred to a supervised setting for completion of therapy. Job ID: [id number] MTDD
[2019-02-06] MEDS: Lorazepam 2 MG/ML VIAL SLOW IVP PRN (02:08)
--- NOTE | 2019-02-06 06:06 | PDOC.FM ---
- Subjective Subjective: No overnight events. More sedated this morning on Precedex however he continues to breath 40-50 times per min. His Clonazepam and Seroquel were increased yesterday. - Objective MAR Reviewed: Yes Vital Signs & Weight: Vital Signs (12 hours) Temp Pulse Resp Pulse Ox 02/06/19 04:00 98.0 F 41 H 02/06/19 02:00 40 H 02/06/19 00:00 98.3 F 42 H 02/05/19 23:14 69 41 H 98 02/05/19 22:00 42 H 02/05/19 20:00 97.7 F 39 H 02/05/19 18:50 71 40 H 100 Weight Admit Weight 76.2 kg Weight 73.1 kg Most Recent Monitor Data Heart Rate from ECG 69 NIBP 128/61 NIBP BP-Mean 83 Respiration from ECG 43 SpO2 100 I&O: 02/04/19 02/05/19 02/06/19 06:59 06:59 06:59 Intake Total 2720 3111 2321 Output Total 1330 3210 945 Balance 1390 -99 1376 Result Diagrams: 02/05/19 04:52 02/06/19 06:44 Phys Exam - Physical Examination Sedated No breath sounds RLL Cardiovascular: RRR, no significant murmur Gastrointestinal: soft, positive bowel sounds trace edema Neurological: moves all 4 limbs Skin: no rash Dx/Plan - Plan Plan: Septic shock 2/2 PNA/empyema s/p lung decortication/thoracotomy - POD #16 - Right chest tube placed 01/21. - Sputum cultures: pansensitive pseudomonas - CT: loculated empyema. ID consulted. Continue Ceftriaxone and Flagyl with plan to eventually transition to Amoxicillin or Augmentin and Flagyl Acute Hypoxic Respiratory failure - Intubated 01/20. Extubated 01/30. Reintubated 01/31 - Trach and PEG 02/02. Pulm following Anxiety - Large barrier to weaning off vent. - Seroquel BID and Clonazepam BID, increased yesterday - Continue Zoloft NSTEMI type 2 - likely 2/2 demand ischemia - Cards consulted. - Echo reviewed, fairly nml Electrolyte abnormalities - Continue to replace as indicated Anemia of Chronic disease - s/p 4U pRBCs - Continue to monitor Code: Full VTE ppx: Lovenox GI ppx: protonix Lines/tubes: Tracheostomy, pitts, right chest tube, right IJ, PEG Consults: CV surg, pulm, PT/OT, ID Contact: Mother [phone] Addendum - Attending - Attending Attestation Date/Time: 02/06/19 0416 I personally evaluated the patient and discussed the management with Dr. Woo. I agree with the History, Examination, Assessment and Plan documented above with any addition or exceptions noted below. Patient overall stable. Will need long-term abx, ID on board. Work on getting his anxiety under better control. Pulm on board for his lung issues and vent mgmt. Expect extended stay due to medical needs and financial status.
[2019-02-06] MEDS: metroNIDAZOLE 500 MG in Premix Bag 1 BAG IVPB SCH ×4 (06:21→23:09)
[2019-02-06 08:05] LABS: Anion Gap 7 mmol/L (10-20); BUN (Urea Nitrogen) 13 mg/dL (8.4-25.7); Calc. Creatinine Clearance 166 mL/min (70-130); Calcium 7.1 mg/dL (7.8-10.44); Carbon Dioxide 26 mmol/L (22-29); Chloride 109 mmol/L (98-107); Estimated GFR-MDRD Greater than 90; Glucose 168 mg/dL (70-105); Potassium 3.8 mmol/L (3.5-5.1); Sodium 138 mmol/L (136-145)
[2019-02-06] MEDS ORDERED: Aspirin 81 mg Enteric Coated Tablet PO SCH (09:30)
--- NOTE | 2019-02-06 09:41 | PRG ---
DATE OF SERVICE: 02/06/2019 SUBJECTIVE: The patient, as outlined in the chart, has had recurrent difficulty coming off the ventilator. At that time, the heart rate has been on the low side in the 60 range. The patient is currently on the ventilator with a tracheostomy. OBJECTIVE: VITAL SIGNS: Blood pressure 130/60, pulse 72. On the monitor, there is T-wave inversions in one of the leads. LUNGS: Clear. CARDIAC: Normal S1, normal S2. ABDOMEN: Soft, nontender. ASSESSMENT: 1. Respiratory failure, as outlined previously due to infection. 2. Status post tracheostomy. 3. Non-ST elevation myocardial infarction earlier. 4. Type 2 demand ischemia. 5. T-wave inversions on the leads. PLAN: We will go ahead and do an EKG and add aspirin, probably has underlying coronary artery disease. Job ID: [id number]
[2019-02-06] MEDS: Folic Acid 1 MG TAB PO SCH (09:52)
[2019-02-06] MEDS: clonazePAM 1 MG TAB PO SCH ×2 (09:52→20:22)
[2019-02-06] MEDS: Famotidine 20 MG TAB PO SCH ×2 (09:53→20:23)
[2019-02-06] MEDS: Enoxaparin Sodium 40 MG/0.4 ML SYRINGE SC SCH (09:53)
[2019-02-06] MEDS: Metamucil PACK PER TUBE SCH ×2 (09:55→20:23)
[2019-02-06] MEDS ORDERED: Aspirin 300 MG Suppository PR SCH (10:00)
[2019-02-06] MEDS ORDERED: cloNIDine 0.2mg/24 Hour PATCH TD SCH (12:00)
--- NOTE | 2019-02-06 12:06 | PRG ---
DATE OF SERVICE: 02/06/2019 SERVICE: Pulmonary Medicine. INTERVAL HISTORY: The patient is doing fine from respiratory standpoint. Breathing comfortably. He is still tachypneic. His vital signs are stable and there were no overnight events other than intermittent episodes of agitation. He remains on a Precedex drip. PHYSICAL EXAMINATION: VITAL SIGNS: Afebrile with a T-max of 101.7 two days ago. Pulse 72, blood pressure 130/68, respirations 44, and saturation 100% currently on 27% FiO2 and PEEP of 5. GENERAL: The patient is awake and alert, in no apparent distress. LUNGS: Decent air entry. There is no prolonged expiratory phase. Rhonchi are once again present, but decreasing. HEART: Tachycardiac. Regular. ABDOMEN: Soft, nontender, and nondistended. Bowel sounds are positive. MUSCULOSKELETAL: No cyanosis or clubbing. Trace 1+ pitting is present in bilateral lower extremities. NEUROLOGIC: Grossly nonfocal. LABORATORY DATA: Sodium 138, potassium 3.8, creatinine 0.5. Calcium 7.1. HIV- 1 and 2, hepatitis C and syphilis are all nonreactive. ASSESSMENT: 1. Acute hypoxic respiratory failure. 2. Empyema, status post decortication. 3. Pulmonary abscess. 4. Healthcare-associated pneumonia. 5. Deconditioning, severe. 6. Chronic obstructive pulmonary disease without current exacerbation. 7. Tracheostomy, postop day #5. DISCUSSION AND PLAN: We will put in a PICC line. The patient is going to need a protracted course of antibiotics. For the time being, we are doing Flagyl and Rocephin. Once he is ready for discharge from the hospital, we can switch over to oral agents. My suspicion is that this is going to be a long endeavor given his degree of agitation. I will put on a clonidine patch and see if we can wean away the Precedex through time. Pulmonary/Critical Care will continue to follow along. Job ID: [id number] [facility]
[2019-02-06] MEDS: cefTRIAXone\\ROCEPHIN 2 GM in Sodium Chloride 0.9% 100 ML IVPB SCH (16:01)
[2019-02-07] MEDS: Lorazepam 2 MG/ML VIAL SLOW IVP PRN (04:23)
[2019-02-07] MEDS: metroNIDAZOLE 500 MG in Premix Bag 1 BAG IVPB SCH ×4 (05:04→23:40)
--- NOTE | 2019-02-07 05:37 | PDOC.FM ---
- Subjective Subjective: Pt is awake and responding to command this morning. He does appear anxious and has a high respiratory rate. Nursing staff reports some loose stools but otherwise has no concerns. - Objective MAR Reviewed: Yes Vital Signs & Weight: Vital Signs (12 hours) Temp Pulse Resp BP Pulse Ox 02/07/19 04:00 99.4 F 42 H 02/07/19 02:37 74 02/07/19 02:00 42 H 02/07/19 00:00 98.4 F 42 H 02/06/19 23:27 77 107/55 L 02/06/19 23:26 100 02/06/19 22:00 41 H 02/06/19 20:00 98.3 F 02/06/19 19:48 31 H 02/06/19 18:17 75 98 02/06/19 18:00 42 H Weight Admit Weight 76.2 kg Weight 75.7 kg Most Recent Monitor Data Heart Rate from ECG 76 NIBP 135/59 NIBP BP-Mean 84 Respiration from ECG 41 SpO2 98 I&O: 02/05/19 02/06/19 02/07/19 06:59 06:59 06:59 Intake Total 3111 3493 1829 Output Total 3210 1005 999 Balance -99 2488 830 Result Diagrams: 02/07/19 08:38 02/06/19 06:44 Phys Exam - Physical Examination appears anxious Respiratory: no wheezing, no rales, no rhonchi increased rate Cardiovascular: RRR, no significant murmur Musculoskeletal: pulses present b/l UE edema at hands Neurological: non-focal, moves all 4 limbs Skin: cap refill <2 seconds Dx/Plan (1) Acute hypoxemic respiratory failure Code(s): J96.01 - ACUTE RESPIRATORY FAILURE WITH HYPOXIA Status: Acute (2) S/P thoracostomy tube placement Code(s): Z93.8 - OTHER ARTIFICIAL OPENING STATUS Status: Resolved (3) Empyema Code(s): J86.9 - PYOTHORAX WITHOUT FISTULA Status: Acute (4) Septic shock Code(s): A41.9 - SEPSIS, UNSPECIFIED ORGANISM; R65.21 - SEVERE SEPSIS WITH SEPTIC SHOCK Status: Acute (5) Anemia Code(s): D64.9 - ANEMIA, UNSPECIFIED Status: Acute - Plan Plan: Septic shock 2/2 PNA/empyema s/p lung decortication/thoracotomy - POD #17 - Right chest tube placed 01/21. - Sputum cultures: pansensitive pseudomonas - CT: loculated empyema. ID consulted. Continue Ceftriaxone and Flagyl with plan to eventually transition to Amoxicillin or Augmentin and Flagyl Acute Hypoxic Respiratory failure - Intubated 01/20. Extubated 01/30. Reintubated 01/31 - Trach and PEG 02/02. Pulm following Anxiety with Hx of Alcoholism - Large barrier to weaning off vent. Still on precedex drip. - Seroquel BID and Clonazepam BID, Clonidine patch added. - Continue Zoloft NSTEMI type 2 - likely 2/2 demand ischemia - Cards consulted. Added ASA to regimen. - Echo reviewed, fairly nml Electrolyte abnormalities - Continue to replace as indicated Anemia of Chronic disease - s/p 4U pRBCs - Continue to monitor Code: Full VTE ppx: Lovenox GI ppx: pepcid Lines/tubes: Tracheostomy, pitts, right chest tube, right IJ, PEG Consults: CV surg, pulm, PT/OT, ID Contact: Mother [phone]
[2019-02-07 08:47] LABS: #Eosinphils 0.4 thou/uL (0.0-0.7); #Lymphocytes 1.2 thou/uL (1.20-3.40); #Monocytes 1.3 thou/uL (0.11-0.59); #Neutrophils 10.2 thou/uL (1.40-6.50); %Basophils 0.3 % (0.0-1.0); %Eosinophils 3.4 % (0.0-10.0); %Lymphocytes 9.3 % (21.0-51.0); %Monocytes 9.5 % (0.0-10.0); %Neutrophils 77.5 % (42.0-75.0); Hemoglobin 8.4 g/dL (14.0-18.0); Mean Corpuscular HGB CONC 31.7 g/dL (32.0-36.0); Mean Corpuscular Hemoglobin 29.1 pg (27.0-31.0); Mean Corpuscular Volume 91.8 fL (78.0-98.0); Mean Platelet Volume 8.7 fL (7.4-10.4); Platelet Count 235 thou/uL (130-400); RBC Distribution Width 17.6 % (11.5-14.5); Red Blood Cell (RBC) Count 2.89 mill/uL (4.70-6.10); White Blood Cell (WBC) Count 13.2 thou/uL (4.8-10.8)
[2019-02-07] MEDS ORDERED: Aspirin 81 mg Enteric Coated Tablet PO SCH (09:00)
--- NOTE | 2019-02-07 09:00 | PRG ---
DATE OF SERVICE: 02/07/2019 SUBJECTIVE: Keny Worthy is a 58-year-old gentleman who was intubated on the vent, trach in place. Awake, responsive, breathing 40 times a minute. OBJECTIVE: VITAL SIGNS: Blood pressure is 116/66, saturations are 90%. He is afebrile. His I's and O's over the last 24 hours have been consistently ahead. CHEST: Bilateral rhonchi, crackles. CARDIAC: Normal S1, S2. No gallops. ABDOMEN: No mass. IMPRESSION: Respiratory failure, status post trach, empyema status post decortication, severe deconditioning, baseline chronic obstructive pulmonary disease. At this stage, he is on a G-tube with a rapid respiratory rate, unclear at this stage whether he is going to be weaned off the vent in the next 24 to 48 hours. I will continue aggressive PT, neb treatments, nutrition. Consider adding low-dose steroids. One-half hour of critical care time. Job ID: [id number]
[2019-02-07] MEDS: Folic Acid 1 MG TAB PO SCH (09:55)
[2019-02-07] MEDS: Famotidine 20 MG TAB PO SCH ×2 (09:55→20:20)
[2019-02-07] MEDS: Aspirin 300 MG Suppository PR SCH (09:56)
[2019-02-07] MEDS: methylPREDNISolone Sod Succ 40 MG VIAL IVP SCH (09:57)
[2019-02-07] MEDS: Enoxaparin Sodium 40 MG/0.4 ML SYRINGE SC SCH (09:59)
[2019-02-07] MEDS: Metamucil PACK PER TUBE SCH ×2 (09:59→20:20)
--- NOTE | 2019-02-07 10:01 | PDOC.EVN ---
Event Note - Event Note Event Note: 58yo here with PNA and Empyema s/p chest tube and decortication. Attempting to wean off precedex, but otherwise stable. Specialists following. Agree with Dr. Martinez's plan. Written by Dr. Garcia.
[2019-02-07] MEDS: clonazePAM 1 MG TAB PO SCH ×2 (10:02→20:19)
[2019-02-07] MEDS: Loperamide HCl 2 MG CAP PO PRN (11:20)
[2019-02-07] MEDS: cefTRIAXone\\ROCEPHIN 2 GM in Sodium Chloride 0.9% 100 ML IVPB SCH (16:03)
[2019-02-07] MEDS: Simethicone Chewable 80 MG TAB PER TUBE SCH (20:19)
[2019-02-08] MEDS: Lorazepam 2 MG/ML VIAL SLOW IVP PRN ×2 (03:30→10:19)
[2019-02-08] MEDS: metroNIDAZOLE 500 MG in Premix Bag 1 BAG IVPB SCH ×4 (05:01→23:45)
--- NOTE | 2019-02-08 06:32 | PDOC.FM ---
- Subjective Subjective: Pt without any events overnight. Continues to have high respiratory rate that fluctuates. Still requiring 20mmHg Pressure Support, spontaneous breathing on vent. Steroids were added yesterday by barbecue cook. Chest tube with minimal output. - Objective MAR Reviewed: Yes Vital Signs & Weight: Vital Signs (12 hours) Temp Pulse Resp BP Pulse Ox 02/08/19 06:00 36 H 02/08/19 04:00 97.9 F 40 H 02/08/19 02:29 67 115/55 L 02/08/19 02:00 32 H 02/08/19 00:24 57 L 02/08/19 00:23 100 02/07/19 23:45 98.0 F 28 H 02/07/19 22:27 64 117/58 L 02/07/19 22:00 38 H 02/07/19 20:00 97.8 F 38 H 100 Weight Admit Weight 76.2 kg Weight 76.2 kg Most Recent Monitor Data Heart Rate from ECG 68 NIBP 100/55 NIBP BP-Mean 70 Respiration from ECG 37 SpO2 95 I&O: 02/06/19 02/07/19 02/08/19 06:59 06:59 06:59 Intake Total 3493 3174 2705.3 Output Total 1005 1029 832 Balance 2488 2145 1873.3 Result Diagrams: 02/07/19 08:38 02/06/19 06:44 Phys Exam - Physical Examination HEENT: moist MMs rhonchorous throughout Cardiovascular: RRR, no significant murmur Musculoskeletal: pulses present mild b/l UE edema at site of restraints Dx/Plan (1) Acute hypoxemic respiratory failure Code(s): J96.01 - ACUTE RESPIRATORY FAILURE WITH HYPOXIA Status: Acute (2) S/P thoracostomy tube placement Code(s): Z93.8 - OTHER ARTIFICIAL OPENING STATUS Status: Resolved (3) Empyema Code(s): J86.9 - PYOTHORAX WITHOUT FISTULA Status: Acute (4) Septic shock Code(s): A41.9 - SEPSIS, UNSPECIFIED ORGANISM; R65.21 - SEVERE SEPSIS WITH SEPTIC SHOCK Status: Acute (5) Anemia Code(s): D64.9 - ANEMIA, UNSPECIFIED Status: Acute - Plan Plan: Septic shock 2/2 PNA/empyema s/p lung decortication/thoracotomy - POD #18 - Right chest tube placed 01/21. - Sputum cultures: pansensitive pseudomonas - CT: loculated empyema. ID consulted. Continue Ceftriaxone and Flagyl with plan to eventually transition to Amoxicillin or Augmentin and Flagyl. Will need PICC line. Acute Hypoxic Respiratory failure - Intubated 01/20. Extubated 01/30. Reintubated 01/31 - Trach and PEG 02/02. Pulm following. - Steroids added 02/07 Anxiety with Hx of Alcoholism - Large barrier to weaning off vent. Still on precedex drip. - Seroquel BID and Clonazepam BID, Clonidine patch added. - Continue Zoloft NSTEMI type 2 - likely 2/2 demand ischemia - Cards consulted. Added ASA to regimen. - Echo reviewed, fairly nml Electrolyte abnormalities - Continue to replace as indicated Anemia of Chronic disease - s/p 4U pRBCs - Continue to monitor Code: Full VTE ppx: Lovenox GI ppx: pepcid Lines/tubes: Tracheostomy, pitts, right chest tube, right IJ, PEG Consults: CV surg, pulm, PT/OT, ID Contact: Mother [phone]
--- NOTE | 2019-02-08 08:55 | PRG ---
DATE OF SERVICE: 02/08/2019 SUBJECTIVE: This morning, he is awake, alert, and responsive. Denies pain or discomfort, though he is breathing 34 to 40 times a minute. OBJECTIVE: VITAL SIGNS: Pulse 74, blood pressure 100/58, temperature is 97. GENERAL: He is awake and responsive. CHEST: Decreased breath sounds. Minimal rhonchi. CARDIAC: Normal S1 and S2. Negative masses. LABORATORY DATA: White count 13,000. X-ray shows previously described right-sided chest tube and smaller left lung is atelectatic. IMPRESSION: Status post empyema and decortication, severe deconditioning, trach. PLAN: Continue present supportive care, antibiotics, steroids, neb treatment. We will follow. One-half hour of critical time. Job ID: [id number]
[2019-02-08] MEDS: clonazePAM 1 MG TAB PO SCH ×2 (10:17→20:01)
[2019-02-08] MEDS: methylPREDNISolone Sod Succ 40 MG VIAL IVP SCH (10:17)
[2019-02-08] MEDS: Famotidine 20 MG TAB PO SCH ×2 (10:17→20:01)
[2019-02-08] MEDS: Metamucil PACK PER TUBE SCH ×2 (10:17→20:01)
[2019-02-08] MEDS: Enoxaparin Sodium 40 MG/0.4 ML SYRINGE SC SCH (10:17)
[2019-02-08] MEDS: Simethicone Chewable 80 MG TAB PER TUBE SCH ×2 (10:18→20:01)
[2019-02-08] MEDS: Folic Acid 1 MG TAB PO SCH (10:18)
[2019-02-08] MEDS: Aspirin 300 MG Suppository PR SCH (10:19)
--- NOTE | 2019-02-08 11:28 | RAD ---
CHEST 1 VIEW PORTABLE: HISTORY: Empyema. COMPARISON: 02/02/2019 and 02/04/2019. FINDINGS: The more superior chest tube has been removed. There is some improving vascular congestion from the prior study. There are persistent pleural and parenchymal opacity changes in the right mid and lower lung zone and parenchymal changes in the left infrahilar region. No significant pneumothorax. Cont inue short-term followup. IMPRESSION: Improving vascular congestion. Continue short-term followup. POS: JOANNA
[2019-02-08 11:39] LABS: ALT (SGPT) 14 U/L (8-55); AST (SGOT) 8 U/L (5-34); Albumin 1.7 g/dL (3.5-5.0); Alkaline Phosphatase 78 U/L (40-110); Anion Gap 9 mmol/L (10-20); BUN (Urea Nitrogen) 17 mg/dL (8.4-25.7); Bilirubin, Total 0.2 mg/dL (0.2-1.2); Calc. Creatinine Clearance 160 mL/min (70-130); Calcium 7.2 mg/dL (7.8-10.44); Carbon Dioxide 25 mmol/L (22-29); Chloride 109 mmol/L (98-107); Estimated GFR-MDRD Greater than 90; Globulin 3.5 g/dL (2.4-3.5); Glucose 156 mg/dL (70-105); Potassium 3.7 mmol/L (3.5-5.1); Protein, Total 5.2 g/dL (6.0-8.3); Sodium 139 mmol/L (136-145)
[2019-02-08] MEDS: cefTRIAXone\\ROCEPHIN 2 GM in Sodium Chloride 0.9% 100 ML IVPB SCH (15:47)
--- NOTE | 2019-02-08 16:50 | PRG ---
DATE OF SERVICE: 02/08/2019 SUBJECTIVE: Mr. Worthy still requires ventilatory support and tachypnea is a problem. Still quite a bit of pressure support required. Minimal chest tube output. OBJECTIVE: VITAL SIGNS: T-max 100.4 on the , 99.6 today. BP 150/103, pulse 84. HEENT: Ocular movements are conjugate. LUNGS: Diminished breath sounds on the right side. ABDOMEN: Soft. I's and O's have been positive markedly so in the past 2 days and the patient has chest tubes with 40 mL of drainage in one and 40 mL in the other on the daily basis. Hernandez catheter. Central line is the same. LABORATORY DATA: His white cell count is at 13.2, hemoglobin 8.4, platelets 235. Sodium 139, creatinine 0.53. Liver profile, normal. Microbiology with findings discussed. Rocephin and Flagyl, methylprednisolone started. ASSESSMENT AND DISCUSSION: Alcoholism, poor dentition, periodontitis, anaerobic lung abscess with empyema, with multiple anaerobes and microaerophilic organisms. The patient to continue on supportive therapy, nutritional input and Rocephin and Flagyl for a long period of time. Still requiring quite a bit of ventilatory support. Job ID: [id number]
[2019-02-09] MEDS: Lorazepam 2 MG/ML VIAL SLOW IVP PRN (04:09)
[2019-02-09] MEDS: metroNIDAZOLE 500 MG in Premix Bag 1 BAG IVPB SCH ×3 (05:42→18:16)
--- NOTE | 2019-02-09 05:49 | PDOC.FM ---
- Subjective Subjective: Patient is able to follow commands this AM. The patient to speak answers but is unable to due to a trach. Unable to determine how oriented the patient is. Patient was given a pen and paper, but was unable to write answers. He was afebrile overnight. - Objective Vital Signs & Weight: Vital Signs (12 hours) Temp Pulse Resp BP Pulse Ox 02/09/19 04:00 98.5 F 29 H 02/09/19 03:09 62 118/65 02/09/19 02:00 30 H 02/09/19 01:28 59 L 100 02/09/19 00:00 98.5 F 28 H 02/08/19 22:26 70 120/63 02/08/19 22:00 23 H 02/08/19 20:00 98.5 F 28 H 100 02/08/19 18:30 82 100 02/08/19 18:29 100 02/08/19 18:00 48 H Weight Admit Weight 76.2 kg Weight 77 kg Most Recent Monitor Data Heart Rate from ECG 64 NIBP 126/71 NIBP BP-Mean 89 Respiration from ECG 26 SpO2 100 I&O: 02/07/19 02/08/19 02/09/19 06:59 06:59 06:59 Intake Total 3174 2705.3 1737 Output Total 1029 832 820 Balance 2145 1873.3 917 Result Diagrams: 02/07/19 08:38 02/08/19 11:06 Phys Exam - Physical Examination Constitutional: NAD upper respiratory sounds Cardiovascular: RRR, no significant murmur Gastrointestinal: soft, non-tender, no distention Musculoskeletal: no edema, pulses present Neurological: non-focal, moves all 4 limbs Deviation from normal: follows commands, unable to determine AO status due to trach Skin: no rash, normal turgor Dx/Plan (1) Acute hypoxemic respiratory failure Code(s): J96.01 - ACUTE RESPIRATORY FAILURE WITH HYPOXIA Status: Acute (2) Anemia Code(s): D64.9 - ANEMIA, UNSPECIFIED Status: Acute (3) Empyema Code(s): J86.9 - PYOTHORAX WITHOUT FISTULA Status: Acute (4) Septic shock Code(s): A41.9 - SEPSIS, UNSPECIFIED ORGANISM; R65.21 - SEVERE SEPSIS WITH SEPTIC SHOCK Status: Acute (5) S/P thoracostomy tube placement Code(s): Z93.8 - OTHER ARTIFICIAL OPENING STATUS Status: Resolved (6) NSTEMI (non-ST elevated myocardial infarction) Code(s): I21.4 - NON-ST ELEVATION (NSTEMI) MYOCARDIAL INFARCTION Status: Acute - Plan Plan: Septic shock 2/2 PNA/empyema s/p lung decortication/thoracotomy - Decorticaztion 01/21 - Right chest tube placed 01/21. Minimal drainage currently. - Sputum cultures: pansensitive pseudomonas - Body fluid cultures grew multiple anaerobes - CT: loculated empyema. ID consulted, appreciate recs. Continue Ceftriaxone and Flagyl. Will need PICC line. Acute Hypoxic Respiratory failure - Intubated 01/20. Extubated 01/30. Reintubated 01/31 - Trach and PEG 02/02. Pulm following. Attempting to wean trach settings, currently at pressure support of 15 - Steroids added 02/07 Anxiety with Hx of Alcoholism - Patient's tachypnea is making it difficult to wean off vent. This is likely 2/ 2 anxiety. Still on precedex drip. - Seroquel BID and Clonazepam BID, Clonidine patch added. - Continue Zoloft NSTEMI type 2 - likely 2/2 demand ischemia - Cards consulted. Added ASA to regimen. - Echo reviewed, fairly nml Electrolyte abnormalities - Continue to replace as indicated Anemia of Chronic disease - s/p 4U pRBCs - Continue to monitor Code: Full VTE ppx: Lovenox GI ppx: pepcid Lines/tubes: Tracheostomy, pitts, right chest tube, PEG, midline R and L arm Consults: CV surg, pulm, PT/OT, ID Contact: Mother [phone]
[2019-02-09] MEDS ORDERED: Aspirin 325 MG TAB ONE (09:47)
[2019-02-09] MEDS: clonazePAM 1 MG TAB PO SCH ×2 (09:52→22:28)
[2019-02-09] MEDS: Folic Acid 1 MG TAB PO SCH (09:52)
[2019-02-09] MEDS: Metamucil PACK PER TUBE SCH ×2 (09:52→21:51)
[2019-02-09] MEDS: Enoxaparin Sodium 40 MG/0.4 ML SYRINGE SC SCH (09:52)
[2019-02-09] MEDS: Simethicone Chewable 80 MG TAB PER TUBE SCH ×2 (09:53→21:40)
[2019-02-09] MEDS: Famotidine 20 MG TAB PO SCH ×2 (09:53→21:40)
[2019-02-09] MEDS: methylPREDNISolone Sod Succ 40 MG VIAL IVP SCH (09:53)
[2019-02-09] MEDS: Aspirin 300 MG Suppository PR SCH (10:38)
[2019-02-09 10:50] LABS: #Eosinphils 0.3 thou/uL (0.0-0.7); #Lymphocytes 2.1 thou/uL (1.20-3.40); #Monocytes 1.3 thou/uL (0.11-0.59); #Neutrophils 11.1 thou/uL (1.40-6.50); %Lymphocytes 14.4 % (21.0-51.0); %Monocytes 8.8 % (0.0-10.0); %Neutrophils 74.7 % (42.0-75.0); Hemoglobin 9.1 g/dL (14.0-18.0); Mean Corpuscular Hemoglobin 28.3 pg (27.0-31.0); Mean Corpuscular Volume 91.2 fL (78.0-98.0); Mean Platelet Volume 8.4 fL (7.4-10.4); Platelet Count 333 thou/uL (130-400); RBC Distribution Width 17.5 % (11.5-14.5); Red Blood Cell (RBC) Count 3.21 mill/uL (4.70-6.10); White Blood Cell (WBC) Count 14.8 thou/uL (4.8-10.8)
--- NOTE | 2019-02-09 12:42 | PRG ---
DATE OF SERVICE: 02/09/2019 TRANSITION OF CARE NOTE Mr. Worthy is a 58-year-old male who presented to [facility] from [place]. He was intubated upon arrival and on Levophed drip. The history had been taken from mother who reported he had a cold that worsened over the last month. He was diagnosed with pneumonia at an [facility] and they recommended he go to the ER. In the ER, he decompensated requiring intubation and chest tube for an empyema, diagnosed via CT scan. Chest tube drained 500 mL of purulent fluid. He received vanc and Zosyn, and 4 L of fluid, propofol, and ketamine at the outside ER. He was continued on vanc and Zosyn, normal saline at 125. Initial lactic acid was 4.1, 5.7, 7.5, 2.6, 1.8. Central line was placed at this time. On 01/21/2019, the patient underwent right thoracotomy with total pulmonary decortication by Dr. Carolina, cardiovascular surgeon. Two 32-Vietnamese chest tubes were placed and cultures were taken of the pleural fluid. There was a thick peel, both parietal and parenchymal. The lung was completely freed and expanded to fill most of the remaining cavity. He was eventually weaned off Levophed. He also had a hemoglobin of 6.5 at admission and received 3 units of packed red blood cells. He was switched over to Omnicef and Flagyl, however, his respiratory culture resulted in Pseudomonas and therefore he was switched over to Zosyn. Also developed a thrombocytopenia during the course of hospitalization with 61 being his lowest. This has trended up to 278, and his Lovenox was held during this period of time of thrombocytopenia. On 01/31/2019 , the patient was extubated, was actually doing quite well for a period of time until he was laid down to clean the patient up after a bowel movement. At this time, he aspirated and started to desaturate shortly after. He was intubated and during intubation, significant amounts of tube feeds were removed from the endotracheal tube. The patient is still currently ventilated and sedated. Weaning has been challenging due to the patient's significant amount of anxiety and appears to struggle from air hunger when sedation is weaned. During these times, he becomes tachypneic with a rate in the 40s to 50s. He was started on Klonopin b.i.d. as well as Seroquel b.i.d. and this has been increased. He has also been started on Zoloft, consider increasing his dose after 1 week from starting. Cardiology was also consulted due to elevated troponin. He was diagnosed with non-STEMI secondary to demand ischemia. Echocardiogram was performed showing normal EF. He was also started on furosemide for volume overload and was diuresed with good result. He is continued on a maintenance daily dose. He has also again became anemic with hemoglobin 6.9 and received another unit of packed red blood cells. On 02/06, Dr. Crouch then saw the patient and was noted to have T-wave inversions on the leads. EKG correlated with this. He was started on aspirin, probably had underlying coronary artery disease. ID was consulted on 02/05/2019. The patient will likely need prolonged antimicrobial therapy with IV Rocephin and Flagyl, eventually transitioning to oral Amoxicillin and Flagyl or Augmentin and flagyl. He will likely need a PICC line. Due to his social situation and not having insurance, he likely does not qualify for LTAC and will need to be hospitalized until the end of his treatment. Case Management has been consulted and working on this. He is currently on ceftriaxone and IV Flagyl. Job ID: [id number] [facility]
[2019-02-09] MEDS: cefTRIAXone\\ROCEPHIN 2 GM in Sodium Chloride 0.9% 100 ML IVPB SCH (16:08)
--- NOTE | 2019-02-09 16:16 | PRG ---
DATE OF SERVICE: 02/09/2019 SERVICE: Pulmonary Medicine. INTERVAL HISTORY: The patient is doing actually quite well from respiratory standpoint. He looks cool, calm, and collected today. He cannot provide any additional elements of the history, however. He is tolerating lower pressures. That being said, he never tolerates large movements. PHYSICAL EXAMINATION: VITAL SIGNS: Afebrile, pulse 77, blood pressure 163/96, respirations 38, saturation 100%, currently on 27% FiO2 and a PEEP of 5. GENERAL: The patient is awake and alert. He is on minimal sedation. HEENT: Normocephalic and atraumatic. Sclerae white. Conjunctivae pink. Oral mucosa is moist without lesions. LUNGS: Decent air entry. There is rhonchi present. No prolonged expiratory phase. Otherwise appreciated. HEART: Normal rate, regular. ABDOMEN: Soft, nontender, and nondistended. Bowel sounds are positive. MUSCULOSKELETAL: No cyanosis or clubbing. There is no pitting in the bilateral lower extremities. NEUROLOGIC: Grossly nonfocal. LABORATORY DATA: WBC 14.8, hemoglobin 9.1, and platelets 333,000. Other laboratories are unremarkable. ASSESSMENT: 1. Acute hypoxic respiratory failure. 2. Empyema, status post decortication. 3. Pulmonary abscess. 4. Deconditioning/critical care weakness status post tracheostomy. 5. Chronic obstructive pulmonary disease without current exacerbation. DISCUSSION AND PLAN: We will continue his antibiotics and other supportive care. At this point, this is mostly an LTAC patient. He is going to need to be reconditioned before he can safely be transitioned out of the hospital. This will likely be a several week endeavor. We will continue ventilator support through time as tolerated. Job ID: [id number]
[2019-02-10] MEDS: metroNIDAZOLE 500 MG in Premix Bag 1 BAG IVPB SCH ×5 (00:43→23:46)
--- NOTE | 2019-02-10 06:57 | PDOC.FM ---
- Subjective Subjective: Patient is up in the neuro chair this AM. He is doing well. Nursing weaned precedex to .1, and his pressure support is currently at 13. NAEO. - Objective Vital Signs & Weight: Vital Signs (12 hours) Temp Pulse Resp Pulse Ox 02/10/19 06:00 31 H 02/10/19 04:00 98.6 F 29 H 02/10/19 02:00 25 H 02/10/19 00:35 97.9 F 02/10/19 00:00 25 H 02/09/19 23:33 59 L 22 H 100 02/09/19 20:00 96 02/09/19 19:00 98.3 F Weight Admit Weight 76.2 kg Weight 77.4 kg Most Recent Monitor Data Heart Rate from ECG 70 NIBP 126/79 NIBP BP-Mean 94 Respiration from ECG 22 SpO2 98 I&O: 02/08/19 02/09/19 02/10/19 06:59 06:59 06:59 Intake Total 2705.3 2694 2522.8 Output Total 001 471 6385 Balance 1873.3 1839 1247.8 Result Diagrams: 02/09/19 10:27 02/08/19 11:06 Phys Exam - Physical Examination Constitutional: NAD alert Neck: no nodes, supple trach in place diffuse rhonchi Cardiovascular: RRR, no significant murmur Gastrointestinal: soft, non-tender, positive bowel sounds Neurological: non-focal, moves all 4 limbs Psychiatric: normal affect Skin: no rash, normal turgor, cap refill <2 seconds Dx/Plan (1) Acute hypoxemic respiratory failure Code(s): J96.01 - ACUTE RESPIRATORY FAILURE WITH HYPOXIA Status: Acute (2) Anemia Code(s): D64.9 - ANEMIA, UNSPECIFIED Status: Acute (3) Empyema Code(s): J86.9 - PYOTHORAX WITHOUT FISTULA Status: Acute (4) Septic shock Code(s): A41.9 - SEPSIS, UNSPECIFIED ORGANISM; R65.21 - SEVERE SEPSIS WITH SEPTIC SHOCK Status: Acute (5) S/P thoracostomy tube placement Code(s): Z93.8 - OTHER ARTIFICIAL OPENING STATUS Status: Resolved (6) NSTEMI (non-ST elevated myocardial infarction) Code(s): I21.4 - NON-ST ELEVATION (NSTEMI) MYOCARDIAL INFARCTION Status: Acute - Plan Plan: Septic shock (now resolved) 2/2 Pneumonia with empyema s/p lung decortication and thoracotomy - Decortication 01/21 - Right chest tube placed 01/21. Minimal drainage currently. - Sputum cultures: pansensitive pseudomonas - Body fluid cultures grew multiple anaerobes - CT: loculated empyema. ID consulted, appreciate recs. Continue Ceftriaxone and Flagyl. PICC line ordered. Acute Hypoxic Respiratory failure requiring ventilation - Intubated 01/20. Extubated 01/30. Reintubated 01/31 - Trach and PEG 02/02. Pulm following. Attempting to wean trach settings, currently at pressure support of 13 - Steroids added 02/07 Physical Deconditioning - PT and OT following Anxiety with Hx of Alcoholism - Patient's tachypnea is making it difficult to wean off vent. This is likely 2/ 2 anxiety. Still on precedex drip at 0.1. - Seroquel BID and Clonazepam BID, Clonidine patch - Continue Zoloft, consider increasing on 02/12 NSTEMI type 2 - likely 2/2 demand ischemia - Cards consulted. Added ASA to regimen. - Echo reviewed, fairly nml Electrolyte abnormalities - Continue to replace as indicated Anemia of Chronic disease - s/p 4U pRBCs - Continue to monitor Code: Full VTE ppx: Lovenox GI ppx: pepcid Lines/tubes: Tracheostomy, pitts, right chest tube, PEG, midline R and L arm; PICC line pending Consults: CV surg, pulm, PT/OT, ID Contact: Mother [phone] Dispo: Patient will require long course of IV antibiotics. PICC line pending. Due to insurance, patient will most likely need to stay inpatient for his treatment. Continue to wean vent. Addendum - Attending - Attending Attestation Date/Time: 02/10/19 7135 I personally evaluated the patient and discussed the management with Dr. oTro. I agree with the History, Examination, Assessment and Plan documented above with any addition or exceptions noted below. Up in chair, responsive in NAD on trach collar. Weaning Precedex as tolerated. RR 30's currently[address] CT to water seal. Aspiration pneumonia with abscess, anaerobes. Pseudomonas pneumonia with empyema s/p decortication, COPD, Tob abuse, ETOH abuse, s/p PEG/Trach, severe deconditioning.
[2019-02-10] MEDS: Aspirin 325 MG TAB PER TUBE SCH (09:03)
[2019-02-10] MEDS: Famotidine 20 MG TAB PO SCH ×2 (09:04→21:31)
[2019-02-10] MEDS: Simethicone Chewable 80 MG TAB PER TUBE SCH ×2 (09:04→21:31)
[2019-02-10] MEDS: predniSONE 20 MG TAB PO SCH (09:04)
[2019-02-10] MEDS: Folic Acid 1 MG TAB PO SCH (09:04)
[2019-02-10] MEDS: Enoxaparin Sodium 40 MG/0.4 ML SYRINGE SC SCH (09:06)
[2019-02-10] MEDS: Metamucil PACK PER TUBE SCH ×2 (09:07→21:31)
[2019-02-10] MEDS: clonazePAM 1 MG TAB PO SCH ×2 (09:31→21:30)
--- NOTE | 2019-02-10 11:33 | PRG ---
DATE OF SERVICE: 02/10/2019 SERVICE: Pulmonary Medicine. INTERVAL HISTORY: The patient is doing fine from respiratory standpoint. He is up in the neuro chair today. His strength is improving day by day. Sedation is being weaned away. The patient looks more cool, calm, and collected than he has in quite some time. Otherwise, there were no significant events overnight. PHYSICAL EXAMINATION: VITAL SIGNS: Afebrile, pulse 93, blood pressure 134/74, respirations 28, and oxygen saturation 100% on 35% FiO2 delivered via T-collar. GENERAL: The patient is awake and alert, in no apparent distress. LUNGS: Wonderful air entry. No prolonged expiratory phase or wheezing is appreciated. Rhonchi are present. HEART: Normal rate. Regular. ABDOMEN: Soft, nontender, and nondistended. Bowel sounds are positive. MUSCULOSKELETAL: No cyanosis or clubbing. There is no pitting in the bilateral lower extremities. NEUROLOGIC: Grossly nonfocal. ASSESSMENT: 1. Acute hypoxic respiratory failure. 2. Empyema, status post decortication. 3. Pulmonary abscess. 4. Deconditioning/Critical Care weakness, status post tracheostomy. 5. Chronic obstructive pulmonary disease without current exacerbation. DISCUSSION AND PLAN: We will continue our mobilization efforts through time. Oxygen will be weaned away through time. Pulmonary/Critical Care will continue to follow along. He will need to remain in the ICU until he can go at least 24 to 48 hours without the assistance of pressure support ventilation. Job ID: [id number]
[2019-02-10] MEDS: cefTRIAXone\\ROCEPHIN 2 GM in Sodium Chloride 0.9% 100 ML IVPB SCH (15:12)
--- NOTE | 2019-02-10 17:53 | PRG ---
DATE OF SERVICE: 02/10/2019 SUBJECTIVE: Mr. Worthy is in bed at this time. He is wide awake, but does not appear very comfortable, though he is able to communicate by signs. He denies headaches. No abdominal pain. He does have dyspnea at rest. He has a chest tube and a Hernandez catheter. OBJECTIVE: VITAL SIGNS: With a T-max of 98.6, blood pressure 160/106, heart rate 109, respiratory rate ranging from 20 to 30, O2 saturation 99. GENERAL: Chronically ill appearing, but in no acute distress. HEENT: Pale conjunctivae. Pupils are equal, tracheostomy with normal-appearing exit site. LUNGS: Diminished breath sounds in the right hemithorax. HEART: S1, S2. Regular rate without murmurs. ABDOMEN: Soft, not distended or tender. Gastrostomy tube. EXTREMITIES: Able to move extremities with preserved strength. No edema. Plantar responses are flexor. LABORATORY DATA: White cell count 14.8, hemoglobin 9.1, and platelets 333 with 74% neutrophils. Sodium 139 and creatinine 0.53. Liver profile within normal limits. Two sets of blood cultures, no growth from February 04. The last imaging from February 08 with improving vascular congestion. ASSESSMENT AND DISCUSSION: Alcoholism, poor dentition, periodontitis, anaerobic lung abscess with empyema, status post decortication with various anaerobes and microaerophilic organisms, on Rocephin and Flagyl for protracted periods of time. Still requiring positive-pressure ventilation assistance with a slow improvement. Job ID: [id number]
[2019-02-11 04:03] LABS: #Eosinphils 0.4 thou/uL (0.0-0.7); #Monocytes 1.4 thou/uL (0.11-0.59); #Neutrophils 10.9 thou/uL (1.40-6.50); %Basophils 0.2 % (0.0-1.0); %Eosinophils 2.4 % (0.0-10.0); %Lymphocytes 13.6 % (21.0-51.0); %Monocytes 9.2 % (0.0-10.0); %Neutrophils 74.6 % (42.0-75.0); Hemoglobin 9.6 g/dL (14.0-18.0); Mean Corpuscular HGB CONC 32.5 g/dL (32.0-36.0); Mean Corpuscular Hemoglobin 29.6 pg (27.0-31.0); Mean Corpuscular Volume 91.1 fL (78.0-98.0); Mean Platelet Volume 7.9 fL (7.4-10.4); Platelet Count 408 thou/uL (130-400); RBC Distribution Width 17.7 % (11.5-14.5); Red Blood Cell (RBC) Count 3.24 mill/uL (4.70-6.10); White Blood Cell (WBC) Count 14.6 thou/uL (4.8-10.8)
[2019-02-11 04:22] LABS: Anion Gap 10 mmol/L (10-20); BUN (Urea Nitrogen) 9 mg/dL (8.4-25.7); Calc. Creatinine Clearance 179 mL/min (70-130); Calcium 7.6 mg/dL (7.8-10.44); Carbon Dioxide 29 mmol/L (22-29); Chloride 104 mmol/L (98-107); Estimated GFR-MDRD Greater than 90; Glucose 89 mg/dL (70-105); Magnesium 1.9 mg/dL (1.6-2.6); Potassium 3.1 mmol/L (3.5-5.1); Sodium 140 mmol/L (136-145)
[2019-02-11] MEDS: metroNIDAZOLE 500 MG in Premix Bag 1 BAG IVPB SCH ×4 (05:13→23:50)
[2019-02-11] MEDS ORDERED: Furosemide 40 MG/4 ML VIAL SLOW IVP SCH (06:15)
[2019-02-11] MEDS ORDERED: Potassium Chloride 40 MEQ in Sodium Chloride 0.9% 250 ML 250 ML IVPB SCH (07:00)
[2019-02-11] MEDS: predniSONE 20 MG TAB PO SCH (07:42)
[2019-02-11] MEDS: Loperamide HCl 2 MG CAP PO PRN (07:42)
[2019-02-11] MEDS: Aspirin 325 MG TAB PER TUBE SCH (08:15)
[2019-02-11] MEDS: Folic Acid 1 MG TAB PO SCH (08:15)
[2019-02-11] MEDS: Famotidine 20 MG TAB PO SCH ×2 (08:16→21:09)
[2019-02-11] MEDS: Simethicone Chewable 80 MG TAB PER TUBE SCH ×2 (08:16→21:10)
[2019-02-11] MEDS: Enoxaparin Sodium 40 MG/0.4 ML SYRINGE SC SCH (08:17)
[2019-02-11] MEDS: Metamucil PACK PER TUBE SCH ×2 (08:21→21:09)
--- NOTE | 2019-02-11 08:50 | PDOC.FM ---
- Subjective Subjective: Patient is alert this morning, on trach collar. Gave patient pen and paper to write with to communicate, he wrote a couple indistinguishable scribbles. - Objective Vital Signs & Weight: Vital Signs (12 hours) Temp Pulse Resp BP Pulse Ox 02/11/19 06:59 100 02/11/19 06:34 86 142/83 H 02/11/19 06:33 87 26 H 100 02/11/19 06:00 30 H 02/11/19 04:00 98.6 F 22 H 02/11/19 02:00 20 02/11/19 00:00 98.6 F 28 H 02/10/19 23:51 89 30 H 100 Weight Admit Weight 76.2 kg Weight 76.1 kg Most Recent Monitor Data Heart Rate from ECG 94 NIBP 147/91 NIBP BP-Mean 109 Respiration from ECG 27 SpO2 100 I&O: 02/10/19 02/11/19 02/12/19 06:59 06:59 06:59 Intake Total 2522.8 2714 Output Total 1275 3935 Balance 1247.8 -1221 Result Diagrams: 02/11/19 03:15 02/11/19 03:15 Phys Exam - Physical Examination Constitutional: NAD diffuse rhonchi on inspiration, no wheezing Cardiovascular: RRR, no significant murmur Gastrointestinal: soft, no distention 2+ pitting edema BLE Neurological: non-focal, moves all 4 limbs Psychiatric: normal affect Skin: no rash, cap refill <2 seconds Dx/Plan (1) Acute hypoxemic respiratory failure Code(s): J96.01 - ACUTE RESPIRATORY FAILURE WITH HYPOXIA Status: Acute (2) Anemia Code(s): D64.9 - ANEMIA, UNSPECIFIED Status: Acute (3) Empyema Code(s): J86.9 - PYOTHORAX WITHOUT FISTULA Status: Acute (4) Septic shock Code(s): A41.9 - SEPSIS, UNSPECIFIED ORGANISM; R65.21 - SEVERE SEPSIS WITH SEPTIC SHOCK Status: Acute (5) S/P thoracostomy tube placement Code(s): Z93.8 - OTHER ARTIFICIAL OPENING STATUS Status: Resolved (6) NSTEMI (non-ST elevated myocardial infarction) Code(s): I21.4 - NON-ST ELEVATION (NSTEMI) MYOCARDIAL INFARCTION Status: Acute - Plan Plan: Septic shock (now resolved) 2/2 Pneumonia with empyema s/p lung decortication and thoracotomy - CT: loculated empyema. - Decortication 01/21. Right chest tube placed 01/21. Minimal drainage. - Sputum cultures: pansensitive pseudomonas - Body fluid cultures grew multiple anaerobes - ID consulted, Dr. Fierro, appreciate recs. -Continue Ceftriaxone and Flagyl. PICC line to be placed today. Acute Hypoxic Respiratory failure requiring ventilation - Intubated 01/20. Extubated 01/30. Reintubated 01/31 - Trach and PEG 02/02. Pulm following. - Steroids added 02/07 - Continue to wean O2, patient currently on trach collar. May DC from ICU once off pressure support for 24-48 hours Physical Deconditioning - PT and OT following Anxiety with Hx of Alcoholism. - Seroquel BID and Clonazepam BID, Clonidine patch - Continue Zoloft, consider increasing on 02/12 NSTEMI type 2 - likely 2/2 demand ischemia - Cards consulted. Added ASA to regimen. - Echo reviewed Electrolyte abnormalities - Continue to replace as indicated Anemia of Chronic disease, stable - s/p 4U pRBCs LE Edema -One dose of lasix 40 mg IV today Code: Full VTE ppx: Lovenox GI ppx: pepcid Lines/tubes: Tracheostomy, pitts, right chest tube, PEG, midline R and L arm; PICC line pending Consults: CV surg, pulm, PT/OT, ID Contact: Mother [phone] Dispo: Patient will require long course of IV antibiotics. PICC line today. Due to insurance, patient will most likely need to stay inpatient for his treatment. Continue to monitor respiratory status.
[2019-02-11] MEDS ORDERED: Thiamine 100 MG TAB PO SCH (09:00)
[2019-02-11] MEDS: clonazePAM 1 MG TAB PO SCH ×2 (09:50→21:10)
[2019-02-11] MEDS ORDERED: Artificial Tears 18 DROP/0.9 ML EA EYE PRN (12:46)
--- NOTE | 2019-02-11 14:40 | SPC ---
SPC CVP LINE PICC INITIAL >5 History: Need for long-term IV access. Comparison: None. Findings: The exam was performed in the patient's room in the ICU. Left arm was prepped and draped in normal sterile fashion. The patient artery had a midline catheter in place. A wire was threaded through the midline catheter into the SVC. A peel-away sheath was placed. Over a wire and through a peel-away sheath a 50 cm PICC was placed with tip at the inferior SVC using x-ray guidance. Patient tolerated the procedure well without complication. Impression: Technically successful x-ray guided PICC placement.
[2019-02-11] MEDS ORDERED: Magnesium 2 GM/50 ML 2 GM in Premix Bag 1 BAG IVPB SCH (15:00)
[2019-02-11] MEDS ORDERED: Magnesium Sulfate 2 GM in Sodium Chloride 0.9% 100 ML IVPB SCH (15:00)
--- NOTE | 2019-02-11 15:07 | PRG ---
DATE OF SERVICE: 02/11/2019 SERVICE: Pulmonary Medicine. INTERVAL HISTORY: The patient is doing outstanding from respiratory standpoint. He is basically weaned down to room air. When I walked in this morning, the T-collar was hanging off pointing in a different direction. He was on room air and saturations were fine. He suggested to me he was breathing comfortably. He is still frustrated not being able to phonate. Otherwise, there has been no interval change to his condition. There were no events overnight. He got a dose of Lasix this morning. He has put out beautifully with it. PHYSICAL EXAMINATION: VITAL SIGNS: Afebrile, pulse 102, blood pressure 122/95, respirations 26, saturation 98%, currently on 28% FiO2 delivered via T-collar. GENERAL: The patient is awake and alert, in no apparent distress. LUNGS: Wonderful air entry. No crackles or rhonchi appreciated. HEART: Normal rate, regular. ABDOMEN: Soft, nontender, nondistended, bowel sounds are positive. MUSCULOSKELETAL: No cyanosis or clubbing. There is 2+ pitting in the bilateral lower extremities. NEUROLOGIC: Grossly nonfocal. LABORATORY DATA: WBC 14.6, hemoglobin 9.6, platelets 408,000 and rebounding beautifully. Potassium 3.1. Basic metabolic profile is otherwise unremarkable. Magnesium 1.9, phosphorus 3.0. ASSESSMENT: 1. Acute hypoxic respiratory failure, resolved. 2. Empyema, status post decortication. 3. Pulmonary abscess. 4. Deconditioning/Critical Care weakness, status post tracheostomy and PEG tube placement. 5. Chronic obstructive pulmonary disease without current exacerbation. DISCUSSION AND PLAN: The patient is doing wonderful from respiratory standpoint. We will continue our mobilization efforts. Speech pathology consultation will be placed. I will likely downsize his tracheostomy tomorrow morning. Potassium and magnesium will be replaced today. I will recheck these levels tomorrow morning. This patient has done better over the past 6 days and I actually anticipated it. If he does well with less support for the next 24 hours, he can be downgraded to the [facility]. Job ID: [id number]
[2019-02-11] MEDS ORDERED: Furosemide 20 MG/2 ML VIAL SLOW IVP SCH (15:15)
[2019-02-11] MEDS: cefTRIAXone\\ROCEPHIN 2 GM in Sodium Chloride 0.9% 100 ML IVPB SCH (15:23)
[2019-02-12 03:51] LABS: #Eosinphils 0.4 thou/uL (0.0-0.7); #Lymphocytes 1.9 thou/uL (1.20-3.40); #Monocytes 1.3 thou/uL (0.11-0.59); #Neutrophils 11.7 thou/uL (1.40-6.50); %Basophils 0.1 % (0.0-1.0); %Eosinophils 2.7 % (0.0-10.0); %Lymphocytes 12.5 % (21.0-51.0); %Monocytes 8.5 % (0.0-10.0); %Neutrophils 76.2 % (42.0-75.0); Hemoglobin 10.4 g/dL (14.0-18.0); Mean Corpuscular HGB CONC 31.1 g/dL (32.0-36.0); Mean Corpuscular Hemoglobin 28.6 pg (27.0-31.0); Mean Corpuscular Volume 91.9 fL (78.0-98.0); Mean Platelet Volume 7.5 fL (7.4-10.4); Platelet Count 464 thou/uL (130-400); RBC Distribution Width 18.3 % (11.5-14.5); Red Blood Cell (RBC) Count 3.64 mill/uL (4.70-6.10); White Blood Cell (WBC) Count 15.4 thou/uL (4.8-10.8)
[2019-02-12 04:22] LABS: Anion Gap 8 mmol/L (10-20); BUN (Urea Nitrogen) 7 mg/dL (8.4-25.7); Calc. Creatinine Clearance 151 mL/min (70-130); Calcium 7.6 mg/dL (7.8-10.44); Carbon Dioxide 32 mmol/L (22-29); Chloride 103 mmol/L (98-107); Estimated GFR-MDRD Greater than 90; Glucose 93 mg/dL (70-105); Potassium 4.3 mmol/L (3.5-5.1); Sodium 139 mmol/L (136-145)
[2019-02-12] MEDS: metroNIDAZOLE 500 MG in Premix Bag 1 BAG IVPB SCH ×3 (05:44→17:05)
[2019-02-12] MEDS ORDERED: Furosemide 20 MG/2 ML VIAL SLOW IVP SCH ×2 (06:00)
--- NOTE | 2019-02-12 08:54 | PDOC.FM ---
- Subjective Subjective: Patient reports he has something in his eye today. Otherwise he reports some suprapubic tenderness. He was placed back on the ventilator overnight due to low O2 saturations. His chest tube has been removed. He received his Picc line in Left arm yesterday - Objective Vital Signs & Weight: Vital Signs (12 hours) Temp Pulse Resp Pulse Ox 02/12/19 06:00 26 H 02/12/19 04:00 98.1 F 24 H 02/12/19 02:00 16 02/12/19 00:00 97.7 F 27 H 02/11/19 23:22 76 25 H 100 Weight Admit Weight 76.2 kg Weight 68.6 kg Most Recent Monitor Data Heart Rate from ECG 82 NIBP 125/98 NIBP BP-Mean 107 Respiration from ECG 17 SpO2 93 I&O: 02/11/19 02/12/19 02/13/19 06:59 06:59 06:59 Intake Total 2714 2263 Output Total 3935 7225 Balance -8394 -2352 Result Diagrams: 02/12/19 03:33 02/12/19 03:33 Phys Exam - Physical Examination Constitutional: NAD HEENT: PERRLA, sclera anicteric no matter seen in eyes Respiratory: no wheezing, clear to auscultation bilateral Cardiovascular: RRR, no significant murmur Gastrointestinal: soft, positive bowel sounds mild TTP suprapubic area Musculoskeletal: pulses present edema much improved, 1+ today Neurological: non-focal, moves all 4 limbs Psychiatric: normal affect Skin: no rash, normal turgor, cap refill <2 seconds Dx/Plan (1) Acute hypoxemic respiratory failure Code(s): J96.01 - ACUTE RESPIRATORY FAILURE WITH HYPOXIA Status: Acute (2) Anemia Code(s): D64.9 - ANEMIA, UNSPECIFIED Status: Acute (3) Empyema Code(s): J86.9 - PYOTHORAX WITHOUT FISTULA Status: Acute (4) Septic shock Code(s): A41.9 - SEPSIS, UNSPECIFIED ORGANISM; R65.21 - SEVERE SEPSIS WITH SEPTIC SHOCK Status: Acute (5) S/P thoracostomy tube placement Code(s): Z93.8 - OTHER ARTIFICIAL OPENING STATUS Status: Resolved (6) NSTEMI (non-ST elevated myocardial infarction) Code(s): I21.4 - NON-ST ELEVATION (NSTEMI) MYOCARDIAL INFARCTION Status: Acute - Plan Plan: Septic shock (now resolved) 2/2 Pseudomonas and Aspiration Pneumonia with empyema s/p lung decortication and thoracotomy - CT: loculated empyema. - Decortication 01/21. Right chest tube placed 01/21, removed 02/11. - Sputum cultures: pansensitive pseudomonas - Body fluid cultures grew multiple anaerobes (s/p aspiration, worsened pneumonia) - ID consulted, Dr. Fierro, appreciate recs. -Continue Ceftriaxone and Flagyl. -Picc Line in place L arm Acute Hypoxic Respiratory failure requiring ventilation - Intubated 01/20. Extubated 01/30. Reintubated 01/31 - Trach and PEG 02/02. Pulm following. Receiving tube feeds. -Brading may downsize trach today - Steroid given 02/07- 02/11, now dced - Continue to wean O2, patient currently back on vent as was desatting overnight. - may DC from ICU once off pressure support for 24-48 hours. - Speech consulted Physical Deconditioning - PT and OT following Anxiety with Hx of Alcoholism. - Seroquel BID and Clonazepam BID, Clonidine patch - Zoloft started 02/05, increase today NSTEMI type 2 - likely 2/2 demand ischemia - Cards consulted. Added ASA to regimen. - Echo reviewed Electrolyte abnormalities - Continue to replace as indicated Anemia of Chronic disease, stable - s/p 4U pRBCs LE Edema -Receiving another dose IV lasix this AM. Diuresed well overnight. Edema improved. Urine clear. Dry eyes -PRN natural tear drops Code: Full VTE ppx: Lovenox GI ppx: pepcid Lines/tubes: Tracheostomy, pitts, PEG, PICC L arm, midline R arm Consults: CV surg, pulm, PT/OT/Speech, ID Contact: Mother [phone] Dispo: Patient will require long course of IV antibiotics. S/p PICC line. Due to insurance, patient will most likely need to stay inpatient for his treatment. Continue to monitor respiratory status and wean off vent. Addendum - Attending - Attending Attestation Date/Time: 02/12/19 1111 I personally evaluated the patient and discussed the management with Dr. Toro I agree with the History, Examination, Assessment and Plan documented above with any addition or exceptions noted below. Plan to continue diuresing. Pt is more responsive today. He has had some agitation overnight that may be related his picc line vs pitts.
[2019-02-12] MEDS: Enoxaparin Sodium 40 MG/0.4 ML SYRINGE SC SCH (10:41)
[2019-02-12] MEDS: Simethicone Chewable 80 MG TAB PER TUBE SCH ×2 (10:42→21:09)
[2019-02-12] MEDS: Aspirin 325 MG TAB PER TUBE SCH (10:42)
[2019-02-12] MEDS: Famotidine 20 MG TAB PO SCH ×2 (10:42→21:09)
[2019-02-12] MEDS: Metamucil PACK PER TUBE SCH ×2 (10:42→21:10)
[2019-02-12] MEDS: clonazePAM 1 MG TAB PO SCH ×2 (11:44→21:19)
[2019-02-12] MEDS: Multivits W-Minerals Liquid 15 ML LIQ PER TUBE SCH (14:02)
[2019-02-12] MEDS: cefTRIAXone\\ROCEPHIN 2 GM in Sodium Chloride 0.9% 100 ML IVPB SCH (15:08)
--- NOTE | 2019-02-12 16:43 | PRG ---
DATE OF SERVICE: 02/12/2019 SERVICE: Pulmonary Medicine. INTERVAL HISTORY: Overnight, the patient was placed back on pressure support ventilation. It is not clear that he developed any respiratory difficulty as he ate late yesterday evening. That was just the way that the order was written. That being said, this morning, the pressure support had to be increased significantly as to the FiO2. Significant suctioning was performed and a mucus plug or two were liberated. After this, the patient settled right back down. He has been on trach collar all morning. He has not had any additional respiratory difficulties. PHYSICAL EXAMINATION: VITAL SIGNS: Afebrile, pulse 79, respirations 23, and saturation 98%, currently on T-collar with 28% FiO2. GENERAL: The patient is awake and alert, in no apparent distress. LUNGS: Wonderful air entry. Right-sided rhonchi are present. No crackles are appreciated today. HEART: Normal rate and regular. ABDOMEN: Soft, nontender, and nondistended. Bowel sounds are positive. MUSCULOSKELETAL: No cyanosis or clubbing. There is trace to 1+ pitting in bilateral lower extremities. NEUROLOGIC: Grossly nonfocal. LABORATORY DATA: WBC 15.4, hemoglobin 10.4, and platelets 464,000. Bicarb 32. Basic metabolic profile is otherwise unremarkable. Calcium 7.6 and roughly stable. ASSESSMENT: 1. Acute hypoxic respiratory failure. 2. Empyema, status post decortication. 3. Pulmonary abscess. 4. Deconditioning, status post tracheostomy and PEG tube placement. 5. Chronic obstructive pulmonary disease without current exacerbation. DISCUSSION AND PLAN: The patient is doing fine from respiratory standpoint. Because he was on pressure support ventilation yesterday, I am going to hold off on downsizing his tracheostomy. I will give him 24 hours on T-collar. If he does well, we will consider downsizing him in the morning. I will back off on our diuretics as the patient has developed a touch of contraction alkalosis. Critical Care will continue to follow. Job ID: [id number] [facility]
[2019-02-13] MEDS: metroNIDAZOLE 500 MG in Premix Bag 1 BAG IVPB SCH ×5 (00:25→23:39)
[2019-02-13] MEDS: Loperamide HCl 2 MG CAP PO PRN ×2 (00:25→20:46)
--- NOTE | 2019-02-13 06:04 | PDOC.FM ---
- Subjective Subjective: Patient did well overnight, has had some loose stools. He is sitting up in neuro chair this AM. Patient has been on trach collar since yesterday morning. - Objective Vital Signs & Weight: Vital Signs (12 hours) Temp Pulse Resp Pulse Ox 02/13/19 04:00 98.4 F 02/13/19 00:00 98.1 F 02/12/19 23:22 72 22 H 100 02/12/19 20:00 98.6 F 96 02/12/19 19:27 77 26 H 97 Weight Admit Weight 76.2 kg Weight 68.6 kg Most Recent Monitor Data Heart Rate from ECG 71 NIBP 112/68 NIBP BP-Mean 82 Respiration from ECG 28 SpO2 100 I&O: 02/11/19 02/12/19 02/13/19 06:59 06:59 06:59 Intake Total 4898 2263 2216 Output Total 3935 7225 2478 [facility] -1221 -4962 -262 Result Diagrams: 02/12/19 03:33 02/13/19 08:12 Phys Exam - Physical Examination Constitutional: NAD Respiratory: no wheezing, clear to auscultation bilateral Cardiovascular: RRR, no significant murmur Gastrointestinal: soft, positive bowel sounds trace LE edema bilat Neurological: moves all 4 limbs 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, 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 Psychiatric: normal affect Skin: normal turgor, cap refill <2 seconds Dx/Plan (1) Acute hypoxemic respiratory failure Code(s): J96.01 - ACUTE RESPIRATORY FAILURE WITH HYPOXIA Status: Acute (2) Anemia Code(s): D64.9 - ANEMIA, UNSPECIFIED Status: Acute (3) Empyema Code(s): J86.9 - PYOTHORAX WITHOUT FISTULA Status: Acute (4) Septic shock Code(s): A41.9 - SEPSIS, UNSPECIFIED ORGANISM; R65.21 - SEVERE SEPSIS WITH SEPTIC SHOCK Status: Acute (5) S/P thoracostomy tube placement Code(s): Z93.8 - OTHER ARTIFICIAL OPENING STATUS Status: Resolved (6) NSTEMI (non-ST elevated myocardial infarction) Code(s): I21.4 - NON-ST ELEVATION (NSTEMI) MYOCARDIAL INFARCTION Status: Acute - Plan Plan: Septic shock (now resolved) 2/2 Pseudomonas and Aspiration Pneumonia with empyema s/p lung decortication and thoracotomy - CT: loculated empyema. - Decortication 01/21. Right chest tube placed 01/21, removed 02/11. - Sputum cultures: pansensitive pseudomonas - Body fluid cultures grew multiple anaerobes (s/p aspiration, worsened pneumonia) - ID consulted, Dr. Fierro, appreciate recs. -Continue Ceftriaxone and Flagyl. -Picc Line in place L arm Acute Hypoxic Respiratory failure requiring ventilation - Intubated 01/20. Extubated 01/30. Reintubated 01/31 - Trach and PEG 02/02. Pulm following. Receiving tube feeds. -Kindra may downsize trach today as he has been on trach collar last 24 hrs - Steroid given 02/07- 02/11, now dced - may DC from ICU once off ventilatory support for 24-48 hours. - Speech consulted Physical Deconditioning - PT and OT following Anxiety with Hx of Alcoholism. - Seroquel BID and Clonazepam BID, Clonidine patch - Zoloft, increased 02/12 NSTEMI type 2 - likely 2/2 demand ischemia - Cards consulted. Added ASA to regimen. - Echo reviewed Electrolyte abnormalities - Continue to replace as indicated Anemia of Chronic disease, stable - s/p 4U pRBCs LE Edema -Improved with lasix -developed some contraction alkalosis, hold off on lasix for now Dry eyes -PRN natural tear drops Code: Full VTE ppx: Lovenox GI ppx: pepcid Lines/tubes: Tracheostomy, pitts, PEG, PICC L arm, midline R arm Consults: CV surg, pulm, PT/OT/Speech, ID Contact: Mother [phone] Dispo: Patient will require long course of IV antibiotics. Due to insurance, patient will most likely need to stay inpatient for his treatment. Continue to monitor respiratory status, likely downsize trach today with Dr. Arguelles. Addendum - Attending - Attending Attestation Date/Time: 02/13/19 7044 I personally evaluated the patient and discussed the management with Dr. Toro. I agree with the History, Examination, Assessment and Plan documented above with any addition or exceptions noted below. Improved. hernan's trach collar. Possible downsizing today. Continue Rocephin D# 9/Flagyl D#9.
[2019-02-13] MEDS: Aspirin 325 MG TAB PER TUBE SCH (08:00)
[2019-02-13] MEDS: Famotidine 20 MG TAB PO SCH ×2 (08:00→20:45)
[2019-02-13] MEDS: cloNIDine 0.2mg/24 Hour PATCH TD SCH (08:00)
[2019-02-13] MEDS: Enoxaparin Sodium 40 MG/0.4 ML SYRINGE SC SCH (08:01)
[2019-02-13] MEDS: Metamucil PACK PER TUBE SCH ×2 (08:01→20:47)
[2019-02-13] MEDS: clonazePAM 1 MG TAB PO SCH (08:01)
[2019-02-13] MEDS: Multivits W-Minerals Liquid 15 ML LIQ PER TUBE SCH (08:01)
[2019-02-13] MEDS: Polyethylene Glycol 3350 17 GM Packet PO SCH (08:02)
[2019-02-13] MEDS: Simethicone Chewable 80 MG TAB PER TUBE SCH ×2 (08:02→20:46)
[2019-02-13 09:01] LABS: Anion Gap 8 mmol/L (10-20); BUN (Urea Nitrogen) 7 mg/dL (8.4-25.7); Calc. Creatinine Clearance 141 mL/min (70-130); Calcium 7.7 mg/dL (7.8-10.44); Carbon Dioxide 31 mmol/L (22-29); Chloride 101 mmol/L (98-107); Estimated GFR-MDRD Greater than 90; Glucose 123 mg/dL (70-105); Potassium 3.8 mmol/L (3.5-5.1); Sodium 136 mmol/L (136-145)
--- NOTE | 2019-02-13 13:10 | PRG ---
DATE OF SERVICE: 02/13/2019 SERVICE: Pulmonary Medicine. INTERVAL HISTORY: The patient is doing okay from respiratory standpoint. He has been weaned down to basically 28% via T-collar. He did not have any significant desaturations and did not require the ventilator overnight. Otherwise, there has been no interval change to his condition. PHYSICAL EXAMINATION: VITAL SIGNS: Afebrile. Pulse 82, blood pressure 104/71, respirations 24, saturations 100%, currently on 28% via T-collar. GENERAL: The patient is awake and alert, in no apparent distress. LUNGS: He is breathing comfortably. There is good air entry. Slightly prolonged expiratory phase is present. No wheezing. Rhonchi are present and worse on the right. Crackles are on the right as well. HEART: Normal rate, regular. ABDOMEN: Soft, nontender, nondistended. Bowel sounds are positive. MUSCULOSKELETAL: No cyanosis or clubbing. There is no pitting in the bilateral lower extremities. NEUROLOGIC: Grossly nonfocal. LABORATORY DATA: WBC 15.4, hemoglobin 10.4, platelets 464. Potassium 3.8, bicarb 31 and downtrending. Anion gap and BUN and creatinine are all unremarkable. Calcium 7.7 and gently up-trending. ASSESSMENT: 1. Acute hypoxic respiratory failure, improving. 2. Empyema, status post decortication. 3. Pulmonary abscess with healthcare associated pneumonia. 4. Deconditioning, status post tracheostomy and PEG tube placement. 5. Chronic obstructive pulmonary disease without current exacerbation. DISCUSSION AND PLAN: The patient is doing really well. At this point, we are just simply trying to recondition the patient to get him to the point, where we can consider him for transition out of the hospital. He will be on a very long course of antibiotics. Recurrent imaging studies are going to determine length of antibiotic therapy. I have downsized his tracheostomy to a 6.0 fenestrated cuffless Shiley tracheostomy device. This procedure was done without any significant incident. Speech pathology will be involved to see whether or not the patient can tolerate a Passy-Florentin valve. Job ID: [id number] [facility]
[2019-02-13] MEDS: cefTRIAXone\\ROCEPHIN 2 GM in Sodium Chloride 0.9% 100 ML IVPB SCH (16:43)
[2019-02-13] MEDS: guaiFENesin ER 600 MG TAB PO SCH (20:45)
[2019-02-13] MEDS: Acetaminophen 325 MG TAB PO PRN (20:46)
[2019-02-13] MEDS: clonazePAM 0.5 MG TAB PO SCH (20:57)
[2019-02-14 05:20] LABS: #Eosinphils 0.5 thou/uL (0.0-0.7); #Lymphocytes 1.1 thou/uL (1.20-3.40); #Monocytes 0.7 thou/uL (0.11-0.59); #Neutrophils 8.4 thou/uL (1.40-6.50); %Basophils 0.1 % (0.0-1.0); %Eosinophils 4.9 % (0.0-10.0); %Lymphocytes 10.4 % (21.0-51.0); %Monocytes 6.6 % (0.0-10.0); Hemoglobin 9.8 g/dL (14.0-18.0); Mean Corpuscular HGB CONC 31.5 g/dL (32.0-36.0); Mean Corpuscular Hemoglobin 29.3 pg (27.0-31.0); Mean Platelet Volume 7.2 fL (7.4-10.4); Platelet Count 338 thou/uL (130-400); RBC Distribution Width 17.9 % (11.5-14.5); Red Blood Cell (RBC) Count 3.33 mill/uL (4.70-6.10); White Blood Cell (WBC) Count 10.8 thou/uL (4.8-10.8)
[2019-02-14 05:41] LABS: Anion Gap 7 mmol/L (10-20); BUN (Urea Nitrogen) 8 mg/dL (8.4-25.7); Calc. Creatinine Clearance 141 mL/min (70-130); Calcium 7.7 mg/dL (7.8-10.44); Carbon Dioxide 32 mmol/L (22-29); Chloride 102 mmol/L (98-107); Estimated GFR-MDRD Greater than 90; Glucose 117 mg/dL (70-105); Potassium 3.9 mmol/L (3.5-5.1); Sodium 137 mmol/L (136-145)
[2019-02-14] MEDS: metroNIDAZOLE 500 MG in Premix Bag 1 BAG IVPB SCH ×3 (06:39→19:04)
[2019-02-14] MEDS: Polyethylene Glycol 3350 17 GM Packet PO SCH (08:29)
[2019-02-14] MEDS: Simethicone Chewable 80 MG TAB PER TUBE SCH ×2 (08:46→21:25)
[2019-02-14] MEDS: Aspirin 325 MG TAB PER TUBE SCH (08:46)
[2019-02-14] MEDS: guaiFENesin ER 600 MG TAB PO SCH ×2 (08:46→21:25)
[2019-02-14] MEDS: clonazePAM 0.5 MG TAB PO SCH ×2 (08:46→21:25)
[2019-02-14] MEDS: Enoxaparin Sodium 40 MG/0.4 ML SYRINGE SC SCH (08:46)
[2019-02-14] MEDS: Multivits W-Minerals Liquid 15 ML LIQ PER TUBE SCH (08:47)
[2019-02-14] MEDS: Famotidine 20 MG TAB PO SCH ×2 (08:47→21:26)
[2019-02-14] MEDS: Metamucil PACK PER TUBE SCH ×2 (08:59→21:26)
--- NOTE | 2019-02-14 13:29 | PRG ---
DATE OF SERVICE: 02/14/2019 SUBJECTIVE: Keny Worthy is sitting at the bedside. He denies being short of breath. OBJECTIVE: VITAL SIGNS: He is afebrile, heart rate 72, respiratory rates in the 20s, oximetry is 100%, blood pressure 108/58. Intake and output, positive 1213 mL. LUNGS: Clear. HEART: Regular rhythm. ABDOMEN: Soft and nontender. EXTREMITIES: Without edema. LABORATORY DATA: White count 10.8, hemoglobin 9.8, platelets 338. Sodium 137, potassium 3.9, chloride 102, bicarb 32, BUN 8, creatinine 0.52. IMPRESSION: Status post respiratory failure with tracheostomy in place. He is in absolutely no distress. He is using the remote and is capable of using the call elias to call for help. We will consider transferring him down to the intermediate care unit to a bed that is in front of the nursing station since he cannot verbalize at this point until he is a little bit stronger and has a speaking valve. Job ID: [id number]
[2019-02-14] MEDS: cefTRIAXone\\ROCEPHIN 2 GM in Sodium Chloride 0.9% 100 ML IVPB SCH (15:27)
--- NOTE | 2019-02-14 17:01 | PDOC.FM ---
- Subjective Subjective: Pt resting in bed. Pt can respond with call elias. No acute events reported by nursing overnight. Nurse is wondering about possible txfer as pt is doing so well. - Objective MAR Reviewed: Yes Vital Signs & Weight: Vital Signs (12 hours) Temp Pulse Resp BP Pulse Ox 02/14/19 12:48 72 27 H 100 02/14/19 12:00 97.9 F 02/14/19 11:00 98.4 F 02/14/19 08:28 146/81 H 02/14/19 08:00 99.4 F 99 02/14/19 07:02 80 32 H 99 02/14/19 07:00 98.5 F Weight Admit Weight 76.2 kg Weight 66.9 kg Most Recent Monitor Data Heart Rate from ECG 75 NIBP 142/67 NIBP BP-Mean 92 Respiration from ECG 31 SpO2 94 I&O: 02/13/19 02/14/19 02/15/19 06:59 06:59 06:59 Intake Total 2216 3013 650 Output Total 2588 1800 1185 Balance -372 1213 -535 Result Diagrams: 02/14/19 05:05 02/14/19 05:05 EKG Reviewed by me: Yes Radiology Reviewed by me: Yes Phys Exam - Physical Examination Constitutional: NAD HEENT: PERRLA, moist MMs Trach in place. No sign of redness or drainage. 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 Deviation from normal: Pt unable to speak, trach in place Skin: no rash, cap refill <2 seconds Dx/Plan (1) Acute hypoxemic respiratory failure Code(s): J96.01 - ACUTE RESPIRATORY FAILURE WITH HYPOXIA Status: Acute (2) Hypokalemia Code(s): E87.6 - HYPOKALEMIA Status: Acute (3) NSTEMI (non-ST elevated myocardial infarction) Code(s): I21.4 - NON-ST ELEVATION (NSTEMI) MYOCARDIAL INFARCTION Status: Acute (4) Septic shock Code(s): A41.9 - SEPSIS, UNSPECIFIED ORGANISM; R65.21 - SEVERE SEPSIS WITH SEPTIC SHOCK Status: Acute (5) S/P thoracostomy tube placement Code(s): Z93.8 - OTHER ARTIFICIAL OPENING STATUS Status: Resolved - Plan Plan: Septic shock (now resolved) 2/2 Pseudomonas and Aspiration Pneumonia with empyema s/p lung decortication and thoracotomy - CT: loculated empyema. - Decortication 01/21. Right chest tube placed 01/21, removed 02/11. - Sputum cultures: pansensitive pseudomonas - Body fluid cultures grew multiple anaerobes (s/p aspiration, worsened pneumonia) - ID consulted, Dr. Fierro, appreciate recs. -Continue Ceftriaxone and Flagyl. -Picc Line in place L arm Acute Hypoxic Respiratory failure requiring ventilation - Intubated 01/20. Extubated 01/30. Reintubated 01/31 - Trach and PEG 02/02. Pulm following. Receiving tube feeds. -Trach was downsized yesterday. - Steroid given 02/07- 02/11, now dced - pt possibly ready for txfer to imcu. Will await recs from pulm - Speech consulted Physical Deconditioning - PT and OT following Anxiety with Hx of Alcoholism. - Seroquel BID and Clonazepam BID, Clonidine patch - Zoloft, increased 02/12 NSTEMI type 2 - likely 2/2 demand ischemia - Cards consulted. Added ASA to regimen. - Echo reviewed Electrolyte abnormalities - Continue to replace as indicated Anemia of Chronic disease, stable - s/p 4U pRBCs LE Edema -Improved with lasix -developed some contraction alkalosis, hold off on lasix for now Dry eyes -PRN natural tear drops Code: Full VTE ppx: Lovenox GI ppx: pepcid Lines/tubes: Tracheostomy, pitts, PEG, PICC L arm, midline R arm Consults: CV surg, pulm, PT/OT/Speech, ID Contact: Mother [phone] Dispo: Patient will require long course of IV antibiotics. Due to insurance, patient will most likely need to stay inpatient for his treatment. Continue to monitor respiratory status, will txfer to IMCU pending pulm recs. Addendum - Attending - Attending Attestation Date/Time: 02/14/19 4783 I personally evaluated the patient and discussed the management with Dr. White. I agree with the History, Examination, Assessment and Plan documented above with any addition or exceptions noted below. The patient was sitting up this morning. He denies concerns. Continue IV antibiotics. Can likely transition to IMCU.
[2019-02-15] MEDS: metroNIDAZOLE 500 MG in Premix Bag 1 BAG IVPB SCH ×5 (00:42→23:33)
--- NOTE | 2019-02-15 07:00 | PDOC.FM ---
- Subjective Subjective: Pt is up in bed. Pt is able to answer questioning. Pt reports doing well. Pt denies any acute events overnight. Denies any pain. Denies any SOB or chest pain. Denies any n/v/d/c. Denies any vision changes. Denies any headaches. Pt denies any pain in trach site. - Objective MAR Reviewed: Yes Vital Signs & Weight: Vital Signs (12 hours) Temp Pulse Resp Pulse Ox 02/15/19 06:56 100 02/15/19 06:53 68 100 02/15/19 03:04 97.4 F L 02/15/19 00:31 72 18 99 02/14/19 23:12 97.0 F L 02/14/19 20:00 99 02/14/19 19:31 98.2 F Weight Admit Weight 76.2 kg Weight 66.769 kg Most Recent Monitor Data Heart Rate from ECG 74 NIBP 120/69 NIBP BP-Mean 86 Respiration from ECG 19 SpO2 99 I&O: 02/13/19 02/14/19 02/15/19 06:59 06:59 06:59 Intake Total 2216 3013 2465 Output Total 2588 1800 2035 Balance -372 1213 430 Result Diagrams: 02/14/19 05:05 02/14/19 05:05 EKG Reviewed by me: Yes Radiology Reviewed by me: Yes Phys Exam - Physical Examination Constitutional: NAD HEENT: PERRLA, moist MMs, oral pharynx no lesions Neck: no nodes, supple Trach in place, No swelling, redness, or drainage. Respiratory: no rales, no rhonchi, clear to auscultation bilateral Cardiovascular: RRR, no significant murmur, no rub Gastrointestinal: soft, no distention, positive bowel sounds Musculoskeletal: no edema, pulses present Neurological: non-focal, moves all 4 limbs Lymphatic: no nodes Psychiatric: normal affect Deviation from normal: Pt able to answer questions appropriately Skin: no rash, cap refill <2 seconds Dx/Plan (1) Acute hypoxemic respiratory failure Code(s): J96.01 - ACUTE RESPIRATORY FAILURE WITH HYPOXIA Status: Acute (2) Hypokalemia Code(s): E87.6 - HYPOKALEMIA Status: Acute (3) NSTEMI (non-ST elevated myocardial infarction) Code(s): I21.4 - NON-ST ELEVATION (NSTEMI) MYOCARDIAL INFARCTION Status: Acute (4) Septic shock Code(s): A41.9 - SEPSIS, UNSPECIFIED ORGANISM; R65.21 - SEVERE SEPSIS WITH SEPTIC SHOCK Status: Acute (5) S/P thoracostomy tube placement Code(s): Z93.8 - OTHER ARTIFICIAL OPENING STATUS Status: Resolved - Plan Plan: eptic shock (now resolved) 2/2 Pseudomonas and Aspiration Pneumonia with empyema s/p lung decortication and thoracotomy - CT: loculated empyema. - Decortication 01/21. Right chest tube placed 01/21, removed 02/11. - Sputum cultures: pansensitive pseudomonas - Body fluid cultures grew multiple anaerobes (s/p aspiration, worsened pneumonia) - ID consulted, Dr. Fierro, appreciate recs. -Continue Ceftriaxone and Flagyl. -Picc Line in place L arm Acute Hypoxic Respiratory failure requiring ventilation (Resolved) - Intubated 01/20. Extubated 01/30. Reintubated 01/31 - Trach and PEG 02/02. Pulm following. Receiving tube feeds. -Trach was downsized 02/13. Off ventilator - Steroid given 02/07- 02/11, now dced - Pulm consulted- Follow recs - Speech consulted Physical Deconditioning - PT and OT following Anxiety with Hx of Alcoholism. - Seroquel BID and Clonazepam BID, Clonidine patch - Zoloft, increased 02/12 NSTEMI type 2 - likely 2/2 demand ischemia - Cards consulted. Added ASA to regimen. - Echo reviewed Electrolyte abnormalities - Continue to replace as indicated Anemia of Chronic disease, stable - s/p 4U pRBCs LE Edema -Improved with lasix -developed some contraction alkalosis, hold off on lasix for now Dry eyes -PRN natural tear drops Code: Full VTE ppx: Lovenox GI ppx: pepcid Lines/tubes: Tracheostomy, pitts, PEG, PICC L arm, midline R arm Consults: CV surg, pulm, PT/OT/Speech, ID Contact: Mother [phone] Dispo: Patient will require long course of IV antibiotics. Due to insurance, patient will most likely need to stay inpatient for his treatment. Continue to monitor respiratory status, Follow pulm and specialist recs. Addendum - Attending - Attending Attestation Date/Time: 02/15/19 8295 I personally evaluated the patient and discussed the management with Dr. White. I agree with the History, Examination, Assessment and Plan documented above with any addition or exceptions noted below. The patient is doing well since transitioning to IMCU. He denies complaints. Continue antibiotics.
[2019-02-15] MEDS: clonazePAM 0.5 MG TAB PO SCH ×2 (09:53→21:49)
[2019-02-15] MEDS: guaiFENesin ER 600 MG TAB PO SCH ×2 (09:53→21:49)
[2019-02-15] MEDS: Polyethylene Glycol 3350 17 GM Packet PO SCH (09:53)
[2019-02-15] MEDS: Simethicone Chewable 80 MG TAB PER TUBE SCH ×2 (09:53→21:49)
[2019-02-15] MEDS: Enoxaparin Sodium 40 MG/0.4 ML SYRINGE SC SCH (09:53)
[2019-02-15] MEDS: Famotidine 20 MG TAB PO SCH ×2 (09:53→21:49)
[2019-02-15] MEDS: Aspirin 325 MG TAB PER TUBE SCH (09:53)
[2019-02-15] MEDS: Multivits W-Minerals Liquid 15 ML LIQ PER TUBE SCH (10:11)
[2019-02-15] MEDS: Metamucil PACK PER TUBE SCH ×2 (10:11→21:49)
[2019-02-15] MEDS: cefTRIAXone\\ROCEPHIN 2 GM in Sodium Chloride 0.9% 100 ML IVPB SCH (16:28)
--- NOTE | 2019-02-15 19:25 | PRG ---
DATE OF SERVICE: 02/15/2019 SUBJECTIVE: Keny Worthy is in no distress. OBJECTIVE: VITAL SIGNS: Heart rate is 72, respiratory rate is 20, oximetry is 98% on a trach collar, and blood pressure is 127/71. LUNGS: Clear. HEART: Regular rhythm. ABDOMEN: Soft. IMPRESSION AND PLAN: Status post mechanical ventilation with a tracheostomy in place. He is clinically stable at this point in time. Placement in a long-term acute care facility is not an option apparently because he has no healthcare coverage. Job ID: [id number]
[2019-02-16 04:53] LABS: #Eosinphils 0.4 thou/uL (0.0-0.7); #Lymphocytes 1.1 thou/uL (1.20-3.40); #Monocytes 0.8 thou/uL (0.11-0.59); #Neutrophils 7.5 thou/uL (1.40-6.50); %Basophils 0.4 % (0.0-1.0); %Eosinophils 4.5 % (0.0-10.0); %Lymphocytes 11.2 % (21.0-51.0); %Monocytes 7.6 % (0.0-10.0); %Neutrophils 76.3 % (42.0-75.0); Hemoglobin 9.5 g/dL (14.0-18.0); Mean Corpuscular Hemoglobin 29.8 pg (27.0-31.0); Mean Platelet Volume 7.1 fL (7.4-10.4); Platelet Count 292 thou/uL (130-400); RBC Distribution Width 17.4 % (11.5-14.5); White Blood Cell (WBC) Count 9.9 thou/uL (4.8-10.8)
[2019-02-16 05:10] LABS: Anion Gap 8 mmol/L (10-20); BUN (Urea Nitrogen) 7 mg/dL (8.4-25.7); Calc. Creatinine Clearance 135 mL/min (70-130); Calcium 7.5 mg/dL (7.8-10.44); Carbon Dioxide 31 mmol/L (22-29); Chloride 100 mmol/L (98-107); Estimated GFR-MDRD Greater than 90; Glucose 190 mg/dL (70-105); Potassium 3.6 mmol/L (3.5-5.1); Sodium 135 mmol/L (136-145)
--- NOTE | 2019-02-16 06:20 | PDOC.FM ---
- Subjective Subjective: Patient is sitting in his bed watching TV, alert, on trach collar this AM. Denies chest pain or any pain this morning. He has been seeing physical and occupational therapy. - Objective Vital Signs & Weight: Vital Signs (12 hours) Temp Pulse Resp Pulse Ox 02/16/19 03:48 97.6 F 02/16/19 00:27 68 22 H 100 02/16/19 00:04 98 02/15/19 23:40 99.0 F 02/15/19 19:53 10 L 02/15/19 19:35 98.0 F 02/15/19 18:29 71 20 98 Weight Admit Weight 76.2 kg Weight 64.546 kg Most Recent Monitor Data Heart Rate from ECG 72 NIBP 139/64 NIBP BP-Mean 89 Respiration from ECG 25 SpO2 100 I&O: 02/14/19 02/15/19 02/16/19 06:59 06:59 06:59 Intake Total 3013 2465 1942 Output Total 1800 2035 1825 Balance 1213 430 117 Result Diagrams: 02/16/19 04:30 02/16/19 04:30 Phys Exam - Physical Examination Constitutional: NAD inspiratory and expiratory rhonchi, no wheezing or crackles Cardiovascular: RRR, no significant murmur Gastrointestinal: soft, non-tender, positive bowel sounds Musculoskeletal: no edema, pulses present Neurological: non-focal, moves all 4 limbs Psychiatric: normal affect Skin: no rash, normal turgor Dx/Plan (1) Acute hypoxemic respiratory failure Code(s): J96.01 - ACUTE RESPIRATORY FAILURE WITH HYPOXIA Status: Acute (2) Anemia Code(s): D64.9 - ANEMIA, UNSPECIFIED Status: Acute (3) Empyema Code(s): J86.9 - PYOTHORAX WITHOUT FISTULA Status: Acute (4) Septic shock Code(s): A41.9 - SEPSIS, UNSPECIFIED ORGANISM; R65.21 - SEVERE SEPSIS WITH SEPTIC SHOCK Status: Acute (5) S/P thoracostomy tube placement Code(s): Z93.8 - OTHER ARTIFICIAL OPENING STATUS Status: Resolved (6) NSTEMI (non-ST elevated myocardial infarction) Code(s): I21.4 - NON-ST ELEVATION (NSTEMI) MYOCARDIAL INFARCTION Status: Acute - Plan Plan: Septic shock (now resolved) 2/2 Pseudomonas and Aspiration Pneumonia with empyema s/p lung decortication and thoracotomy - CT at admission showed loculated empyema. Decortication 01/21. Right chest tube placed 01/21, removed 02/11. - Sputum cultures grew pansensitive pseudomonas. Body fluid cultures grew multiple anaerobes (s/p aspiration, worsened pneumonia) - ID consulted, Dr. Fierro, appreciate recs. -PICC L arm, Continue senior living Ceftriaxone and Flagyl -IV antibiotics discontinued this AM, will contact Vadim to see if he wants to continue IV or switch to PO abx - eventual transition to PO Amoxicillin +flagyl, or Augmentil + flagyl Acute Hypoxic Respiratory failure requiring ventilation, now on trach collar - Pulm following- Appreciate recs - Intubated 01/20. Extubated 01/30. Reintubated 01/31. - Trach and PEG 02/02. Receiving tube feeds. -Trach was downsized 02/13. Now on trach collar in IMCU - Steroid given 02/07- 02/11, now dced - Speech consulted Physical Deconditioning - Continue PT and OT Anxiety with Hx of Alcoholism. - Seroquel BID and Clonazepam BID, Clonidine patch - Zoloft, increased 02/12 NSTEMI type 2 - likely 2/2 demand ischemia - Cards consulted. Added ASA to regimen. - Echo reviewed Electrolyte abnormalities - Continue to replace as indicated Anemia of Chronic disease, stable - s/p 4U pRBCs Dry eyes -PRN natural tear drops Code: Full VTE ppx: Lovenox GI ppx: pepcid Lines/tubes: Trach collar, pitts, PEG, PICC L arm, midline R arm Consults: CV surg, pulm, PT/OT/Speech, ID Contact: Mother [phone] Dispo: Patient will require long course of IV antibiotics, will discuss with Vadim if he should switch to oral today or continue IV. Due to insurance, patient will most likely need to stay inpatient for his treatment. Continue to monitor respiratory status, Follow pulm and specialist recs. Addendum - Attending - Attending Attestation Date/Time: 02/16/19 1006 I personally evaluated the patient and discussed the management with Dr. Toro. I agree with the History, Examination, Assessment and Plan documented above with any addition or exceptions noted below. Resident spoke with ID who provided recommendations for abx. See her addendum for details. Patient to transfer to medical floor from [facility]. Will discuss dispo with CM. Needs placement for ABX but unfunded.
[2019-02-16 08:18] LABS: Magnesium 1.9 mg/dL (1.6-2.6); Phosphorus 2.7 mg/dL (2.3-4.7)
--- NOTE | 2019-02-16 09:27 | PRG ---
DATE OF SERVICE: 02/16/2019 SUBJECTIVE: The patient is doing reasonably well. He is able to phonate by occluding his tracheostomy. OBJECTIVE: VITAL SIGNS: On exam, temperature is 98.4, pulse 70, blood pressure 133/74, and O2 saturation 99%. HEENT: Unremarkable. NECK: No adenopathy or JVD. Neck with tracheostomy midline. CARDIAC: S1 and S2. Regular. LUNGS: Clear. ABDOMEN: PEG tube functioning well. EXTREMITIES: No clubbing, cyanosis, or edema. ASSESSMENT: 1. Status post decortication for an empyema. 2. Status post prolonged mechanical ventilation, now requiring tracheostomy for the purpose of weaning. PLAN: It is okay for him to be transferred to the medical floor to continue his rehabilitative situation. I would anticipate him eventually being decannulated from his tracheostomy once he is rehabbed a little bit more. He continues on antibiotics under the direction of Dr. Fierro. It might be reasonable to wean and even stop his Seroquel. Job ID: [id number]
--- NOTE | 2019-02-16 10:14 | PDOC.BPN ---
- Brief Progress Note Plan for antibiotics per Dr. Fierro: Pt needs approximately 16 more days of antibiotic treatment. End points include normal CRP and improvement in CXR. Patient could change to PO flagyl and augmentin upon transfer to SNU. In supervised setting, he could continue continue IV rocephin and switch to PO flagyl until the end of treatment.
[2019-02-16] MEDS ORDERED: PHOS-NAK 1 PKT PACK PO SCH (10:45)
[2019-02-16] MEDS: Aspirin 325 MG TAB PER TUBE SCH (11:33)
[2019-02-16] MEDS: clonazePAM 0.5 MG TAB PO SCH ×2 (11:33→21:03)
[2019-02-16] MEDS: guaiFENesin ER 600 MG TAB PO SCH ×2 (11:34→21:03)
[2019-02-16] MEDS: Famotidine 20 MG TAB PO SCH ×2 (11:34→21:03)
[2019-02-16] MEDS: Simethicone Chewable 80 MG TAB PER TUBE SCH ×2 (11:34→21:03)
[2019-02-16] MEDS: Multivits W-Minerals Liquid 15 ML LIQ PER TUBE SCH (11:36)
[2019-02-16] MEDS: Enoxaparin Sodium 40 MG/0.4 ML SYRINGE SC SCH (11:36)
[2019-02-16] MEDS: Polyethylene Glycol 3350 17 GM Packet PO SCH (11:36)
[2019-02-16] MEDS: Metamucil PACK PER TUBE SCH ×2 (11:38→22:33)
[2019-02-16] MEDS: metroNIDAZOLE 500 MG in Premix Bag 1 BAG IVPB SCH ×4 (11:38→22:33)
[2019-02-16] MEDS: Acetaminophen 325 MG TAB PO PRN (11:46)
[2019-02-16] MEDS: cefTRIAXone\\ROCEPHIN 2 GM in Sodium Chloride 0.9% 100 ML IVPB SCH (16:58)
--- NOTE | 2019-02-16 17:15 | EKG ---
Test Reason : Blood Pressure : / mmHG Vent. Rate : 071 BPM Atrial Rate : 071 BPM P-R Int : 142 ms QRS Dur : 068 ms QT Int : 496 ms P-R-T Axes : 023 031 234 degrees QTc Int : 538 ms Normal sinus rhythm T wave abnormality, consider inferior ischemia T wave abnormality, consider anterolateral ischemia Prolonged QT Abnormal ECG When compared with ECG of 31-JAN-2019 06:38, (Unconfirmed) Inverted T waves have replaced nonspecific T wave abnormality in Inferior leads T wave inversion more evident in Anterolateral leads Confirmed by NOE CHRISTOPHER M.D. ([id number]) on 02/16/2019 5:14:45 PM Referred By: JAMES Confirmed By:NOE CHRISTOPHER M.D.
[2019-02-17] MEDS: metroNIDAZOLE 500 MG in Premix Bag 1 BAG IVPB SCH ×4 (02:38→21:06)
--- NOTE | 2019-02-17 08:15 | PDOC.FM ---
- Subjective Subjective: Patient is tolerating tube feeds, voiding and stooling. Denies pain this AM. Continues to work with PT/OT/Speech. No concerns today. - Objective Vital Signs & Weight: Vital Signs (12 hours) Temp Pulse Resp BP Pulse Ox 02/17/19 00:40 79 20 97 02/16/19 23:05 98.3 F 77 18 125/72 97 Weight Admit Weight 76.2 kg Weight 64.546 kg Most Recent Monitor Data Heart Rate from ECG 89 NIBP 151/84 NIBP BP-Mean 106 Respiration from ECG 26 SpO2 100 I&O: 02/16/19 02/17/19 02/18/19 06:59 06:59 06:59 Intake Total 1942 2494 Output Total 1825 3100 Balance 117 -606 Result Diagrams: 02/16/19 04:30 02/16/19 04:30 Phys Exam - Physical Examination Constitutional: NAD Respiratory: no wheezing inspiratory rhonchi bilat Cardiovascular: RRR, no significant murmur Gastrointestinal: soft, no distention, positive bowel sounds Musculoskeletal: no edema, pulses present Neurological: non-focal, moves all 4 limbs Psychiatric: normal affect Skin: no rash, normal turgor, cap refill <2 seconds Dx/Plan (1) Acute hypoxemic respiratory failure Code(s): J96.01 - ACUTE RESPIRATORY FAILURE WITH HYPOXIA Status: Acute (2) Anemia Code(s): D64.9 - ANEMIA, UNSPECIFIED Status: Acute (3) Empyema Code(s): J86.9 - PYOTHORAX WITHOUT FISTULA Status: Acute (4) Septic shock Code(s): A41.9 - SEPSIS, UNSPECIFIED ORGANISM; R65.21 - SEVERE SEPSIS WITH SEPTIC SHOCK Status: Acute (5) S/P thoracostomy tube placement Code(s): Z93.8 - OTHER ARTIFICIAL OPENING STATUS Status: Resolved (6) NSTEMI (non-ST elevated myocardial infarction) Code(s): I21.4 - NON-ST ELEVATION (NSTEMI) MYOCARDIAL INFARCTION Status: Acute (7) Physical deconditioning Code(s): R53.81 - OTHER MALAISE Status: Acute (8) Tracheostomy dependent Code(s): Z93.0 - TRACHEOSTOMY STATUS Status: Acute (9) S/P percutaneous endoscopic gastrostomy (PEG) tube placement Code(s): Z93.1 - GASTROSTOMY STATUS Status: Acute (10) Septic shock due to Pseudomonas species Code(s): A41.52 - SEPSIS DUE TO PSEUDOMONAS; R65.21 - SEVERE SEPSIS WITH SEPTIC SHOCK Status: Acute (11) Aspiration pneumonia Code(s): J69.0 - PNEUMONITIS DUE TO INHALATION OF FOOD AND VOMIT Status: Acute - Plan Plan: Septic shock (now resolved) 2/2 Pseudomonas and Aspiration Pneumonia with empyema s/p lung decortication and thoracotomy - CT at admission showed loculated empyema. Decortication 01/21. Right chest tube placed 01/21, removed 02/11. - Sputum cultures grew pansensitive pseudomonas. Body fluid cultures grew multiple anaerobes (s/p aspiration, worsened pneumonia) - ID consulted, Dr. Fierro, appreciate recs. -Pt needs IV antibiotics until about 03/04/2019, rocephin and flagyl -End goal: improved CXR and CRP -needs SNF placement but is unfunded -Case management consulted for placement, consider [facility] bed Acute Hypoxic Respiratory failure requiring ventilation, resolved - Pulm following- Appreciate recs - Intubated 01/20. Extubated 01/30. Reintubated 01/31. - Trach and PEG 02/02. Receiving tube feeds. -Trach was downsized 02/13. Has speaking valve - S/p Steroids given 02/07- 02/11 - Cpntinue Speech therapy Severe Physical Deconditioning - Continue PT - OT order replaced, they have not been treating patient since 02/09 Anxiety with Hx of Alcoholism. - Seroquel BID (dose reduced 02/17), plan to d/c later this week - Clonazepam BID, Clonidine patch - Zoloft, increased 02/12 NSTEMI type 2 - likely 2/2 demand ischemia - Cards consulted. Added ASA to regimen. - Echo reviewed Electrolyte abnormalities - Continue to replace as indicated Anemia of Chronic disease, stable - s/p 4U pRBCs Dry eyes -PRN natural tear drops Code: Full VTE ppx: Lovenox GI ppx: pepcid Lines/tubes: Trach collar, pitts, PEG, PICC L arm, midline R arm Consults: CV surg, pulm, PT/OT/Speech, ID Contact: Mother [phone] Dispo: Patient will require long course of IV antibiotics, until about 2019. Patient is unfunded, case management consulted for potential placement, to see if [facility] bed available. Continue PT, start OT, continue speech. Addendum - Attending - Attending Attestation Date/Time: 02/17/19 2761 I personally evaluated the patient and discussed the management with Dr. Toro I agree with the History, Examination, Assessment and Plan documented above with any addition or exceptions noted below. Continue IV antibiotics per ID recommendations. Patient is primarily a placement issue at this point due to no insurance. Awaiting CM recs. continue PT /OT in hospital. Will attempt to d/c pitts [facility]
[2019-02-17] MEDS: Multivits W-Minerals Liquid 15 ML LIQ PER TUBE SCH (08:50)
[2019-02-17] MEDS: Simethicone Chewable 80 MG TAB PER TUBE SCH ×2 (08:51→21:13)
[2019-02-17] MEDS: guaiFENesin ER 600 MG TAB PO SCH ×2 (08:52→21:12)
[2019-02-17] MEDS: clonazePAM 0.5 MG TAB PO SCH ×2 (08:52→21:13)
[2019-02-17] MEDS: Famotidine 20 MG TAB PO SCH ×2 (08:52→21:13)
[2019-02-17] MEDS: Aspirin 325 MG TAB PER TUBE SCH (08:52)
[2019-02-17] MEDS: Enoxaparin Sodium 40 MG/0.4 ML SYRINGE SC SCH (08:53)
[2019-02-17] MEDS: Metamucil PACK PER TUBE SCH ×2 (08:53→21:14)
[2019-02-17] MEDS: Polyethylene Glycol 3350 17 GM Packet PO SCH (08:53)
--- NOTE | 2019-02-17 09:35 | PRG ---
DATE OF SERVICE: 02/17/2019 SUBJECTIVE: Keny Worthy is in no distress. OBJECTIVE: VITAL SIGNS: He is afebrile, heart rate is in the 70s, respiratory rate is 18, oximetry is 100% on trach collar, and blood pressure is 106/70. LUNGS: Clear. HEART: Regular rhythm. ABDOMEN: Soft. LABORATORY DATA: No new lab. IMPRESSION AND PLAN: Respiratory failure status post tracheostomy. He may be a candidate to downsize to a 4 this weekend with a cap to see how he does. Job ID: [id number]
[2019-02-17] MEDS: cefTRIAXone\\ROCEPHIN 2 GM in Sodium Chloride 0.9% 100 ML IVPB SCH (15:38)
[2019-02-18] MEDS: metroNIDAZOLE 500 MG in Premix Bag 1 BAG IVPB SCH ×4 (02:00→20:58)
[2019-02-18 06:14] LABS: #Eosinphils 0.3 thou/uL (0.0-0.7); #Lymphocytes 1.1 thou/uL (1.20-3.40); #Monocytes 0.8 thou/uL (0.11-0.59); %Basophils 0.3 % (0.0-1.0); %Eosinophils 4.2 % (0.0-10.0); %Lymphocytes 13.4 % (21.0-51.0); %Monocytes 10.1 % (0.0-10.0); Mean Corpuscular HGB CONC 32.4 g/dL (32.0-36.0); Mean Corpuscular Hemoglobin 29.9 pg (27.0-31.0); Mean Corpuscular Volume 92.4 fL (78.0-98.0); Mean Platelet Volume 7.1 fL (7.4-10.4); Platelet Count 244 thou/uL (130-400); RBC Distribution Width 17.2 % (11.5-14.5); Red Blood Cell (RBC) Count 3.34 mill/uL (4.70-6.10); White Blood Cell (WBC) Count 8.3 thou/uL (4.8-10.8)
[2019-02-18 06:35] LABS: Anion Gap 7 mmol/L (10-20); BUN (Urea Nitrogen) 5 mg/dL (8.4-25.7); Calc. Creatinine Clearance 146 mL/min (70-130); Calcium 7.7 mg/dL (7.8-10.44); Carbon Dioxide 31 mmol/L (22-29); Chloride 102 mmol/L (98-107); Estimated GFR-MDRD Greater than 90; Glucose 133 mg/dL (70-105); Potassium 3.8 mmol/L (3.5-5.1); Sodium 136 mmol/L (136-145)
--- NOTE | 2019-02-18 07:16 | PDOC.FM ---
- Subjective Subjective: Pt reports he has occasional stabbing chest pain. Denies SOB. He is voiding and stooling, states he thinks he can void at bedside and would like pitts removed. - Objective Vital Signs & Weight: Vital Signs (12 hours) Temp Pulse Resp BP Pulse Ox 02/17/19 23:22 80 16 97 02/17/19 19:22 98.6 F 92 16 105/67 98 Weight Admit Weight 76.2 kg Weight 64.546 kg Most Recent Monitor Data Heart Rate from ECG 89 NIBP 151/84 NIBP BP-Mean 106 Respiration from ECG 26 SpO2 100 I&O: 02/17/19 02/18/19 02/19/19 06:59 06:59 06:59 Intake Total 2494 2547 Output Total 3100 1650 Balance -606 897 Result Diagrams: 02/18/19 05:54 02/18/19 05:54 Phys Exam - Physical Examination Constitutional: NAD propped up in bed, alert and interactive Neck: no nodes, supple Diminished breath sounds Rt lung Cardiovascular: RRR, no significant murmur Gastrointestinal: soft, non-tender, no distention, positive bowel sounds Musculoskeletal: no edema, pulses present Neurological: non-focal, moves all 4 limbs Psychiatric: normal affect Skin: normal turgor, cap refill <2 seconds Dx/Plan (1) Acute hypoxemic respiratory failure Code(s): J96.01 - ACUTE RESPIRATORY FAILURE WITH HYPOXIA Status: Acute (2) Anemia Code(s): D64.9 - ANEMIA, UNSPECIFIED Status: Acute (3) Empyema Code(s): J86.9 - PYOTHORAX WITHOUT FISTULA Status: Acute (4) Septic shock Code(s): A41.9 - SEPSIS, UNSPECIFIED ORGANISM; R65.21 - SEVERE SEPSIS WITH SEPTIC SHOCK Status: Acute (5) S/P thoracostomy tube placement Code(s): Z93.8 - OTHER ARTIFICIAL OPENING STATUS Status: Resolved (6) NSTEMI (non-ST elevated myocardial infarction) Code(s): I21.4 - NON-ST ELEVATION (NSTEMI) MYOCARDIAL INFARCTION Status: Acute (7) Physical deconditioning Code(s): R53.81 - OTHER MALAISE Status: Acute (8) Tracheostomy dependent Code(s): Z93.0 - TRACHEOSTOMY STATUS Status: Acute (9) S/P percutaneous endoscopic gastrostomy (PEG) tube placement Code(s): Z93.1 - GASTROSTOMY STATUS Status: Acute (10) Septic shock due to Pseudomonas species Code(s): A41.52 - SEPSIS DUE TO PSEUDOMONAS; R65.21 - SEVERE SEPSIS WITH SEPTIC SHOCK Status: Acute (11) Aspiration pneumonia Code(s): J69.0 - PNEUMONITIS DUE TO INHALATION OF FOOD AND VOMIT Status: Acute - Plan Plan: Septic shock (now resolved) 2/2 Pseudomonas and Aspiration Pneumonia with empyema s/p lung decortication and thoracotomy -Repeat CXR today as diminished breath sounds Rt lung. However, pt does not appear to be in any respiratory distress and is satting well on trach collar. - CT at admission showed loculated empyema. Decortication 01/21. Right chest tube placed 01/21, removed 02/11. - Sputum cultures grew pansensitive pseudomonas. Body fluid cultures grew multiple anaerobes (s/p aspiration, worsened pneumonia) - ID consulted, Dr. Fierro, appreciate recs. -Pt needs IV antibiotics until about 03/04/2019, rocephin and flagyl -End goal: improved CXR and CRP -needs SNF placement but is unfunded -Case management consulted for placement, consider [facility] Acute Hypoxic Respiratory failure requiring ventilation, resolved - Pulm following- Appreciate recs - Intubated 01/20. Extubated 01/30. Reintubated 01/31. - Trach and PEG 02/02. Receiving tube feeds. -Trach was downsized 02/13. Has speaking valve - S/p Steroids given 02/07- 02/11 - Continue Speech therapy Severe Physical Deconditioning - Continue PT - OT order replaced, they have not been treating patient since 02/09 Anxiety with Hx of Alcoholism. - DC seroquel today - Clonazepam BID, Clonidine patch - Zoloft, increased 02/12 NSTEMI type 2 - likely 2/2 demand ischemia - Cards consulted. Added ASA to regimen. - Echo reviewed Electrolyte abnormalities - Continue to replace as indicated Anemia of Chronic disease, stable - s/p 4U pRBCs - Stable hgb Dry eyes -PRN natural tear drops Code: Full VTE ppx: Lovenox GI ppx: pepcid Lines/tubes: Trach collar, DC pitts today, PEG, PICC L arm, midline R arm Consults: CV surg, pulm, PT/OT/Speech, ID Contact: Mother [phone] Dispo: Patient will require long course of IV antibiotics, until about 2019. Patient is unfunded, case management consulted for potential placement, to see if [facility] available. Continue PT, start OT, continue speech. Addendum - Attending - Attending Attestation Date/Time: 02/18/19 0871 I personally evaluated the patient and discussed the management with Dr. Toro I agree with the History, Examination, Assessment and Plan documented above with any addition or exceptions noted below. Repeat CXR showed stable right chest with ataleticsis on left lung base. Exam benign. incentive spirometry today. Placement pending.
--- NOTE | 2019-02-18 09:24 | RAD ---
Chest one view HISTORY: Diminished breath sounds. COMPARISON: 02/08/2019. FINDINGS: Cardiac silhouette is magnified by projection. Pulmonary vasculature remains engorged. Atel ectasis and postoperative changes at the right base with slight rightward shift of the mediastinum. Small amount of pleural fluid and loculated gas and fluid at the right lateral costophrenic angle is similar in appearance to prior study. Thoracostomy tube and skin palmer have been removed. No evidence of pneumothorax. At the left base, pleural fluid and basilar atelectasis have increased. Tracheostomy appliance and left upper extremity PICC in place. IMPRESSION: Increasing left pleural fluid and left basilar atelectasis/infiltrate. Stable postoperative changes right lung base.
[2019-02-18] MEDS: Aspirin 325 MG TAB PER TUBE SCH (10:40)
[2019-02-18] MEDS: clonazePAM 0.5 MG TAB PO SCH ×2 (10:40→20:58)
[2019-02-18] MEDS: Simethicone Chewable 80 MG TAB PER TUBE SCH ×2 (10:40→20:58)
[2019-02-18] MEDS: Enoxaparin Sodium 40 MG/0.4 ML SYRINGE SC SCH (10:40)
[2019-02-18] MEDS: Polyethylene Glycol 3350 17 GM Packet PO SCH (10:41)
[2019-02-18] MEDS: Metamucil PACK PER TUBE SCH ×2 (10:42→20:59)
[2019-02-18] MEDS: Multivits W-Minerals Liquid 15 ML LIQ PER TUBE SCH (10:42)
[2019-02-18] MEDS: guaiFENesin ER 600 MG TAB PO SCH ×2 (10:42→20:58)
[2019-02-18] MEDS: Famotidine 20 MG TAB PO SCH ×2 (10:50→20:58)
--- NOTE | 2019-02-18 12:38 | PRG ---
DATE OF SERVICE: 02/18/2019 SUBJECTIVE: The patient is doing reasonably well. He says he has not had his swallowing looked at again. I cannot find any notes from speech therapy. OBJECTIVE: VITAL SIGNS: His temperature is 98.3, pulse 79, respirations 16, O2 saturations 98% on 5 L. HEENT: Unremarkable. NECK: No adenopathy or JVD. CHEST: Clear. ABDOMEN: Soft, nontender. EXTREMITIES: No clubbing, cyanosis, or edema. ASSESSMENT: Status post tracheostomy. PLAN: The patient will need to see Speech and have his swallowing reassessed. We can work toward decannulation later this week and early next week if he does well with Speech. Job ID: [id number]
[2019-02-18] MEDS: cefTRIAXone\\ROCEPHIN 2 GM in Sodium Chloride 0.9% 100 ML IVPB SCH (17:41)
[2019-02-18] MEDS: Acetaminophen 325 MG TAB PO PRN (18:20)
[2019-02-19] MEDS: metroNIDAZOLE 500 MG in Premix Bag 1 BAG IVPB SCH ×4 (02:32→20:27)
--- NOTE | 2019-02-19 06:52 | PDOC.FM ---
- Subjective Subjective: Patient feeling well this morning, states he would like his glasses. Did not have a BM yesterday. Is voiding fine. Patient needs to see speech therapy today. - Objective Vital Signs & Weight: Vital Signs (12 hours) Temp Pulse Resp BP Pulse Ox 02/19/19 06:48 79 14 98 02/18/19 20:55 98.0 F 78 18 135/75 97 02/18/19 19:00 81 12 100 Weight Admit Weight 76.2 kg Weight 64.546 kg Most Recent Monitor Data Heart Rate from ECG 89 NIBP 151/84 NIBP BP-Mean 106 Respiration from ECG 26 SpO2 100 I&O: 02/17/19 02/18/19 02/19/19 06:59 06:59 06:59 Intake Total 2494 2547 1057 Output Total 3100 1650 2156 Balance -603 119 -0351 Result Diagrams: 02/18/19 05:54 02/18/19 05:54 Phys Exam - Physical Examination Constitutional: NAD Respiratory: no wheezing, clear to auscultation bilateral Cardiovascular: RRR, no significant murmur Gastrointestinal: soft, non-tender, no distention Musculoskeletal: no edema, pulses present Neurological: non-focal, moves all 4 limbs Psychiatric: normal affect Skin: normal turgor, cap refill <2 seconds Dx/Plan (1) Acute hypoxemic respiratory failure Code(s): J96.01 - ACUTE RESPIRATORY FAILURE WITH HYPOXIA Status: Acute (2) Anemia Code(s): D64.9 - ANEMIA, UNSPECIFIED Status: Acute (3) Empyema Code(s): J86.9 - PYOTHORAX WITHOUT FISTULA Status: Acute (4) Septic shock Code(s): A41.9 - SEPSIS, UNSPECIFIED ORGANISM; R65.21 - SEVERE SEPSIS WITH SEPTIC SHOCK Status: Acute (5) S/P thoracostomy tube placement Code(s): Z93.8 - OTHER ARTIFICIAL OPENING STATUS Status: Resolved (6) NSTEMI (non-ST elevated myocardial infarction) Code(s): I21.4 - NON-ST ELEVATION (NSTEMI) MYOCARDIAL INFARCTION Status: Acute (7) Physical deconditioning Code(s): R53.81 - OTHER MALAISE Status: Acute (8) Tracheostomy dependent Code(s): Z93.0 - TRACHEOSTOMY STATUS Status: Acute (9) S/P percutaneous endoscopic gastrostomy (PEG) tube placement Code(s): Z93.1 - GASTROSTOMY STATUS Status: Acute (10) Septic shock due to Pseudomonas species Code(s): A41.52 - SEPSIS DUE TO PSEUDOMONAS; R65.21 - SEVERE SEPSIS WITH SEPTIC SHOCK Status: Acute (11) Aspiration pneumonia Code(s): J69.0 - PNEUMONITIS DUE TO INHALATION OF FOOD AND VOMIT Status: Acute - Plan Plan: Septic shock (now resolved) 2/2 Pseudomonas and Aspiration Pneumonia with empyema s/p lung decortication and thoracotomy CT at admission showed loculated empyema. Decortication 01/21. Right chest tube placed 01/21, removed 02/11. Sputum cultures grew pansensitive pseudomonas. Body fluid cultures grew multiple anaerobes (s/p aspiration, worsened pneumonia) - ID consulted, Dr. Fierro, appreciate recs. -Pt needs IV antibiotics until about 03/04/2019, rocephin and flagyl -End goal: improved CXR and CRP -needs SNF placement but is unfunded -Case management consulted for placement, consider [facility] bed Acute Hypoxic Respiratory failure requiring ventilation, resolved - Pulm following- Appreciate recs - Intubated 01/20. Extubated 01/30. Reintubated 01/31. - Trach and PEG 02/02. Receiving tube feeds. -Trach was downsized 02/13. Has speaking valve - S/p Steroids given 02/07- 02/11 - Speech therapy: swallow needs to be assessed; potentially pt can be decannulated later this week if doing well Severe Physical Deconditioning - Continue PT/OT Anxiety with Hx of Alcoholism. - Clonazepam BID, Clonidine patch - Zoloft, increased 02/12 NSTEMI type 2 - likely 2/2 demand ischemia - Cards consulted. Added ASA to regimen. - Echo reviewed Electrolyte abnormalities - Continue to replace as indicated Anemia of Chronic disease, stable - s/p 4U pRBCs - Stable hgb Dry eyes -PRN natural tear drops Sacral ulcer -Wound care consulted Constipation -Senna/doc / Miralax Code: Full VTE ppx: Lovenox GI ppx: pepcid Lines/tubes: Trach collar w/ speaking valve, PEG, PICC L arm, midline R arm Consults: CV surg, pulm, PT/OT/Speech, ID, CM Contact: Mother [phone] Dispo: Patient will require long course of IV antibiotics, until about 2019. Patient is unfunded, case management consulted for discharge planning, working towards a solution to find a [facility] bed vs getting funding via Medicaid. Continue PT, OT, speech. Addendum - Attending - Attending Attestation Date/Time: 02/19/19 0184 I personally evaluated the patient and discussed the management with Dr. Toro I agree with the History, Examination, Assessment and Plan documented above with any addition or exceptions noted below. continue rehabilitative care. placement pending.
[2019-02-19] MEDS: Famotidine 20 MG TAB PO SCH ×2 (08:47→20:28)
[2019-02-19] MEDS: Aspirin 325 MG TAB PER TUBE SCH (08:47)
[2019-02-19] MEDS: guaiFENesin ER 600 MG TAB PO SCH ×2 (08:47→20:28)
[2019-02-19] MEDS: Enoxaparin Sodium 40 MG/0.4 ML SYRINGE SC SCH (08:47)
[2019-02-19] MEDS: Simethicone Chewable 80 MG TAB PER TUBE SCH ×2 (08:47→20:28)
[2019-02-19] MEDS: clonazePAM 0.5 MG TAB PO SCH ×2 (08:47→20:28)
[2019-02-19] MEDS: Polyethylene Glycol 3350 17 GM Packet PO SCH (08:48)
[2019-02-19] MEDS: Metamucil PACK PER TUBE SCH ×2 (08:48→20:29)
[2019-02-19] MEDS: Multivits W-Minerals Liquid 15 ML LIQ PER TUBE SCH (08:48)
[2019-02-19] MEDS ORDERED: Senokot S 8.6-50 MG TAB PO SCH (09:00)
[2019-02-19] MEDS: cefTRIAXone\\ROCEPHIN 2 GM in Sodium Chloride 0.9% 100 ML IVPB SCH (16:14)
--- NOTE | 2019-02-19 18:06 | PRG ---
DATE OF SERVICE: 02/19/2019 SUBJECTIVE: Keny Worthy is in no distress. OBJECTIVE: VITAL SIGNS: Heart rate is 80, he is afebrile, respiratory rate is 20, oximetry is 100% on trach collar, blood pressure is 145/92. LUNGS: Clear. HEART: Regular rhythm. ABDOMEN: Soft. ASSESSMENT AND PLAN: He is only sitting and standing and he is not walking yet, so probably would not downsize his trach until we are sure he is ambulating with minimal dyspnea. Job ID: [id number]
--- NOTE | 2019-02-19 20:30 | PDOC.BPN ---
- Brief Progress Note Transition of care note: I have been caring for this patient from 02/09-02/19. For prior information/SARAY info, please see the dictated transition of care note by Dr. Eva Woo. This is a 58 yo M admitted for septic shock 2/2 pneumonia with a loculated empyema (pseudomonas) (s/p thoracotomy and chest tube that was removed) along with aspiration pneumonia (multiple anaerobes). Patient had difficulty weaning off the ventilator, and was subsequently given a trach and peg. He was weaned off of precedex last week, chest tube was removed, and was slowly weaned off the ventilator pressure support last week which was difficult due to patient's tachypnea into the 30s and 40s, which was thought to be related to his anxiety. He has been placed on multiple anxiety meds: zoloft was started and titrated up, seroquel was weaned and DCed 02/19. Pt was transitioned to the medical floor on 02/16. Dr. Fierro is consulted for antibiotic treatment. He was given a PICC line and will need to continue on ceftriaxone and flagyl until about March 04, 2019. Per Vadim: End goals are improvement in CXR and CRP. Patient could change to PO flagyl and augmentin upon transfer to SNU. Or, in supervised setting, he could continue continue IV rocephin and switch to PO flagyl until the end of treatment. (However, Patient is unfunded, so will likely need to stay inpatient for therapy unless a [place] [facility] bed can be found or he can qualify for medicaid.) Pt may eventually be able to be decanulated early next week. This depends on his swallow function as well as ambulatory status. Per speech 02/19: "Very weak swallow persists with reduced breathe-swallow sequencing. He has not been wearing speaking valve, and this contributes. Recall and basic cognitive function is impaired, burden of care will be on staff/family for him to wear valve, complete dysphagia HEP, be safe with minimal trials of ice as per [place] Protocol. Recommend ice chips only and work with ST to improve swallow. From ST standpoint, trach could be removed per need as he has PEG if swallow function does not improve." Patient's labs are being drawn q2d as he is stable.
[2019-02-20] MEDS: metroNIDAZOLE 500 MG in Premix Bag 1 BAG IVPB SCH ×4 (03:38→20:16)
[2019-02-20 06:57] LABS: #Eosinphils 0.4 thou/uL (0.0-0.7); #Lymphocytes 1.1 thou/uL (1.20-3.40); #Monocytes 0.9 thou/uL (0.11-0.59); #Neutrophils 6.7 thou/uL (1.40-6.50); %Basophils 0.2 % (0.0-1.0); %Eosinophils 4.4 % (0.0-10.0); %Lymphocytes 11.8 % (21.0-51.0); %Monocytes 9.5 % (0.0-10.0); %Neutrophils 74.2 % (42.0-75.0); Hemoglobin 10.7 g/dL (14.0-18.0); Mean Corpuscular HGB CONC 32.1 g/dL (32.0-36.0); Mean Corpuscular Hemoglobin 29.7 pg (27.0-31.0); Mean Corpuscular Volume 92.5 fL (78.0-98.0); Mean Platelet Volume 7.3 fL (7.4-10.4); Platelet Count 234 thou/uL (130-400); RBC Distribution Width 17.1 % (11.5-14.5)
[2019-02-20 07:16] LABS: Anion Gap 11 mmol/L (10-20); BUN (Urea Nitrogen) 7 mg/dL (8.4-25.7); Calc. Creatinine Clearance 142 mL/min (70-130); Calcium 7.8 mg/dL (7.8-10.44); Carbon Dioxide 27 mmol/L (22-29); Chloride 99 mmol/L (98-107); Estimated GFR-MDRD Greater than 90; Glucose 154 mg/dL (70-105); Potassium 4.1 mmol/L (3.5-5.1); Sodium 133 mmol/L (136-145)
--- NOTE | 2019-02-20 08:01 | PDOC.FM ---
- Subjective Subjective: Pt is feeling well this AM. Denies fevers or chills, denies SOB. No acute problems - Objective Vital Signs & Weight: Vital Signs (12 hours) Temp Pulse Resp BP Pulse Ox 02/20/19 07:45 99 02/20/19 07:43 82 16 100 02/20/19 07:39 98.2 F 80 18 123/80 100 02/19/19 23:56 78 12 100 Weight Admit Weight 76.2 kg Weight 62.624 kg Most Recent Monitor Data Heart Rate from ECG 89 NIBP 151/84 NIBP BP-Mean 106 Respiration from ECG 26 SpO2 100 I&O: 02/19/19 02/20/19 02/21/19 06:59 06:59 06:59 Intake Total 1057 980 Output Total 2153 Balance -1096 980 Result Diagrams: 02/20/19 06:31 02/20/19 06:31 Phys Exam - Physical Examination Constitutional: NAD HEENT: moist MMs, sclera anicteric Neck: supple, full ROM Respiratory: no wheezing bilateral expiratory rhonchi Cardiovascular: RRR, no significant murmur Gastrointestinal: soft, non-tender Musculoskeletal: pulses present Neurological: normal sensation, moves all 4 limbs Psychiatric: normal affect Skin: no rash, normal turgor Dx/Plan (1) Acute hypoxemic respiratory failure Code(s): J96.01 - ACUTE RESPIRATORY FAILURE WITH HYPOXIA Status: Acute (2) Anemia Code(s): D64.9 - ANEMIA, UNSPECIFIED Status: Acute (3) Aspiration pneumonia Code(s): J69.0 - PNEUMONITIS DUE TO INHALATION OF FOOD AND VOMIT Status: Acute (4) Empyema Code(s): J86.9 - PYOTHORAX WITHOUT FISTULA Status: Acute (5) Physical deconditioning Code(s): R53.81 - OTHER MALAISE Status: Acute (6) S/P percutaneous endoscopic gastrostomy (PEG) tube placement Code(s): Z93.1 - GASTROSTOMY STATUS Status: Acute (7) Septic shock Code(s): A41.9 - SEPSIS, UNSPECIFIED ORGANISM; R65.21 - SEVERE SEPSIS WITH SEPTIC SHOCK Status: Acute (8) Septic shock due to Pseudomonas species Code(s): A41.52 - SEPSIS DUE TO PSEUDOMONAS; R65.21 - SEVERE SEPSIS WITH SEPTIC SHOCK Status: Acute (9) Tracheostomy dependent Code(s): Z93.0 - TRACHEOSTOMY STATUS Status: Acute (10) S/P thoracostomy tube placement Code(s): Z93.8 - OTHER ARTIFICIAL OPENING STATUS Status: Resolved - Plan Plan: Septic shock (now resolved) 2/2 Pseudomonas and Aspiration Pneumonia with empyema s/p lung decortication and thoracotomy A- CT at admission showed loculated empyema. Decortication 01/21. Right chest tube placed 01/21, removed 02/11. Sputum cultures grew pansensitive pseudomonas. Body fluid cultures grew multiple anaerobes (s/p aspiration, worsened pneumonia). ID consulted, Dr. Fierro, appreciate recs. -End goal: improved CXR and CRP P-Pt needs IV antibiotics until about 03/04/2019, rocephin and flagyl -needs SNF placement but is unfunded -Case management consulted for placement, consider [facility] bed Acute Hypoxic Respiratory failure requiring ventilation, resolved A- Pulm following- Appreciate recs. Intubated 01/20. Extubated 01/30. Reintubated 01/31. Trach and PEG 02/02. Receiving tube feeds. Trach was downsized 02/13. Has speaking valve. S/p Steroids given 02/07- 02/11 P- Will wean trach as tolerated per pulm recs dysphagia A- Pt has PEG tube. ST on board P- continue ST Severe Physical Deconditioning - Continue PT/OT Anxiety with Hx of Alcoholism. A- Stable. It has been thought his tachypnea was also due to anxiety. Pt started on Clonazepam BID, Clonidine patch, Zoloft, increased 02/12. P- continue current meds for now NSTEMI type 2 - likely 2/2 demand ischemia - Cards consulted. Added ASA to regimen. - Echo reviewed Electrolyte abnormalities - Continue to replace as indicated Anemia of Chronic disease, stable - s/p 4U pRBCs - Stable hgb Dry eyes -PRN natural tear drops Sacral ulcer -Wound care consulted Constipation -Senna/doc / Miralax Code: Full VTE ppx: Lovenox GI ppx: pepcid Lines/tubes: Trach collar w/ speaking valve, PEG, PICC L arm, midline R arm Consults: CV surg, pulm, PT/OT/Speech, ID, CM Contact: Mother [phone] Dispo: Patient will require long course of IV antibiotics, until about 2019. Patient is unfunded, case management consulted for discharge planning, working towards a solution to find a [facility] bed vs getting funding via Medicaid. Continue PT, OT, speech. Addendum - Attending - Attending Attestation Date/Time: 02/20/19 1100 I personally evaluated the patient and discussed the management with Dr. Mcdonald I agree with the History, Examination, Assessment and Plan documented above with any addition or exceptions noted below. Continue PT/OT/ST. Waiting placement.
[2019-02-20] MEDS: clonazePAM 0.5 MG TAB PO SCH ×2 (10:23→20:18)
[2019-02-20] MEDS: guaiFENesin ER 600 MG TAB PO SCH ×2 (10:23→20:18)
[2019-02-20] MEDS: Famotidine 20 MG TAB PO SCH ×2 (10:23→20:17)
[2019-02-20] MEDS: Aspirin 325 MG TAB PER TUBE SCH (10:24)
[2019-02-20] MEDS: cloNIDine 0.2mg/24 Hour PATCH TD SCH (10:24)
[2019-02-20] MEDS: Simethicone Chewable 80 MG TAB PER TUBE SCH ×2 (10:25→20:21)
[2019-02-20] MEDS: Enoxaparin Sodium 40 MG/0.4 ML SYRINGE SC SCH (10:26)
[2019-02-20] MEDS: Metamucil PACK PER TUBE SCH ×2 (10:28→20:17)
[2019-02-20] MEDS: Polyethylene Glycol 3350 17 GM Packet PO SCH (10:28)
[2019-02-20] MEDS: Multivits W-Minerals Liquid 15 ML LIQ PER TUBE SCH (10:59)
--- NOTE | 2019-02-20 12:55 | PRG ---
DATE OF SERVICE: 02/20/2019 SUBJECTIVE: He is doing well with Physical Therapy, he has no complaints about his breathing. OBJECTIVE: VITAL SIGNS: Temperature 98.2, pulse 82, respirations 16, O2 saturation 99% on trach collar. HEENT: Unremarkable. NECK: Trach in good position. No secretions. CARDIAC: S1 and S2, regular. ABDOMEN: Soft. EXTREMITIES: No edema. LABORATORY DATA: White blood cell count 8, hematocrit 33, and platelet count 234. Sodium 133, potassium 4.1, BUN 7, creatinine 0.5, glucose 154. ASSESSMENT: Status post tracheostomy placement for prolonged respiratory failure requiring mechanical ventilation. PLAN: Hopefully downsize the trach soon as he advances with physical therapy. He will be checked again on Saturday or Saturday. Job ID: [id number]
[2019-02-20] MEDS: cefTRIAXone\\ROCEPHIN 2 GM in Sodium Chloride 0.9% 100 ML IVPB SCH (18:02)
[2019-02-21] MEDS: metroNIDAZOLE 500 MG in Premix Bag 1 BAG IVPB SCH ×4 (03:05→21:06)
[2019-02-21] MEDS ORDERED: Activase 2 MG VIAL CATH SCH (04:00)
[2019-02-21] MEDS ORDERED: Sterile Water 10 ML VIAL FS SCH (04:00)
--- NOTE | 2019-02-21 06:18 | PDOC.FM ---
- Subjective Subjective: Patient doing well this morning. Resting comfortably in bed. Denies cp or sob. Reports PT is going well. - Objective Vital Signs & Weight: Vital Signs (12 hours) Temp Pulse Resp BP Pulse Ox 02/21/19 00:30 80 14 100 02/20/19 20:44 98.3 F 80 16 125/76 100 02/20/19 20:16 100 02/20/19 19:12 79 16 95 Weight Admit Weight 76.2 kg Weight 62.369 kg Most Recent Monitor Data Heart Rate from ECG 89 NIBP 151/84 NIBP BP-Mean 106 Respiration from ECG 26 SpO2 100 I&O: 02/19/19 02/20/19 02/21/19 06:59 06:59 06:59 Intake Total 5950 648 1919 Output Total 2153 Balance -8178 400 1230 Result Diagrams: 02/20/19 06:31 02/20/19 06:31 Phys Exam - Physical Examination Constitutional: NAD HEENT: moist MMs, sclera anicteric trach in place Respiratory: no wheezing, clear to auscultation bilateral Cardiovascular: RRR, no significant murmur Gastrointestinal: soft, non-tender Musculoskeletal: no edema, pulses present Neurological: moves all 4 limbs Psychiatric: normal affect Skin: no rash, normal turgor Dx/Plan (1) Acute hypoxemic respiratory failure Code(s): J96.01 - ACUTE RESPIRATORY FAILURE WITH HYPOXIA Status: Acute (2) Aspiration pneumonia Code(s): J69.0 - PNEUMONITIS DUE TO INHALATION OF FOOD AND VOMIT Status: Acute (3) Empyema Code(s): J86.9 - PYOTHORAX WITHOUT FISTULA Status: Acute (4) Physical deconditioning Code(s): R53.81 - OTHER MALAISE Status: Acute (5) Septic shock Code(s): A41.9 - SEPSIS, UNSPECIFIED ORGANISM; R65.21 - SEVERE SEPSIS WITH SEPTIC SHOCK Status: Acute (6) Septic shock due to Pseudomonas species Code(s): A41.52 - SEPSIS DUE TO PSEUDOMONAS; R65.21 - SEVERE SEPSIS WITH SEPTIC SHOCK Status: Acute (7) Tracheostomy dependent Code(s): Z93.0 - TRACHEOSTOMY STATUS Status: Acute (8) Anemia Code(s): D64.9 - ANEMIA, UNSPECIFIED Status: Acute (9) Hypokalemia Code(s): E87.6 - HYPOKALEMIA Status: Acute (10) NSTEMI (non-ST elevated myocardial infarction) Code(s): I21.4 - NON-ST ELEVATION (NSTEMI) MYOCARDIAL INFARCTION Status: Acute (11) S/P percutaneous endoscopic gastrostomy (PEG) tube placement Code(s): Z93.1 - GASTROSTOMY STATUS Status: Acute (12) S/P thoracostomy tube placement Code(s): Z93.8 - OTHER ARTIFICIAL OPENING STATUS Status: Resolved - Plan Plan: Plan: Septic shock (now resolved) 2/2 Pseudomonas and Aspiration Pneumonia with empyema s/p lung decortication and thoracotomy A- CT at admission showed loculated empyema. Decortication 01/21. Right chest tube placed 01/21, removed 02/11. Sputum cultures grew pansensitive pseudomonas. Body fluid cultures grew multiple anaerobes (s/p aspiration, worsened pneumonia) . ID consulted, Dr. Fierro, appreciate recs. -End goal: improved CXR and CRP P-Pt needs IV antibiotics until about 03/04/2019, continue rocephin and flagyl -needs SNF placement but is unfunded -Case management consulted for placement, denied caroline bed by [facility] due to trach; pursuing disability application Acute Hypoxic Respiratory failure requiring ventilation, resolved A- Pulm following- Appreciate recs. Intubated 01/20. Extubated 01/30. Reintubated 01/31. Trach and PEG 02/02. Receiving tube feeds. Trach was downsized 02/13. Has speaking valve. S/p Steroids given 02/07- 02/11 Hoang consulted 02/10, hopeful to downsize trach soon with advances with PT P- Will wean trach as tolerated per pulm recs Dysphagia A- Pt has PEG tube. ST on board P- continue ST Severe Physical Deconditioning - Continue PT/OT Anxiety with Hx of Alcoholism. A- Stable. It has been thought his tachypnea was also due to anxiety. Pt started on Clonazepam BID, Clonidine patch, Zoloft, increased 02/12. P- continue current meds NSTEMI type 2 - likely 2/2 demand ischemia - Cards consulted. Added ASA to regimen. - Echo reviewed Electrolyte abnormalities - Continue to replace as indicated Anemia of Chronic disease, stable - s/p 4U pRBCs - Stable hgb Dry eyes -PRN natural tear drops Sacral ulcer -Wound care consulted Constipation -Senna/doc / Miralax Code: Full VTE ppx: Lovenox GI ppx: pepcid Lines/tubes: Trach collar w/ speaking valve, PEG, PICC L arm, midline R arm Consults: CV surg, pulm, PT/OT/Speech, ID, CM Contact: Mother [phone] Dispo: Patient will require long course of IV antibiotics, until about 2019. Patient is unfunded, case management consulted for discharge planning, working towards a solution to find a marshall bed vs getting funding via Medicaid. Continue PT, OT, speech. Pulm consulted, possible downsize trach soon as patient works with PT, appreciate recs.
[2019-02-21] MEDS: guaiFENesin ER 600 MG TAB PO SCH ×2 (08:27→21:05)
[2019-02-21] MEDS: Aspirin 325 MG TAB PER TUBE SCH (08:27)
[2019-02-21] MEDS: Famotidine 20 MG TAB PO SCH ×2 (08:27→21:05)
[2019-02-21] MEDS: clonazePAM 0.5 MG TAB PO SCH ×2 (08:28→21:05)
[2019-02-21] MEDS: Enoxaparin Sodium 40 MG/0.4 ML SYRINGE SC SCH (08:28)
[2019-02-21] MEDS: Simethicone Chewable 80 MG TAB PER TUBE SCH ×2 (08:28→21:05)
[2019-02-21] MEDS: Multivits W-Minerals Liquid 15 ML LIQ PER TUBE SCH (08:28)
[2019-02-21] MEDS: Metamucil PACK PER TUBE SCH ×2 (08:34→21:08)
[2019-02-21] MEDS: cloNIDine 0.2mg/24 Hour PATCH TD SCH (08:34)
[2019-02-21] MEDS: Polyethylene Glycol 3350 17 GM Packet PO SCH (08:34)
[2019-02-21] MEDS: cefTRIAXone\\ROCEPHIN 2 GM in Sodium Chloride 0.9% 100 ML IVPB SCH (18:08)
[2019-02-22] MEDS: metroNIDAZOLE 500 MG in Premix Bag 1 BAG IVPB SCH ×4 (03:18→20:31)
--- NOTE | 2019-02-22 05:14 | PDOC.FM ---
- Subjective Subjective: Patient reports that he is doing well this morning. Denies cp, sob, n/v/d. No complaints. - Objective Vital Signs & Weight: Vital Signs (12 hours) Temp Pulse Resp BP Pulse Ox 02/22/19 01:23 79 16 99 02/21/19 20:00 99 02/21/19 19:50 98.4 F 81 16 114/72 99 02/21/19 19:22 83 16 99 Weight Admit Weight 76.2 kg Weight 62.369 kg Most Recent Monitor Data Heart Rate from ECG 89 NIBP 151/84 NIBP BP-Mean 106 Respiration from ECG 26 SpO2 100 I&O: 02/20/19 02/21/19 02/22/19 06:59 06:59 06:59 Intake Total 980 1880 750 Balance 980 1880 750 Result Diagrams: 02/22/19 06:44 02/20/19 06:31 Phys Exam - Physical Examination Constitutional: NAD HEENT: moist MMs, sclera anicteric Neck: full ROM trach in place Respiratory: no wheezing, clear to auscultation bilateral Cardiovascular: RRR, no significant murmur Gastrointestinal: soft, non-tender Musculoskeletal: no edema, pulses present Neurological: normal sensation, moves all 4 limbs Psychiatric: normal affect Skin: no rash, normal turgor Dx/Plan (1) Acute hypoxemic respiratory failure Code(s): J96.01 - ACUTE RESPIRATORY FAILURE WITH HYPOXIA Status: Acute (2) Aspiration pneumonia Code(s): J69.0 - PNEUMONITIS DUE TO INHALATION OF FOOD AND VOMIT Status: Acute (3) Empyema Code(s): J86.9 - PYOTHORAX WITHOUT FISTULA Status: Acute (4) Physical deconditioning Code(s): R53.81 - OTHER MALAISE Status: Acute (5) Septic shock Code(s): A41.9 - SEPSIS, UNSPECIFIED ORGANISM; R65.21 - SEVERE SEPSIS WITH SEPTIC SHOCK Status: Acute (6) Septic shock due to Pseudomonas species Code(s): A41.52 - SEPSIS DUE TO PSEUDOMONAS; R65.21 - SEVERE SEPSIS WITH SEPTIC SHOCK Status: Acute (7) Tracheostomy dependent Code(s): Z93.0 - TRACHEOSTOMY STATUS Status: Acute (8) Anemia Code(s): D64.9 - ANEMIA, UNSPECIFIED Status: Acute (9) Hypokalemia Code(s): E87.6 - HYPOKALEMIA Status: Acute (10) NSTEMI (non-ST elevated myocardial infarction) Code(s): I21.4 - NON-ST ELEVATION (NSTEMI) MYOCARDIAL INFARCTION Status: Acute (11) S/P percutaneous endoscopic gastrostomy (PEG) tube placement Code(s): Z93.1 - GASTROSTOMY STATUS Status: Acute (12) S/P thoracostomy tube placement Code(s): Z93.8 - OTHER ARTIFICIAL OPENING STATUS Status: Resolved - Plan Plan: Plan: Septic shock (now resolved) 2/2 Pseudomonas and Aspiration Pneumonia with empyema s/p lung decortication and thoracotomy A- CT at admission showed loculated empyema. Decortication 01/21. Right chest tube placed 01/21, removed 02/11. Sputum cultures grew pansensitive pseudomonas. Body fluid cultures grew multiple anaerobes (s/p aspiration, worsened pneumonia) . ID consulted, Dr. Fierro, appreciate recs. -End goal: improved CXR and CRP -CBC stable P-Pt needs IV antibiotics until about 03/04/2019, continue rocephin and flagyl -needs SNF placement but is unfunded -Case management consulted for placement, denied caroline bed by [facility] due to trach; pursuing disability application Acute Hypoxic Respiratory failure requiring ventilation, resolved A- Pulm following- Appreciate recs. Intubated 01/20. Extubated 01/30. Reintubated 01/31. Trach and PEG 02/02. Receiving tube feeds. Trach was downsized 02/13. Has speaking valve. S/p Steroids given 02/07- 02/11 -BMP stable Hoang consulted 02/10, hopeful to downsize trach soon with advances with PT P- Will wean trach as tolerated per pulm recs Dysphagia A- Pt has PEG tube. ST on board P- continue ST Severe Physical Deconditioning - Continue PT/OT, continues to improve and work well with PT/OT Anxiety with Hx of Alcoholism. A- Stable. It has been thought his tachypnea was also due to anxiety. Pt started on Clonazepam BID, Clonidine patch, Zoloft, increased 02/12. P- continue current meds NSTEMI type 2 - likely 2/2 demand ischemia - Cards consulted. Added ASA to regimen. - Echo reviewed Electrolyte abnormalities - Continue to replace as indicated Anemia of Chronic disease, stable - s/p 4U pRBCs - Stable hgb Dry eyes -PRN natural tear drops Sacral ulcer -Wound care consulted Constipation -Senna/doc / Miralax Code: Full VTE ppx: Lovenox GI ppx: pepcid Lines/tubes: Trach collar w/ speaking valve, PEG, PICC L arm, midline R arm Consults: CV surg, pulm, PT/OT/Speech, ID, CM Contact: Mother [phone] Dispo: Patient will require long course of IV antibiotics, until about 2019. Patient is unfunded, case management consulted for discharge planning, working towards a solution to find a marshall bed vs getting funding via Medicaid. Continue PT, OT, speech. Pulm consulted, possible downsize trach soon as patient works with PT, appreciate recs.
[2019-02-22 07:12] LABS: #Basophils 0.1 thou/uL (0.0-0.2); #Eosinphils 0.6 thou/uL (0.0-0.7); #Neutrophils 5.9 thou/uL (1.40-6.50); %Basophils 0.7 % (0.0-1.0); %Eosinophils 7.6 % (0.0-10.0); %Lymphocytes 11.9 % (21.0-51.0); %Monocytes 11.3 % (0.0-10.0); %Neutrophils 68.4 % (42.0-75.0); Hemoglobin 10.7 g/dL (14.0-18.0); Mean Corpuscular HGB CONC 31.8 g/dL (32.0-36.0); Mean Corpuscular Hemoglobin 29.5 pg (27.0-31.0); Mean Corpuscular Volume 92.6 fL (78.0-98.0); Mean Platelet Volume 7.5 fL (7.4-10.4); Platelet Count 234 thou/uL (130-400); Red Blood Cell (RBC) Count 3.63 mill/uL (4.70-6.10); White Blood Cell (WBC) Count 8.5 thou/uL (4.8-10.8)
[2019-02-22 07:33] LABS: Anion Gap 10 mmol/L (10-20); BUN (Urea Nitrogen) 8 mg/dL (8.4-25.7); Calc. Creatinine Clearance 132 mL/min (70-130); Calcium 8.3 mg/dL (7.8-10.44); Carbon Dioxide 33 mmol/L (22-29); Chloride 98 mmol/L (98-107); Estimated GFR-MDRD Greater than 90; Glucose 122 mg/dL (70-105); Potassium 4.7 mmol/L (3.5-5.1); Sodium 136 mmol/L (136-145)
[2019-02-22] MEDS: guaiFENesin ER 600 MG TAB PO SCH ×2 (09:32→20:31)
[2019-02-22] MEDS: Simethicone Chewable 80 MG TAB PER TUBE SCH ×2 (09:32→20:31)
[2019-02-22] MEDS: Aspirin 325 MG TAB PER TUBE SCH (09:32)
[2019-02-22] MEDS: clonazePAM 0.5 MG TAB PO SCH ×2 (09:32→20:31)
[2019-02-22] MEDS: Enoxaparin Sodium 40 MG/0.4 ML SYRINGE SC SCH (09:33)
[2019-02-22] MEDS: Famotidine 20 MG TAB PO SCH ×2 (09:33→20:31)
[2019-02-22] MEDS: Polyethylene Glycol 3350 17 GM Packet PO SCH (09:33)
[2019-02-22] MEDS: Metamucil PACK PER TUBE SCH ×2 (09:39→10:13)
--- NOTE | 2019-02-22 12:44 | PRG ---
DATE OF SERVICE: 02/22/2019 SUBJECTIVE: Sitting in bed, feels okay. Had no acute complaints. OBJECTIVE: VITAL SIGNS: Temperature 98.6, pulse 79, respirations 18, O2 saturation 98% on trach collar. HEENT: Unremarkable. NECK: Trach in good position. No secretions. CARDIAC: S1 and S2. Regular. LUNGS: Clear. ABDOMEN: Soft. EXTREMITIES: No edema. LABORATORY DATA: White blood cell count 8.5, hematocrit 33.7, and platelet count 234. Sodium 136, potassium 4.7, BUN 8, creatinine 0.5, glucose 122. ASSESSMENT: 1. Status post tracheostomy placement for prolonged respiratory failure requiring mechanical ventilation. 2. Status post empyema evacuation. 3. Severe deconditioning. PLAN: Decannulation of the trach once his functional status is somewhat better. Job ID: [id number]
[2019-02-22] MEDS: Multivits W-Minerals Liquid 15 ML LIQ PER TUBE SCH (14:00)
[2019-02-22] MEDS: cefTRIAXone\\ROCEPHIN 2 GM in Sodium Chloride 0.9% 100 ML IVPB SCH (15:23)
[2019-02-23] MEDS: Metamucil PACK PER TUBE SCH ×3 (00:31→21:41)
[2019-02-23] MEDS: metroNIDAZOLE 500 MG in Premix Bag 1 BAG IVPB SCH ×4 (03:26→21:41)
--- NOTE | 2019-02-23 05:50 | PDOC.FM ---
- Subjective Subjective: Patient doing well this morning. Denies sob, cp, abd pain. Discussed plan of care, patient has no complaints at this time. - Objective Vital Signs & Weight: Vital Signs (12 hours) Temp Pulse Resp BP Pulse Ox 02/23/19 04:30 97.3 F L 74 18 119/76 98 02/23/19 00:38 81 16 100 02/22/19 23:44 98.4 F 80 18 110/71 100 02/22/19 20:05 98.7 F 82 18 115/73 98 02/22/19 20:00 100 02/22/19 19:31 78 18 99 Weight Admit Weight 76.2 kg Weight 62.823 kg Most Recent Monitor Data Heart Rate from ECG 89 NIBP 151/84 NIBP BP-Mean 106 Respiration from ECG 26 SpO2 100 I&O: 02/21/19 02/22/19 02/23/19 06:59 06:59 06:59 Intake Total 2929 972 3472 Balance 6794 432 3943 Result Diagrams: 02/22/19 06:44 02/22/19 06:44 Phys Exam - Physical Examination Constitutional: NAD HEENT: moist MMs, sclera anicteric trach in place Respiratory: no wheezing, clear to auscultation bilateral Cardiovascular: RRR, no significant murmur Gastrointestinal: soft, non-tender Musculoskeletal: no edema, pulses present Neurological: non-focal, moves all 4 limbs Psychiatric: normal affect, A&O x 3 Skin: no rash, normal turgor Dx/Plan (1) Acute hypoxemic respiratory failure Code(s): J96.01 - ACUTE RESPIRATORY FAILURE WITH HYPOXIA Status: Acute (2) Aspiration pneumonia Code(s): J69.0 - PNEUMONITIS DUE TO INHALATION OF FOOD AND VOMIT Status: Acute (3) Empyema Code(s): J86.9 - PYOTHORAX WITHOUT FISTULA Status: Acute (4) Physical deconditioning Code(s): R53.81 - OTHER MALAISE Status: Acute (5) Septic shock Code(s): A41.9 - SEPSIS, UNSPECIFIED ORGANISM; R65.21 - SEVERE SEPSIS WITH SEPTIC SHOCK Status: Acute (6) Septic shock due to Pseudomonas species Code(s): A41.52 - SEPSIS DUE TO PSEUDOMONAS; R65.21 - SEVERE SEPSIS WITH SEPTIC SHOCK Status: Acute (7) Tracheostomy dependent Code(s): Z93.0 - TRACHEOSTOMY STATUS Status: Acute (8) Anemia Code(s): D64.9 - ANEMIA, UNSPECIFIED Status: Acute (9) Hypokalemia Code(s): E87.6 - HYPOKALEMIA Status: Acute (10) NSTEMI (non-ST elevated myocardial infarction) Code(s): I21.4 - NON-ST ELEVATION (NSTEMI) MYOCARDIAL INFARCTION Status: Acute (11) S/P percutaneous endoscopic gastrostomy (PEG) tube placement Code(s): Z93.1 - GASTROSTOMY STATUS Status: Acute (12) S/P thoracostomy tube placement Code(s): Z93.8 - OTHER ARTIFICIAL OPENING STATUS Status: Resolved - Plan Plan: Septic shock (now resolved) 2/2 Pseudomonas and Aspiration Pneumonia with empyema s/p lung decortication and thoracotomy A- CT at admission showed loculated empyema. Decortication 01/21. Right chest tube placed 01/21, removed 02/11. Sputum cultures grew pansensitive pseudomonas. Body fluid cultures grew multiple anaerobes (s/p aspiration, worsened pneumonia) . ID consulted, Dr. Fierro, appreciate recs. -End goal: improved CXR and CRP -CBC stable P-Pt needs IV antibiotics until about 03/04/2019, continue rocephin and flagyl -needs SNF placement but is unfunded -Case management consulted for placement, denied marshall bed by [facility] due to trach; pursuing disability application Acute Hypoxic Respiratory failure requiring ventilation, resolved A- Pulm following- Appreciate recs. Intubated 01/20. Extubated 01/30. Reintubated 01/31. Trach and PEG 02/02. Receiving tube feeds. Trach was downsized 02/13. Has speaking valve. S/p Steroids given 02/07- 02/11 -BMP stable Hoang consulted 02/22, decannulation of trach with improved functional status P- Decannulation of trach with improved functional status, per pulm recs Dysphagia A- Pt has PEG tube. ST on board P- continue ST Severe Physical Deconditioning - Continue PT/OT, continues to improve and work well with PT/OT Anxiety with Hx of Alcoholism. A- Stable. It has been thought his tachypnea was also due to anxiety. Pt started on Clonazepam BID, Clonidine patch, Zoloft, increased 02/12. P- continue current meds NSTEMI type 2 - likely 2/2 demand ischemia - Cards consulted. Added ASA to regimen. - Echo reviewed Electrolyte abnormalities - Continue to replace as indicated Anemia of Chronic disease, stable - s/p 4U pRBCs - Stable hgb Dry eyes -PRN natural tear drops Sacral ulcer -Wound care consulted Constipation -Senna/doc / Miralax Code: Full VTE ppx: Lovenox GI ppx: pepcid Lines/tubes: Trach collar w/ speaking valve, PEG, PICC L arm, midline R arm Consults: CV surg, pulm, PT/OT/Speech, ID, CM Contact: Mother [phone] Dispo: Patient will require long course of IV antibiotics, until about 2019. Patient is unfunded, case management consulted for discharge planning, working towards a solution to find a marshall bed vs getting funding via Medicaid. Continue PT, OT, speech. Pulm consulted, decannulation of trach with improved functional status, appreciate recs.
[2019-02-23] MEDS: guaiFENesin ER 600 MG TAB PO SCH ×2 (09:15→21:41)
[2019-02-23] MEDS: Aspirin 325 MG TAB PER TUBE SCH (09:15)
[2019-02-23] MEDS: Famotidine 20 MG TAB PO SCH ×2 (09:15→21:41)
[2019-02-23] MEDS: Simethicone Chewable 80 MG TAB PER TUBE SCH ×2 (09:15→21:42)
[2019-02-23] MEDS: Polyethylene Glycol 3350 17 GM Packet PO SCH (09:16)
[2019-02-23] MEDS: Enoxaparin Sodium 40 MG/0.4 ML SYRINGE SC SCH (09:16)
[2019-02-23] MEDS: Multivits W-Minerals Liquid 15 ML LIQ PER TUBE SCH (09:16)
--- NOTE | 2019-02-23 11:59 | PRG ---
DATE OF SERVICE: 02/23/2019 I have read the note and discussed the case with Dr. Jena Cano and agree with her assessment and plan. Mr. Worthy has been in hospital since the end of December, initially on a ventilator from pneumonia respiratory arrest. He currently has a trach tube and is resting quietly in bed. He has no new complaints or issues. He is continued on antibiotics for his profound pneumonia and thereafter will await placement. Job ID: [id number]
--- NOTE | 2019-02-23 12:55 | PRG ---
DATE OF SERVICE: 02/23/2019 SERVICE: Pulmonary medicine. INTERVAL HISTORY: The patient is doing great from respiratory standpoint. He is breathing comfortably. His strength is improved as well. He has no complaints of chest discomfort, nausea, vomiting, fevers, or chills. There were no significant overnight events. PHYSICAL EXAMINATION: VITAL SIGNS: Afebrile, pulse 81, blood pressure 109/69, respirations 14, and saturation 99% on 25% FiO2 delivered via T-collar. GENERAL: The patient is awake and alert, in no apparent distress. LUNGS: Decent air entry. There are some rhonchi present on the right, but much improved. No prolonged expiratory phase or wheezing is appreciated. HEART: Normal rate and regular. ABDOMEN: Soft, nontender, and nondistended. Bowel sounds are positive. MUSCULOSKELETAL: No cyanosis or clubbing. No pitting in the bilateral lower extremities. NEUROLOGIC: Grossly nonfocal. LABORATORY DATA: WBC 8.5, hemoglobin 10.7, platelets 234,000. Basic metabolic profile was previously unremarkable with a creatinine of 0.53. Sputum was growing Pseudomonas aeruginosa. Thoracentesis fluid was growing multiple substances. ASSESSMENT: 1. Acute hypoxic respiratory failure, resolving. 2. Empyema, status post decortication. 3. Pulmonary abscess. 4. Deconditioning, severe. DISCUSSION AND PLAN: We will be able to decannulate the patient once his strength improves, and he can mobilize on his own. Until that occurs, I would prefer to leave the tracheostomy device in place. Pulmonary will continue to follow, intermittently during this hospital stay. Job ID: [id number]
[2019-02-23] MEDS: cefTRIAXone\\ROCEPHIN 2 GM in Sodium Chloride 0.9% 100 ML IVPB SCH (16:16)
[2019-02-24] MEDS: metroNIDAZOLE 500 MG in Premix Bag 1 BAG IVPB SCH ×4 (03:18→21:49)
[2019-02-24 05:55] LABS: #Basophils 0.1 thou/uL (0.0-0.2); #Eosinphils 0.7 thou/uL (0.0-0.7); #Lymphocytes 1.1 thou/uL (1.20-3.40); #Monocytes 1.1 thou/uL (0.11-0.59); #Neutrophils 4.4 thou/uL (1.40-6.50); %Eosinophils 9.7 % (0.0-10.0); %Lymphocytes 14.5 % (21.0-51.0); %Monocytes 14.6 % (0.0-10.0); %Neutrophils 60.2 % (42.0-75.0); Hemoglobin 10.8 g/dL (14.0-18.0); Mean Corpuscular HGB CONC 29.8 g/dL (32.0-36.0); Mean Corpuscular Hemoglobin 27.9 pg (27.0-31.0); Mean Corpuscular Volume 93.7 fL (78.0-98.0); Mean Platelet Volume 7.6 fL (7.4-10.4); Platelet Count 214 thou/uL (130-400); RBC Distribution Width 16.8 % (11.5-14.5); Red Blood Cell (RBC) Count 3.88 mill/uL (4.70-6.10); White Blood Cell (WBC) Count 7.2 thou/uL (4.8-10.8)
--- NOTE | 2019-02-24 05:58 | PDOC.FM ---
- Subjective Subjective: Patient doing well this morning. Working well with PT. Discussed plans for continued abx and PT for strengthening, with anticipated trach wean as patient gains more strength. Patient agreeable. - Objective Vital Signs & Weight: Vital Signs (12 hours) Temp Pulse Resp BP Pulse Ox 02/24/19 00:32 80 20 99 02/23/19 20:01 97.5 F L 80 18 113/72 99 02/23/19 20:00 99 02/23/19 19:35 86 20 99 Weight Admit Weight 76.2 kg Weight 60.356 kg Most Recent Monitor Data Heart Rate from ECG 89 NIBP 151/84 NIBP BP-Mean 106 Respiration from ECG 26 SpO2 100 I&O: 02/22/19 02/23/19 02/24/19 06:59 06:59 06:59 Intake Total 750 1999 2479 Balance 750 1999 2479 Result Diagrams: 02/24/19 05:22 02/24/19 05:22 Phys Exam - Physical Examination Constitutional: NAD HEENT: moist MMs, sclera anicteric trach in place Respiratory: no wheezing, clear to auscultation bilateral Cardiovascular: RRR, no significant murmur Gastrointestinal: soft, non-tender Musculoskeletal: no edema, pulses present Neurological: non-focal, moves all 4 limbs Psychiatric: normal affect Skin: no rash, normal turgor Dx/Plan (1) Acute hypoxemic respiratory failure Code(s): J96.01 - ACUTE RESPIRATORY FAILURE WITH HYPOXIA Status: Acute (2) Aspiration pneumonia Code(s): J69.0 - PNEUMONITIS DUE TO INHALATION OF FOOD AND VOMIT Status: Acute (3) Empyema Code(s): J86.9 - PYOTHORAX WITHOUT FISTULA Status: Acute (4) Physical deconditioning Code(s): R53.81 - OTHER MALAISE Status: Acute (5) Septic shock Code(s): A41.9 - SEPSIS, UNSPECIFIED ORGANISM; R65.21 - SEVERE SEPSIS WITH SEPTIC SHOCK Status: Acute (6) Septic shock due to Pseudomonas species Code(s): A41.52 - SEPSIS DUE TO PSEUDOMONAS; R65.21 - SEVERE SEPSIS WITH SEPTIC SHOCK Status: Acute (7) Tracheostomy dependent Code(s): Z93.0 - TRACHEOSTOMY STATUS Status: Acute (8) Anemia Code(s): D64.9 - ANEMIA, UNSPECIFIED Status: Acute (9) Hypokalemia Code(s): E87.6 - HYPOKALEMIA Status: Acute (10) NSTEMI (non-ST elevated myocardial infarction) Code(s): I21.4 - NON-ST ELEVATION (NSTEMI) MYOCARDIAL INFARCTION Status: Acute (11) S/P percutaneous endoscopic gastrostomy (PEG) tube placement Code(s): Z93.1 - GASTROSTOMY STATUS Status: Acute (12) S/P thoracostomy tube placement Code(s): Z93.8 - OTHER ARTIFICIAL OPENING STATUS Status: Resolved - Plan Plan: Septic shock (now resolved) 2/ Pseudomonas and Aspiration Pneumonia with empyema s/p lung decortication and thoracotomy A- CT at admission showed loculated empyema. Decortication 01/21. Right chest tube placed 01/21, removed 02/11. Sputum cultures grew pansensitive pseudomonas. Body fluid cultures grew multiple anaerobes (s/p aspiration, worsened pneumonia) . ID consulted, Dr. Fierro, appreciate recs. -End goal: improved CXR and CRP -CBC stable 02/24 P-Pt needs IV antibiotics until about 03/04/2019, continue rocephin and flagyl -needs SNF placement but is unfunded -Case management consulted for placement, denied marshall bed by [facility] due to trach; pursuing disability application Acute Hypoxic Respiratory failure requiring ventilation, resolved A- Pulm following- Appreciate recs. Intubated 01/20. Extubated 01/30. Reintubated 01/31. Trach and PEG 02/02. Receiving tube feeds. Trach was downsized 02/13. Has speaking valve. S/p Steroids given 02/07- 02/11 -BMP stable 02/24 Hoang consulted 02/22, decannulation of trach with improved functional status P- Decannulation of trach with improved functional status, per pulm recs. Will continue to encourage patient to work with PT to increase his strength Dysphagia A- Pt has PEG tube. ST on board P- continue ST Severe Physical Deconditioning - Continue PT/OT, continues to improve and work well with PT/OT Anxiety with Hx of Alcoholism. A- Stable. It has been thought his tachypnea was also due to anxiety. Pt started on Clonazepam BID, Clonidine patch, Zoloft, increased 02/12. P- continue current meds NSTEMI type 2 - likely 2/2 demand ischemia - Cards consulted. Added ASA to regimen. - Echo reviewed Electrolyte abnormalities - Continue to replace as indicated Anemia of Chronic disease, stable - s/p 4U pRBCs - Stable hgb Dry eyes -PRN natural tear drops Sacral ulcer -Wound care consulted Constipation -Senna/doc / Miralax Code: Full VTE ppx: Lovenox GI ppx: pepcid Lines/tubes: Trach collar w/ speaking valve, PEG, PICC L arm, midline R arm Consults: CV surg, pulm, PT/OT/Speech, ID, CM Contact: Mother [phone] Dispo: Patient will require long course of IV antibiotics, until about 2019. Patient is unfunded, case management consulted for discharge planning, working towards a solution to find a marshall bed vs getting funding via Medicaid. Continue PT, OT, speech; patient continues to do well. Pulm consulted , decannulation of trach with improved functional status, appreciate recs.
[2019-02-24 06:16] LABS: Anion Gap 8 mmol/L (10-20); BUN (Urea Nitrogen) 9 mg/dL (8.4-25.7); Calc. Creatinine Clearance 124 mL/min (70-130); Calcium 8.2 mg/dL (7.8-10.44); Carbon Dioxide 33 mmol/L (22-29); Chloride 98 mmol/L (98-107); Estimated GFR-MDRD Greater than 90; Glucose 115 mg/dL (70-105); Potassium 4.3 mmol/L (3.5-5.1); Sodium 135 mmol/L (136-145)
[2019-02-24] MEDS: Aspirin 325 MG TAB PER TUBE SCH (08:54)
[2019-02-24] MEDS: guaiFENesin ER 600 MG TAB PO SCH ×2 (08:55→21:44)
[2019-02-24] MEDS: Enoxaparin Sodium 40 MG/0.4 ML SYRINGE SC SCH (08:55)
[2019-02-24] MEDS: Famotidine 20 MG TAB PO SCH ×2 (08:55→21:48)
[2019-02-24] MEDS: Polyethylene Glycol 3350 17 GM Packet PO SCH (08:55)
[2019-02-24] MEDS: Simethicone Chewable 80 MG TAB PER TUBE SCH ×2 (08:56→21:48)
[2019-02-24] MEDS: Metamucil PACK PER TUBE SCH ×2 (08:56→21:49)
--- NOTE | 2019-02-24 10:55 | PRG ---
DATE OF SERVICE: 02/24/2019 Mr. Worthy is awake and alert this morning. We are still awaiting placement and waiting for him to complete several more days of IV antibiotic therapy. Job ID: [id number]
[2019-02-24] MEDS: Multivits W-Minerals Liquid 15 ML LIQ PER TUBE SCH (12:06)
[2019-02-24] MEDS: cefTRIAXone\\ROCEPHIN 2 GM in Sodium Chloride 0.9% 100 ML IVPB SCH (16:01)
[2019-02-24] MEDS: guaiFENesin 200 MG TAB PER TUBE SCH (21:47)
[2019-02-25] MEDS: metroNIDAZOLE 500 MG in Premix Bag 1 BAG IVPB SCH ×4 (03:59→21:18)
--- NOTE | 2019-02-25 05:39 | PDOC.FM ---
- Subjective Subjective: Patient doing well this morning. Discussed the plan for financial services to speak with patient to try to apply for disability, patient agreeable. Patient reports he has been doing well with therapy. Denies cp, sob, abd, any other complaints at this time. - Objective Vital Signs & Weight: Vital Signs (12 hours) Temp Pulse Resp BP Pulse Ox 02/25/19 00:52 81 18 98 02/24/19 20:58 97.7 F 88 18 130/82 97 02/24/19 19:45 83 18 99 02/24/19 19:10 100 Weight Admit Weight 76.2 kg Weight 61.87 kg Most Recent Monitor Data Heart Rate from ECG 89 NIBP 151/84 NIBP BP-Mean 106 Respiration from ECG 26 SpO2 100 I&O: 02/23/19 02/24/19 02/25/19 06:59 06:59 06:59 Intake Total 1999 3920 4150 Output Total 3 2 Balance 1999 3917 4148 Result Diagrams: 02/24/19 05:22 02/24/19 05:22 Phys Exam - Physical Examination Constitutional: NAD HEENT: moist MMs, sclera anicteric trach in place Respiratory: no wheezing, clear to auscultation bilateral Cardiovascular: RRR, no significant murmur Gastrointestinal: soft, non-tender Musculoskeletal: no edema, pulses present Neurological: non-focal, moves all 4 limbs Psychiatric: normal affect Skin: no rash, normal turgor Dx/Plan (1) Acute hypoxemic respiratory failure Code(s): J96.01 - ACUTE RESPIRATORY FAILURE WITH HYPOXIA Status: Acute (2) Aspiration pneumonia Code(s): J69.0 - PNEUMONITIS DUE TO INHALATION OF FOOD AND VOMIT Status: Acute (3) Empyema Code(s): J86.9 - PYOTHORAX WITHOUT FISTULA Status: Acute (4) Physical deconditioning Code(s): R53.81 - OTHER MALAISE Status: Acute (5) Septic shock Code(s): A41.9 - SEPSIS, UNSPECIFIED ORGANISM; R65.21 - SEVERE SEPSIS WITH SEPTIC SHOCK Status: Acute (6) Septic shock due to Pseudomonas species Code(s): A41.52 - SEPSIS DUE TO PSEUDOMONAS; R65.21 - SEVERE SEPSIS WITH SEPTIC SHOCK Status: Acute (7) Tracheostomy dependent Code(s): Z93.0 - TRACHEOSTOMY STATUS Status: Acute (8) Anemia Code(s): D64.9 - ANEMIA, UNSPECIFIED Status: Acute (9) Hypokalemia Code(s): E87.6 - HYPOKALEMIA Status: Acute (10) NSTEMI (non-ST elevated myocardial infarction) Code(s): I21.4 - NON-ST ELEVATION (NSTEMI) MYOCARDIAL INFARCTION Status: Acute (11) S/P percutaneous endoscopic gastrostomy (PEG) tube placement Code(s): Z93.1 - GASTROSTOMY STATUS Status: Acute (12) S/P thoracostomy tube placement Code(s): Z93.8 - OTHER ARTIFICIAL OPENING STATUS Status: Resolved - Plan Plan: Septic shock (now resolved) 2/2 Pseudomonas and Aspiration Pneumonia with empyema s/p lung decortication and thoracotomy A- CT at admission showed loculated empyema. Decortication 01/21. Right chest tube placed 01/21, removed 02/11. Sputum cultures grew pansensitive pseudomonas. Body fluid cultures grew multiple anaerobes (s/p aspiration, worsened pneumonia) . ID consulted, Dr. Fierro, appreciate recs. -End goal: improved CXR and CRP -CBC stable 02/24 P-Pt needs IV antibiotics until about 03/04/2019, continue rocephin and flagyl -needs SNF placement but is unfunded -Case management consulted for placement, denied marshall bed by [facility] due to trach; pursuing disability application, consulted financial services 02/24 to speak with patient as he is now communicative, step-sister cannot come to the hospital until saturday and mother is in the hospital Acute Hypoxic Respiratory failure requiring ventilation, resolved A- Pulm following- Appreciate recs. Intubated 01/20. Extubated 01/30. Reintubated 01/31. Trach and PEG 02/02. Receiving tube feeds. Trach was downsized 02/13. Has speaking valve. S/p Steroids given 02/07- 02/11 -BMP stable 02/24 Hoang consulted 02/22, decannulation of trach with improved functional status P- Decannulation of trach with improved functional status, per pulm recs. Will continue to encourage patient to work with PT to increase his strength. Mucinex. Dysphagia A- Pt has PEG tube. ST on board P- continue ST Severe Physical Deconditioning - Continue PT/OT, continues to improve and work well with PT/OT - PT rec increased frequency of therapy due to discharge planning with patient having no insurance Anxiety with Hx of Alcoholism. A- Stable. It has been thought his tachypnea was also due to anxiety. Pt started on Clonazepam BID, Clonidine patch, Zoloft, increased 02/12. P- continue current meds NSTEMI type 2 - likely 2/2 demand ischemia - Cards consulted. Added ASA to regimen. - Echo reviewed Electrolyte abnormalities - Continue to replace as indicated Anemia of Chronic disease, stable - s/p 4U pRBCs - Stable hgb Dry eyes -PRN natural tear drops Sacral ulcer -Wound care consulted Constipation -Senna/doc / Miralax Code: Full VTE ppx: Lovenox GI ppx: pepcid Lines/tubes: Trach collar w/ speaking valve, PEG, PICC L arm, midline R arm Consults: CV surg, pulm, PT/OT/Speech, ID, CM Contact: Mother [phone] Dispo: Patient will require long course of IV antibiotics, until about 2019. Patient is unfunded, case management consulted for discharge planning, working towards a solution to find a marshall bed vs getting funding via Medicaid. Financial services to speak with patient. Continue PT, OT, speech; patient continues to do well. Pulm consulted, decannulation of trach with improved functional status, appreciate recs.
[2019-02-25] MEDS: Famotidine 20 MG TAB PO SCH ×2 (08:08→21:20)
[2019-02-25] MEDS: Simethicone Chewable 80 MG TAB PER TUBE SCH ×2 (08:09→21:20)
[2019-02-25] MEDS: Metamucil PACK PER TUBE SCH ×2 (08:09→21:22)
[2019-02-25] MEDS: Polyethylene Glycol 3350 17 GM Packet PO SCH (08:09)
[2019-02-25] MEDS: Enoxaparin Sodium 40 MG/0.4 ML SYRINGE SC SCH (08:10)
[2019-02-25] MEDS: guaiFENesin 200 MG TAB PER TUBE SCH ×3 (08:10→21:21)
[2019-02-25] MEDS: Aspirin 325 MG TAB PER TUBE SCH (08:11)
[2019-02-25] MEDS: Multivits W-Minerals Liquid 15 ML LIQ PER TUBE SCH (11:10)
--- NOTE | 2019-02-25 11:41 | PRG ---
DATE OF SERVICE: 02/25/2019 Mr. Worthy is sitting quietly in bed, in no distress. He is pleasant and alert. We are continuing with his IV antibiotic therapy. Job ID: [id number]
[2019-02-25] MEDS ORDERED: Polyethylene Glycol 3350 17 GM Packet PO PRN (12:35)
[2019-02-25] MEDS: cefTRIAXone\\ROCEPHIN 2 GM in Sodium Chloride 0.9% 100 ML IVPB SCH (14:50)
[2019-02-25] MEDS: Loperamide HCl 2 MG CAP PO PRN (21:20)
[2019-02-26] MEDS: metroNIDAZOLE 500 MG in Premix Bag 1 BAG IVPB SCH ×4 (04:05→21:08)
[2019-02-26 04:38] LABS: #Eosinphils 0.7 thou/uL (0.0-0.7); #Lymphocytes 1.3 thou/uL (1.20-3.40); #Monocytes 0.9 thou/uL (0.11-0.59); #Neutrophils 4.3 thou/uL (1.40-6.50); %Basophils 0.6 % (0.0-1.0); %Eosinophils 9.5 % (0.0-10.0); %Lymphocytes 17.6 % (21.0-51.0); %Monocytes 12.3 % (0.0-10.0); Mean Corpuscular HGB CONC 32.3 g/dL (32.0-36.0); Mean Corpuscular Hemoglobin 29.8 pg (27.0-31.0); Mean Corpuscular Volume 92.2 fL (78.0-98.0); Mean Platelet Volume 7.5 fL (7.4-10.4); Platelet Count 210 thou/uL (130-400); RBC Distribution Width 16.5 % (11.5-14.5); Red Blood Cell (RBC) Count 3.71 mill/uL (4.70-6.10); White Blood Cell (WBC) Count 7.2 thou/uL (4.8-10.8)
[2019-02-26 04:57] LABS: Anion Gap 10 mmol/L (10-20); BUN (Urea Nitrogen) 9 mg/dL (8.4-25.7); Calc. Creatinine Clearance 135 mL/min (70-130); Calcium 8.3 mg/dL (7.8-10.44); Carbon Dioxide 32 mmol/L (22-29); Chloride 98 mmol/L (98-107); Estimated GFR-MDRD Greater than 90; Glucose 98 mg/dL (70-105); Potassium 4.2 mmol/L (3.5-5.1); Sodium 136 mmol/L (136-145)
--- NOTE | 2019-02-26 05:17 | PDOC.FM ---
- Subjective Subjective: Patient doing well, continues to work well with PT. Per nursing yesterday patient had a loose stool, was getting miralax every day. Changed order to prn. Discussed with patient that we are continuing to work with financial services to try to find him coverage. Patient agreeable with current plan of care. - Objective Vital Signs & Weight: Vital Signs (12 hours) Temp Pulse Resp BP Pulse Ox 02/25/19 19:42 100 02/25/19 19:00 97.6 F 72 18 117/76 100 02/25/19 18:47 72 18 98 Weight Admit Weight 76.2 kg Weight 61.87 kg Most Recent Monitor Data Heart Rate from ECG 89 NIBP 151/84 NIBP BP-Mean 106 Respiration from ECG 26 SpO2 100 I&O: 02/24/19 02/25/19 02/26/19 06:59 06:59 06:59 Intake Total 3920 4150 750 Output Total 3 2 Balance 3917 4148 750 Result Diagrams: 02/26/19 04:30 02/26/19 03:30 Phys Exam - Physical Examination Constitutional: NAD HEENT: moist MMs, sclera anicteric trach in place, c/d/i Respiratory: no wheezing, clear to auscultation bilateral Cardiovascular: RRR, no significant murmur Gastrointestinal: soft, non-tender Musculoskeletal: no edema, pulses present Neurological: non-focal, moves all 4 limbs Psychiatric: normal affect Skin: no rash, normal turgor Dx/Plan (1) Acute hypoxemic respiratory failure Code(s): J96.01 - ACUTE RESPIRATORY FAILURE WITH HYPOXIA Status: Acute (2) Aspiration pneumonia Code(s): J69.0 - PNEUMONITIS DUE TO INHALATION OF FOOD AND VOMIT Status: Acute (3) Empyema Code(s): J86.9 - PYOTHORAX WITHOUT FISTULA Status: Acute (4) Physical deconditioning Code(s): R53.81 - OTHER MALAISE Status: Acute (5) Septic shock Code(s): A41.9 - SEPSIS, UNSPECIFIED ORGANISM; R65.21 - SEVERE SEPSIS WITH SEPTIC SHOCK Status: Acute (6) Septic shock due to Pseudomonas species Code(s): A41.52 - SEPSIS DUE TO PSEUDOMONAS; R65.21 - SEVERE SEPSIS WITH SEPTIC SHOCK Status: Acute (7) Tracheostomy dependent Code(s): Z93.0 - TRACHEOSTOMY STATUS Status: Acute (8) Anemia Code(s): D64.9 - ANEMIA, UNSPECIFIED Status: Acute (9) Hypokalemia Code(s): E87.6 - HYPOKALEMIA Status: Acute (10) NSTEMI (non-ST elevated myocardial infarction) Code(s): I21.4 - NON-ST ELEVATION (NSTEMI) MYOCARDIAL INFARCTION Status: Acute (11) S/P percutaneous endoscopic gastrostomy (PEG) tube placement Code(s): Z93.1 - GASTROSTOMY STATUS Status: Acute (12) S/P thoracostomy tube placement Code(s): Z93.8 - OTHER ARTIFICIAL OPENING STATUS Status: Resolved - Plan Plan: Septic shock (now resolved) 2/2 Pseudomonas and Aspiration Pneumonia with empyema s/p lung decortication and thoracotomy A- CT at admission showed loculated empyema. Decortication 01/21. Right chest tube placed 01/21, removed 02/11. Sputum cultures grew pansensitive pseudomonas. Body fluid cultures grew multiple anaerobes (s/p aspiration, worsened pneumonia) . ID consulted, Dr. Fierro, appreciate recs. -End goal: improved CXR and CRP -CBC stable 02/24 P-Pt needs IV antibiotics until about 03/04/2019, continue rocephin and flagyl -needs SNF placement but is unfunded -Case management consulted for placement, denied marshall bed by [facility] due to trach; pursuing disability application, consulted financial services 02/24 to speak with patient as he is now communicative, step-sister cannot come to the hospital until saturday and mother is in the hospital Acute Hypoxic Respiratory failure requiring ventilation, resolved A- Pulm following- Appreciate recs. Intubated 01/20. Extubated 01/30. Reintubated 01/31. Trach and PEG 02/02. Receiving tube feeds. Trach was downsized 02/13. Has speaking valve. S/p Steroids given 02/07- 02/11 -BMP stable 02/24 Hoang consulted 02/22, decannulation of trach with improved functional status P- Decannulation of trach with improved functional status, per pulm recs. Will continue to encourage patient to work with PT to increase his strength. Mucinex. Dysphagia A- Pt has PEG tube. ST on board P- continue ST Severe Physical Deconditioning - Continue PT/OT, continues to improve and work well with PT/OT - PT rec increased frequency of therapy due to discharge planning with patient having no insurance - Per note 02/25 PT states patient is walking further than goal distance, gaining strength Anxiety with Hx of Alcoholism. A- Stable. It has been thought his tachypnea was also due to anxiety. Pt started on Clonazepam BID, Clonidine patch, Zoloft, increased 02/12. P- continue current meds NSTEMI type 2 - likely 2/2 demand ischemia - Cards consulted. Added ASA to regimen. - Echo reviewed Electrolyte abnormalities - Continue to replace as indicated Anemia of Chronic disease, stable - s/p 4U pRBCs - Stable hgb Dry eyes -PRN natural tear drops Sacral ulcer -Wound care consulted Constipation -Senna/doc / Miralax - Miralax changed from scheduled to prn 02/25 due to patient starting to have loose stools Code: Full VTE ppx: Lovenox GI ppx: pepcid Lines/tubes: Trach collar w/ speaking valve, PEG, PICC L arm, midline R arm Consults: CV surg, pulm, PT/OT/Speech, ID, CM Contact: Mother [phone] Dispo: Patient will require long course of IV antibiotics, until about 2019. Patient is unfunded, case management consulted for discharge planning, working towards a solution to find a marshall bed vs getting funding via Medicaid. Financial services to speak with patient. Continue PT, OT, speech; patient continues to do well. Pulm consulted, decannulation of trach with improved functional status, appreciate recs.
[2019-02-26] MEDS: Aspirin 325 MG TAB PER TUBE SCH (08:02)
[2019-02-26] MEDS: Enoxaparin Sodium 40 MG/0.4 ML SYRINGE SC SCH (08:02)
[2019-02-26] MEDS: guaiFENesin 200 MG TAB PER TUBE SCH ×3 (08:02→21:08)
[2019-02-26] MEDS: Famotidine 20 MG TAB PO SCH ×2 (08:03→21:08)
[2019-02-26] MEDS: Metamucil PACK PER TUBE SCH ×2 (08:03→22:33)
[2019-02-26] MEDS: Simethicone Chewable 80 MG TAB PER TUBE SCH ×2 (10:37→21:08)
--- NOTE | 2019-02-26 11:22 | PRG ---
DATE OF SERVICE: 02/26/2019 Mr. Worthy is sitting quietly in bed, in no distress. He is in fact quite cheerful and we discussed football. We will continue with his IV therapy and anticipate placement in 1 to 2 days. Clinically, much improved and remaining stable. Job ID: [id number]
--- NOTE | 2019-02-26 12:14 | PRG ---
DATE OF SERVICE: 02/26/2019 INTERVAL HISTORY: The patient is doing fine from respiratory standpoint. In fact, he has been able to get up with help with physical therapy and walk around. He denies any current chest discomfort, fevers, chills, nausea, or vomiting. Speech Pathology has not been working with him based on his recollection. In fact, he has never worn the Passy-Florentin valve so far as he can remember. PHYSICAL EXAMINATION: VITAL SIGNS: Afebrile, pulse 82, blood pressure 117/76, respirations 18, and saturation 97% on 5 L via trach collar. HEENT: Normocephalic and atraumatic. Sclerae are white. Conjunctivae pink. Oral mucosa is moist without lesions. LUNGS: Good air entry bilaterally. Minimal rhonchi are present. HEART: Normal rate and regular. ABDOMEN: Soft, nontender, nondistended. Bowel sounds are positive. MUSCULOSKELETAL: No cyanosis or clubbing. No pitting in the bilateral lower extremities. NEUROLOGIC: Grossly nonfocal. LABORATORY DATA: WBC 7.2, hemoglobin 11.0, platelets 210,000. Basic metabolic profile is completely unremarkable otherwise. His TSH falls within the normal limits. HIV-1 and HIV-2, hepatitis C, and syphilis are all unremarkable. ASSESSMENT: 1. Acute hypoxic respiratory failure, resolved. 2. Empyema, status post decortication. 3. Pulmonary abscess. 4. Deconditioning, severe. DISCUSSION AND PLAN: The patient is doing really wonderful from respiratory standpoint. His strength is improved dramatically. I am going to discontinue and reinstate the speech consultations, so they can work with his swallow to see if that will work with the swallow. My suspicion is that I will be capping his tracheostomy tomorrow. If he can tolerate that well for 48 hours, likely decannulate him on Saturday. Pulmonary/Critical Care will follow. Job ID: [id number]
--- NOTE | 2019-02-26 13:56 | RAD ---
RADIOGRAPH CHEST 2 VIEW: DATE: 02/26/2019 TIME: 1:42 PM HISTORY: 58-year-old male follow-up empyema, lung abscess, and pleural effusion. COMPARISON: 02/18/2019 FINDINGS: The small left pleural effusion has become smaller, and is no longer visible on the frontal view. The elevated right hemidiaphragm, mixed lucent and intermediate density changes at the right lung base, left-sided PICC, and tracheostomy tube, are all unchanged. No pulmonary edema. No pneumothorax. IMPRESSION: 1) interval decrease in volume of small left pleural effusion. 2) consolidation/abscess/empyema at right lung base is unchanged.
[2019-02-26] MEDS: cefTRIAXone\\ROCEPHIN 2 GM in Sodium Chloride 0.9% 100 ML IVPB SCH (14:31)
[2019-02-26] MEDS: Multivits W-Minerals Liquid 15 ML LIQ PER TUBE SCH (14:32)
[2019-02-26] MEDS: Loperamide HCl 2 MG CAP PO PRN (16:54)
[2019-02-27] MEDS: metroNIDAZOLE 500 MG in Premix Bag 1 BAG IVPB SCH ×4 (03:22→21:09)
--- NOTE | 2019-02-27 05:57 | PDOC.FM ---
- Subjective Subjective: Patient doing well this morning. Discussed his d/c from PT with continuation with the walking program. Patient is excited about the progress he's made. Discussed plans by pulmonology to possibly cap his trach today. Patient agreeable with plan of care. Reportedly continues to have loose BM. Scheduled miralax has been stopped, continued metamucil and prn imodium per dietary recs. - Objective Vital Signs & Weight: Vital Signs (12 hours) Temp Pulse Resp BP Pulse Ox 02/27/19 01:53 78 16 98 02/26/19 20:40 97.6 F 75 18 114/74 96 02/26/19 20:00 96 02/26/19 18:21 86 16 98 Weight Admit Weight 76.2 kg Weight 59.103 kg Most Recent Monitor Data Heart Rate from ECG 89 NIBP 151/84 NIBP BP-Mean 106 Respiration from ECG 26 SpO2 100 I&O: 02/25/19 02/26/19 02/27/19 06:59 06:59 06:59 Intake Total 4150 2330 590 Output Total 2 50 Balance 4148 2280 590 Result Diagrams: 02/26/19 04:30 02/26/19 03:30 Phys Exam - Physical Examination HEENT: moist MMs, sclera anicteric poor dentition trach in place Respiratory: no wheezing, clear to auscultation bilateral Cardiovascular: RRR, no significant murmur Gastrointestinal: soft, non-tender Musculoskeletal: no edema, pulses present Neurological: non-focal, moves all 4 limbs Psychiatric: normal affect Skin: no rash, normal turgor Dx/Plan (1) Acute hypoxemic respiratory failure Code(s): J96.01 - ACUTE RESPIRATORY FAILURE WITH HYPOXIA Status: Acute (2) Aspiration pneumonia Code(s): J69.0 - PNEUMONITIS DUE TO INHALATION OF FOOD AND VOMIT Status: Acute (3) Empyema Code(s): J86.9 - PYOTHORAX WITHOUT FISTULA Status: Acute (4) Physical deconditioning Code(s): R53.81 - OTHER MALAISE Status: Acute (5) Septic shock Code(s): A41.9 - SEPSIS, UNSPECIFIED ORGANISM; R65.21 - SEVERE SEPSIS WITH SEPTIC SHOCK Status: Acute (6) Septic shock due to Pseudomonas species Code(s): A41.52 - SEPSIS DUE TO PSEUDOMONAS; R65.21 - SEVERE SEPSIS WITH SEPTIC SHOCK Status: Acute (7) Tracheostomy dependent Code(s): Z93.0 - TRACHEOSTOMY STATUS Status: Acute (8) Anemia Code(s): D64.9 - ANEMIA, UNSPECIFIED Status: Acute (9) Hypokalemia Code(s): E87.6 - HYPOKALEMIA Status: Acute (10) NSTEMI (non-ST elevated myocardial infarction) Code(s): I21.4 - NON-ST ELEVATION (NSTEMI) MYOCARDIAL INFARCTION Status: Acute (11) S/P percutaneous endoscopic gastrostomy (PEG) tube placement Code(s): Z93.1 - GASTROSTOMY STATUS Status: Acute (12) S/P thoracostomy tube placement Code(s): Z93.8 - OTHER ARTIFICIAL OPENING STATUS Status: Resolved - Plan Plan: Septic shock (now resolved) 2/2 Pseudomonas and Aspiration Pneumonia with empyema s/p lung decortication and thoracotomy A- CT at admission showed loculated empyema. Decortication 01/21. Right chest tube placed 01/21, removed 02/11. Sputum cultures grew pansensitive pseudomonas. Body fluid cultures grew multiple anaerobes (s/p aspiration, worsened pneumonia) . ID consulted, Dr. Fierro, appreciate recs. -End goal: improved CXR and CRP -CBC stable 02/24 -CXR 02/26: interval decrease in volume of small left pleural effusion, consolidation/abscess/empyema at RLL P-Pt needs IV antibiotics until about 03/04/2019, continue rocephin and flagyl -needs SNF placement but is unfunded -Case management consulted for placement, denied marshall bed by [facility] due to trach; pursuing disability application, consulted financial services 02/24 to speak with patient as he is now communicative, step-sister cannot come to the hospital until saturday and mother is in the hospital. Per patient his father is going to visit him on Saturday, appears excited Acute Hypoxic Respiratory failure requiring ventilation, resolved A- Pulm following- Appreciate recs. Intubated 01/20. Extubated 01/30. Reintubated 01/31. Trach and PEG 02/02. Receiving tube feeds. Trach was downsized 02/13. Has speaking valve. S/p Steroids given 02/07- 02/11 -BMP stable 02/24 Hoang consulted 02/22, decannulation of trach with improved functional status P- Patient to continue working with speech to work on his swallow; possible capping of trach today per Dr. Arguelles, with possible decannulation of trach on Saturday if patient does well for ~48hrs Dysphagia A- Pt has PEG tube. ST on board P- continue ST Severe Physical Deconditioning - PT discharged patient from the program 02/26, patient to continue with the walking program Anxiety with Hx of Alcoholism. A- Stable. It has been thought his tachypnea was also due to anxiety. Pt started on Clonazepam BID, Clonidine patch, Zoloft, increased 02/12. P- continue current meds NSTEMI type 2 - likely 2/2 demand ischemia - Cards consulted. Added ASA to regimen. - Echo reviewed Electrolyte abnormalities - Continue to replace as indicated Anemia of Chronic disease, stable - s/p 4U pRBCs - Stable hgb Dry eyes -PRN natural tear drops Sacral ulcer -Wound care consulted Constipation, resolved Loose stools -Metamucil/imodium prn - Miralax changed from scheduled to prn 02/25 due to patient starting to have loose stools Code: Full VTE ppx: Lovenox GI ppx: pepcid Lines/tubes: Trach collar w/ speaking valve, PEG, PICC L arm, midline R arm Consults: CV surg, pulm, PT/OT/Speech, ID, CM Contact: Mother [phone] Dispo: Patient will require long course of IV antibiotics, until about 2019. Patient is unfunded, case management consulted for discharge planning, working towards a solution to find a marshall bed vs getting funding via Medicaid. Financial services to speak with patient. Continue walking program, OT , speech to work on swallow; patient continues to do well. Pulm consulted, possible capping of trach today with possible decannulation of trach on saturday if he continues to do well
[2019-02-27] MEDS: Enoxaparin Sodium 40 MG/0.4 ML SYRINGE SC SCH (08:55)
[2019-02-27] MEDS: Simethicone Chewable 80 MG TAB PER TUBE SCH ×2 (08:55→21:09)
[2019-02-27] MEDS: guaiFENesin 200 MG TAB PER TUBE SCH ×3 (08:55→21:09)
[2019-02-27] MEDS: cloNIDine 0.2mg/24 Hour PATCH TD SCH ×2 (08:56→08:58)
[2019-02-27] MEDS: Aspirin 325 MG TAB PER TUBE SCH (08:56)
[2019-02-27] MEDS: Metamucil PACK PER TUBE SCH ×2 (08:56→21:09)
[2019-02-27] MEDS: Multivits W-Minerals Liquid 15 ML LIQ PER TUBE SCH (10:09)
[2019-02-27] MEDS: Famotidine 20 MG TAB PO SCH ×2 (10:09→21:09)
--- NOTE | 2019-02-27 11:34 | PRG ---
DATE OF SERVICE: 02/27/2019 Mr. Worthy continues to look and feel fine. He is completing at least several more days of IV antibiotics after which time he can be discharged. Job ID: [id number]
--- NOTE | 2019-02-27 13:13 | PRG ---
DATE OF SERVICE: 02/27/2019 SERVICE: Pulmonary Medicine. INTERVAL HISTORY: The patient is doing fine from respiratory standpoint. Breathing comfortably. No complaints of chest discomfort, nausea, or vomiting. He has been able to walk once today. His strength continues to improve. Otherwise, there has been no interval change to his condition. He tolerated the Passy-Elliott valve just fine yesterday. PHYSICAL EXAMINATION: VITAL SIGNS: Afebrile, pulse 75, blood pressure 118/75, respirations 20, and saturation 96% currently on room air. GENERAL: The patient is awake and alert, in no apparent distress. LUNGS: Good air entry bilaterally. No rhonchi are appreciated on the right today. No prolonged expiratory phase or wheezing is appreciated. HEART: Normal rate and regular. ABDOMEN: Soft, nontender, and nondistended. Bowel sounds are positive. MUSCULOSKELETAL: No cyanosis or clubbing. There is no pitting in the bilateral lower extremities. NEUROLOGIC: Grossly nonfocal. IMAGING: Chest x-ray demonstrates small left pleural effusion is improved. There was consolidation/abscess/empyema at the right base is essentially unchanged compared to prior. Tracheostomy device is in good position. He has a PICC line in the left subclavian catheter. DISCUSSION AND PLAN: This patient is doing absolutely wonderful from respiratory standpoint. From my perspective, I am going to try capping his tracheostomy. If he tolerates this well, he could be considered for transition home on Saturday. He will need to be on a protracted course of oral antibiotics per ID direction. He will likely not come off antibiotics until he has radiographic improvement. Pulmonary/Critical Care will continue to follow along, but only intermittently. If he gets into trouble through the weekend, please give me a phone call. My plan is to decannulate him on Saturday if he does well with a capped tracheostomy. Job ID: [id number]
[2019-02-27] MEDS: cefTRIAXone\\ROCEPHIN 2 GM in Sodium Chloride 0.9% 100 ML IVPB SCH (15:35)
[2019-02-27] MEDS: Loperamide HCl 2 MG CAP PO PRN (17:00)
[2019-02-28] MEDS: metroNIDAZOLE 500 MG in Premix Bag 1 BAG IVPB SCH ×4 (02:24→20:33)
--- NOTE | 2019-02-28 05:47 | PDOC.FM ---
- Subjective Subjective: Patient doing well this morning. Trach capped 1/3, patient has done well overnight. Denies any difficulty breathing or any other complaints. Discussed plan of possible decannulation on saturday, with a few more days of continued IV abx. Patient agreeable with plan of care. - Objective Vital Signs & Weight: Vital Signs (12 hours) Temp Pulse Resp BP Pulse Ox 02/28/19 02:48 82 96 02/27/19 20:00 98.4 F 84 18 110/73 96 02/27/19 19:47 96 02/27/19 18:18 98 Weight Admit Weight 76.2 kg Weight 60.328 kg Most Recent Monitor Data Heart Rate from ECG 89 NIBP 151/84 NIBP BP-Mean 106 Respiration from ECG 26 SpO2 100 I&O: 02/26/19 02/27/19 02/28/19 06:59 06:59 06:59 Intake Total 2330 2170 3135 Output Total 50 100 Balance 2280 2070 3135 Result Diagrams: 02/26/19 04:30 02/26/19 03:30 Phys Exam - Physical Examination Constitutional: NAD HEENT: moist MMs, sclera anicteric trach in place, capped Respiratory: no wheezing, clear to auscultation bilateral Cardiovascular: RRR, no significant murmur Gastrointestinal: soft, non-tender Musculoskeletal: no edema, pulses present Neurological: normal sensation, moves all 4 limbs Psychiatric: normal affect, A&O x 3 Skin: no rash, normal turgor Dx/Plan (1) Acute hypoxemic respiratory failure Code(s): J96.01 - ACUTE RESPIRATORY FAILURE WITH HYPOXIA Status: Acute (2) Aspiration pneumonia Code(s): J69.0 - PNEUMONITIS DUE TO INHALATION OF FOOD AND VOMIT Status: Acute (3) Empyema Code(s): J86.9 - PYOTHORAX WITHOUT FISTULA Status: Acute (4) Physical deconditioning Code(s): R53.81 - OTHER MALAISE Status: Acute (5) Septic shock Code(s): A41.9 - SEPSIS, UNSPECIFIED ORGANISM; R65.21 - SEVERE SEPSIS WITH SEPTIC SHOCK Status: Acute (6) Septic shock due to Pseudomonas species Code(s): A41.52 - SEPSIS DUE TO PSEUDOMONAS; R65.21 - SEVERE SEPSIS WITH SEPTIC SHOCK Status: Acute (7) Tracheostomy dependent Code(s): Z93.0 - TRACHEOSTOMY STATUS Status: Acute (8) Anemia Code(s): D64.9 - ANEMIA, UNSPECIFIED Status: Acute (9) Hypokalemia Code(s): E87.6 - HYPOKALEMIA Status: Acute (10) NSTEMI (non-ST elevated myocardial infarction) Code(s): I21.4 - NON-ST ELEVATION (NSTEMI) MYOCARDIAL INFARCTION Status: Acute (11) S/P percutaneous endoscopic gastrostomy (PEG) tube placement Code(s): Z93.1 - GASTROSTOMY STATUS Status: Acute (12) S/P thoracostomy tube placement Code(s): Z93.8 - OTHER ARTIFICIAL OPENING STATUS Status: Resolved - Plan Plan: Septic shock (now resolved) 2/ Pseudomonas and Aspiration Pneumonia with empyema s/p lung decortication and thoracotomy A- CT at admission showed loculated empyema. Decortication 01/21. Right chest tube placed 01/21, removed 02/11. Sputum cultures grew pansensitive pseudomonas. Body fluid cultures grew multiple anaerobes (s/p aspiration, worsened pneumonia) . ID consulted, Dr. Fierro, appreciate recs. -End goal: improved CXR and CRP -CBC stable 02/24 -CXR 02/26: interval decrease in volume of small left pleural effusion, consolidation/abscess/empyema at RLL P-Pt needs IV antibiotics until about 03/04/2019, continue rocephin and flagyl; if patient is stable from a respiratory standpoint to go home on 03/02, will discuss with Dr. Fierro about transition recs for PO -needs SNF placement but is unfunded -Case management consulted for placement, denied marshall bed by [facility] due to trach; pursuing disability application, consulted financial services 02/24 to speak with patient as he is now communicative, step-sister cannot come to the hospital until saturday and mother is in the hospital. Per patient his father is going to visit him on Saturday if he is still in the hospital, appears excited Acute Hypoxic Respiratory failure requiring ventilation, resolved A- Pulm following- Appreciate recs. Intubated 01/20. Extubated 01/30. Reintubated 01/31. Trach and PEG 02/02. Receiving tube feeds. Trach was downsized 02/13. Trach capped 1/3. S/p Steroids given 02/07- 02/11 -BMP stable 02/24 Hoang consulted 02/22, decannulation of trach with improved functional status P- Patient to continue working with speech to work on his swallow; trach capped 1/[address] Arguelles, possible decannulation of trach on Saturday if patient does well for ~48hrs; patient tolerated capped trach on RA overnight, continues to do well Dysphagia A- Pt has PEG tube. ST on board P- continue ST Severe Physical Deconditioning - PT discharged patient from the program 02/26, patient to continue with the walking program Anxiety with Hx of Alcoholism. A- Stable. It has been thought his tachypnea was also due to anxiety. Pt started on Clonazepam BID, Clonidine patch, Zoloft, increased 02/12. P- continue current meds NSTEMI type 2 - likely 2/2 demand ischemia - Cards consulted. Added ASA to regimen. - Echo reviewed Electrolyte abnormalities - Continue to replace as indicated Anemia of Chronic disease, stable - s/p 4U pRBCs - Stable hgb Dry eyes -PRN natural tear drops Sacral ulcer -Wound care consulted Constipation, resolved Loose stools -Metamucil/imodium prn - Miralax changed from scheduled to prn 02/25 due to patient starting to have loose stools Code: Full VTE ppx: Lovenox GI ppx: pepcid Lines/tubes: Trach collar w/ speaking valve, PEG, PICC L arm, midline R arm Consults: CV surg, pulm, PT/OT/Speech, ID, CM Contact: Mother [phone] Dispo: Patient will require long course of IV antibiotics, until about 2019. Patient is unfunded, case management consulted for discharge planning, working towards a solution to find a marshall bed vs getting funding via Medicaid. Financial services to speak with patient. Continue walking program, OT , speech to work on swallow; patient continues to do well. Pulm consulted, trach capped 1/3, possible decannulation of trach on saturday if he continues to do well; will continue to monitor respiratory status
[2019-02-28] MEDS: guaiFENesin 200 MG TAB PER TUBE SCH ×3 (07:57→20:33)
[2019-02-28] MEDS: Simethicone Chewable 80 MG TAB PER TUBE SCH ×2 (07:57→20:35)
[2019-02-28] MEDS: Metamucil PACK PER TUBE SCH ×2 (07:57→20:34)
[2019-02-28] MEDS: Aspirin 325 MG TAB PER TUBE SCH (07:57)
[2019-02-28] MEDS: Enoxaparin Sodium 40 MG/0.4 ML SYRINGE SC SCH (07:57)
[2019-02-28] MEDS: Famotidine 20 MG TAB PO SCH ×2 (10:27→20:33)
[2019-02-28] MEDS: Multivits W-Minerals Liquid 15 ML LIQ PER TUBE SCH (10:27)
--- NOTE | 2019-02-28 12:05 | PRG ---
DATE OF SERVICE: 02/28/2019 I have examined the patient and discussed the case with Dr. Jena Cano. I agree with her assessment and plan. Job ID: [id number]
[2019-02-28] MEDS: cefTRIAXone\\ROCEPHIN 2 GM in Sodium Chloride 0.9% 100 ML IVPB SCH (16:10)
[2019-03-01] MEDS: metroNIDAZOLE 500 MG in Premix Bag 1 BAG IVPB SCH ×4 (02:29→21:04)
--- NOTE | 2019-03-01 05:53 | PDOC.FM ---
- Subjective Subjective: Patient continues to do well, denies any trouble with breathing. States that his sister is supposed to come by today. Discussed plan for continued IV abx, with possible decannulation of trach tmrw, patient agreeable with plan of care. - Objective Vital Signs & Weight: Vital Signs (12 hours) Temp Pulse Resp BP Pulse Ox 02/28/19 21:38 96 02/28/19 20:00 97.4 F L 94 18 118/74 96 02/28/19 18:24 76 16 98 Weight Admit Weight 76.2 kg Weight 60.736 kg Most Recent Monitor Data Heart Rate from ECG 89 NIBP 151/84 NIBP BP-Mean 106 Respiration from ECG 26 SpO2 100 I&O: 02/27/19 02/28/19 03/01/19 06:59 06:59 06:59 Intake Total 2170 3135 1815 Output Total 100 Balance 2070 3135 1815 Result Diagrams: 02/26/19 04:30 02/26/19 03:30 Phys Exam - Physical Examination Constitutional: NAD HEENT: moist MMs, sclera anicteric trach in place, capped Respiratory: no wheezing, clear to auscultation bilateral Cardiovascular: RRR, no significant murmur Gastrointestinal: soft, non-tender Musculoskeletal: no edema, pulses present Neurological: non-focal, moves all 4 limbs Lymphatic: no nodes Psychiatric: normal affect, A&O x 3 Skin: no rash, normal turgor Dx/Plan (1) Acute hypoxemic respiratory failure Code(s): J96.01 - ACUTE RESPIRATORY FAILURE WITH HYPOXIA Status: Acute (2) Aspiration pneumonia Code(s): J69.0 - PNEUMONITIS DUE TO INHALATION OF FOOD AND VOMIT Status: Acute (3) Empyema Code(s): J86.9 - PYOTHORAX WITHOUT FISTULA Status: Acute (4) Physical deconditioning Code(s): R53.81 - OTHER MALAISE Status: Acute (5) Septic shock Code(s): A41.9 - SEPSIS, UNSPECIFIED ORGANISM; R65.21 - SEVERE SEPSIS WITH SEPTIC SHOCK Status: Acute (6) Septic shock due to Pseudomonas species Code(s): A41.52 - SEPSIS DUE TO PSEUDOMONAS; R65.21 - SEVERE SEPSIS WITH SEPTIC SHOCK Status: Acute (7) Tracheostomy dependent Code(s): Z93.0 - TRACHEOSTOMY STATUS Status: Acute (8) Anemia Code(s): D64.9 - ANEMIA, UNSPECIFIED Status: Acute (9) Hypokalemia Code(s): E87.6 - HYPOKALEMIA Status: Acute (10) NSTEMI (non-ST elevated myocardial infarction) Code(s): I21.4 - NON-ST ELEVATION (NSTEMI) MYOCARDIAL INFARCTION Status: Acute (11) S/P percutaneous endoscopic gastrostomy (PEG) tube placement Code(s): Z93.1 - GASTROSTOMY STATUS Status: Acute (12) S/P thoracostomy tube placement Code(s): Z93.8 - OTHER ARTIFICIAL OPENING STATUS Status: Resolved - Plan Plan: Septic shock (now resolved) 2/2 Pseudomonas and Aspiration Pneumonia with empyema s/p lung decortication and thoracotomy A- CT at admission showed loculated empyema. Decortication 01/21. Right chest tube placed 01/21, removed 02/11. Sputum cultures grew pansensitive pseudomonas. Body fluid cultures grew multiple anaerobes (s/p aspiration, worsened pneumonia) . ID consulted, Dr. Fierro, appreciate recs. -End goal: improved CXR and CRP -CBC stable 02/26 -CXR 02/26: interval decrease in volume of small left pleural effusion, consolidation/abscess/empyema at RLL P-Pt needs IV antibiotics until about 03/04/2019, continue rocephin and flagyl; if patient is stable from a respiratory standpoint to go home on 03/02, will discuss with Dr. Fierro about transition recs for PO -needs SNF placement but is unfunded -Case management consulted for placement, denied marshall bed by [facility] due to trach; pursuing disability application, consulted financial services 02/24 to speak with patient as he is now communicative, step-sister plans to visit patient today, and mother is in the hospital. Per patient his father is going to visit him on Saturday if he is still in the hospital, appears excited Acute Hypoxic Respiratory failure requiring ventilation, resolved A- Pulm following- Appreciate recs. Intubated 01/20. Extubated 01/30. Reintubated 01/31. Trach and PEG 02/02. Receiving tube feeds. Trach was downsized 02/13. Trach capped 02/27. S/p Steroids given 02/07- 02/11 -BMP stable 02/26 Hoang consulted 02/22, decannulation of trach with improved functional status P- Patient to continue working with speech to work on his swallow; trach capped 02/[address] Arguelles, possible decannulation of trach on Saturday if patient does well for ~48hrs; patient tolerated capped trach on RA overnight, continues to do well Dysphagia A- Pt has PEG tube. ST on board P- continue ST Severe Physical Deconditioning - PT discharged patient from the program 02/26, patient to continue with the walking program Anxiety with Hx of Alcoholism. A- Stable. It has been thought his tachypnea was also due to anxiety. Pt started on Clonazepam BID, Clonidine patch, Zoloft, increased 02/12. P- continue current meds NSTEMI type 2 - likely 2/2 demand ischemia - Cards consulted. Added ASA to regimen. - Echo reviewed Electrolyte abnormalities - Continue to replace as indicated Anemia of Chronic disease, stable - s/p 4U pRBCs - Stable hgb Dry eyes -PRN natural tear drops Sacral ulcer -Wound care consulted Constipation, resolved Loose stools -Metamucil/imodium prn - Miralax changed from scheduled to prn 02/25 due to patient starting to have loose stools Code: Full VTE ppx: Lovenox GI ppx: pepcid Lines/tubes: Trach collar w/ speaking valve (capped), PEG, PICC L arm, midline R arm Consults: CV surg, pulm, PT/OT/Speech, ID, CM Contact: Mother [phone] Dispo: Patient will require long course of IV antibiotics, until about 2019. Patient is unfunded, case management consulted for discharge planning, working towards a solution to find a marshall bed vs getting funding via Medicaid. Financial services to speak with patient. Continue walking program, OT , speech to work on swallow; patient continues to do well. Pulm consulted, trach capped 02/27, possible decannulation of trach on saturday if he continues to do well; will continue to monitor respiratory status
[2019-03-01] MEDS: Metamucil PACK PER TUBE SCH ×2 (09:22→21:06)
[2019-03-01] MEDS: guaiFENesin 200 MG TAB PER TUBE SCH ×3 (09:23→21:04)
[2019-03-01] MEDS: Simethicone Chewable 80 MG TAB PER TUBE SCH ×2 (09:23→21:04)
[2019-03-01] MEDS: Enoxaparin Sodium 40 MG/0.4 ML SYRINGE SC SCH (09:24)
[2019-03-01] MEDS: Aspirin 325 MG TAB PER TUBE SCH (09:24)
[2019-03-01] MEDS: Multivits W-Minerals Liquid 15 ML LIQ PER TUBE SCH (09:27)
[2019-03-01] MEDS: Famotidine 20 MG TAB PO SCH ×2 (10:49→21:04)
--- NOTE | 2019-03-01 11:05 | PRG ---
DATE OF SERVICE: 03/01/2019 I have examined the patient. I have discussed his care with Dr. Jena Cano and agree with her assessment and plan. Job ID: [id number]
[2019-03-01] MEDS: cefTRIAXone\\ROCEPHIN 2 GM in Sodium Chloride 0.9% 100 ML IVPB SCH (17:41)
[2019-03-02] MEDS: metroNIDAZOLE 500 MG in Premix Bag 1 BAG IVPB SCH ×4 (02:28→21:00)
--- NOTE | 2019-03-02 05:50 | PDOC.FM ---
- Subjective Subjective: Patient doing well this morning. He reports that many of his family members visited him yesterday. He plans to go home and live with his mother, and move to [place] with his father when he gains more strength. He says that they have organized him to have outpatient. - Objective Vital Signs & Weight: Vital Signs (12 hours) Temp Pulse Resp BP Pulse Ox 03/01/19 23:46 76 16 98 03/01/19 20:20 97 03/01/19 20:00 98.4 F 84 18 132/78 97 03/01/19 19:01 71 16 97 Weight Admit Weight 76.2 kg Weight 61 kg Most Recent Monitor Data Heart Rate from ECG 89 NIBP 151/84 NIBP BP-Mean 106 Respiration from ECG 26 SpO2 100 I&O: 02/28/19 03/01/19 03/02/19 06:59 06:59 06:59 Intake Total 3135 3125 2289 Balance 3135 3125 2289 Result Diagrams: 03/02/19 05:40 03/02/19 05:40 Phys Exam - Physical Examination Constitutional: NAD HEENT: moist MMs, sclera anicteric trach in place, capped Respiratory: no wheezing, no rales Cardiovascular: RRR, no significant murmur Gastrointestinal: soft, non-tender Musculoskeletal: no edema, pulses present Neurological: non-focal, moves all 4 limbs Psychiatric: normal affect, A&O x 3 Skin: no rash, normal turgor Dx/Plan (1) Acute hypoxemic respiratory failure Code(s): J96.01 - ACUTE RESPIRATORY FAILURE WITH HYPOXIA Status: Acute (2) Aspiration pneumonia Code(s): J69.0 - PNEUMONITIS DUE TO INHALATION OF FOOD AND VOMIT Status: Acute (3) Empyema Code(s): J86.9 - PYOTHORAX WITHOUT FISTULA Status: Acute (4) Physical deconditioning Code(s): R53.81 - OTHER MALAISE Status: Acute (5) Septic shock Code(s): A41.9 - SEPSIS, UNSPECIFIED ORGANISM; R65.21 - SEVERE SEPSIS WITH SEPTIC SHOCK Status: Acute (6) Septic shock due to Pseudomonas species Code(s): A41.52 - SEPSIS DUE TO PSEUDOMONAS; R65.21 - SEVERE SEPSIS WITH SEPTIC SHOCK Status: Acute (7) Tracheostomy dependent Code(s): Z93.0 - TRACHEOSTOMY STATUS Status: Acute (8) Anemia Code(s): D64.9 - ANEMIA, UNSPECIFIED Status: Acute (9) Hypokalemia Code(s): E87.6 - HYPOKALEMIA Status: Acute (10) NSTEMI (non-ST elevated myocardial infarction) Code(s): I21.4 - NON-ST ELEVATION (NSTEMI) MYOCARDIAL INFARCTION Status: Acute (11) S/P percutaneous endoscopic gastrostomy (PEG) tube placement Code(s): Z93.1 - GASTROSTOMY STATUS Status: Acute (12) S/P thoracostomy tube placement Code(s): Z93.8 - OTHER ARTIFICIAL OPENING STATUS Status: Resolved - Plan Plan: Plan: Septic shock (now resolved) 2/ Pseudomonas and Aspiration Pneumonia with empyema s/p lung decortication and thoracotomy A- CT at admission showed loculated empyema. Decortication 01/21. Right chest tube placed 01/21, removed 02/11. Sputum cultures grew pansensitive pseudomonas. Body fluid cultures grew multiple anaerobes (s/p aspiration, worsened pneumonia) . ID consulted, Dr. Fierro, appreciate recs. -End goal: improved CXR and CRP -CBC stable 02/26 -CXR 02/26: interval decrease in volume of small left pleural effusion, consolidation/abscess/empyema at RLL P-Pt needs IV antibiotics until about 03/04/2019, continue rocephin and flagyl; if patient is stable from a respiratory standpoint to go home on 03/02, will discuss with Dr. Fierro about transition recs for PO -needs SNF placement but is unfunded -Case management consulted for placement, denied marshall bed by [facility] due to trach; disability application completed Acute Hypoxic Respiratory failure requiring ventilation, resolved A- Pulm following- Appreciate recs. Intubated 01/20. Extubated 01/30. Reintubated 01/31. Trach and PEG 02/02. Receiving tube feeds. Trach was downsized 02/13. Trach capped 1/3. S/p Steroids given 02/07- 02/11 -BMP stable 02/26 Hoang consulted 02/22, decannulation of trach with improved functional status P- Patient to continue working with speech to work on his swallow; trach capped 1/[address] Arguelles, possible decannulation of trach today; patient tolerated capped trach on RA overnight, continues to do well Dysphagia A- Pt has PEG tube. ST on board P- continue ST Severe Physical Deconditioning - PT discharged patient from the program 02/26, patient to continue with the walking program Anxiety with Hx of Alcoholism. A- Stable. It has been thought his tachypnea was also due to anxiety. Pt started on Clonazepam BID, Clonidine patch, Zoloft, increased 02/12. P- continue current meds NSTEMI type 2 - likely 2/2 demand ischemia - Cards consulted. Added ASA to regimen. - Echo reviewed Electrolyte abnormalities - Continue to replace as indicated Anemia of Chronic disease, stable - s/p 4U pRBCs - Stable hgb Dry eyes -PRN natural tear drops Sacral ulcer -Wound care consulted Constipation, resolved Loose stools -Metamucil/imodium prn -Miralax changed from scheduled to prn 02/25 due to patient starting to have loose stools Code: Full VTE ppx: Lovenox GI ppx: pepcid Lines/tubes: Trach collar w/ speaking valve (capped), PEG, PICC L arm, midline R arm Consults: CV surg, pulm, PT/OT/Speech, ID, CM Contact: Mother [phone] Dispo: Patient will require long course of IV antibiotics, until about 2019. Patient is unfunded, case management consulted for discharge planning, disability application completed. Continue walking program, OT, speech to work on swallow; patient continues to do well. Pulm consulted, trach capped /, possible decannulation of trach today; will continue to monitor respiratory status
[2019-03-02 06:07] LABS: #Basophils 0.1 thou/uL (0.0-0.2); #Eosinphils 0.7 thou/uL (0.0-0.7); #Lymphocytes 1.4 thou/uL (1.20-3.40); #Monocytes 0.9 thou/uL (0.11-0.59); #Neutrophils 5.1 thou/uL (1.40-6.50); %Basophils 1.1 % (0.0-1.0); %Eosinophils 8.8 % (0.0-10.0); %Lymphocytes 16.8 % (21.0-51.0); %Monocytes 11.3 % (0.0-10.0); Hemoglobin 11.3 g/dL (14.0-18.0); Mean Corpuscular HGB CONC 33.5 g/dL (32.0-36.0); Mean Corpuscular Hemoglobin 31.5 pg (27.0-31.0); Mean Corpuscular Volume 94.1 fL (78.0-98.0); Mean Platelet Volume 7.7 fL (7.4-10.4); Platelet Count 262 thou/uL (130-400); RBC Distribution Width 16.1 % (11.5-14.5); Red Blood Cell (RBC) Count 3.58 mill/uL (4.70-6.10); White Blood Cell (WBC) Count 8.2 thou/uL (4.8-10.8)
[2019-03-02 06:31] LABS: ALT (SGPT) 15 U/L (8-55); AST (SGOT) 15 U/L (5-34); Albumin 2.6 g/dL (3.5-5.0); Alkaline Phosphatase 119 U/L (40-110); Anion Gap 10 mmol/L (10-20); BUN (Urea Nitrogen) 9 mg/dL (8.4-25.7); Bilirubin, Total 0.2 mg/dL (0.2-1.2); CRP (Inflammatory) Less than 0.50 mg/dL (= or < 0.5); Calc. Creatinine Clearance 130 mL/min (70-130); Calcium 8.2 mg/dL (7.8-10.44); Carbon Dioxide 30 mmol/L (22-29); Chloride 102 mmol/L (98-107); Estimated GFR-MDRD Greater than 90; Globulin 3.7 g/dL (2.4-3.5); Glucose 132 mg/dL (70-105); Potassium 3.9 mmol/L (3.5-5.1); Protein, Total 6.3 g/dL (6.0-8.3); Sodium 138 mmol/L (136-145)
[2019-03-02] MEDS: Aspirin 325 MG TAB PER TUBE SCH (09:11)
[2019-03-02] MEDS: Enoxaparin Sodium 40 MG/0.4 ML SYRINGE SC SCH (09:11)
[2019-03-02] MEDS: Metamucil PACK PER TUBE SCH ×2 (09:11→21:00)
[2019-03-02] MEDS: Simethicone Chewable 80 MG TAB PER TUBE SCH ×2 (09:11→21:01)
[2019-03-02] MEDS: guaiFENesin 200 MG TAB PER TUBE SCH ×3 (09:11→21:00)
[2019-03-02] MEDS: Famotidine 20 MG TAB PO SCH ×2 (09:31→21:01)
[2019-03-02] MEDS: Multivits W-Minerals Liquid 15 ML LIQ PER TUBE SCH (10:03)
--- NOTE | 2019-03-02 11:28 | PRG ---
DATE OF SERVICE: 03/02/2019 Mr. Worthy is cheerful this morning. No distress. Can likely be discharged in a day or two, possibly home. Job ID: [id number]
--- NOTE | 2019-03-02 12:04 | PRG ---
DATE OF SERVICE: 03/02/2019 SERVICE: Pulmonary Medicine. INTERVAL HISTORY: The patient is doing great from a respiratory standpoint. He has trach capped all weekend. He has no respiratory issues. He denies any current fevers, chills, nausea, or vomiting. Ultimately, he is doing quite good. There were no overnight events. PHYSICAL EXAMINATION: VITAL SIGNS: Afebrile, pulse 93, blood pressure 120/75, respirations 20, and saturation 97% on room air. GENERAL: The patient is awake and alert, in no apparent distress. LUNGS: Wonderful air entry. No rhonchi, wheezing, or crackles are appreciated. There is a slightly prolonged expiratory phase. HEART: Normal rate, regular. ABDOMEN: Soft, nontender, nondistended. Bowel sounds are positive. MUSCULOSKELETAL: No cyanosis or clubbing. No pitting in the bilateral lower extremities. NEUROLOGIC: Grossly nonfocal. LABORATORY DATA: WBC 8.2, hemoglobin 11.3, platelets 262,000. Basic metabolic profile is completely unremarkable. Liver function studies are essentially unremarkable as well. His albumin has improved dramatically. Sputum was growing Pseudomonas. Blood cultures are negative. ASSESSMENT: 1. Acute hypoxic respiratory failure, resolved. 2. Empyema, status post decortication. 3. Pulmonary abscess, requiring long-term antibiotics. 4. Deconditioning, severe. DISCUSSION AND PLAN: Today is the day that we are going to decannulate his tracheostomy. He did well over the weekend with it capped. We will put a small occlusive bandage over the tracheostomy site. At this point, he has no further requirements for Pulmonary or Critical Care opinion. As such, I will sign off. Please call with additional questions or concerns. Job ID: [id number]
[2019-03-02] MEDS: cefTRIAXone\\ROCEPHIN 2 GM in Sodium Chloride 0.9% 100 ML IVPB SCH (15:48)
[2019-03-02] MEDS: Acetaminophen 325 MG TAB PO PRN (21:01)
[2019-03-03] MEDS: metroNIDAZOLE 500 MG in Premix Bag 1 BAG IVPB SCH ×2 (02:12→08:53)
--- NOTE | 2019-03-03 05:47 | PDOC.FM ---
- Subjective Subjective: Patient doing well this morning. Discussed plan of care of possible decannulation of trach and swallow study today, patient agreeable with plan of care. Discussed with patient regarding home life again; patient states that his mom has set up nurses to come out to the house when he goes home. Per case management notes, this is being looked into for confirmation at this time. - Objective Vital Signs & Weight: Vital Signs (12 hours) Temp Pulse Resp BP Pulse Ox 03/03/19 00:44 91 16 97 03/02/19 20:00 98.6 F 100 20 121/80 96 03/02/19 19:37 88 18 98 Weight Admit Weight 76.2 kg Weight 61 kg Most Recent Monitor Data Heart Rate from ECG 89 NIBP 151/84 NIBP BP-Mean 106 Respiration from ECG 26 SpO2 100 I&O: 03/01/19 03/02/19 03/03/19 06:59 06:59 06:59 Intake Total 3125 2509 1050 Balance 3125 2509 1050 Result Diagrams: 03/02/19 05:40 03/02/19 05:40 Phys Exam - Physical Examination Constitutional: NAD HEENT: moist MMs, sclera anicteric trach in place, capped Respiratory: no wheezing, no rales Cardiovascular: RRR, no significant murmur Gastrointestinal: soft, non-tender Musculoskeletal: no edema, pulses present Neurological: normal sensation, moves all 4 limbs Psychiatric: normal affect, A&O x 3 Skin: no rash, normal turgor Dx/Plan (1) Acute hypoxemic respiratory failure Code(s): J96.01 - ACUTE RESPIRATORY FAILURE WITH HYPOXIA Status: Resolved (2) Aspiration pneumonia Code(s): J69.0 - PNEUMONITIS DUE TO INHALATION OF FOOD AND VOMIT Status: Acute (3) Empyema Code(s): J86.9 - PYOTHORAX WITHOUT FISTULA Status: Acute (4) Physical deconditioning Code(s): R53.81 - OTHER MALAISE Status: Acute (5) Septic shock Code(s): A41.9 - SEPSIS, UNSPECIFIED ORGANISM; R65.21 - SEVERE SEPSIS WITH SEPTIC SHOCK Status: Resolved (6) Septic shock due to Pseudomonas species Code(s): A41.52 - SEPSIS DUE TO PSEUDOMONAS; R65.21 - SEVERE SEPSIS WITH SEPTIC SHOCK Status: Resolved (7) Tracheostomy dependent Code(s): Z93.0 - TRACHEOSTOMY STATUS Status: Acute (8) Anemia Code(s): D64.9 - ANEMIA, UNSPECIFIED Status: Acute (9) Hypokalemia Code(s): E87.6 - HYPOKALEMIA Status: Resolved (10) NSTEMI (non-ST elevated myocardial infarction) Code(s): I21.4 - NON-ST ELEVATION (NSTEMI) MYOCARDIAL INFARCTION Status: Acute (11) S/P percutaneous endoscopic gastrostomy (PEG) tube placement Code(s): Z93.1 - GASTROSTOMY STATUS Status: Acute (12) S/P thoracostomy tube placement Code(s): Z93.8 - OTHER ARTIFICIAL OPENING STATUS Status: Resolved - Plan Plan: Plan: Septic shock (now resolved) / Pseudomonas and Aspiration Pneumonia with empyema s/p lung decortication and thoracotomy A- CT at admission showed loculated empyema. Decortication 01/21. Right chest tube placed 01/21, removed 02/11. Sputum cultures grew pansensitive pseudomonas. Body fluid cultures grew multiple anaerobes (s/p aspiration, worsened pneumonia) . ID consulted, Dr. Fierro, appreciate recs. -End goal: improved CXR and CRP -CBC stable 02/26 -CXR 02/26: interval decrease in volume of small left pleural effusion, consolidation/abscess/empyema at RLL P-Pt needs IV antibiotics until about 03/04/2019, continue rocephin and flagyl -Case management consulted for placement, denied marshall bed by [facility] due to trach; disability application completed Acute Hypoxic Respiratory failure requiring ventilation, resolved A- Pulm following- Appreciate recs. Intubated 01/20. Extubated 01/30. Reintubated 01/31. Trach and PEG 02/02. Receiving tube feeds. Trach was downsized 02/13. Trach capped 1/3. S/p Steroids given 02/07- 02/11 -BMP stable 02/26 P- Patient to continue working with speech to work on his swallow, swallow study today; trach capped 1/[address] Arguelles, possible decannulation of trach today Dysphagia A- Pt has PEG tube. ST on board P- continue ST; swallow study today Severe Physical Deconditioning - PT discharged patient from the program 1/2, patient to continue with the walking program Anxiety with Hx of Alcoholism. A- Stable. It has been thought his tachypnea was also due to anxiety. Pt started on Clonazepam BID, Clonidine patch, Zoloft, increased 02/12. P- continue current meds NSTEMI type 2 - likely 2/2 demand ischemia - Cards consulted. Added ASA to regimen. - Echo reviewed Electrolyte abnormalities - Continue to replace as indicated Anemia of Chronic disease, stable - s/p 4U pRBCs - Stable hgb Dry eyes -PRN natural tear drops Sacral ulcer -Wound care consulted Constipation, resolved Loose stools -Metamucil/imodium prn -Miralax changed from scheduled to prn 02/25 due to patient starting to have loose stools Code: Full VTE ppx: Lovenox GI ppx: pepcid Lines/tubes: Trach collar w/ speaking valve (capped), PEG, PICC L arm, midline R arm Consults: CV surg, pulm, Walking Program/OT/Speech, ID, CM Contact: Mother [phone] Dispo: Patient has required long course of IV antibiotics, until about 2019. Patient is unfunded, case management consulted for discharge planning, disability application completed. Continue walking program, OT, speech to work on swallow; patient continues to do well. Swallow study today. Pulm consulted, trach capped 02/27, possible decannulation of trach today; will continue to monitor respiratory status
[2019-03-03] MEDS: Aspirin 325 MG TAB PER TUBE SCH (08:50)
[2019-03-03] MEDS: Metamucil PACK PER TUBE SCH ×2 (08:50→21:14)
[2019-03-03] MEDS: guaiFENesin 200 MG TAB PER TUBE SCH ×3 (08:50→21:14)
[2019-03-03] MEDS: Multivits W-Minerals Liquid 15 ML LIQ PER TUBE SCH (08:50)
[2019-03-03] MEDS: Famotidine 20 MG TAB PO SCH ×2 (08:50→21:14)
[2019-03-03] MEDS: Enoxaparin Sodium 40 MG/0.4 ML SYRINGE SC SCH (08:52)
[2019-03-03] MEDS: Simethicone Chewable 80 MG TAB PER TUBE SCH ×2 (08:53→21:14)
--- NOTE | 2019-03-03 10:11 | PRG ---
DATE OF SERVICE: 03/03/2019 SUBJECTIVE: The patient has been improving steadily. He is transferred to the floor and tracheostomy has been decannulated. He is able to speak and eat without problems. No dyspnea or chest pain. No abdominal pain. No diarrhea. Voiding without difficulty. Able to walk. OBJECTIVE: VITAL SIGNS: Afebrile. BP 120/76, pulse rate 89, respirations are 18, and O2 saturation 98%. MOUTH: Poor dentition is noted. LUNGS: Diminished breath sounds, right base with egophony. HEART: S1 and S2, regular rate. ABDOMEN: Soft, not distended or tender. No bladder distention. EXTREMITIES: No edema. Moves extremities equally. LABORATORY DATA: White cell count is 8.2, which is a significant improvement. Hemoglobin 11. Platelets are decreased to 262. Sodium 138, creatinine 0.52, and albumin 2.6. The serologies were negative. Microbiology with the four different anaerobes and strep parasanguinis and Prevotella from the pleural fluid. ASSESSMENT AND DISCUSSION: Alcoholism and poor dentition. Anaerobic lung abscess with empyema. Now, we will switch him to oral Augmentin and Flagyl. He would have to be treated until approximately the end of February. Need to monitor for neuropathy with Flagyl after another 2 weeks. Follow up in the clinic. Job ID: [id number] [facility]
--- NOTE | 2019-03-03 11:07 | PRG ---
DATE OF SERVICE: 03/03/2019 I have examined the patient and discussed the care with Dr. Jena Cano. I agree with her assessment and plan. Mr. Worthy also get a final visit from Dr. Fierro who recommended that he be switched to oral Augmentin and Flagyl to complete treatment until the end of February. He is thus now ready for discharge. Job ID: [id number]
--- NOTE | 2019-03-03 14:08 | RAD ---
Modified barium swallow HISTORY: Dysphagia. Feeding difficulties. FINDINGS: Exam was performed by speech pathology with multiple consistencies. Video review is availab le and demonstrates early spill of all consistencies. Most to the level of the piriform sinuses. Good bolus formation and retropulsion. Moderate residual with good clearance upon secondary swallowin g. No penetration or aspiration. The esophagus below the level of the hypopharynx was not evaluated. Fluoroscopy time 1.3 minutes. Please see separate detailed report from speech pathology.
[2019-03-03] MEDS: metroNIDAZOLE 500 MG TAB PO SCH ×2 (14:40→21:14)
[2019-03-03] MEDS: Amoxicillin/Potassium Clav 875 MG TAB PO SCH (21:14)
--- NOTE | 2019-03-04 06:05 | PDOC.FM ---
- Subjective Subjective: Patient doing well this morning. Discussed that we are looking into if he can be transferred over to [facility] for continued PT/OT/ST. Patient states he ate well last night, really enjoyed being able to eat food again. - Objective Vital Signs & Weight: Vital Signs (12 hours) Temp Pulse Resp BP Pulse Ox 03/04/19 00:23 90 16 96 03/03/19 20:00 98.4 F 88 20 121/80 96 03/03/19 18:22 76 16 98 Weight Admit Weight 76.2 kg Weight 61.1 kg Most Recent Monitor Data Heart Rate from ECG 89 NIBP 151/84 NIBP BP-Mean 106 Respiration from ECG 26 SpO2 100 I&O: 03/02/19 03/03/19 03/04/19 06:59 06:59 06:59 Intake Total 2509 2290 1160 Balance 2509 2290 1160 Result Diagrams: 03/02/19 05:40 03/02/19 05:40 Phys Exam - Physical Examination HEENT: moist MMs, sclera anicteric Neck: full ROM bandaging over trach site c/d/i Respiratory: no wheezing, no rales Cardiovascular: RRR, no significant murmur Gastrointestinal: soft, non-tender Musculoskeletal: no edema, pulses present Neurological: normal sensation, moves all 4 limbs Psychiatric: normal affect, A&O x 3 Skin: no rash, normal turgor Dx/Plan (1) Acute hypoxemic respiratory failure Code(s): J96.01 - ACUTE RESPIRATORY FAILURE WITH HYPOXIA Status: Resolved (2) Aspiration pneumonia Code(s): J69.0 - PNEUMONITIS DUE TO INHALATION OF FOOD AND VOMIT Status: Acute (3) Empyema Code(s): J86.9 - PYOTHORAX WITHOUT FISTULA Status: Acute (4) Physical deconditioning Code(s): R53.81 - OTHER MALAISE Status: Acute (5) Septic shock Code(s): A41.9 - SEPSIS, UNSPECIFIED ORGANISM; R65.21 - SEVERE SEPSIS WITH SEPTIC SHOCK Status: Resolved (6) Septic shock due to Pseudomonas species Code(s): A41.52 - SEPSIS DUE TO PSEUDOMONAS; R65.21 - SEVERE SEPSIS WITH SEPTIC SHOCK Status: Resolved (7) Tracheostomy dependent Code(s): Z93.0 - TRACHEOSTOMY STATUS Status: Acute (8) Anemia Code(s): D64.9 - ANEMIA, UNSPECIFIED Status: Acute (9) Hypokalemia Code(s): E87.6 - HYPOKALEMIA Status: Resolved (10) NSTEMI (non-ST elevated myocardial infarction) Code(s): I21.4 - NON-ST ELEVATION (NSTEMI) MYOCARDIAL INFARCTION Status: Acute (11) S/P percutaneous endoscopic gastrostomy (PEG) tube placement Code(s): Z93.1 - GASTROSTOMY STATUS Status: Acute (12) S/P thoracostomy tube placement Code(s): Z93.8 - OTHER ARTIFICIAL OPENING STATUS Status: Resolved - Plan Plan: Septic shock (now resolved) 03/29 Pseudomonas and Aspiration Pneumonia with empyema s/p lung decortication and thoracotomy A- CT at admission showed loculated empyema. Decortication 01/21. Right chest tube placed 01/21, removed 02/11. Sputum cultures grew pansensitive pseudomonas. Body fluid cultures grew multiple anaerobes (s/p aspiration, worsened pneumonia) . ID consulted, Dr. Fierro, appreciate recs. -End goal: improved CXR and CRP -CBC stable 02/26 -CXR 02/26: interval decrease in volume of small left pleural effusion, consolidation/abscess/empyema at RLL P-Patient switched from IV rocephin and flagyl to PO augmentin and flagyl -Case management consulted for placement, is working with [facility] now that patient has trach out, hopeful that he will be accepted and can continue PT /speech there; disability application completed Acute Hypoxic Respiratory failure requiring ventilation, resolved A- Pulm following- Appreciate recs. Intubated 01/20. Extubated 01/30. Reintubated 01/31. Trach and PEG 02/02. Receiving tube feeds. Trach was downsized 02/13. Trach capped 02/27. trach decannulated 03/03/19. S/p Steroids given 02/07- 02/11 -BMP stable 02/26 P- Patient to continue working with speech to work on his swallow, swallow study rec ground food and nectar thick Dysphagia A- Pt has PEG tube. ST on board P- continue ST; patient has started to eat ground/nectar thick Severe Physical Deconditioning - PT discharged patient from the program 02/26, patient to continue with the walking program - With walking program 03/03, patient tripped over RW due to impulsivity; walking program suggests further PT Anxiety with Hx of Alcoholism. A- Stable. It has been thought his tachypnea was also due to anxiety. Pt started on Clonazepam BID, Clonidine patch, Zoloft, increased 02/12. P- continue current meds NSTEMI type 2 - likely 2/2 demand ischemia - Cards consulted. Added ASA to regimen. - Echo reviewed Electrolyte abnormalities - Continue to replace as indicated Anemia of Chronic disease, stable - s/p 4U pRBCs - Stable hgb Dry eyes -PRN natural tear drops Sacral ulcer -Wound care consulted Constipation, resolved Loose stools -Metamucil/imodium prn -Miralax changed from scheduled to prn 02/25 due to patient starting to have loose stools Code: Full VTE ppx: Lovenox GI ppx: pepcid Lines/tubes: PEG, PICC L arm Consults: CV surg, pulm, Walking Program/OT/Speech, ID, CM Contact: Mother [phone] Dispo: Patient has required long course of IV antibiotics, Switched to PO abx 03/03. Patient is unfunded, case management consulted for discharge planning, discussing possible placement with [facility]. Continue PT, OT, speech to work on swallow; patient continues to do well. Trach decannulated 03/03. Will continue to monitor respiratory status
[2019-03-04] MEDS: Amoxicillin/Potassium Clav 875 MG TAB PO SCH ×2 (08:58→20:05)
[2019-03-04] MEDS: guaiFENesin 200 MG TAB PER TUBE SCH ×3 (08:58→20:42)
[2019-03-04] MEDS: Aspirin 325 MG TAB PER TUBE SCH (08:58)
[2019-03-04] MEDS: Simethicone Chewable 80 MG TAB PER TUBE SCH ×2 (08:58→20:05)
[2019-03-04] MEDS: metroNIDAZOLE 500 MG TAB PO SCH ×3 (08:58→20:05)
[2019-03-04] MEDS: Famotidine 20 MG TAB PO SCH ×2 (08:58→20:05)
[2019-03-04] MEDS: Metamucil PACK PER TUBE SCH ×2 (08:59→20:05)
[2019-03-04] MEDS: Enoxaparin Sodium 40 MG/0.4 ML SYRINGE SC SCH (08:59)
[2019-03-04] MEDS: Multivits W-Minerals Liquid 15 ML LIQ PER TUBE SCH (09:00)
--- NOTE | 2019-03-04 11:17 | PRG ---
DATE OF SERVICE: 03/04/2019 Mr. Worthy is sitting quietly in bed, in no distress. We are advancing his diet in anticipation of pulling his feeding tube tomorrow. We will pull his PICC line today. Job ID: [id number]
--- NOTE | 2019-03-05 05:30 | PDOC.FM ---
- Subjective Subjective: Patient doing well this morning. Tolerated his diet well yesterday. Discussed what occurred with PT yesterday, with patient reportedly sitting on a garbage can and in other uncommon places. Patient remembers this and states that he felt weak and was tired. He states that if he had had a chair to sit down on, he would have used a chair but he didn't have one. Patient is oriented, knows he is at [facility] in [place], knows the date, knows his name. Discussed that we are working on placement at this time, patient agreeable. - Objective Vital Signs & Weight: Vital Signs (12 hours) Temp Pulse Resp BP Pulse Ox 03/05/19 00:38 81 16 95 03/04/19 20:00 100 03/04/19 19:09 97.7 F 83 18 113/77 100 03/04/19 19:02 79 16 95 Weight Admit Weight 76.2 kg Weight 61.1 kg Most Recent Monitor Data Heart Rate from ECG 89 NIBP 151/84 NIBP BP-Mean 106 Respiration from ECG 26 SpO2 100 I&O: 03/03/19 03/04/19 03/05/19 06:59 06:59 06:59 Intake Total 2290 1160 700 Balance 2290 1160 700 Result Diagrams: 03/02/19 05:40 03/02/19 05:40 Phys Exam - Physical Examination Constitutional: NAD HEENT: moist MMs, sclera anicteric Neck: supple, full ROM bandaging c/d/i Respiratory: no wheezing, no rales Cardiovascular: RRR, no significant murmur Gastrointestinal: soft, non-tender Musculoskeletal: no edema, pulses present Neurological: normal sensation, moves all 4 limbs Psychiatric: normal affect, A&O x 3 Skin: no rash, normal turgor Dx/Plan (1) Acute hypoxemic respiratory failure Code(s): J96.01 - ACUTE RESPIRATORY FAILURE WITH HYPOXIA Status: Resolved (2) Aspiration pneumonia Code(s): J69.0 - PNEUMONITIS DUE TO INHALATION OF FOOD AND VOMIT Status: Acute (3) Empyema Code(s): J86.9 - PYOTHORAX WITHOUT FISTULA Status: Acute (4) Physical deconditioning Code(s): R53.81 - OTHER MALAISE Status: Acute (5) Septic shock Code(s): A41.9 - SEPSIS, UNSPECIFIED ORGANISM; R65.21 - SEVERE SEPSIS WITH SEPTIC SHOCK Status: Resolved (6) Septic shock due to Pseudomonas species Code(s): A41.52 - SEPSIS DUE TO PSEUDOMONAS; R65.21 - SEVERE SEPSIS WITH SEPTIC SHOCK Status: Resolved (7) Tracheostomy dependent Code(s): Z93.0 - TRACHEOSTOMY STATUS Status: Acute (8) Anemia Code(s): D64.9 - ANEMIA, UNSPECIFIED Status: Acute (9) Hypokalemia Code(s): E87.6 - HYPOKALEMIA Status: Resolved (10) NSTEMI (non-ST elevated myocardial infarction) Code(s): I21.4 - NON-ST ELEVATION (NSTEMI) MYOCARDIAL INFARCTION Status: Acute (11) S/P percutaneous endoscopic gastrostomy (PEG) tube placement Code(s): Z93.1 - GASTROSTOMY STATUS Status: Acute (12) S/P thoracostomy tube placement Code(s): Z93.8 - OTHER ARTIFICIAL OPENING STATUS Status: Resolved - Plan Plan: Septic shock (now resolved) 2/2 Pseudomonas and Aspiration Pneumonia with empyema s/p lung decortication and thoracotomy, stable for discharge A- CT at admission showed loculated empyema. Decortication 01/21. Right chest tube placed 01/21, removed 02/11. Sputum cultures grew pansensitive pseudomonas. Body fluid cultures grew multiple anaerobes (s/p aspiration, worsened pneumonia) . ID consulted, Dr. Fierro, appreciate recs. Transitioned patient to PO abx 03/03 -CBC stable 02/26 -CXR 02/26: interval decrease in volume of small left pleural effusion, consolidation/abscess/empyema at RLL P-Patient switched from IV rocephin and flagyl to PO augmentin and flagyl -PICC removed 03/04 -Case management consulted for placement, is working with [facility] now that patient has trach out, hopeful that he will be accepted and can continue PT /speech there; disability application completed Acute Hypoxic Respiratory failure requiring ventilation, resolved; stable for discharge A- Pulm following- Appreciate recs. Intubated 01/20. Extubated 01/30. Reintubated 01/31. Trach and PEG 02/02. Receiving tube feeds. Trach was downsized 02/13. Trach capped 02/27. trach decannulated 03/03/19. S/p Steroids given 02/07- 02/11 -BMP stable 02/26 P- Patient to continue working with speech to work on his swallow, swallow study rec ground food and nectar thick Dysphagia, stable for discharge A- Pt has PEG tube, though eating ground/nectar thick at this time. Peg will likely be removed within the next 1-[address] on board P- continue ST; patient has started to eat ground/nectar thick Severe Physical Deconditioning, stable for discharge - PT discharged patient from the program 02/26, patient to continue with the walking program - With walking program 03/03, patient tripped over RW due to impulsivity; walking program suggests further PT - PT worked with patient 03/04, states he had some abnormal impulsive movements with regard to sitting in uncommon locations; patient is A&O x 3 today on exam, explained that his sitting down was due to him being tired. He appears mentally sound, and getting out of the hospital will likely benefit the patient's future mental state greatly Anxiety with Hx of Alcoholism, stable for discharge A- Stable. It has been thought his tachypnea was also due to anxiety. Pt started on Clonazepam BID, Zoloft, increased 02/12. P- continue current meds NSTEMI type 2, stable for discharge - likely 2/2 demand ischemia - Cards consulted. Added ASA to regimen. - Echo reviewed Electrolyte abnormalities, stable for discharge - Continue to replace as indicated Anemia of Chronic disease, stable for discharge - s/p 4U pRBCs - Stable hgb Dry eyes, stable for discharge -PRN natural tear drops Sacral ulcer, stable for discharge -Wound care consulted Constipation, resolved Loose stools, stable for discharge -Metamucil/imodium prn -Miralax changed from scheduled to prn 02/25 due to patient starting to have loose stools Code: Full VTE ppx: Lovenox GI ppx: pepcid Lines/tubes: PEG Consults: CV surg, pulm, Walking Program/OT/Speech, ID, CM Contact: Mother [phone] Dispo: Patient has required long course of IV antibiotics, Switched to PO abx 03/03. Patient is unfunded, case management consulted for discharge planning, discussing possible placement with [facility]. Continue PT, OT, speech to work on swallow; patient continues to do well. Trach decannulated 03/03. Will continue to monitor respiratory status. Will continue to re-orient patient to his situation; lights on during the day with curtains open, lights off at night, etc
[2019-03-05 05:52] VITALS: BMI 17.2
[2019-03-05] MEDS: Amoxicillin/Potassium Clav 875 MG TAB PO SCH (08:48)
[2019-03-05] MEDS: guaiFENesin 200 MG TAB PER TUBE SCH ×2 (08:48→15:21)
[2019-03-05] MEDS: Famotidine 20 MG TAB PO SCH (08:48)
[2019-03-05] MEDS: metroNIDAZOLE 500 MG TAB PO SCH ×2 (08:48→15:21)
[2019-03-05] MEDS: Aspirin 325 MG TAB PER TUBE SCH (08:48)
[2019-03-05] MEDS: Simethicone Chewable 80 MG TAB PER TUBE SCH (08:48)
[2019-03-05] MEDS: Metamucil PACK PER TUBE SCH (08:49)
[2019-03-05] MEDS: Enoxaparin Sodium 40 MG/0.4 ML SYRINGE SC SCH (08:56)
[2019-03-05] MEDS: Multivits W-Minerals Liquid 15 ML LIQ PER TUBE SCH (08:56)
--- NOTE | 2019-03-05 12:21 | PRG ---
DATE OF SERVICE: 03/05/2019 I have discussed the case with Dr. Jena Cano and agree with her assessment and plan. Mr. Worthy is bright, alert this morning, in no distress. We are still awaiting placement. Job ID: [id number]
[2019-03-05] MEDS ORDERED: Ipratropium Bromide 2.5 ml Neb ONE (13:40)
[2019-03-05 15:26] VITALS: BP 114/77; TEMP 97.9
--- NOTE | 2019-03-06 12:47 | DIS ---
DATE OF ADMISSION: 01/21/2019 DATE OF DISCHARGE: 03/05/2019 ADMITTING RESIDENT: Sasha Gomez MD. ADMITTING ATTENDING: Paola Pang MD. DISCHARGE RESIDENT: Jena Cano MD. DISCHARGE ATTENDING: Raoul Garcia MD. CONSULTS: Cardiology, Cardiovascular Surgery, Gastroenterology, Infectious Disease, Pulmonology, OT, PT, Speech, Wound Care, Case Management. PROCEDURES: 1. Right thoracotomy with total pulmonary decortication on 01/21/2019. 2. Emergent endotracheal intubation on 01/30/2019. 3. Tracheostomy on 02/02/2019. 4. EGD with percutaneous endoscopic gastrostomy placement on 02/02/2019. 5. PICC line placement on left arm on 02/11/2019. 6. Modified barium swallow on 03/03/2019. IMAGING: Chest x-ray, 01/20/2019: Persistent right-sided hydropneumothorax with a right-sided thoracostomy tube. Endotracheal tube, gastric catheter, and right internal jugular central venous catheter. Pulmonary vascular congestion of the right hemothorax. On left, infrahilar space opacity suspicious for atelectasis, pneumonitis, or pneumonia. Small left pleural effusion. The last chest x-ray was done on February 26, 2019, demonstrated interval decrease in volume of small left pleural effusion. Consolidation/abscess/empyema in right lung base is unchanged. Serial CXR were conducted throughout the hospitalization including monitoring the size of the pleural effusion/ consolidation. Chest CT from 01/31/2019: Empyema within the posterior aspect of the right pleural space, as detailed, favored to be loculated and separate from the right thoracostomy tubes, around which no significant fluid remains. Significant bibasilar atelectasis and multifocal infiltrate. Small left pleural effusion. Right 7th rib fracture. PRIMARY DIAGNOSES: Septic shock, resolved, due to Pseudomonas and aspiration pneumonia with empyema; status post lung decortication and thoracotomy; acute hypoxic respiratory failure requiring ventilation, resolved; dysphagia; severe physical deconditioning; anxiety with history of alcoholism; NSTEMI type 2; electrolyte abnormalities, resolved; anemia of chronic disease, stable; dry eyes ; sacral ulcer; constipation and loose stools intermittently. SECONDARY DIAGNOSIS: Medical deconditioning. DISCHARGE MEDICATIONS: 1. Albuterol 2 puffs q.6 hours p.r.n. 2. 875 mg Augmentin p.o. q.12 hours until the February. 3. 325 mg aspirin daily. 4. 500 mg Flagyl p.o. t.i.d. until the February. 5. 2 puffs Asmanex b.i.d. 6. 100 mg sertraline p.o. daily. 7. 80 mg simethicone p.o. daily. DISCONTINUED MEDICATIONS: 1. Tylenol p.r.n. 2. Clonidine 0.2 mg transdermal q.72. 3. Lovenox. 4. Famotidine. 5. DuoNeb. 6. Imodium. 7. Zofran. 8. Pancrelipase. 9. MiraLAX. 10. Psyllium seed HISTORY OF PRESENT ILLNESS/HOSPITAL COURSE: The patient is a 58-year-old male who arrives to the ED via transfer from [place], intubated, sedated and on a Levophed drip. It was reported that he had been sick with a cold that had been worsening over the month prior to admission and was diagnosed with pneumonia at [facility], but they recommended he go to the ER. In the ER, it was reported that he had decompensated requiring intubation and a chest tube, and diagnosed on CT scan. This chest tube at that time had drained 500 mL of purulent fluid. During the span of 01/20 to 02/06, the patient was extubated on 01/30 and then reintubated on 01/31. He received a trach and PEG on 02/02. He also was found to have an NSTEMI type 2, likely due to demand ischemia, for which cardiology was consulted and recommended aspirin. From the dates of 02/09 to 02/19, he was weaned off the Precedex, the chest tube was removed, he was slowly weaned off the ventilator. He was found to be stable enough to be transitioned to the medical floor from CCU. Dr. Fierro from Infectious Disease has been consulted for antibiotic treatment and the patient had a PICC line placed with recommendation to continue IV antibiotics until approximately March 04 with a prolonged course of antibiotics recommended. His tracheostomy was downsized on 02/13, it was capped on 02/27, and it was decannulated on 2019. His PICC line was removed on 03/04 and he was transitioned over to p.o. antibiotics 03/[address] Fierro' recommendation. He had a swallow study that recommended ground foods and nectar thick, after which the patient was allowed to start tolerating p.o. diet which he tolerated well. The PEG tube was left in place while the patient was transitioned over to [facility] in the case that he may need it, but this is not expected and the patient can have the PEG tube removed within the next 1 to 2 days. PT and OT as well as Speech worked with him throughout his hospitalization to continue to help him regain his strength and conditioning. Physical therapy had discharged him from the program on 02/26, and he worked with the walking program for the next several days; however, he was impulsive and had tripped on 03/03, after which they recommended that he work with physical therapy instead. Working with Physical Therapy, they noted that he gets tired and fatigued easily. They also had some concerns for his mental status with regard to impulsivity and decision making. On talking with the patient, he is A & O x3, though he does have some deficiency in his memory and poor understanding of his home life. His social situation has made discharge difficult. The patient could not be discharged home because per his sister, his home is inhabitable, and he used to live at home with his mother who is now in an assisted living facility. The patient does require several more weeks of physical and occupational therapy as well as speech therapy for him to continue strengthening, and thus it was not advised that he go home at this time. At the time of discharge, patient was found to be in stable condition, tolerating his diet well, doing well without his trach, and working well with physical therapy and occupational therapy. All of his medical conditions were stable to transition over to [facility] for continued p.o. antibiotics and for therapy. DISPOSITION: Stable. DISCHARGE INSTRUCTIONS: 1. Location: [facility]. 2. Diet: Heart healthy. 3. Activity: Walking with assistance with a rolling walker. 4. Followup: With primary care within [address] Fierro within 2 to 3 weeks. It should be noted that the antibiotics should be continued until the end of February, and patient should have f/u appointment with Dr. Fierro before antibiotic discontinuation occurs. Job ID: [id number] [facility]
== END 2019-03-05 16:59 | DRG 3 ==
LOC: ERS 23:02 → CCU 01-21 01:27 → IMCU/EMU 02-14 17:43 → T4-A 02-16 22:14
PROVIDERS: ADMIT Family Medicine; ATTEND Family Medicine
PROC: 0BNK0ZZ Release Right Lung, Open Approach (ICD-10-PCS; principal; 2019-01-21)
PROC: 5A1955Z Respiratory Ventilation, Greater than 96 Consecutive Hours (ICD-10-PCS; 2019-01-21)
PROC: 3E033XZ Introduction of Vasopressor into Peripheral Vein, Percutaneous Approach (ICD-10-PCS; 2019-01-21)
PROC: 30233K1 Transfusion of Nonautologous Frozen Plasma into Peripheral Vein, Percutaneous Approach (ICD-10-PCS; 2019-01-21)
PROC: 30233N1 Transfusion of Nonautologous Red Blood Cells into Peripheral Vein, Percutaneous Approach (ICD-10-PCS; 2019-01-21)
PROC: 30233P1 Transfusion of Nonautologous Frozen Red Cells into Peripheral Vein, Percutaneous Approach (ICD-10-PCS; 2019-01-21)
PROC: 02HV33Z Insertion of Infusion Device into Superior Vena Cava, Percutaneous Approach (ICD-10-PCS; 2019-01-21)
PROC: 0BH18EZ Insertion of Endotracheal Airway into Trachea, Via Natural or Artificial Opening Endoscopic (ICD-10-PCS; 2019-01-30)
PROC: 5A1955Z Respiratory Ventilation, Greater than 96 Consecutive Hours (ICD-10-PCS; 2019-01-30)
PROC: 0B110F4 Bypass Trachea to Cutaneous with Tracheostomy Device, Open Approach (ICD-10-PCS; 2019-02-02)
PROC: 0DH63UZ Insertion of Feeding Device into Stomach, Percutaneous Approach (ICD-10-PCS; 2019-02-02)
PROC: 02HV33Z Insertion of Infusion Device into Superior Vena Cava, Percutaneous Approach (ICD-10-PCS; 2019-02-11)
PROC: B548ZZA Ultrasonography of Superior Vena Cava, Guidance (ICD-10-PCS; 2019-02-11)
DX: A41.52 Sepsis due to Pseudomonas (principal); R65.21 Severe sepsis with septic shock; J96.01 Acute respiratory failure with hypoxia; I21.A1 Myocardial infarction type 2; J15.1 Pneumonia due to Pseudomonas; J85.1 Abscess of lung with pneumonia; J69.0 Pneumonitis due to inhalation of food and vomit; E87.1 Hypo-osmolality and hyponatremia; J44.1 Chronic obstructive pulmonary disease with (acute) exacerbation; J44.0 Chronic obstructive pulmonary disease with (acute) lower respiratory infection; E87.6 Hypokalemia; D63.8 Anemia in other chronic diseases classified elsewhere; Y95 Nosocomial condition; L89.152 Pressure ulcer of sacral region, stage 2; R13.12 Dysphagia, oropharyngeal phase; F41.9 Anxiety disorder, unspecified; E83.51 Hypocalcemia; D69.6 Thrombocytopenia, unspecified; K05.30 Chronic periodontitis, unspecified; H04.123 Dry eye syndrome of bilateral lacrimal glands; K59.00 Constipation, unspecified; Z78.1 Physical restraint status
CPT/HCPCS: 36415; 36430; 36556; 36569; 71045; 71046; 71250; 74230; 80048; 80053; 80202; 82274; 82607; 82728; 82746; 82805; 83540; 83550; 83605; 83735; 84100; 84145; 84443; 84484; 85014; 85018; 85025; 85027; 85049; 85060; 86140; 86780; 86803; 86850; 86900; 86901; 87040; 87070; 87076; 87077; 87086; 87186; 87205; 87389; 93005; 93010; 93306; 94002; 94003; 94150; 94640; 94760; 96361; 96365; 96374; 96376; A4218; C1751; C9113; J0696; J1644; J1650; J1940; J1956; J2001; J2060; J2250; J2270; J2543; J2704; J2920; J2997; J3010; J3370; J3475; J3480; J3490; J7050; J7512; J7620; P9016; P9059